=== PATIENT | female | born 1940 | race Caucasian/White ===

== ENCOUNTER 2022-06-18 16:38 | Inpatient (IN) ==
--- NOTE | 2022-06-18 16:46 | ED Triage Note ---
Date of Service June 18, 2022 History of Present Illness This patient was briefly evaluated while in triage. An abbreviated physical exam was performed. This patient is a 81-year-old Female that is referred by PCP. She notes her heart is racing. She was there for routine checkup/wellness visit. No CP or dyspnea. Physical Exam GENERAL: 81 year old female. In no acute distress. SKIN: No lesions or rashes. HEART: IRRR LUNGS: Clear to auscultation. NEURO: Alert and oriented. No deficits. MUSCULOSKELETAL: No deformities to inspection of the extremities. PSYCH: Patient is pleasant and answers all questions appropriately. Initial orders for labs and / or imaging were placed and patient was placed in the waiting area until a bed is available. Please see further documentation for the full ED course.
[2022-06-18 18:18] LABS: Basophils # (auto) 0.06 K/uL (0-0.2); Basophils % (auto) 0.7 %; Eosinophils # (auto) 0.27 K/uL (0-0.50); Eosinophils % (auto) 3.2 %; Hematocrit (blood only) 44.2 % (34.1-44.9); Hemoglobin 14.9 g/dl (12.0-16.0); Immature Granulocytes # (auto) 0.02 K/uL (0.00-0.02); Immature Granulocytes % (auto) 0.2 %; Lymphocytes # (auto) 1.82 K/uL (1.2-3.4); Lymphocytes % (auto) 21.3 %; Mean Corpuscular Hemoglobin 33.3 pg (25.0-34.0); Mean Corpuscular Hgb Conc 33.7 g/dL (32.0-36.0); Mean Corpuscular Volume 98.9 fL (80.0-100.0); Mean Platelet Volume 9.2 fL (9.4-12.3); Monocytes # (auto) 0.83 K/uL (0.24-0.82); Monocytes % (auto) 9.7 %; Neutrophils # (auto) 5.55 K/uL (1.4-6.5); Neutrophils % (auto) 64.9 %; Platelet Count 228 K/uL (130-400); Red Blood Count 4.47 M/uL (3.93-5.22); White Blood Count 8.55 K/ul (4.8-10.8)
[2022-06-18] MEDS ORDERED: SODIUM CHLORIDE 0.9% 500 ML IV ONE (18:22)
[2022-06-18] MEDS ORDERED: dilTIAZem HCl 5 MG/ML 5 ML VIAL IV STA ×3 (18:22→19:50)
--- NOTE | 2022-06-18 18:28 | Emergency Department Note ---
Impression & Plan Atrial fibrillation with rapid ventricular response, Elevated troponin I level ED Provider Note NAME: HONORIO KHAN AGE: 81 SEX: F : 1940 ARRIVES VIA: Walk-In INFORMANT: Patient, ED PROVIDER(S): Brice Liang DO CHIEF COMPLAINT: Palpitations HPI: The patient is an 81-year-old female who has a history of hypertension who presented to the emergency department at the request of her primary care physician. The patient states that she went to see her primary care physician today for a well check. She is not feeling bad at all. She denies having any chest pain or difficulty breathing. She denies having any shortness of breath with exertion. The patient states that when her family doctor listen to her heart she was noted to be in a dysrhythmia. She was sent to the emergency department for further evaluation. She denies having any headache. She denies having any falls. She has no history of thyroid dysfunction. She states that she has been eating and drinking normally. The patient states she has no hi story of atrial fibrillation specifically. She states that she has been able to ambulate and walk without any difficulty. She has no history of stroke. ROS: See above HPI for pertinent positives & negatives. A total of 10 systems reviewed and were otherwise negative. PAST MEDICAL HISTORY: See Below PAST SURGICAL HISTORY: See Below FAMILY HISTORY: See Below SOCIAL HISTORY: See Below HOME MEDICATIONS: See Below ALLERGIES: See Below VITALS: See Below PHYSICAL EXAMINATION: GENERAL: Patient is awake alert in no acute distress patient is resting comfortably and showing no signs of anxiety EYES: The conjunctivae are clear. The pupils are round and reactive. EARS, NOSE, MOUTH AND THROAT: The nose is without any evidence of any deformity. NECK: The neck is nontender and supple. RESPIRATORY: Normal respiratory effort is noted there is no evidence of wheezing rhonchi or rales CARDIOVASCULAR: Tachycardic and irregular heart sounds were noted auscultation. There is no definite murmur. GASTROINTESTINAL: The abdomen is soft. Abdomen is nontender. MUSCULOSKELETAL/EXTREMITIES: There is no evidence of gross deformity full range of motion is noted in the hips and shoulders. SKIN: There is no obvious evidence of any rash. There are no petechiae, pallor or cyanosis noted. NEUROLOGIC: Patient is awake alert and oriented x3 MEDICAL DECISION MAKING: The patient is an 81-year-old female who presented to the emergency department for an evaluation of palpitations. The patient had very minimal symptoms and was evaluated by her primary care physician today. She was noted to have irregular and fast heart sounds. She was sent to the emergency department for further evaluation. She appears to have atrial fibrillation with RVR. I discussed the patient's laboratory and radiographic studies with her. She was treated with IV fluids and IV Cardizem in the emergency department. Her rate improved but she continued to have RVR with atrial fibrillation. Given this is a new diagnosis for the patient I discussed her condition with the on-call [facility] hospitalist. They have agreed to evaluate the patient in the [facility] department for further management and disposition. Likely the patient will require further work-up as well as the addition of anticoagulants. I will defer this to the admitting team. Triage Nursing notes reviewed. Prior medical records reviewed Vital Signs: reviewed and remarkable for tachycardia and hypertension. Differential diagnosis: Premature contractions, electrolyte abnormality, cardiac dysrhythmia, thyroid dysfunction, pulmonary embolism, infection, gastrointestinal, as well as other pathologies. ER treatment provided: See below Diagnostics interpreted by me: ECG: EKG was obtained in the emergency department. My interpretation is atrial fibrillation at 141 bpm. There was no ectopy. Nonspecific ST segment abnormalities were noted. No previous tracing was available. Cardiac Monitoring: An order was placed for continuous cardiac monitoring. The monitor shows a rate of 127 bpm with atrial fibrillation with RVR. Laboratory studies: As stated above and show below. Imaging studies: See below Consultation(s): I discussed this case with Dr. Moreau who is on-call for the [facility]. ED COURSE: Procedures: none Critical Care: I have personally spent greater than 55 minutes of critical care time in the direct management of this patient. This includes bedside care, interpretation of diagnostic studies, and testing, discussion with consultants, patient, and family members, and other required patient management activities. This 55 minutes is in excess of all separately billable procedures. Past Med/Surg History Medical History Anxiety Arthritis Environmental allergies History of COVID-19 04/29/21 (SYMPTOMS>NASAL CONGESTION/HEADACHE/CHILLS) ALL SYMPTOMS RESOLVED History of irregular heartbeat History of skin cancer Hypertension Surgical History H/O shoulder surgery LEFT H/O sinus surgery X 3 History of appendectomy History of colonoscopy History of right cataract surgery History of tooth extraction Family History Other No family history of adverse response to anesthesia Social History Smoking Status: Never smoker Second Hand Exposure: No; Hx Alcohol Use: Yes Alcohol type: wine Preferred Language: Mac[place] Communication Ability: Effective [place] [employer] Required: No Beliefs That Will Affect Care: None Current Living Situation: Spouse Feels Safe at Home: Yes Assistive Devices: None Allergies Allergies Allergy/AdvReac Type Severity Reaction Status Date / Time clams Allergy Intermediate SWOLLEN Verified 06/18/22 20:45 EYES/ITCHING SKIN Penicillins Allergy Intermediate RED, Verified 06/18/22 20:45 SWOLLEN, CRUSTY EYES soy Allergy Intermediate RED, Verified 06/18/22 20:45 SWOLLEN, CRUSTY EYES Home Meds Home Medications Medication Instructions Recorded Confirmed atorvastatin 40 mg tablet 40 mg PO HS 03/30/19 06/18/22 furosemide 20 mg tablet (Lasix) 20 mg PO QAM 03/30/19 06/18/22 losartan 100 mg tablet 100 mg PO QA 03/30/19 06/18/22 buspirone 5 mg tablet 5 mg PO QAM 05/10/21 06/18/22 metoprolol succinate 50 mg 125 mg PO QAM 05/10/21 06/18/22 tablet,extended release 24 hr cetirizine 10 mg tablet (Zyrtec) 10 mg PO DAILY 06/18/22 06/18/22 multivitamin 1 tab PO DAILY 06/18/22 06/18/22 Results & Data (ED) Vital Signs Vital Signs - 24 hr 06/18/22 16:42 06/18/22 18:07 06/18/22 18:13 Temperature 36.3 C L Temperature Source Temporal Artery Scan Pulse Rate 143 H 144 H Pulse Rate [Apical] Pulse Rate from SpO2 Sensor 146 H Pulse Rhythm [Apical] Respiratory Rate 16 26 H Respiratory Effort / Characteristics Respiratory Depth Respiratory Pattern Blood Pressure 193/123 H 180/139 H Blood Pressure [Left Arm] Blood Pressure Mean 146 152 Blood Pressure Mean [Left Arm] Blood Pressure Position [Left Arm] Pulse Oximetry 97 93 Oxygen Delivery Method Room Air Sepsis Recent Fever Within 48 Hours No Sepsis New/Unexplained Change in Mental Status N/A Sepsis Action Taken by Nursing No Action Required 06/18/22 18:13 06/18/22 18:31 06/18/22 18:31 Temperature Temperature Source Pulse Rate 145 H 130 H Pulse Rate [Apical] 130 H Pulse Rate from SpO2 Sensor 152 H Pulse Rhythm [Apical] Respiratory Rate 20 16 16 Respiratory Effort / Characteristics Non-Labored Respiratory Depth Normal Respiratory Pattern Regular Blood Pressure Blood Pressure [Left Arm] 180/139 H Blood Pressure Mean Blood Pressure Mean [Left Arm] 152 Blood Pressure Position [Left Arm] Lying Pulse Oximetry 96 95 95 Oxygen Delivery Method Room Air Room Air Sepsis Recent Fever Within 48 Hours Sepsis New/Unexplained Change in Mental Status Sepsis Action Taken by Nursing 06/18/22 18:45 06/18/22 18:36 06/18/22 18:45 Temperature Temperature Source Pulse Rate 124 H 124 H Pulse Rate [Apical] 120 H Pulse Rate from SpO2 Sensor Pulse Rhythm [Apical] Irregular Respiratory Rate 16 Respiratory Effort / Characteristics Non-Labored Respiratory Depth Normal Respiratory Pattern Regular Blood Pressure 161/116 H 172/115 H Blood Pressure [Left Arm] 172/115 H Blood Pressure Mean 131 134 Blood Pressure Mean [Left Arm] 134 Blood Pressure Position [Left Arm] Lying Pulse Oximetry 94 94 94 Oxygen Delivery Method Room Air Sepsis Recent Fever Within 48 Hours Sepsis New/Unexplained Change in Mental Status Sepsis Action Taken by Nursing 06/18/22 18:45 06/18/22 19:00 06/18/22 19:01 Temperature Temperature Source Pulse Rate 135 H 118 H Pulse Rate [Apical] Pulse Rate from SpO2 Sensor 126 H 123 H Pulse Rhythm [Apical] Respiratory Rate 23 25 H Respiratory Effort / Characteristics Respiratory Depth Respiratory Pattern Blood Pressure 161/104 H Blood Pressure [Left Arm] Blood Pressure Mean 123 Blood Pressure Mean [Left Arm] Blood Pressure Position [Left Arm] Pulse Oximetry 93 94 Oxygen Delivery Method Sepsis Recent Fever Within 48 Hours Sepsis New/Unexplained Change in Mental Status Sepsis Action Taken by Nursing 06/18/22 19:01 06/18/22 19:21 06/18/22 19:30 Temperature Temperature Source Pulse Rate 128 H 133 H 107 H Pulse Rate [Apical] Pulse Rate from SpO2 Sensor 142 H 109 H Pulse Rhythm [Apical] Respiratory Rate 14 25 H Respiratory Effort / Characteristics Respiratory Depth Respiratory Pattern Blood Pressure 161/108 H 180/127 H Blood Pressure [Left Arm] Blood Pressure Mean 125 144 Blood Pressure Mean [Left Arm] Blood Pressure Position [Left Arm] Pulse Oximetry 95 94 95 Oxygen Delivery Method Sepsis Recent Fever Within 48 Hours Sepsis New/Unexplained Change in Mental Status Sepsis Action Taken by Nursing 06/18/22 19:45 06/18/22 19:58 06/18/22 20:00 Temperature Temperature Source Pulse Rate 130 H 120 H 96 H Pulse Rate [Apical] Pulse Rate from SpO2 Sensor 123 H 115 H Pulse Rhythm [Apical] Respiratory Rate 16 25 H 19 Respiratory Effort / Characteristics Respiratory Depth Respiratory Pattern Blood Pressure 163/127 H 186/158 H 169/126 H Blood Pressure [Left Arm] Blood Pressure Mean 139 167 140 Blood Pressure Mean [Left Arm] Blood Pressure Position [Left Arm] Pulse Oximetry 95 94 96 Oxygen Delivery Method Sepsis Recent Fever Within 48 Hours Sepsis New/Unexplained Change in Mental Status Sepsis Action Taken by Nursing 06/18/22 20:16 06/18/22 20:30 06/18/22 20:30 Temperature Temperature Source Pulse Rate 103 H 110 H Pulse Rate [Apical] Pulse Rate from SpO2 Sensor 110 H Pulse Rhythm [Apical] Respiratory Rate 22 21 Respiratory Effort / Characteristics Respiratory Depth Respiratory Pattern Blood Pressure 148/103 H 161/110 H Blood Pressure [Left Arm] Blood Pressure Mean 118 127 Blood Pressure Mean [Left Arm] Blood Pressure Position [Left Arm] Pulse Oximetry 96 96 Oxygen Delivery Method Sepsis Recent Fever Within 48 Hours Sepsis New/Unexplained Change in Mental Status Sepsis Action Taken by Nursing 06/18/22 20:45 06/18/22 21:00 06/18/22 21:00 Temperature Temperature Source Pulse Rate 110 H 122 H Pulse Rate [Apical] Pulse Rate from SpO2 Sensor 116 H 103 H Pulse Rhythm [Apical] Respiratory Rate 22 31 H Respiratory Effort / Characteristics Respiratory Depth Respiratory Pattern Blood Pressure 154/125 H Blood Pressure [Left Arm] Blood Pressure Mean 134 Blood Pressure Mean [Left Arm] Blood Pressure Position [Left Arm] Pulse Oximetry 94 96 Oxygen Delivery Method Sepsis Recent Fever Within 48 Hours Sepsis New/Unexplained Change in Mental Status Sepsis Action Taken by Nursing 06/18/22 21:15 06/18/22 21:15 06/18/22 21:30 Temperature Temperature Source Pulse Rate 116 H Pulse Rate [Apical] Pulse Rate from SpO2 Sensor 108 H Pulse Rhythm [Apical] Respiratory Rate 20 Respiratory Effort / Characteristics Respiratory Depth Respiratory Pattern Blood Pressure 139/109 H 161/101 H Blood Pressure [Left Arm] Blood Pressure Mean 119 121 Blood Pressure Mean [Left Arm] Blood Pressure Position [Left Arm] Pulse Oximetry 95 Oxygen Delivery Method Sepsis Recent Fever Within 48 Hours Sepsis New/Unexplained Change in Mental Status Sepsis Action Taken by Nursing 06/18/22 21:30 06/18/22 21:47 06/18/22 22:00 Temperature Temperature Source Pulse Rate 130 H 141 H 127 H Pulse Rate [Apical] Pulse Rate from SpO2 Sensor 124 H Pulse Rhythm [Apical] Respiratory Rate 20 22 23 Respiratory Effort / Characteristics Respiratory Depth Respiratory Pattern Blood Pressure 157/107 H 178/153 H Blood Pressure [Left Arm] Blood Pressure Mean 123 161 Blood Pressure Mean [Left Arm] Blood Pressure Position [Left Arm] Pulse Oximetry 96 94 96 Oxygen Delivery Method Sepsis Recent Fever Within 48 Hours Sepsis New/Unexplained Change in Mental Status Sepsis Action Taken by [facility] Medications Current Medication List: was personally reviewed by me Laboratory Data Attestation: I reviewed the patient's lab results. Result diagrams: 06/18/22 18:00 06/18/22 18:00 Lab Results 06/18/22 06/18/22 06/18/22 Range/Units 18:00 18:00 18:00 WBC 8.55 (4.8-10.8) K/ul RBC 4.47 (3.93-5.22) M/uL Hgb 14.9 (12.0-16.0) g/dl Hct 44.2 (34.1-44.9) % MCV 98.9 (80.0-100.0) fL MCH 33.3 (25.0-34.0) pg MCHC 33.7 (32.0-36.0) g/dL RDW Std Deviation 47.0 H (36.4-46.3) fL RDW Coeff of Ander 13.0 (11.5-14.5) % Plt Count 228 (130-400) K/uL MPV 9.2 L (9.4-12.3) fL Immature Gran % (Auto) 0.2 % Neut % (Auto) 64.9 % Lymph % (Auto) 21.3 % [place] % (Auto) 9.7 % Eos % (Auto) 3.2 % Baso % (Auto) 0.7 % Neut # (Auto) 5.55 (1.4-6.5) K/uL Lymph # (Auto) 1.82 (1.2-3.4) K/uL [place] # (Auto) 0.83 H (0.24-0.82) K/uL Eos # (Auto) 0.27 (0-0.50) K/uL Baso # (Auto) 0.06 (0-0.2) K/uL Immature Gran # (Auto) 0.02 (0.00-0.02) K/uL PT 11.1 (9.0-12.0) Seconds INR 1.0 (0.9-1.1) APTT 26.9 (21.0-31.0) Seconds PTT Ratio 1.0 Sodium 139 (136-145) mmol/L Potassium 4.3 (3.5-5.1) mmol/L Chloride 103 (98-107) mmol/L Carbon Dioxide 26 (21-32) mmol/L Anion Gap 10 (3-11) BUN 19 (6-23) mg/dl Creatinine 0.89 (0.6-1.2) mg/dl Est Cr Clr Drug Dosing 51.8 ml/min Est GFR ( Amer) 70.9 ml/min Est GFR (Non-Af Amer) 61.2 ml/min BUN/Creatinine Ratio 21.3 H (10-20) Glucose 118 H (70-99(Fasting)) mg/dl Calcium 9.8 (8.5-10.1) mg/dl Magnesium 1.7 (1.7-2.4) mg/dl Total Bilirubin 0.6 (0.2-1.0) mg/dl AST 17 (13-39) U/L ALT 14 (7-52) U/L Alkaline Phosphatase 70 (34-104) U/L Troponin I High Sens 32.8 H (0-14) pg/ml Total Protein 7.6 (6.0-8.3) gm/dl Albumin 4.7 (3.4-5.0) gm/dl Globulin 2.9 (2.5-4.0) gm/dl Albumin/Globulin Ratio 1.6 (0.9-2) TSH (0.300-4.500) uIu/ml Urine Color Urine Appearance (Clear) Urine pH (4.5-7.5) Ur Specific [place] (1.000-1.030) Urine Protein (Negative) Urine Glucose (UA) (Negative) Urine Ketones (Negative) Urine Blood (Negative) Urine Nitrite (Negative) Urine Bilirubin (Negative) Urine Urobilinogen (Negative) Ur Leukocyte Esterase (Negative) Urine WBC (Auto) (0-5) /hpf Urine RBC (Auto) (0-4) /hpf U Hyaline Cast (Auto) (0-5) /lpf U Epithel Cells (Auto) (0-5) /lpf Urine Bacteria (Auto) (Negative) SARS-CoV-2, RNA, NAAT (NEGATIVE) 06/18/22 06/18/22 06/18/22 Range/Units 18:00 18:34 22:10 WBC (4.8-10.8) K/ul RBC (3.93-5.22) M/uL Hgb (12.0-16.0) g/dl Hct (34.1-44.9) % MCV (80.0-100.0) fL MCH (25.0-34.0) pg MCHC (32.0-36.0) g/dL RDW Std Deviation (36.4-46.3) fL RDW Coeff of Ander (11.5-14.5) % Plt Count (130-400) K/uL MPV (9.4-12.3) fL Immature Gran % (Auto) % Neut % (Auto) % Lymph % (Auto) % [place] % (Auto) % Eos % (Auto) % Baso % (Auto) % Neut # (Auto) (1.4-6.5) K/uL Lymph # (Auto) (1.2-3.4) K/uL [place] # (Auto) (0.24-0.82) K/uL Eos # (Auto) (0-0.50) K/uL Baso # (Auto) (0-0.2) K/uL Immature Gran # (Auto) (0.00-0.02) K/uL PT (9.0-12.0) Seconds INR (0.9-1.1) APTT (21.0-31.0) Seconds PTT Ratio Sodium (136-145) mmol/L Potassium (3.5-5.1) mmol/L Chloride (98-107) mmol/L Carbon Dioxide (21-32) mmol/L Anion Gap (3-11) BUN (6-23) mg/dl Creatinine (0.6-1.2) mg/dl Est Cr Clr Drug Dosing ml/min Est GFR ( Amer) ml/min Est GFR (Non-Af Amer) ml/min BUN/Creatinine Ratio (10-20) Glucose (70-99(Fasting)) mg/dl Calcium (8.5-10.1) mg/dl Magnesium (1.7-2.4) mg/dl Total Bilirubin (0.2-1.0) mg/dl AST (13-39) U/L ALT (7-52) U/L Alkaline Phosphatase (34-104) U/L Troponin I High Sens (0-14) pg/ml Total Protein (6.0-8.3) gm/dl Albumin (3.4-5.0) gm/dl Globulin (2.5-4.0) gm/dl Albumin/Globulin Ratio (0.9-2) TSH 2.549 (0.300-4.500) uIu/ml Urine Color Yellow Urine Appearance Clear (Clear) Urine pH 6.5 (4.5-7.5) Ur Specific [place] 1.013 (1.000-1.030) Urine Protein Negative (Negative) Urine Glucose (UA) Negative (Negative) Urine Ketones Trace H (Negative) Urine Blood Negative (Negative) Urine Nitrite Negative (Negative) Urine Bilirubin Negative (Negative) Urine Urobilinogen Negative (Negative) Ur Leukocyte Esterase 1+ H (Negative) Urine WBC (Auto) 10-30 H (0-5) /hpf Urine RBC (Auto) 0-4 (0-4) /hpf U Hyaline Cast (Auto) 0 (0-5) /lpf U Epithel Cells (Auto) >30 H (0-5) /lpf Urine Bacteria (Auto) Negative (Negative) SARS-CoV-2, RNA, NAAT NEGATIVE (NEGATIVE) Administered Medications Discontinued Medications Diltiazem HCl (Diltiazem Hcl 5 Mg/Ml 5 Ml Vial) 10 mg IV NOW STA Stop: 06/18/22 18:23 Last Admin: 06/18/22 18:26 Dose: 10 mg Documented By: SR Co-signed By: CARLA Diltiazem HCl (Diltiazem Hcl 5 Mg/Ml 5 Ml Vial) 10 mg IV NOW STA Stop: 06/18/22 19:11 Last Admin: 06/18/22 19:14 Dose: 10 mg Documented By: HAYES Co-signed By: WAYNE Diltiazem HCl (Diltiazem Hcl 5 Mg/Ml 5 Ml Vial) 10 mg IV NOW STA Stop: 06/18/22 19:51 Last Admin: 06/18/22 19:55 Dose: 10 mg Documented By: HAYES Co-signed By: HANS Sodium Chloride (Nss) 500 mls @ 999 mls/hr IV .Q31M ONE Stop: 06/18/22 18:52 Last Infusion: 06/18/22 19:09 Dose: 0 mls/hr Documented By: Admin: 06/18/22 18:25 Dose: 999 mls/hr Documented By: SR Imaging Data Radiologist's Impression: Chest X-Ray 06/18/22 16:46 XR chest 1V portable HISTORY: Tachycardia COMPARISON: None. FINDINGS: The cardiac silhouette is mildly enlarged. There is a mildly tortuous thoracic aorta. No focal lung consolidations to suggest a pneumonia. No evidence for pulmonary edema. No pleural effusions. No pneumothorax. Old posttraumatic changes at the left humeral head. IMPRESSION: Mild cardiomegaly. Otherwise, no acute process within the chest. ACT 112: Negative or not required by law. Electronically signed by: Derek Jordan M.D. 06/18/2022 6:42 PM Discharge Plan Visit Data Chief Complaint: Hypertension Stated Complaint: REFERRED BY DOCTOR,RACING HEART, HIGH BLOOD PRESSU ED Provider: Brice Liang Discharge Problem: Atrial fibrillation with rapid ventricular response, Elevated troponin I level Patient Disposition: Being Evaluated by Hospitalist Forms Stand Alone Forms: My [facility] [employer] Prescriptions Prescriptions: No Action atorvastatin 40 mg Tablet 40 mg PO HS Label Comments: HS furosemide [Lasix] 20 mg Tablet 20 mg PO QAM losartan 100 mg Tablet 100 mg PO QAM multivitamin Tablet 1 tab PO DAILY cetirizine [Zyrtec] 10 mg Tablet 10 mg PO DAILY buspirone 5 mg Tablet 5 mg PO QAM metoprolol succinate 50 mg Tablet Extended Release 24 Hr 125 mg PO QAM Rx Instructions: TAKES 2 1/2 TABS Referrals Referrals: Triny Mckenna MD [Primary Care Provider] -
[2022-06-18 18:32] LABS: Partial Thromboplastin Time 26.9 Seconds (21.0-31.0); Prothrombin Time 11.1 Seconds (9.0-12.0)
--- NOTE | 2022-06-18 18:43 | XRay Report ---
XR chest 1V portable HISTORY: Tachycardia COMPARISON: None. FINDINGS: The cardiac silhouette is mildly enlarged. There is a mildly tortuous thoracic aorta. No fo bobby lung consolidations to suggest a pneumonia. No evidence for pulmonary edema. No pleural effusions . No pneumothorax. Old posttraumatic changes at the left humeral head. IMPRESSION: Mild cardiomegaly. Otherwise, no acute process within the chest. ACT 112: Negative or not required by law. Electronically signed by: Derek Jordan M.D. 06/18/2022 6:42 PM
[2022-06-18 18:53] LABS: Troponin I High Sensitivity 32.8 pg/ml (0-14)
[2022-06-18 19:18] LABS: Albumin Globulin Ratio 1.6 (0.9-2); Albumin Level 4.7 gm/dl (3.4-5.0); BUN Creatinine Ratio 21.3 (10-20); Bilirubin,Total 0.6 mg/dl (0.2-1.0); Calcium 9.8 mg/dl (8.5-10.1); Creatinine Clr Calc Pharmacy 51.8 ml/min; Est GFR (African American) 70.9 ml/min; Est GFR (Non-African American) 61.2 ml/min; Globulin 2.9 gm/dl (2.5-4.0); Magnesium 1.7 mg/dl (1.7-2.4); Potassium 4.3 mmol/L (3.5-5.1); Total Protein 7.6 gm/dl (6.0-8.3)
[2022-06-18 22:27] LABS: Appearance Urine Clear (Clear); Bacteria Urine Automated Negative (Negative); Bilirubin Urine Negative (Negative); Blood Urine Negative (Negative); Cast Urine Automated 0 /lpf (0-5); Color Urine Yellow; Epithelial Cell Urine Auto >30 /lpf (0-5); Glucose Urine UA Negative (Negative); Ketones Urine Trace (Negative); Leukocyte Esterase Urine 1+ (Negative); Nitrite Urine Negative (Negative); Protein Urine Negative (Negative); RBC Urine Automated 0-4 /hpf (0-4); Specific Gravity Urine 1.013 (1.000-1.030); Urobilinogen Urine Negative (Negative); pH Urine 6.5 (4.5-7.5)
[2022-06-18] MEDS ORDERED: STAT IV Infusion **Titration per Protocol STA (22:42)
[2022-06-18] MEDS: dilTIAZem HCL 125 MG in DEXTROSE 5% 100 ML IV SCH (23:15)
--- NOTE | 2022-06-19 00:01 | History and Physical Report ---
DATE OF ADMISSION: 06/18/2022. CHIEF COMPLAINT: Rapid AFib. HISTORY OF PRESENT ILLNESS: An 81-year-old female with past medical history significant for hyperlipidemia, prediabetes, allergic rhinitis, hypertension, primary osteoarthritis, presents with rapid atrial fibrillation. The patient went to family doctor for a wellness check when she was found to be in rapid AFib and was sent to the hospital, requiring a few doses of diltiazem . Her heart rate was 140s when she came in. Currently, resting comfortably, hemodynamically stable. The patient did not feel any palpitations or any chest pain and she even walked her dog 2 to 3 miles in the morning, did not have any symptoms. No using of [id number] medications. She is on metoprolol succinate. She says she did miss the medications. Denies any headache. No blurred vision, double vision. No earache. She has some runny nose from allergies. No sore throat. No cough. Appetite is okay. No difficulty swallowing. No chest pain, no shortness of breath, no nausea, no vomiting, no abdominal pain. Normal bowel and bladder movements. No swelling in the legs. ALLERGIES: CLAMS, PENICILLINS, SOY. PAST MEDICAL HISTORY: As mentioned above. PAST SURGICAL HISTORY: Appendectomy, colonoscopy, cataract surgery, shoulder surgery, sinus surgery, endovenous ablation of incompetent vein on the right side. MEDICATIONS: The patient is on atorvastatin 40 mg p.o. at bedtime, buspirone 5 mg p.o. a.m., Zyrtec 10 mg p.o. daily, Lasix 20 mg p.o. a.m., losartan 100 mg p.o. daily, metoprolol succinate 125 mg p.o. a.m., multivitamin 1 tablet p.o. daily. FAMILY HISTORY: Significant for father had heart disease, hypertension, mother had hypertension, pancreatic cancer. SOCIAL HISTORY: , no smoking, alcohol occasional. No drug use. REVIEW OF SYSTEMS: As per HPI. Rest of review of systems is negative. PHYSICAL EXAMINATION: GENERAL: The patient is of moderate build, not in acute distress. VITAL SIGNS: Temperature 36.3, pulse 127, respiratory rate 23, blood pressure 178/153, oxygen 96% on room air. HEENT: Pupils equal, round and reactive to light. Oral mucosa moist. NECK: No JVD or neck masses. CARDIOVASCULAR: S1 and S2 heard, tachycardia, irregular rhythm. No murmurs. RESPIRATORY SYSTEM: Normal AP diameter. No accessory muscle use. No wheezing, no crackles. ABDOMEN: Soft, bowel sounds present, nontender, no distention. CENTRAL NERVOUS SYSTEM: Cranial nerves II-XII grossly intact, nonfocal. EXTREMITIES: No edema, no erythema. LABORATORY DATA: WBC 8.5, hemoglobin 14.9, hematocrit 44.2, platelets 228. PT 11.1, INR 1, APTT 26.9. Sodium 139, potassium 4.3, chloride 103, bicarb 26, BUN 19, creatinine 0.8, serum glucose 118, calcium 9.8, magnesium 1.7, total bilirubin 0.6, AST 17, ALT 14, alkaline phosphatase 70. Troponin I high sensitivity 22.8. TSH 2.5. Urinalysis, +1 leukocyte esterase, bacteria negative. SARS-CoV-2 rapid test negative. IMAGING DATA: Chest x-ray, no acute findings, mild cardiomegaly. EKG: AFib with rapid ventricular response at a rate of 141. No acute st changes seen. ASSESSMENT AND PLAN: This is an 81-year-old female who presents with rapid atrial fibrillation. 1. Rapid atrial fibrillation, new onset: Started on Cardizem drip, IV heparin. Continue home metoprolol, monitor in tele floor, n.p.o. after midnight. Echocardiogram, serial cardiac enzymes and consult cardiology in the a.m. 2. Hypertension: Continue losartan and metoprolol and on lasix.. Currently, getting Cardizem. Monitor the blood pressure. 3. History of hyperlipidemia: Continue statin. 4. Allergic rhinitis: On Zyrtec. 5. History of prediabetes: We will follow the HbA1c levels. Currently n.p.o. 6. Deep venous thrombosis prophylaxis: On IV heparin. DISPOSITION: Closely monitor in the tele floor. Level 1 full code. Expect to discharge home and follow with family doctor. Job ID: [id number] [facility]ITALChato
[2022-06-19] MEDS ORDERED: NITROGLYCERIN SL 0.4 MG/TAB TAB SL PRN (01:24)
[2022-06-19] MEDS ORDERED: HEPARIN SODIUM/DEXTROSE 25,000 UNITS/500 ML BAG IV SCH (01:24)
[2022-06-19] MEDS ORDERED: ACETAMINOPHEN 325 MG TAB PO PRN (01:24)
[2022-06-19] MEDS ORDERED: POLYETHYLENE (MIRALAX) 17 GM PACK PO PRN (01:24)
[2022-06-19] MEDS ORDERED: Heparin IV Adult Wt-Based Standard *NO* Bolus Protocol IV STA (01:32)
[2022-06-19] MEDS: ATORVASTATIN 40 MG TAB PO SCH ×2 (03:36→21:22)
[2022-06-19 06:11] LABS: Basophils # (auto) 0.04 K/uL (0-0.2); Basophils % (auto) 0.5 %; Eosinophils # (auto) 0.35 K/uL (0-0.50); Eosinophils % (auto) 4.6 %; Hematocrit (blood only) 38.3 % (34.1-44.9); Hemoglobin 13.2 g/dl (12.0-16.0); Immature Granulocytes # (auto) 0.02 K/uL (0.00-0.02); Immature Granulocytes % (auto) 0.3 %; Lymphocytes # (auto) 1.58 K/uL (1.2-3.4); Lymphocytes % (auto) 20.8 %; Mean Corpuscular Hemoglobin 33.1 pg (25.0-34.0); Mean Corpuscular Hgb Conc 34.5 g/dL (32.0-36.0); Mean Platelet Volume 9.3 fL (9.4-12.3); Monocytes # (auto) 0.75 K/uL (0.24-0.82); Monocytes % (auto) 9.9 %; Neutrophils # (auto) 4.84 K/uL (1.4-6.5); Neutrophils % (auto) 63.9 %; Platelet Count 202 K/uL (130-400); RDW Coefficient of Variation 12.7 % (11.5-14.5); RDW Standard Deviation 45.1 fL (36.4-46.3); Red Blood Count 3.99 M/uL (3.93-5.22); White Blood Count 7.58 K/ul (4.8-10.8)
[2022-06-19 06:40] LABS: Troponin I High Sensitivity 23.2 pg/ml (0-14)
[2022-06-19 07:21] LABS: BUN Creatinine Ratio 19.7 (10-20); Calcium 8.9 mg/dl (8.5-10.1); Creatinine Clr Calc Pharmacy 75.5 ml/min; Est GFR (African American) 99.2 ml/min; Est GFR (Non-African American) 85.6 ml/min; Magnesium 1.6 mg/dl (1.7-2.4); Potassium 3.4 mmol/L (3.5-5.1)
[2022-06-19 07:35] LABS: Estimated Average Glucose 117 mg/dl; Hemoglobin A1C 5.7 % (4.5-5.6)
--- NOTE | 2022-06-19 07:45 | Cardiology Consultation ---
Date of Consultation June 19, 2022 Assessment & Plan (1) Atrial fibrillation with rapid ventricular response: (2) Elevated troponin: (3) Hypertension: Plan 81 year old female with newly discovered AFIB, unknown duration. Patient asymptomatic. The pathophysiology of atrial fib was discussed with the patient in detail. Discussed rate vs rhythm management. Echo pending. -Given lack of symptoms will first attempt rate control until echocardiogram results are received. Should heart rates remain elevated can consider ADAMARIS guided DCCV tomorrow morning. Will plan to make NPO at midnight. Okay to eat today. -For now, recommend increasing Metoprolol to 150 mg daily will given an additional 25 mg this am. -Restart Diltazem gtt as ordered. -Currently on Heparin infusion- continue. Future considerations of transitioning to Eliquis vs Coumadin. Will consult case management to investigate cost of Eliquis for this patient. -Continue to trend renal function. Replace potassium for a goal of 4.0 (40 meq given this am) and a mag goal of 2.0 (replaced this am) -Recommend outpatient sleep medicine referral for screening of SHANIA as a cause of her AFIB. Can also consider an outpatient nuclear stress to rule out ischemic cause. Case discussed with Dr. Kendall- will follow. Supervising Physician Co-Signing Physician Notes Supervising Physician Attestation: I have personally performed a history and physical examination on the patient. I agree with the physician assistant account executive's findings and plan as documented with the following additions. Subjective: Patient asymptomatic. Since initiation of IV diltiazem, ventricular rates have improved from 130 bpm down to 100 bpm. Exam: Cardiovascular tachycardic, regular rhythm, no murmurs, no edema Data: Potassium 3.4 EKG performed 06/19/2022: Atrial fibrillation at 111 bpm, age-indeterminate septal infarction pattern noted in lead V2. Mild nonspecific T wave flattening. Echocardiogram performed today 06/19/2022: Atrial fibrillation with rapid ventricular response present during study LVEF normal 60-65% Mild concentric left ventricular hypertrophy. The left atrium is moderately dilated Moderate aortic valve sclerosis without stenosis present. Mild tricuspid regurgitation Assessment and Plan: Newly recognized atrial fibrillation with rapid ventricular spots. -Patient's last in person visit with primary care provider had been in November, eart rate normal then -She has been on metoprolol for the treatment of hypertension since 2019, with dose having been titrated from 50 mg daily to 125 mg daily over the last few years. -She notes having had a COVID-19 booster about 3 days ago, with no subjective side effects. Her [id number] score is at least 4 for risk factors of being female, hypertension, and age over 75. Agree with heparin for stroke prophylaxis. Potassium has been replaced. Metoprolol succinate dose increased to 150 mg daily, short-term diltiazem infusion. Depending upon patient's course, will discuss rate control and anticoagulation and outpatient follow-up or ADAMARIS cardioversion. Gee Kendall DO History of Present Illness Reason for Consultation: New onset atrial fibrillation- unknown duration Requesting Physician: Francis gonzales Attending Physician: Jan Rasheed MD History of Present Illness 81-year-old female initially seen by her PCP yesterday for a wellness check. At this time she was found to be in rapid atrial fibrillation, heart rates in the 140s. Patient was asymptomatic. She was referred to the emergency department for further care. She was given IV fluids and IV diltiazem. Heart rates improved but she remained in atrial fibrillation. She was started on IV heparin for anticoagulation. EKG 06/18: A. fib with RVR, [address] abnormality Labs: Mild hypokalemia noted, 3.4. Magnesium low, 1.6. High-sensitivity troponin slightly elevated but flat (32.8>>23.2) Chest x-ray: Mild cardiomegaly with no acute processes Echo 06/19: Pending Chart and telemetry reviewed. Patient seen and examined at bedside Tele: AFIB 110-140s Upon entrance into the room patient resting comfortably in bed. No acute concerns. Patient is asymptomatic with her AFIB. No chest pain, sob, or palpitations. No dizziness or recent syncope. Normally very active walks 2-3 miles twice per day with her dog. No exertional symptoms. Good exercise stamina. Denies any prior cardiac history- history of CAD/CO, valvular heart disease, rheumatic fever. Never been tested of SHANIA- does snore, denies daytime fatigue. Past medical history: Hypertension History of hyponatremia on hydrochlorothiazide, leg swelling on amlodipine Dyslipidemia Prediabetes Hx of Peptic ulcer due to excessive ASA use in her 50s. Allergies Allergy/AdvReac Type Severity Reaction Status Date / Time clams Allergy Intermediate SWOLLEN Verified 06/18/22 20:45 EYES/ITCHING SKIN Penicillins Allergy Intermediate RED, Verified 06/18/22 20:45 SWOLLEN, CRUSTY EYES soy Allergy Intermediate RED, Verified 06/18/22 20:45 SWOLLEN, CRUSTY EYES Home Medications Medication Instructions Recorded Confirmed Type atorvastatin 40 mg tablet 40 mg PO HS 03/30/19 06/18/22 History furosemide 20 mg tablet (Lasix) 20 mg PO QAM 03/30/19 06/18/22 History losartan 100 mg tablet 100 mg PO QAM 03/30/19 06/18/22 History buspirone 5 mg tablet 5 mg PO QAM 05/10/21 06/18/22 History metoprolol succinate 50 mg 125 mg PO QAM 05/10/21 06/18/22 History tablet,extended release 24 hr cetirizine 10 mg tablet (Zyrtec) 10 mg PO DAILY 06/18/22 06/18/22 History multivitamin 1 tab PO DAILY 06/18/22 06/18/22 History Patient History Medical History (Updated 06/19/22 @ 07:52 by CHRISTINE Lucero) Anxiety Arthritis Environmental allergies History of COVID-19 04/29/21 (SYMPTOMS>NASAL CONGESTION/HEADACHE/CHILLS) ALL SYMPTOMS RESOLVED History of irregular heartbeat History of skin cancer Hypertension Surgical History H/O shoulder surgery LEFT H/O sinus surgery X 3 History of appendectomy History of colonoscopy History of right cataract surgery History of tooth extraction Family History Other No family history of adverse response to anesthesia Social History Smoking Status: Never smoker Second Hand Exposure: No; Do You Dip or Chew Tobacco: No; Tobacco Cessation Education Requested by Patient: No Hx Alcohol Use: No Hx Substance Use: No Preferred Language: Norwegian Communication Ability: Effective Sociology Research Assistant Required: No Beliefs That Will Affect Care: None Current Living Situation: Spouse Other Information That Helps Us Care for You: No Feels Safe at Home: Yes Assistive Devices: None Review of Systems Review of Systems: All systems reviewed & are unremarkable except as noted in HPI & below Physical Exam Constitutional: WD/WN, vitals as above Eyes: PERRL, conjunctivae normal, anicteric sclerae Neck: normal visual inspection and trachea midline Respiratory: normal respiratory effort, lungs clear to auscultation Cardiovascular: Rate/Rhythm: + tachycardic and + irregularly irregular Heart Sounds: normal S1 and normal S2; no murmur Vessels: normal peripheral pulses; no JVD Extremities: no edema Gastrointestinal (Abdomen): normal bowel sounds, soft, nontender, no hepatosplenomegaly Skin: no rashes, warm and dry Psychiatric: A+Ox3, euthymic affect Results & Data ([facility]) Vital Signs (Past 12 Hours) Vital Signs Temp Pulse Pulse Resp BP BP Pulse Ox 06/19/22 04:45 108 H 23 114/78 93 06/19/22 04:30 126 H 141/93 H 06/19/22 04:15 112 H 18 94 06/19/22 04:15 112 H 18 123/91 94 06/19/22 04:00 115 H 19 150/99 H 93 06/19/22 03:30 104 H 16 95 06/19/22 03:15 106 H 18 144/99 H 94 06/18/22 20:08 36.8 C 102 H 16 144/99 H 94 06/19/22 03:00 120 H 15 145/97 H 94 06/19/22 02:45 117 H 17 142/107 H 94 06/19/22 02:30 105 H 22 148/109 H 06/19/22 02:15 100 H 22 138/117 H 06/19/22 02:00 121 H 18 136/102 H 92 06/19/22 01:45 109 H 20 132/93 06/19/22 01:30 101 H 19 127/94 91 06/19/22 01:15 111 H 19 123/96 93 06/19/22 01:00 131 H 20 142/106 H 94 06/19/22 00:45 119 H 19 144/99 H 94 06/19/22 00:30 112 H 19 144/114 H 94 06/19/22 01:24 108 H 16 06/19/22 00:15 117 H 16 158/106 H 94 06/19/22 00:00 133 H 21 135/114 H 95 06/18/22 23:45 127 H 21 161/107 H 95 06/18/22 23:17 126 H 23 157/121 H 94 06/18/22 23:00 138 H 26 H 157/119 H 95 06/18/22 22:45 135 H 19 164/138 H 96 06/18/22 22:31 110 H 19 151/123 H 96 06/18/22 22:16 139 H 19 141/118 H 95 06/18/22 22:00 127 H 23 178/153 H 96 06/18/22 21:47 141 H 22 157/107 H 94 06/18/22 21:30 130 H 20 96 06/18/22 21:30 161/101 H 06/18/22 21:15 116 H 20 95 06/18/22 21:15 139/109 H 06/18/22 21:00 122 H 31 H 96 06/18/22 21:00 154/125 H 06/18/22 20:45 110 H 22 94 06/18/22 20:30 110 H 21 96 06/18/22 20:30 161/110 H 06/18/22 20:16 103 H 22 148/103 H 96 06/18/22 20:00 96 H 19 169/126 H 96 06/18/22 19:58 120 H 25 H 186/158 H 94 06/18/22 19:45 130 H 16 163/127 H 95 O2 Del Method 06/19/22 04:45 06/19/22 04:30 06/19/22 04:15 06/19/22 04:15 06/19/22 04:00 06/19/22 03:30 06/19/22 03:15 06/18/22 20:08 Room Air 06/19/22 03:00 Room Air 06/19/22 02:45 06/19/22 02:30 06/19/22 02:15 06/19/22 02:00 06/19/22 01:45 06/19/22 01:30 Room Air 06/19/22 01:15 06/19/22 01:00 06/19/22 00:45 Room Air 06/19/22 00:30 Room Air 06/19/22 01:24 Room Air 06/19/22 00:15 06/19/22 00:00 06/18/22 23:45 06/18/22 23:17 06/18/22 23:00 06/18/22 22:45 06/18/22 22:31 06/18/22 22:16 06/18/22 22:00 06/18/22 21:47 06/18/22 21:30 06/18/22 21:30 06/18/22 21:15 06/18/22 21:15 06/18/22 21:00 06/18/22 21:00 06/18/22 20:45 06/18/22 20:30 06/18/22 20:30 06/18/22 20:16 06/18/22 20:00 06/18/22 19:58 06/18/22 19:45 Laboratory Results Cardiac Enzymes 06/18/22 06/19/22 Range/Units 18:00 05:27 AST 17 (13-39) U/L Troponin I High Sens 32.8 H 23.2 H (0-14) pg/ml Coagulation 06/18/22 06/19/22 Range/Units 18:00 07:42 PT 11.1 (9.0-12.0) Seconds APTT 26.9 49.3 H* (21.0-31.0) Seconds CBC 06/18/22 06/19/22 Range/Units 18:00 05:27 WBC 8.55 7.58 (4.8-10.8) K/ul RBC 4.47 3.99 (3.93-5.22) M/uL Hgb 14.9 13.2 (12.0-16.0) g/dl Hct 44.2 38.3 (34.1-44.9) % Plt Count 228 202 (130-400) K/uL Neut # (Auto) 5.55 4.84 (1.4-6.5) K/uL Lymph # (Auto) 1.82 1.58 (1.2-3.4) K/uL [place] # (Auto) 0.83 H 0.75 (0.24-0.82) K/uL Eos # (Auto) 0.27 0.35 (0-0.50) K/uL Baso # (Auto) 0.06 0.04 (0-0.2) K/uL Comprehensive Metabolic Panel 06/18/22 06/19/22 Range/Units 18:00 05:27 Sodium 139 139 (136-145) mmol/L Potassium 4.3 3.4 L D (3.5-5.1) mmol/L Chloride 103 105 (98-107) mmol/L Carbon Dioxide 26 24 (21-32) mmol/L BUN 19 12 (6-23) mg/dl Creatinine 0.89 0.61 (0.6-1.2) mg/dl Glucose 118 H 126 H (70-99(Fasting)) mg/dl Calcium 9.8 8.9 (8.5-10.1) mg/dl AST 17 (13-39) U/L ALT 14 (7-52) U/L Alkaline Phosphatase 70 (34-104) U/L Total Protein 7.6 (6.0-8.3) gm/dl Albumin 4.7 (3.4-5.0) gm/dl Intake and Output 06/18/22 06/19/22 06/19/22 22:59 06:59 14:59 Intake Total 500 / 514.584 14.584 / 514.584 90.25 / 90.25 Balance 500 / 514.584 14.584 / 514.584 90.25 / 90.25 Intake: IV 500 / 514.584 14.584 / 514.584 90.25 / 90.25 Sodium Chloride 0.9% 500 ml @ 500 / 500 999 mls/hr IV .Q31M ONE Rx#: [id number] dilTIAZem HCL 125 mg In 14.584 / 14.584 90.25 / 90.25 Dextrose 5% 100 ml @ 5 MG/HR 5 mls/hr IV .Q24H [facility] Rx#: [id number] Other: Weight 80.6 kg 83.9 kg Weight Measurement Method [facility] Patient Weight 06/20/22 06:59 Weight 83.9 kg
[2022-06-19] MEDS ORDERED: POTASSIUM CHLORIDE CRTAB 20 MEQ TABCR PO STA (08:19)
[2022-06-19 08:28] LABS: Partial Thromboplastin Ratio 1.8
[2022-06-19] MEDS: MULTIVITAMIN TAB PO SCH (08:45)
[2022-06-19] MEDS: LOSARTAN POTASSIUM 50 MG TAB PO SCH (08:45)
[2022-06-19] MEDS: busPIRone 5 MG TAB PO SCH (08:45)
[2022-06-19] MEDS: FUROSEMIDE 20 MG TAB PO SCH (08:46)
[2022-06-19] MEDS: CETIRIZINE HCL 10 MG TABLET PO SCH (08:46)
[2022-06-19 08:48] LABS: Partial Thromboplastin Time 49.3 Seconds (21.0-31.0)
[2022-06-19] MEDS ORDERED: METOPROLOL SUCC 25MG EXT REL TAB PO ONE (08:53)
[2022-06-19] MEDS ORDERED: METOPROLOL SUCC 25MG EXT REL TAB PO SCH (09:00)
[2022-06-19] MEDS: dilTIAZem HCL 125 MG in DEXTROSE 5% 100 ML IV SCH ×2 (09:13→16:31)
--- NOTE | 2022-06-19 09:18 | Electrocardiogram Report ---
Test Reason : Blood Pressure : / mmHG Vent. Rate : 141 BPM Atrial Rate : 150 BPM P-R Int : 000 ms QRS Dur : 070 ms QT Int : 300 ms P-R-T Axes : 000 027 000 degrees QTc Int : 459 ms Atrial fibrillation with rapid ventricular response Abnormal ECG No previous ECGs available Confirmed by Deshaun Cárdenas ([id number]) on 06/19/2022 9:18:31 AM Referred By: Triny Mckenna Confirmed By:Deshaun Cárdenas
[2022-06-19] MEDS ORDERED: MAGNESIUM SULFATE / D5W 1 GM/100 ML BAG IV ONE (09:24)
--- NOTE | 2022-06-19 13:39 | Communication Note ---
Date of Service: June 19, 2022 Patient reassessed. She remains in atrial fibrillation with rapid ventricular response, rates 94-100 bpm in IV diltiazem infusion at 15 mg/hr. Eliquis $35 / month and she is agreeable to transition to Eliquis. If remains in AF , will plan for ADAMARIS guided CV in am 06/20/22.
--- NOTE | 2022-06-19 13:44 | Electrocardiogram Report ---
Test Reason : Blood Pressure : / mmHG Vent. Rate : 111 BPM Atrial Rate : 111 BPM P-R Int : 000 ms QRS Dur : 072 ms QT Int : 340 ms P-R-T Axes : 000 041 -35 degrees QTc Int : 462 ms Poor data quality, interpretation may be adversely affected Atrial fibrillation with rapid ventricular response Abnormal ECG When compared with ECG of 18-JUN-2022 17:50, No significant change Confirmed by Deshaun Cárdenas ([id number]) on 06/19/2022 1:44:13 PM Referred By: Triny Mckenna Confirmed By:Deshuan Cárdenas
[2022-06-19 15:41] LABS: Partial Thromboplastin Ratio 1.9
[2022-06-19 15:46] LABS: Partial Thromboplastin Time 53.3 Seconds (21.0-31.0)
[2022-06-19] MEDS: METOPROLOL TARTRATE 25 MG TAB PO SCH ×2 (16:31→21:22)
--- NOTE | 2022-06-19 17:48 | Hospitalist Progress Note ---
Date of Service June 19, 2022 Assessment & Plan (1) Atrial fibrillation with rapid ventricular response: Plan: Newly onset atrial fibrillation with rapid ventricular spots. Present on admission after she was found to be in afib with RVR on wellness exam EKG on admission showed afib with RVR Pt was started on Cardizem drip and heparin drip ECHO showed mild concentric LVH [id number] score is at least 4 for risk factors of being female, hypertension, and age over 75. Cardiology on board recommended to increase metoprolol to 150mg Plan for ADAMARIS and cardioversion tomorrow if pt remains in Afib case management checked the cost for eliquis that will be $35 monthly NPO after midnight Continue monitor closely in tele Hypertension: Continue losartan and metoprolol and on lasix.. Continue monitor the blood pressure. History of hyperlipidemia: Continue statin. Allergic rhinitis: On Zyrtec. History of prediabetes: Most recent hba1c 5.7 Continue monitor Deep venous thrombosis prophylaxis: On IV heparin. CODE status FULL code Admission and Anticipated Discharge Date Admission Date: June 18, 2022 Subjective Pt was seen and examined for Afib with RVR Lying in bed with no acute distress with at bedside Pt said that she feels ok, but anxious about the procedure (ADAMARIS) if she does not convert back to NSR Denies any chest pain, palpitation, dizziness and SOB Review of Systems Review of Systems: All systems reviewed & are unremarkable except as noted in Subjective Physical Exam Physical Exam: General- No acute distress Head- atraumatic Eyes- PERRL, EOMI, ENT- oropharynx clear Neck- supple, no JVD Lungs- clear to auscultation Heart- irregular rhythm; no murmur Abdomen- normal bowel sounds, soft, nontender Extremities- no calf tenderness Neuro- alert, oriented x 3; PERRL, EOMI; no facial palsy; no dysarthria Skin- warm & dry Results & Data Results & Data ([facility]) Vital Signs (Past 12 Hours) Vital Signs Pulse Resp BP Pulse Ox O2 Del Method 06/19/22 13:30 93 H 27 H 94 06/19/22 13:30 138/97 06/19/22 13:15 121/98 06/19/22 13:15 105 H 28 H 06/19/22 13:00 88 22 95 06/19/22 13:00 124/90 06/19/22 12:45 127/80 06/19/22 12:45 87 23 06/19/22 12:30 88 17 95 06/19/22 12:30 91 H 18 128/85 96 Room Air 06/19/22 12:15 91 H 129/86 95 Room Air 06/19/22 12:00 94 H 18 136/87 94 Room Air 06/19/22 11:45 96 H 20 117/88 95 Room Air 06/19/22 11:30 103 H 20 133/97 95 Room Air 06/19/22 11:15 104 H 22 123/95 96 Room Air 06/19/22 11:00 100 H 28 H 96 06/19/22 11:00 135/94 06/19/22 10:30 114 H 19 06/19/22 10:30 134/88 06/19/22 10:15 104 H 18 148/89 H 96 Room Air 06/19/22 10:00 126 H 20 132/111 H 94 Room Air 06/19/22 09:30 118 H 20 149/107 H 95 Room Air 06/19/22 09:15 130/109 H 06/19/22 09:15 145 H 26 H 95 06/19/22 09:00 127 H 27 H 06/19/22 08:45 157/102 H 06/19/22 08:45 125 H 30 H 06/19/22 08:30 22 06/19/22 08:30 159/130 H 06/19/22 08:15 145/103 H 06/19/22 08:15 127 H 23 95 06/19/22 08:00 125 H 20 96 06/19/22 08:00 172/118 H 06/19/22 07:30 112 H 20 96 06/19/22 07:30 154/88 H 06/19/22 07:15 167/94 H 06/19/22 07:15 109 H 19 93 06/19/22 07:00 132 H 24 94 06/19/22 07:00 163/100 H
[2022-06-19] MEDS ORDERED: STOP HEPARIN DRIP ORDER SCH (21:00)
[2022-06-19] MEDS: APIXABAN 5 MG TABLET PO SCH (21:21)
[2022-06-20] MEDS: dilTIAZem HCL 125 MG in DEXTROSE 5% 100 ML IV SCH (00:14)
[2022-06-20 06:26] LABS: Hematocrit (blood only) 37.6 % (34.1-44.9); Hemoglobin 12.8 g/dl (12.0-16.0); Mean Corpuscular Hemoglobin 33.4 pg (25.0-34.0); Mean Corpuscular Volume 98.2 fL (80.0-100.0); Mean Platelet Volume 9.1 fL (9.4-12.3); Platelet Count 173 K/uL (130-400); RDW Coefficient of Variation 13.2 % (11.5-14.5); RDW Standard Deviation 47.4 fL (36.4-46.3); Red Blood Count 3.83 M/uL (3.93-5.22); White Blood Count 6.97 K/ul (4.8-10.8)
[2022-06-20 06:39] LABS: Partial Thromboplastin Time 27.7 Seconds (21.0-31.0)
[2022-06-20 06:56] LABS: BUN Creatinine Ratio 15.5 (10-20); Calcium 8.9 mg/dl (8.5-10.1); Creatinine Clr Calc Pharmacy 66.2 ml/min; Est GFR (African American) 93.2 ml/min; Est GFR (Non-African American) 80.4 ml/min
--- NOTE | 2022-06-20 07:28 | Cardiology Progress Note ---
Date of Service June 20, 2022 Assessment & Plan (1) Atrial fibrillation with rapid ventricular response: (2) Elevated troponin: (3) Hypertension: Plan 81 year old female with newly discovered AFIB, unknown duration. Patient was asymptomatic. The pathophysiology of atrial fib was discussed with the patient in detail. Discussed rate vs rhythm management. Echo stable. Patient self converted to NSR/SB on her own 06/20 at 0235. -Maintaining SB on tele, okay to eat. -Will give Metoprolol tartrate 25 mg this am then transition her back to metoprolol succinate 150 mg daily starting this am (increased from her home dose of 125 mg daily). This should be continued at discharge. -[id number] score is at least 4 for risk factors of being female, hypertension, and age over 75. Continue Eliquis 5 mg BID. Patient called and confirmed that Eliquis is stocked at her local [facility] -Recommend outpatient sleep medicine referral for screening of SHANIA as a cause of her AFIB. Can also consider an outpatient nuclear stress to rule out ischemic cause. Case discussed with Dr. Kendall. Rich for discharge from cardiology standpoint. I will arrange for outpatient follow up in 4-6 weeks. Admission and Anticipated Discharge Date Admission Date: June 18, 2022 Supervising Physician Co-Signing Physician Notes Refer to separate attestation addendum. Marquis Kendall, Subjective 81-year-old female initially seen by her PCP yesterday for a wellness check. At this time she was found to be in rapid atrial fibrillation, heart rates in the 140s. Patient was asymptomatic. (Did receive covid booster on ~06/14). She was referred to the emergency department for further care. She was given IV fluids and IV diltiazem. She was started on IV heparin for anticoagulation. EKG 06/18: A. fib with RVR, [address] abnormality 06/19: IV diltiazem titrated up to 15 mg/hr. metoprolol succinate discontinued in favor of metoprolol tartrate 25 mg 4 times daily. Heparin discontinued in favor of Eliquis 5 mg twice daily Echo 06/19: LVEF 60 to 65%. Mild concentric LVH. Moderately dilated left atrium. Moderate aortic sclerosis without stenosis. Mild TR. No pulmonary hypertension. Patient was in A. fib with RVR during the study. 10/20: EKG @ 0235: Sinus bradycardia, 59 bpm Tele: Converted from atrial fibrillation to sinus rhythm at 2:03 AM with a 3.2- second conversion pause. A 16 beat run of atrial fibrillation was subsequently observed this morning at 6:40 AM Chart and telemetry reviewed. Patient seen and examined at bedside. Upon entrance into the room patient was up ambulating in her room independently- feels well without complaint. Denies any chest pain, sob, or palpitations. No dizziness or syncope. No orthopnea, PND, or lower extremity edema. Eager for discharge. Review of Systems Review of Systems: All systems reviewed & are unremarkable except as noted in HPI & below Physical Exam Constitutional: WD/WN, vitals as above Eyes: PERRL, conjunctivae normal, anicteric sclerae Neck: normal visual inspection and trachea midline Respiratory: normal respiratory effort, lungs clear to auscultation Cardiovascular: Rate/Rhythm: regular rate and regular rhythm Heart Sounds: normal S1 and normal S2; no murmur Vessels: normal peripheral pulses; no JVD Extremities: no edema Gastrointestinal (Abdomen): normal bowel sounds, soft, nontender, no hepatosplenomegaly Skin: no rashes, warm and dry Psychiatric: A+Ox3, euthymic affect Results & Data ([facility]) Vital Signs (Past 12 Hours) Vital Signs Temp Pulse Pulse Resp BP BP Pulse Ox 06/20/22 00:00 105 H 06/20/22 03:00 59 L 23 131/87 93 06/20/22 02:50 61 06/20/22 02:06 61 16 134/76 92 06/20/22 02:04 62 06/20/22 02:03 54 L 06/19/22 23:43 36.6 C 105 H 18 134/89 94 06/19/22 21:00 98 H 18 121/97 94 Laboratory Results Cardiac Enzymes 06/19/22 06/19/22 Range/Units 11:02 17:31 Troponin I High Sens 14.4 H D 12.1 (0-14) pg/ml Coagulation 06/19/22 06/19/22 06/20/22 Range/Units 07:42 14:46 06:01 APTT 49.3 H* 53.3 H* 27.7 (21.0-31.0) Seconds CBC 06/20/22 Range/Units 06:01 WBC 6.97 (4.8-10.8) K/ul RBC 3.83 L (3.93-5.22) M/uL Hgb 12.8 (12.0-16.0) g/dl Hct 37.6 (34.1-44.9) % Plt Count 173 (130-400) K/uL Comprehensive Metabolic Panel 06/20/22 Range/Units 06:01 Sodium 139 (136-145) mmol/L Potassium 4.0 (3.5-5.1) mmol/L Chloride 107 (98-107) mmol/L Carbon Dioxide 26 (21-32) mmol/L BUN 11 (6-23) mg/dl Creatinine 0.71 (0.6-1.2) mg/dl Glucose 112 H (70-99(Fasting)) mg/dl Calcium 8.9 (8.5-10.1) mg/dl Intake and Output 06/19/22 06/20/22 06/20/22 22:59 06:59 14:59 Intake Total 580.300 / 878.383 107.833 / 878.383 Balance 580.300 / 878.383 107.833 / 878.383 Intake: IV 580.300 / 878.383 107.833 / 878.383 Heparin Sodium/Dextrose 25,000 433.550 / 433.550 units In 500 ml @ 1,150 UNITS/ HR 23 mls/hr IV .[id number] AIDE Rx #:[id number] dilTIAZem HCL 125 mg In 146.75 / 344.833 107.833 / 344.833 Dextrose 5% 100 ml @ 15 MG/HR 15 mls/hr IV .[id number] AIDE Rx#: [id number] Oral 0 / 0 Other: # Unmeasured Voids 1 1
[2022-06-20] MEDS: METOPROLOL TARTRATE 25 MG TAB PO SCH (08:25)
[2022-06-20] MEDS: FUROSEMIDE 20 MG TAB PO SCH (08:26)
[2022-06-20] MEDS: APIXABAN 5 MG TABLET PO SCH (08:26)
[2022-06-20] MEDS: LOSARTAN POTASSIUM 50 MG TAB PO SCH (08:26)
[2022-06-20] MEDS: busPIRone 5 MG TAB PO SCH (08:26)
[2022-06-20] MEDS: MULTIVITAMIN TAB PO SCH (08:26)
[2022-06-20] MEDS: CETIRIZINE HCL 10 MG TABLET PO SCH (08:26)
[2022-06-20] MEDS ORDERED: METOPROLOL SUCC 50MG EXT REL TAB PO SCH ×3 (09:00→09:56)
--- NOTE | 2022-06-20 09:07 | Electrocardiogram Report ---
Test Reason : Blood Pressure : / mmHG Vent. Rate : 059 BPM Atrial Rate : 059 BPM P-R Int : 168 ms QRS Dur : 072 ms QT Int : 462 ms P-R-T Axes : 016 033 022 degrees QTc Int : 457 ms Sinus bradycardia with frequent Premature atrial complexes vs. wandering atrial pacemaker Nondiagnostic lateral Q waves Otherwise normal ECG When compared with ECG of 20-JUN-2022 02:35, Limb lead rversal corrected Confirmed by Deshaun Cárdenas ([id number]) on 06/20/2022 9:09:01 AM Referred By: Triny Mckenna Confirmed By:Deshaun Cárdenas
--- NOTE | 2022-06-20 09:36 | Communication Note ---
Date of Service: June 20, 2022 Supervising Physician Attestation: I have personally performed a history and physical examination on the patient. I agree with CHRISTINE Rosario's findings and plan as documented with the following additions. Subjective: Patient feeling well. On telemetry last night, while on diltiazem infusion plus oral metoprolol, she converted from atrial fibrillation to sinus rhythm at 2:03 AM with a 3.2-second conversion pause. A 16 beat run of atrial fibrillation was subsequently observed this morning at 6:40 AM. Diltiazem infusion has been discontinued. She was transitioned from IV heparin to Eliquis last night at 2100. Exam: Blood pressure 130/87, heart rate 60, respiratory rate 12, pulse oximetry 93% room air, temperature 36.6 C General appearance: Awake and oriented Cardiovascular: Regular rhythm no murmurs rubs or gallops, no edema Data: EKG this morning 06/20/2022 2:41 AM revealed sinus bradycardia at 59 bpm with occasional PACs. Compared to previous, 1-lead reversal corrected. Assessment and Plan: Paroxysmal atrial fibrillation [id number] of 4 for risk factors of hypertension, female sex, age over 75 -Discontinue metoprolol tartrate. -proceed with metoprolol succinate 150 mg daily, first dose am and ongoing therapy at home. (increased from [employer] dose of 125 mg daily). -Pt notes her [facility] does not have the Eliquis on stock. She is going see of the Eliquis may be available from the other location in [place]. Otherwise request Rx be routed to [facility]. -Stable for DC from cardio perspective. Cardio follow up will be arranged for within 1 month. Gee Kendall DO
--- NOTE | 2022-06-20 13:42 | Discharge Summary ---
Date of Service June 20, 2022 Admission HPI Per Admitting Provider CHIEF COMPLAINT: Rapid AFib. HISTORY OF PRESENT ILLNESS: An 81-year-old female with past medical history significant for hyperlipidemia, prediabetes, allergic rhinitis, hypertension, primary osteoarthritis, presents with rapid atrial fibrillation. The patient went to family doctor for a wellness check when she was found to be in rapid AFib and was sent to the hospital, requiring a few doses of diltiazem . Her h eart rate was 140s when she came in. Currently, resting comfortably, hemodynamically stable. The patient did not feel any palpitations or any chest pain and she even walked her dog 2 to 3 miles in the morning, did not have any symptoms. No using of [id number] medications. She is on metoprolol succinate. She says she did miss the medications. Denies any headache. No blurred vision, double vision. No earache. She has some runny nose from allergies. No sore throat. No cough. Appetite is okay. No difficulty swallowing. No chest pain, no shortness of breath, no nausea, no vomiting, no abdominal pain. Normal bowel and bladder movements. No swelling in the legs. Admission Exam Per Admitting Provider GENERAL: The patient is of moderate build, not in acute distress. VITAL SIGNS: Temperature 36.3, pulse 127, respiratory rate 23, blood pressure 178/153, oxygen 96% on room air. HEENT: Pupils equal, round and reactive to light. Oral mucosa moist. NECK: No JVD or neck masses. CARDIOVASCULAR: S1 and S2 heard, tachycardia, irregular rhythm. No murmurs. RESPIRATORY SYSTEM: Normal AP diameter. No accessory muscle use. No wheezing, no crackles. ABDOMEN: Soft, bowel sounds present, nontender, no distention. CENTRAL NERVOUS SYSTEM: Cranial nerves II-XII grossly intact, nonfocal. EXTREMITIES: No edema, no erythema. Principal Diagnosis Atrial fibrillation with rapid ventricular response: Hypertension: History of hyperlipidemia: Discharge Exam General- No acute distress Head- atraumatic Eyes- PERRL, EOMI, ENT- oropharynx clear Neck- supple, no JVD Lungs- clear to auscultation Heart- regular rhythm; no murmur Abdomen- normal bowel sounds, soft, nontender Extremities- no calf tenderness Neuro- alert, oriented x 3; PERRL, EOMI; no facial palsy; no dysarthria Skin- warm & dry Discharge Data Allergies Allergy/AdvReac Type Severity Reaction Status Date / Time clams Allergy Intermediate SWOLLEN Verified 06/18/22 20:45 EYES/ITCHING SKIN Penicillins Allergy Intermediate RED, Verified 06/18/22 20:45 SWOLLEN, CRUSTY EYES soy Allergy Intermediate RED, Verified 06/18/22 20:45 SWOLLEN, CRUSTY EYES Consultations 06/18/22 20:28 ED Decision to Admit Stat 06/19/22 08:00 Consult Cardiology Routine 06/19/22 13:41 Consult Anesthesiology Routine Procedures Performed Operation Date: 06/20/22 07:45 <No data on this case meets the specified criteria> Ordered Studies Laboratory Results WBC 6.97 K/ul (4.8-10.8) 06/20/22 06:01 RBC 3.83 M/uL (3.93-5.22) L 06/20/22 06:01 Hgb 12.8 g/dl (12.0-16.0) 06/20/22 06:01 Hct 37.6 % (34.1-44.9) 06/20/22 06:01 MCV 98.2 fL (80.0-100.0) 06/20/22 06:01 MCH 33.4 pg (25.0-34.0) 06/20/22 06:01 MCHC 34.0 g/dL (32.0-36.0) 06/20/22 06:01 RDW Std Deviation 47.4 fL (36.4-46.3) H 06/20/22 06:01 RDW Coeff of Ander 13.2 % (11.5-14.5) 06/20/22 06:01 Plt Count 173 K/uL (130-400) 06/20/22 06:01 MPV 9.1 fL (9.4-12.3) L 06/20/22 06:01 Immature Gran % (Auto) 0.3 % 06/19/22 05:27 Neut % (Auto) 63.9 % 06/19/22 05:27 Lymph % (Auto) 20.8 % 06/19/22 05:27 [place] % (Auto) 9.9 % 06/19/22 05:27 Eos % (Auto) 4.6 % 06/19/22 05:27 Baso % (Auto) 0.5 % 06/19/22 05:27 Neut # (Auto) 4.84 K/uL (1.4-6.5) 06/19/22 05:27 Lymph # (Auto) 1.58 K/uL (1.2-3.4) 06/19/22 05:27 [place] # (Auto) 0.75 K/uL (0.24-0.82) 06/19/22 05:27 Eos # (Auto) 0.35 K/uL (0-0.50) 06/19/22 05:27 Baso # (Auto) 0.04 K/uL (0-0.2) 06/19/22 05:27 Immature Gran # (Auto) 0.02 K/uL (0.00-0.02) 06/19/22 05:27 PT 11.1 Seconds (9.0-12.0) 06/18/22 18:00 INR 1.0 (0.9-1.1) 06/18/22 18:00 APTT 27.7 Seconds (21.0-31.0) 06/20/22 06:01 PTT Ratio 1.0 06/20/22 06:01 Sodium 139 mmol/L (136-145) 06/20/22 06:01 Potassium 4.0 mmol/L (3.5-5.1) 06/20/22 06:01 Chloride 107 mmol/L (98-107) 06/20/22 06:01 Carbon Dioxide 26 mmol/L (21-32) 06/20/22 06:01 Anion Gap 6 (3-11) 06/20/22 06:01 BUN 11 mg/dl (6-23) 06/20/22 06:01 Creatinine 0.71 mg/dl (0.6-1.2) 06/20/22 06:01 Est Cr Clr Drug Dosing 66.2 ml/min 06/20/22 06:01 Est GFR ( Amer) 93.2 ml/min 06/20/22 06:01 Est GFR (Non-Af Amer) 80.4 ml/min 06/20/22 06:01 BUN/Creatinine Ratio 15.5 (10-20) 06/20/22 06:01 Glucose 112 mg/dl (70-99(Fasting)) H 06/20/22 06:01 Estimat Average Glucose 117 mg/dl 06/19/22 05:27 Hemoglobin A1c 5.7 % (4.5-5.6) H 06/19/22 05:27 Calcium 8.9 mg/dl (8.5-10.1) 06/20/22 06:01 Magnesium 2.1 mg/dl (1.7-2.4) 06/20/22 06:01 Total Bilirubin 0.6 mg/dl (0.2-1.0) 06/18/22 18:00 AST 17 U/L (13-39) 06/18/22 18:00 ALT 14 U/L (7-52) 06/18/22 18:00 Alkaline Phosphatase 70 U/L (34-104) 06/18/22 18:00 Troponin I High Sens 12.1 pg/ml (0-14) 06/19/22 17:31 Total Protein 7.6 gm/dl (6.0-8.3) 06/18/22 18:00 Albumin 4.7 gm/dl (3.4-5.0) 06/18/22 18:00 Globulin 2.9 gm/dl (2.5-4.0) 06/18/22 18:00 Albumin/Globulin Ratio 1.6 (0.9-2) 06/18/22 18:00 TSH 2.549 uIu/ml (0.300-4.500) 06/18/22 18:00 Urine Color Yellow 06/18/22 22:10 Urine Appearance Clear (Clear) 06/18/22 22:10 Urine pH 6.5 (4.5-7.5) 06/18/22 22:10 Ur Specific [place] 1.013 (1.000-1.030) 06/18/22 22:10 Urine Protein Negative (Negative) 06/18/22 22:10 Urine Glucose (UA) Negative (Negative) 06/18/22 22:10 Urine Ketones Trace (Negative) H 06/18/22 22:10 Urine Blood Negative (Negative) 06/18/22 22:10 Urine Nitrite Negative (Negative) 06/18/22 22:10 Urine Bilirubin Negative (Negative) 06/18/22 22:10 Urine Urobilinogen Negative (Negative) 06/18/22 22:10 Ur Leukocyte Esterase 1+ (Negative) H 06/18/22 22:10 Urine WBC (Auto) 10-30 /hpf (0-5) H 06/18/22 22:10 Urine RBC (Auto) 0-4 /hpf (0-4) 06/18/22 22:10 U Hyaline Cast (Auto) 0 /lpf (0-5) 06/18/22 22:10 U Epithel Cells (Auto) >30 /lpf (0-5) H 06/18/22 22:10 Urine Bacteria (Auto) Negative (Negative) 06/18/22 22:10 SARS-CoV-2, RNA, NAAT NEGATIVE (NEGATIVE) 06/18/22 18:34 Impressions Chest X-Ray 06/18/22 16:46 XR chest 1V portable HISTORY: Tachycardia COMPARISON: None. FINDINGS: The cardiac silhouette is mildly enlarged. There is a mildly tortuous thoracic aorta. No focal lung consolidations to suggest a pneumonia. No evidence for pulmonary edema. No pleural effusions. No pneumothorax. Old posttraumatic changes at the left humeral head. IMPRESSION: Mild cardiomegaly. Otherwise, no acute process within the chest. ACT 112: Negative or not required by law. Electronically signed by: Derek Jordan M.D. 06/18/2022 6:42 PM Hospital Course (1) Atrial fibrillation with rapid ventricular response: Newly onset atrial fibrillation with rapid ventricular spots. Present on admission after she was found to be in afib with RVR on wellness exam EKG on admission showed afib with RVR Pt was started on Cardizem drip and heparin drip ECHO showed mild concentric LVH [id number] score is at least 4 for risk factors of being female, hypertension, and age over 75. Cardiology on board recommended to increase metoprolol to 150mg She was plna for ADAMARIS and cardioversion today, but she converted spontaneous to NSR in the middle of the night case management checked the cost for eliquis that will be $35 monthly Continue metoprolol 150mg daily on discharge Ok from cardiology standpoint to discharge home Hypertension: Continue losartan and metoprolol and on lasix.. Continue monitor the blood pressure. History of hyperlipidemia: Continue statin. Allergic rhinitis: On Zyrtec. History of prediabetes: Most recent hba1c 5.7 Continue monitor Deep venous thrombosis prophylaxis: On IV heparin. CODE status FULL code Disposition Discharge home today Total Time Total Time Spent Total Time Spent (In Minutes): 35 minutes Discharge Plan Discharge Items Patient Disposition: Home - Self-Care Reason For Visit: A FIB Discharge Diagnosis: Atrial fibrillation with rapid ventricular response: Hypertension: History of hyperlipidemia: Activity: Resume your previous activity Non-emergency contact: Primary Care Provider and Air Tester Call non-emergency contact if: you have any medication questions Follow-up/Referrals: Triny Mckenna MD [Primary Care Provider] - Diet: Heart Healthy Addtl Attending Provider Instructions: Follow up with your primary care provider within 1 week Follow up with your cardiology in 4-6 weeks Continue monitor for any abnormal bleeding Medication Instructions: Eliquis Your condition is typically treated with an anticoagulant. Anticoagulants will thin your blood to help prevent new clots. You should take her medication exactly as directed. Never skip a dose. Never take a double dose. If you miss a dose, take it as soon as you remember. Avoid NSAIDs (Motrin, Aleve, Naproxen, Ibuprofen, Advil, Meloxicam,..) due to risks of bleeding Call your Primary Care doctor if you experience any of the following: Swelling or Pain in your leg Sudden, continuous pain deep in a muscle Pain that worsens when you are active or when you stand still for a long time Chest Pain Sudden Shortness of Breath Rapid or pounding heart beat Fainting Dizziness Cough with blood or bloody sputum Sweating more than normal Bruises Heavy or uncontrolled bleeding Blood in your urine, stool or vomit Black or tarry stools Pending Studies at Discharge: No Stand-Alone Forms: My [facility], Smoking Cessation Medications and DC Order Prescriptions: New Eliquis 5 mg tablet 5 mg PO BID Qty: 60 0RF metoprolol succinate 50 mg Tablet Extended Release 24 Hr 150 mg PO QAM 30 Days Qty: 90 0RF Continued atorvastatin 40 mg Tablet 40 mg PO HS Label Comments: HS furosemide [Lasix] 20 mg Tablet 20 mg PO QAM losartan 100 mg Tablet 100 mg PO QAM multivitamin Tablet 1 tab PO DAILY cetirizine [Zyrtec] 10 mg Tablet 10 mg PO DAILY buspirone 5 mg Tablet 5 mg PO QAM Discontinued metoprolol succinate 50 mg Tablet Extended Release 24 Hr 125 mg PO QAM Rx Instructions: TAKES 2 1/2 TABS Discharge Orders: Discharge Order (Routine); Ordered 06/20/22 Ordered By: Cuate Nelson/Other Patient Handouts: Understanding Deep Vein Thrombosis, DVT Complications, Preventing Deep Vein Thrombosis, AFib Preventing Stroke, AFib Admission Data Admit Date/Time: 06/18/22 22:48 Attending Provider: Cuate Small Admit Provider: Josh Moreau Primary Care Provider: Triny Mckenna Other Providers: Josh Moreau ; Oswaldo Rai ; Gee Kendall ; Urbano Jorge ; Anatoliy Vázquez ; Ramses Chauhan ; Westley Danielle ; Kacey Franco ; Agatha Ambrocio ; Luda Campuazno ; Paulino Slater ; Jan Rasheed ; Richy Brown. Other Interventions: Discharge Summary Assessment (RN) Last Done: 06/20/22 13:30
== END 2022-06-20 13:59 | disposition home or self-care (01) | DRG 310 ==
LOC: ED 16:38 → EDINP 22:48 → SUATTDRO 22:48 → 1E 06-19 01:24

== ENCOUNTER 2024-09-11 08:50 | Inpatient (IN) ==
--- NOTE | 2024-09-11 08:56 | Emergency Department Note ---
Impression & Plan Atrial fibrillation with rapid ventricular response, Volume overload, Bilateral lower leg cellulitis, Cellulitis of leg, right, Acute hyponatremia ED Provider Note NAME: HONORIO KHAN AGE: 83 SEX: F : 1940 ARRIVES VIA: Ambulance INFORMANT: Patient, nursing report ED PROVIDER(S): Azar Ragland MD CHIEF COMPLAINT: Anxiety MEDICAL DECISION MAKING: Patient presents due to concern for anxiety. IV was established and blood work was obtained. Patient was noted to be in A-fib and RVR. Per prior records most recent EKG that I can review from December 11, 2023 showed the patient was in a sinus. There is concern that the patient may have been in A-fib with RVR for a prolonged period of time and may be contributing to the patient's symptoms as the patient does have evidence of volume overload. Patient was ordered IV Lasix. Patient was noted to have hyponatremia likely secondary to volume overload. Potassium is unremarkable. BNP of 611 with negative troponin. Chest x-ray does show right-sided pleural effusion. I did inform the patient of the findings. Patient patient also was ordered IV Lopressor 5 mg every 5 minutes as the patient does take home metoprolol. Critical Care: I have personally spent 55 minutes of critical care time in direct management of this patient. This includes bedside care, interpretation of diagnostic studies, and testing, discussion with consultants, patient, and family members, and other require inpatient management activities. This 55 minutes is in excess of all separately billable procedures. Discussion w/ other healthcare providers: Dr. Aguirre inpatient medicine service Prior /Outside records reviewed: I reviewed part of a discharge summary from Dr. Small from June 20, 2022. Patient was admitted for rapid A-fib at that time. Patient also with history of hypertension hyperlipidemia Differential diagnosis: Benign positional vertigo, dehydration, hypovolemia, anemia, infection, hypoglycemia, electrolyte abnormalities, arrhythmia, tox among others were considered. Diagnostics, as interpreted by me: ECG: A-fib with RVR rate of 131, normal QRS duration and normal axis. T wave inversions inferiorly. Cardiac monitoring: An order was placed for continuous cardiac monitoring. The monitor shows a rate of 124 with irregularly irregular rhythm. Patient was placed on pulse oximetry Medical decision rules: None Imaging studies: I informally interpreted the patient's chest x-ray shows right-sided pleural effusion with formal report to follow. HPI: Patient presents due to concern for anxiety. The patient states she is on BuSpar but has not been working the patient has been having symptoms for the last several months. The patient does report that she has had some increasing leg swelling of the bilateral lower extremities ever since she got some sort of chemical pedicure that was completed after . The patient states that she was noted to have a skin infection and was started on a topical and recently completed a course of dicloxacillin on Friday. Patient denies any chest pains or shortness of breath no palpitations. The patient states she is compliant with her medications. No increase in salt or processed foods in the diet. Patient denies any SI HI or AVH. Patient does report that she has had decreased sleep the last several days. Appetite has been good. Patient denies any AVH. Patient denies any dizziness or lightheadedness. PAST MEDICAL HISTORY: See Below PAST SURGICAL HISTORY: See Below SOCIAL HISTORY: See Below HOME MEDICATIONS: See Below ALLERGIES: See Below VITALS: See Below PHYSICAL EXAMINATION: GENERAL: NAD, non-toxic. EYE EXAM: Normal conjunctiva. PERRL, no anisocoria and EOM's grossly intact w/o pain. OROPHARYNX: Moist mucus membranes, grossly normal dentition. NECK: Trachea midline, no stridor. Supple, no nuchal rigidity, no adenopathy, non-tender. No signs of meningismus. FROM of the neck with good chin to chest and neck extension. LUNGS: Clear to auscultation. Normal chest wall mechanics. HEART: Irregularly irregular and tachycardic, no MRG. ABDOMEN: Abdomen soft, non-tender, no masses, no rebound or guarding. BACK: No CVA TTP. SKIN: No rashes and no bruising. UPPER EXTREMITIES: Upper extremities are grossly normal. LOWER EXTREMITIES: Grossly normal, bilateral lower extremity edema, erythema noted to the right leg that blanches no crepitus. NEURO EXAM: A&O x3, cranial nerves II-XII grossly intact, normal speech, moves all 4 extremities. Past Med/Surg History Problem List (Updated 09/11/24 @ 14:53 by Azar Ragland MD) Acute hyponatremia (Acute) Cellulitis of leg, right (Acute) Atrial fibrillation with rapid ventricular response (Acute) Sinusitis Wound of left lower extremity Bilateral lower leg cellulitis (Acute) Volume overload (Acute) Encounter for pre-operative examination Medical History Elevated troponin Elevated troponin I level Atrial fibrillation with rapid ventricular response Arthritis History of skin cancer Anxiety History of irregular heartbeat History of COVID-19 04/29/21 (SYMPTOMS>NASAL CONGESTION/HEADACHE/CHILLS) ALL SYMPTOMS RESOLVED Environmental allergies Hypertension Surgical History History of right cataract surgery H/O shoulder surgery LEFT History of colonoscopy History of appendectomy History of tooth extraction H/O sinus surgery X 3 Family History Other No family history of adverse response to anesthesia Social History Smoking Status: Never smoker Second Hand Exposure: No; Do You Dip or Chew Tobacco: No; Hx Alcohol Use: No Hx Substance Use: No Preferred Language: [place] Communication Ability: Effective 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 Beliefs That Will Affect Care: None marital status: Current Living Situation: Spouse Feels Safe at Home: Yes Assistive Devices: None Allergies Allergies Allergy/AdvReac Type Severity Reaction Status Date / Time clams Allergy Intermediate SWOLLEN Verified 09/11/24 11:35 EYES/ITCHING SKIN Penicillins Allergy Intermediate RED, Verified 09/11/24 11:35 SWOLLEN, CRUSTY EYES soy Allergy Intermediate RED, Verified 09/11/24 11:35 SWOLLEN, CRUSTY EYES Home Meds Home Medications Medication Instructions Recorded Confirmed atorvastatin 40 mg tablet 40 mg PO HS 03/30/19 09/11/24 furosemide 20 mg tablet (Lasix) 20 mg PO QAM 03/30/19 09/11/24 losartan 100 mg tablet 100 mg PO QAM 03/30/19 09/11/24 multivitamin 1 tab PO DAILY 06/18/22 09/11/24 buspirone 10 mg tablet 10 mg PO BID 09/11/24 09/11/24 cetirizine 5 mg tablet 5 mg PO QAM 09/11/24 09/11/24 hydralazine 10 mg tablet 0 mg PO UD 09/11/24 09/11/24 metoprolol succinate 100 mg 100 mg PO QAM 09/11/24 09/11/24 tablet,extended release 24 hr metoprolol succinate 50 mg 50 mg PO QAM 09/11/24 09/11/24 tablet,extended release 24 hr Previous Rx's Medication Instructions Recorded apixaban 5 mg tablet (Eliquis) 5 mg PO BID #60 tabs 06/19/22 Results & Data (ED) Vital Signs Vital Signs - 24 hr 09/11/24 09:02 09/11/24 09:02 09/11/24 09:02 Temperature 36.9 C Temperature Source Oral Pulse Rate 132 H Pulse Rate [Apical] 132 H Pulse Rate from SpO2 Sensor Pulse Rhythm Irregular Pulse Rhythm [Apical] Irregular Pulse Strength Normal Pulse Strength [Apical] Normal Respiratory Rate 24 24 Respiratory Effort / Characteristics Non-Labored Non-Labored Respiratory Depth Normal Normal Respiratory Pattern Regular Regular Blood Pressure 146/114 H Blood Pressure [Right Arm] 146/114 H Blood Pressure Mean 124 Blood Pressure Mean [Right Arm] 124 Blood Pressure Position Lying Pulse Oximetry 97 97 Oxygen Delivery Method Room Air Room Air Room Air Sepsis Recent Fever Within 48 Hours No Sepsis New/Unexplained Change in Mental Status No Sepsis Action Taken by Nursing Physician Notified 09/11/24 09:07 09/11/24 09:30 09/11/24 09:40 Temperature Temperature Source Pulse Rate 127 H 129 H 126 H Pulse Rate [Apical] Pulse Rate from SpO2 Sensor 127 H Pulse Rhythm Pulse Rhythm [Apical] Pulse Strength Pulse Strength [Apical] Respiratory Rate 20 Respiratory Effort / Characteristics Respiratory Depth Respiratory Pattern Blood Pressure 183/121 H 183/121 H Blood Pressure [Right Arm] Blood Pressure Mean 156 Blood Pressure Mean [Right Arm] Blood Pressure Position Pulse Oximetry 96 Oxygen Delivery Method Room Air Sepsis Recent Fever Within 48 Hours Sepsis New/Unexplained Change in Mental Status Sepsis Action Taken by Nursing 09/11/24 10:03 09/11/24 10:03 09/11/24 10:30 Temperature Temperature Source Pulse Rate 132 H 120 H 109 H Pulse Rate [Apical] Pulse Rate from SpO2 Sensor 116 H Pulse Rhythm Pulse Rhythm [Apical] Pulse Strength Pulse Strength [Apical] Respiratory Rate 29 H 14 Respiratory Effort / Characteristics Respiratory Depth Respiratory Pattern Blood Pressure 125/106 H 125/106 H 131/105 H Blood Pressure [Right Arm] Blood Pressure Mean 112 113 Blood Pressure Mean [Right Arm] Blood Pressure Position Pulse Oximetry 96 96 Oxygen Delivery Method Room Air Room Air Sepsis Recent Fever Within 48 Hours Sepsis New/Unexplained Change in Mental Status Sepsis Action Taken by Nursing 09/11/24 10:31 09/11/24 11:01 Temperature Temperature Source Pulse Rate 127 H 115 H Pulse Rate [Apical] Pulse Rate from SpO2 Sensor 110 H Pulse Rhythm Pulse Rhythm [Apical] Pulse Strength Pulse Strength [Apical] Respiratory Rate 24 Respiratory Effort / Characteristics Respiratory Depth Respiratory Pattern Blood Pressure 131/105 H 131/98 Blood Pressure [Right Arm] Blood Pressure Mean 118 Blood Pressure Mean [Right Arm] Blood Pressure Position Pulse Oximetry 97 Oxygen Delivery Method Room Air Sepsis Recent Fever Within 48 Hours Sepsis New/Unexplained Change in Mental Status Sepsis Action Taken by Long-Term Medications Current Medication List: was personally reviewed by me Laboratory Data Attestation: I reviewed the patient's lab results. 09/11/24 09:07 09/11/24 09:07 Lab Results 09/11/24 Range/Units 09:07 WBC 8.10 (4.8-10.8) K/ul RBC 4.12 L (4.20-5.40) M/uL Hgb 13.1 (12.0-16.0) g/dl Hct 40.1 (37.0-47.0) % MCV 97.3 (80.0-100.0) fL MCH 31.8 (25.0-34.0) pg MCHC 32.7 (32.0-36.0) g/dL RDW Std Deviation 49.7 H (36.4-46.3) fL RDW Coeff of Ander 13.8 (11.5-14.5) % Plt Count 180 (130-400) K/uL MPV 9.7 (9.4-12.4) fL Immature Gran % (Auto) 0.6 % Neut % (Auto) 79.8 % Lymph % (Auto) 10.5 % Cass % (Auto) 8.0 % Eos % (Auto) 0.6 % Baso % (Auto) 0.5 % Neut # (Auto) 6.46 (1.40-6.50) K/uL Lymph # (Auto) 0.85 L (1.20-3.40) K/uL Cass # (Auto) 0.65 H (0.11-0.59) K/uL Eos # (Auto) 0.05 (0.00-0.50) K/uL Baso # (Auto) 0.04 (0.00-0.20) K/uL Immature Gran # (Auto) 0.05 (0.01-0.20) K/uL PT 12.4 H (9.0-12.0) Seconds INR 1.2 H (0.9-1.1) APTT 29 (21-31) Seconds PTT Ratio 1.1 Sodium 131 L (136-145) mmol/L Potassium 4.2 (3.5-5.1) mmol/L Chloride 96 L (98-107) mmol/L Carbon Dioxide 27 (21-32) mmol/L Anion Gap 8 (3-11) BUN 18 (6-23) mg/dl Creatinine 0.91 (0.6-1.2) mg/dl Est Cr Clr Drug Dosing 50.6 ml/min eGFR 62.99 BUN/Creatinine Ratio 19.8 (10-20) Glucose 146 H (70-99(Fasting)) mg/dl Calcium 9.1 (8.6-10.3) mg/dl Magnesium 1.7 (1.7-2.4) mg/dl Total Bilirubin 1.0 (0.2-1.0) mg/dl AST 18 (13-39) U/L ALT 19 (7-52) U/L Alkaline Phosphatase 75 (34-104) U/L Troponin I High Sens 8.9 (0-14) pg/ml B-Natriuretic Peptide 611 H (0-100) pg/ml Total Protein 6.4 (6.0-8.3) gm/dl Albumin 4.1 (3.4-5.0) gm/dl Globulin 2.3 L (2.5-4.0) gm/dl Albumin/Globulin Ratio 1.8 (0.9-2) TSH 2.408 (0.300-4.500) uIu/ml Administered Medications Diltiazem HCl 125 mg/ Dextrose 125 mls @ 10 mls/hr IV .[id number] [facility]; Protocol Stop: 10/11/24 11:29 Last Titration: 09/11/24 12:30 Dose: 10 mg/hr, 10 mls/hr Documented By: SRL Co-signed By: Admin: 09/11/24 11:57 Dose: 5 mg/hr, 5 mls/hr Documented By: SRL Co-signed By: OLIVA Lactobacillus Acidophilus (Advanced Probiotic 625 Mg Capsule) 1,250 mg PO DAILY AIDE Stop: 10/11/24 13:22 Last Admin: 09/11/24 14:10 Dose: 1,250 mg Documented By: GPF Discontinued Medications Furosemide (Furosemide Inj 20 Mg/2 Ml Vial) 20 mg IV ONE ONE Stop: 09/11/24 09:25 Last Admin: 09/11/24 09:40 Dose: 20 mg Documented By: SRL Ceftriaxone Sodium (Rocephin) 2,000 mg in 50 mls @ 100 mls/hr IV NOW STA Stop: 09/11/24 09:53 Last Infusion: 09/11/24 10:03 Dose: Infused Documented By: Admin: 09/11/24 09:40 Dose: 100 mls/hr Documented By: SRL Metoprolol Tartrate (Metoprolol Tartrate 1 Mg/Ml Vial) 5 mg IV Q5M PRN PRN Reason: Tachycardia Stop: 10/11/24 09:23 Last Admin: 09/11/24 10:31 Dose: 5 mg Documented By: Admin: 09/11/24 10:03 Dose: 5 mg Documented By: Admin: 09/11/24 09:40 Dose: 5 mg Documented By: SRL Imaging Data Radiologist's Impression: Chest X-Ray 09/11/24 09:26 XR chest 1V portable CLINICAL HISTORY: Dysrhythmia TECHNIQUE: Single frontal radiograph of the chest was obtained. Comparison: Comparison is made to chest radiograph 09/18/2021 FINDINGS: No lines and tubes are seen. Cardiomegaly is noted. The lungs are clear. There is a moderate right pleural effusion. IMPRESSION: Moderate right pleural effusion. Stable cardiomegaly. ACT 112: Negative or not required by law. Electronically signed by: Richar Collado M.D. 09/11/2024 9:52 AM Discharge Plan Visit Data Chief Complaint: Anxiety ED Provider: Azar Ragland Discharge Problem: Atrial fibrillation with rapid ventricular response, Volume overload, Bilateral lower leg cellulitis, Cellulitis of leg, right, Acute hyponatremia Patient Disposition: Admitted As Inpatient Discharge Instructions Interventions: ED Discharge Assessment Last Done: 09/11/24 12:59 Discharge Problem: Volume overload Qualifiers: Hypervolemia type: other Qualified Code(s): E87.79 - Other fluid overload
--- OUTSIDE RECORDS SUMMARY | 2024-09-11 08:58 | External Medical Summary | Summary of Care ---
Author Name Unknown Organization [facility] Address [address] [facility] [place] [address] Phone [phone] Care Team Providers Care Machine Container Washer Name Role Phone Triny Mckenna MD Primary Care Provider [phone] Reason for Visit * Reason Onset Date Comments Medication Refill 08/16/2024 Encounter Details Date Type Department Care Team (Late st Contact Info) Description 08/16/2024 Refill Cardiology, [facility] [address] [place] [address] Julianna Chen CRNP [address] [place] [address] HTN, goal below 140/90; Dyslipidemia, goal LDL below 100 Allergies Active Allergy Reactions Criticality Noted Date Comments Amlodipine 03/19/2018 Leg edema Molds & Smuts 10/14/2017 Penicillins 10/14/2017 Swollen eyes and lips Shellfish Allergy 10/14/2017 Clams/bi-valves only Soy Allergy 10/14/2017 documented as of this encounter (statuses as of 08/18/2024) Medications Cetirizine HCl 10 MG Oral Capsule Take 1 Capsule by mouth in the morning. 1 Capsule 2 Active Losartan Potassium 100 MG Oral Tablet (Cozaar)Indicati ons:HTN, goal below 140/90 Take 1 Tablet by mouth in the morning. 90 Tablet 3 4 Active Metoprolol Succinate ER 100 MG Oral Tablet Extended Release 24 Hour (toPROL XL)Indications:P aroxysmal atrial fibrillation (HCC) take 1 AND 1/2 tablets by mouth IN THE MORNING 135 Tablet 3 4 Active Furosemide 20 MG Oral Tablet (Lasix)Indicatio ns:HTN, goal below 140/90 TAKE 1 TABLET BY MOUTH EVERY MORNING 90 Tablet 3 4 Active Atorvastatin Calcium 40 MG Oral Tablet (Lipitor)Indicat ions:Paroxysmal atrial fibrillation (HCC),HTN, goal below 140/90,Dyslipide hardik, goal LDL below 100 Take 1 Tablet by mouth at bedtime. 90 Tablet 3 4 Active Apixaban 5 MG Oral Tablet (Eliquis)Indicat ions:Paroxysmal atrial fibrillation (HCC) Take 1 Tablet by mouth in the morning and 1 Tablet before bedtime. 180 Tablet 4 4 Active Triamcinolone Acetonide 55 MCG/ACT Nasal Aerosol (Nasacort Allergy 24HR)Indications :Perennial allergic rhinitis with seasonal variation,Acute non-recurrent maxillary sinusitis Administer 2 Sprays into each nostril in the morning. 4 Active Citrucel 500 MG Oral Tablet (Methylcellulose (Laxative))Indic ations:Chronic constipation Taking 3 daily 4 Active busPIRone HCl 5 MG Oral Tablet (Buspar)Indicati ons:Anxiety state Take 1 Tablet by mouth 2 times a day as needed for Anxiety. 180 Tablet 1 4 Active Metoprolol Succinate ER 50 MG Oral Tablet Extended Release 24 Hour (toPROL XL)Indications:P aroxysmal atrial fibrillation (HCC) Take 1 Tablet by mouth in the morning. In addition to a 100 mg tablet. Total of 150 mg daily. 90 Tablet 3 4 Active hydrALAZINE HCl 10 MG Oral Tablet (Apresoline)Naya cations:HTN, goal below 140/90,Dyslipide hardik, goal LDL below 100 Take 1 Tablet by mouth in the morning and 1 Tablet at noon and 1 Tablet before bedtime. 280 Tablet 2 4 Active hydrALAZINE HCl 10 MG Oral Tablet (Apresoline)Naya cations:HTN, goal below 140/90,Dyslipide hardik, goal LDL below 100 Take 1 Tablet by mouth in the morning and 1 Tablet at noon and 1 Tablet before bedtime. 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 Perennial allergic rhinitis with seasonal variat ion 10/14/2017 H/O sinus surgery 10/14/2017 Post-menopausal atrophic vaginitis 10/14/2017 History of squamous cell carcinoma of skin 10/14 Primary osteoarthritis of both hands 10/14/2017 documented as of this encounter (statuses as of 08/18/2024) Resolved Problems Problem Noted Date Diagnosed Date Resolved Date Abnormal AST and ALT 11/20/2017 018 documented as of this encounter (statuses as of 08/18/2024) Immunizations Name Administration Dates Next Due COVID-19 mRNA, LNP-s, No Pre serve, 2-Dose Series (Moderna) 12/25/2021,11/04/2020,10/07/2020 COVID-19, mRNA, LNP-s, PF, B ooster, 100mcg/0.5mg (Moderna) 12/19/2021,06/25/2021 Covid-19, Mrna, Lnp-s, Pf, B ivalent, 50 Mcg, IM, 12 yrs and above (Moderna) 06/16/2022 Pneumococcal Conjugate Vacc, 13 Valent (Prevnar) 02/01/2015 Pneumococcal Polysaccharide PPV23 (Pneumovax) 03/26/2007 Season Influenza, Quad, PF, Adjuvanted, 65+ Yrs, IM (FLUAD) 05/27/2023,05/31/2020 Seasonal Influenza Virus Vac cine, Unspecified Formulation 05/17/2022,05/21/2021,05/31/2020,06/01,06/05/2016,06/15/2015,07/01/2014 ,06/10/2013,06/13/2010 Seasonal Influenza, High Dos e, Trivalent, PF, IM (Fluzone HD) 05/21/2024,05/13/2022,05/21/2021,05/07 Seasonal Influenza, PF, 6 M & above, IM , (FluLaval or Fluzone) 06/01/2018,06/05/2016,06/15/2015,07/01,06/10/2013,06/13/2010 Seasonal Influenza, Quadriva lent, No Preserve, IM 05/31/2020 Seasonal Influenza, Trivalen t, Adjuvanted, 65+ YRS, PF, (Fluad) 05/17/2022 TD - Tetanus/Diptheria (ADULT) 01/11/2009 TD, Preservative Free 01/11/2009 TDAP (age 10 and older)(Boostrix) 04/17/2018, Varicella Zoster Vaccine (Adult) 09/01/2009,03/01 Zoster Vaccine Recombinant (Shingrix) 05/17/2019 ,10/15/2018 documented as of this encounter Social History Tobacco Use Types Packs/Day Years Used Date Smoking Tobacco: Never Smokeless Tobacco: Never Alcohol Use Standard Drinks/Week Comments Yes 1 (1 standard drink = 0.6 oz pur e alcohol) PHQ-2 Answer Date Recorded PHQ Adult Total Score 0 06/21/2024 Hunger Vital Sign Answer Date Recorded Worried About Running Out of Food in the Last Ye ar Never true 11/09/2019 Ran Out of Food in the Last Year Never true 11/09/2019 Utilities Answer Date Recorded Do you have trouble paying y our heating, water, or electric bill? (Adult - for ages 18 years and over) Not on file 02/17/2024 Is your family able to pay t he heat, water, or electric bill? (Household - for ages 0-17 years) Not on file 02/17/2024 Does your family have access to good internet? (Household - for ages 0-17 years) Not on file 02/17/2024 Social Connections Answer Date Recorded How often do you feel lonely or isolated from those around you? (Adult - for ages 18 years and over) Not on file 02/17/2024 Comments No Sex and Gender Information Value Date Recorded Sex Assigned at Female 06/07/2019 10:35 AM EDT Legal Sex Female 10:42 AM EST Gender Identity Female 06/07/2019 10:35 AM EDT Sexual Orientation Straight 06/07/2019 10 :35 AM EDT documented as of this encounter Miscellaneous Notes * Telephone Encounter - Idania Moreland RPh - 08/18/2024 10:12 AM ESTSigned Prescriptions: Disp Refills hydrALAZINE HCl 10 MG Oral Tablet (Apresol*280 Ta*2 Sig: Take 1 Tablet by mouth in the morning and 1 Tablet at noon and 1 Tablet before bedtime.Authorizing Provider: JULIANNA CHEN User: IDANIA MORELAND * Telephone Encounter - Idania Moreland RPh - 08/18/2024 10:11 AM EST Rerouted remaining refills to new pharmacy as requested. Thank you, Idania Moreland, PharmD Clinical Pharmacist Centralized Clinical Pharmacy Services ([facility]) [phone] 08/18/2024, 10:11 AM * Telephone Encounter - Betty Hyman - 08/16/2024 6:16 PM ESTPending Prescriptions: Disp Refills hydrALAZINE HCl 10 MG Oral Tablet (Apresol*280 Ta*3 Sig: Take 1 Tablet by mouth in the morning and 1 Tablet at noon and 1 Tablet before bedtime. * Telephone Encounter - Betty Hyman - 08/16/2024 6:15 PM EST Did you pend patient's preferred pharmacy and medication before forwarding?yes Pharmacy: [id number] [facility] Pending Prescriptions: Disp Refills hydrALAZINE HCl 10 MG Oral Tablet (Apreso*280 Ta*3 Sig: Take 1 Tablet by mouth in the morning and 1 Tablet at noon and 1 Tablet before bedtime. Last Visit: 06/17/2024 (in office), Visit date not found (telemedicine) Next Visit: 12/30/2024 If no future appointments scheduled, and last appointment is greater than a year ago, please schedule patient for a follow-up appointment Last date the medication was ordered: 12/11/2023 Is this request for a controlled substance?No Urine Drug Screen:No results found for this or any previous visit. Patient Phone Numbers Labs: Lab Results Component Value Date/Time CREAT 0.8 06/17/2024 02:02 PM CREAT 0.9 02/08/2020 01:03 PM POTASSIUM 4.6 06/17/2024 02:02 PM POTASSIUM 4.1 02/08/2020 01:03 PM TSH 3.55 04/06/2018 07:35 AM LDL 92 06/21/2024 01:43 PM LDL 84 02/08/2020 01:03 PM LDL 95 06/07/2019 11:29 AM ALT 13 06/21/2024 01:43 PM ALT 15 02/08/2020 01:03 PM HGBA1C 6.1 (H) 06/21/2024 01:43 PM HGBA1C 5.7 (H) 02/08/2020 01:03 PM documented in this encounter Plan of Treatment Upcoming Encounters Date Type Department Care Team (Late st Contact Info) Description 10/06/2024 3:20 PM EST Office Visit General Internal Medicine [facility] [address] [facility] [address] [place] [address] Triny Mckenna MD [address] [facility] [place] [address] 10/19/2024 2:00 PM EST Cardiac Studies Cardiac Studies, [facility] [address] [place] [address] 12/20/2024 1:00 PM EDT Office Visit General Internal Medicine [facility] [address] [place] [address] Triny Mckenna MD [address] [facility] [place] [address] 12/30/2024 1:30 PM EDT Office Visit Cardiology, [facility] [address] [place] [address] Julianna Chen CRNP [address] [place] [address] Scheduled Procedures Name Priority Associated Diagnoses Date/Ti me COLONOSCOPY FLEXIBLE PROXIMA L DIAGNOSTIC Recall History of colonic polyps Health Maintenance Due Date Last Done Comments COVID-19 Vaccine ( season) 2024 06/16/2022, 12/25/2021, 12/19/2021, Additional history exists Albumin/Creatinine Ratio 12/05/2024 12/05/2021 Colonoscopy 01/20/2025 01/21/2024, 01/21/2024 GFR 06/17/2025 06/17/2024, 06/01, 12/17/2022, Additional history exists Depression Screening 06/21/2025 06/21/2024 HbA1c 06/21/2025 06/21/2024, 06/01, 12/17/2022, Additional history exists DTap/Tdap Vaccines (3 - Td or Tdap) 04/17/2028 04/17/2018, 10/25/2014, 01/11/2009, Additional history exists DXA Scan 07/26/2031 07/26/2024, 03/02, 09/13/2009 Pneumococcal Vaccine: 65+ Years Completed 02/01/2015, 03/26/2007 Zoster Vaccines Completed 05/17/2019, 10/02, 09/01/2009, Additional history exists Influenza Vaccine (FLU shot) Completed , 05/27/2023, 05/17/2022, Additional history exists HPV (Gardasil) Vaccine Aged Out No lo nger eligible based on patient's age to complete this topic Hepatitis B Vaccine Aged Out No longe r eligible based on patient's age to complete this topic MENINGOCOCCAL (MENACTRA/MENVEO) Aged Out No longer eligible based on patient's age to complete this topic documented as of this encounter Medical Devices Implanted Type Area Die Maker Electronic Device Identifier Shelf Expiration Date Model / Serial / Lot Hemostatic Clip Res 235cm - [id number] Implanted:Qty: 4 on 01/21/2024 by Tristan Sanders MD at ENDOSCOPY [facility] N/A: Colon [employer] : ENDOSCOPY 09/26/2026 [id number] / / [id number] documented as of this encounter Visit Diagnoses Diagnosis HTN, goal below 140/90 Unspecified essential hypertension Dyslipidemia, goal LDL below 100 Other and unspecified hyperlipidemia documented in this encounter Care Teams Machine Container Washer Relationship Specialty Start Date End Date Triny Mckenna MD [address] [place] [address] [place] [address] PCP - General Internal Medicine 10/14/17 documented as of this encounter
--- OUTSIDE RECORDS SUMMARY | 2024-09-11 08:58 | External Medical Summary | Summary of Care ---
Author Name Unknown Organization [facility] Address [address] [place] [facility] [place] [place] [place] [address] Phone [phone] Care Team Providers Care Project Manager Retail Name Role Phone Triny Mckenna MD Primary Care Provider Reason for Visit * Reason Onset Date Comments Medication Refill 08/05/2024 Encounter Details Date Type Department Care Team (Late st Contact Info) Description 08/05/2024 Refill General Internal Medicine [facility] [address] [facility] [place] [id number] Triny Mckenna MD [address] [place] [address] Anxiety state Allergies Active Allergy Reactions Criticality Noted Date Comments Amlodipine 03/19/2018 Leg edema Molds & Smuts 10/14/2017 Penicillins 10/14/2017 Swollen eyes and lips Shellfish Allergy 10/14/2017 Clams/bi-valves only Soy Allergy 10/14/2017 documented as of this encounter (statuses as of 08/06/2024) Medications Cetirizine HCl 10 MG Oral Capsule Take 1 Capsule by mouth in the morning. 1 Capsule 2 Active Losartan Potassium 100 MG Oral Tablet (Cozaar)Indicati ons:HTN, goal below 140/90 Take 1 Tablet by mouth in the morning. 90 Tablet 3 4 Active hydrALAZINE HCl 10 MG Oral Tablet (Apresoline)Naya cations:HTN, goal below 140/90,Dyslipide hardik, goal LDL below 100 Take 1 Tablet by mouth in the morning and 1 Tablet at noon and 1 Tablet before bedtime. 280 Tablet 3 4 Active Metoprolol Succinate ER [...] mg daily. 90 Tablet 3 4 Active busPIRone HCl 5 MG Oral Tablet (Buspar)Indicati ons:Anxiety state Take 1 Tablet by mouth 2 times a day as needed for Anxiety. 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/30/2022 Overview (07/30/2022): 07/16/20229220-nyjk-DA 60-65%, mild LVH, LA moderately dilated, aortic [...] as of this encounter (statuses as of 08/06/2024) Resolved Problems Problem Noted Date Diagnosed Date Resolved Date Abnormal AST and ALT 11/20/2017 018 documented as of this encounter (statuses as of 08/06/2024) Immunizations Name Administration Dates Next Due COVID-19 [...] encounter Miscellaneous Notes * Telephone Encounter - Eleazar Galdamez DO - 08/06/2024 1:13 PM EST Signed Prescriptions: Disp Refills busPIRone HCl 5 MG Oral Tablet (Buspar) 180 Ta*1 Sig: Take 1 Tablet by mouth 2 times a day as needed for Anxiety. Authorizing Provider: ELEAZAR GALDAMEZ * Telephone Encounter - Yas Whitney RPh - 08/06/2024 11:54 AM ESTPending Prescriptions: Disp Refills busPIRone HCl 5 MG Oral Tablet (Buspar) 180 Ta*1 Sig: Take 1 Tablet by mouth 2 times a day as needed for Anxiety. * Telephone Encounter - Yas Whitney RPh - 08/06/2024 11:49 AM EST [facility] is currently not authorized to approve refills for the pended medication(s) per refill protocol. Please approve if appropriate. Thanks, Yas Whitney, PharmD Clinical Pharmacist [facility] ([facility]) 08/06/2024, 11:53 AM documented in this encounter Plan of Treatment Upcoming Encounters Date Type Department Care Team (Late st Contact Info) Description 10/19/2024 2:00 PM EST Cardiac Studies Cardiac Studies, [facility] [address] [place] [address] 12/20/2024 1:00 PM EDT Office Visit General Internal Medicine [facility] [address] [facility] [address] [place] [address] Triny Mckenna MD [address] [facility] [place] [address] 12/30/2024 1:30 PM EDT Office Visit Cardiology, [facility] [address] [place] [address] Julianna Perry CRNP [address] [place] [address] Scheduled Procedures Name Priority Associated Diagnoses Date/Ti [...] this encounter Medical Devices Implanted Type Area Petroleum Engineer Device Identifier Shelf Expiration Date Model / Serial / Lot Hemostatic Clip Res 235cm - [id number] Implanted:Qty: 4 on 01/21/2024 by Tristan Sanders MD at ENDOSCOPY [facility] N/A: Colon [employer] : ENDOSCOPY 09/26/2026 [id number] / / [id number] documented as of this encounter Visit Diagnoses Diagnosis Anxiety state Anxiety state, unspecified documented in this encounter Care Teams Project Manager Retail Relationship Specialty Start Date End Date Triny Mckenna MD [address] [facility] [place] [address] PCP - General Internal Medicine 10/14/17 documented as of this encounter
--- OUTSIDE RECORDS SUMMARY | 2024-09-11 08:58 | External Medical Summary | Summary of Care ---
Author Name Unknown Organization [facility] Address [address] [place] [address] Phone [phone] Care Team Providers Care Camouflage Assembler Name Role Phone Triny Mckenna MD Primary Care Provider [phone] Reason for Visit * Reason Comments Other Encounter Details Date Type Department Care Team (Latest Contact Info) Description 08/28/2024 3:45 PM EST Convenient Care Visit [facility] [address] [place] [address] Lakisha Rosenberg PA-C [address] [place] [address] Bilateral lower extremity edema*; Allergic contact dermatitis due to plants, except food; HTN, goal below 140/90; Cellulitis of lower extremity, unspecified laterality Allergies Active Allergy Reactions Criticality Noted Date Comments Amlodipine 03/19/2018 Leg edema Molds & Smuts 10/14/2017 Penicillins 10/14/2017 Swollen eyes and lips Shellfish Allergy 10/14/2017 Clams/bi-valves only Soy Allergy (Do Not Select) 10/14/19 18 documented as of this encounter (statuses as of 08/29/2024) Medications Losartan Potassium 100 MG Oral Tablet (Cozaar)Indicati ons:HTN, goal below 140/90 Take 1 Tablet by mouth in the morning. 90 Tablet 3 10/24/19 24 Active Metoprolol Succinate ER 100 MG Oral Tablet Extended Release 24 Hour (toPROL XL)Indications:P aroxysmal atrial fibrillation (HCC) take 1 AND 1/2 tablets by mouth IN THE MORNING 135 Tablet 3 12/15/19 24 Active Furosemide 20 MG Oral Tablet (Lasix)Indicatio ns:HTN, goal below 140/90 TAKE 1 TABLET BY MOUTH EVERY MORNING 90 Tablet 3 04/09/20 24 Active Atorvastatin Calcium 40 MG Oral Tablet (Lipitor)Indicat ions:Paroxysmal atrial fibrillation (HCC),HTN, goal below 140/90,Dyslipide hardik, goal LDL below 100 Take 1 Tablet by mouth at bedtime. 90 Tablet 3 04/20/20 24 Active Apixaban 5 MG Oral Tablet (Eliquis)Indicat ions:Paroxysmal atrial fibrillation (HCC) Take 1 Tablet by mouth in the morning and 1 Tablet before bedtime. 180 Tablet 4 04/26/20 24 Active Triamcinolone Acetonide 55 MCG/ACT Nasal Aerosol (Nasacort Allergy 24HR)Indications :Perennial allergic rhinitis with seasonal variation,Acute non-recurrent maxillary sinusitis Administer 2 Sprays into each nostril in the morning. 06/21/20 24 Active Citrucel 500 MG Oral Tablet (Methylcellulose (Laxative))Indic ations:Chronic constipation Taking 3 daily 06/21/20 24 Active busPIRone HCl 5 MG Oral Tablet (Buspar)Indicati ons:Anxiety state Take 1 Tablet by mouth 2 times a day as needed for Anxiety. 180 Tablet 1 08/06/20 24 Active Metoprolol Succinate ER 50 MG Oral Tablet Extended Release 24 Hour (toPROL XL)Indications:P aroxysmal atrial fibrillation (HCC) Take 1 Tablet by mouth in the morning. In addition to a 100 mg tablet. Total of 150 mg daily. 90 Tablet 3 08/05/20 24 Active hydrALAZINE HCl 10 MG Oral Tablet (Apresoline)Naya cations:HTN, goal below 140/90,Dyslipide hardik, goal LDL below 100 Take 1 Tablet by mouth in the morning and 1 Tablet at noon and 1 Tablet before bedtime. 280 Tablet 2 08/18/20 24 Active busPIRone HCl 10 MG Oral Tablet (Buspar)Indicati ons:Anxiety state Take 1 Tablet by mouth in the morning and 1 Tablet before bedtime. 180 Tablet 08/17/20 24 Active Cetirizine HCl 5 MG Oral TabletIndication s:Bilateral lower extremity edema,Allergic contact dermatitis due to plants, except food Take 1 Tablet by mouth in the morning. 30 Tablet 08/28/20 24 Active Doxycycline Hyclate 100 MG Oral CapsuleIndicatio ns:Bilateral lower extremity edema Take 1 Capsule by mouth in the morning and 1 Capsule before bedtime. Do all this for 10 days. Until gone.. 20 Capsule 08/28/20 24 025 Active Cetirizine HCl 10 MG Oral Capsule Take 1 Capsule by mouth in the morning. 1 Capsule 06/18/20 22 024 Discontinued documented as of this encounter (statuses as of 08/29/2024) Active Problems Problem Noted Date Diagnosed Date Anxiety state 12/23/2022 Paroxysmal A-fib 09/10/2022 Chronic pansinusitis 09/10/2022 terminal block assembler current use of anticoagulant therapy 0 09/10/2022 Non-rheumatic aortic sclerosis 07/30/2022 Overview (07/30/2022): 07/16/20220355-pmgb-VS 60-65%, mild LVH, LA moderately dilated, aortic [...] as of this encounter (statuses as of 08/29/2024) Resolved Problems Problem Noted Date Diagnosed Date Resolved Date Abnormal AST and ALT 11/20/2017 018 documented as of this encounter (statuses as of 08/29/2024) Immunizations Name Administration Dates Next Due COVID-19 [...] in the Last Year Never true 11/09/2019 Comments No Sex and Gender Information Value Date Recorded Sex Assigned at Female 06/07/2019 10:35 AM EDT Legal Sex Female 10:42 AM EST Gender Identity Female 06/07/2019 10:35 AM EDT Sexual Orientation Straight 06/07/2019 10 :35 AM EDT documented as of this encounter Last Filed Vital Signs Vital Sign Reading Time Taken Comments Blood Pressure 130/92 08/28/2024 4:19 PM EST Pulse 100 08/28/2024 4:36 PM EST Temperature 36.9 C (98.4 F) 08/28/2024 4:19 PM ES T Respiratory Rate 18 08/28/2024 4:19 PM EST Oxygen Saturation 96% 08/28/2024 4:36 PM EST Inhaled Oxygen Concentration - - Weight 81.2 kg (179 lb) 08/28/2024 4:19 PM EST Height 162.6 cm (5' 4") 08/28/2024 4:19 PM EST Body Mass Index 30.73 08/28/2024 4:19 PM EST documented in this encounter Patient Instructions * Patient Instructions* Lakisha Rosenberg PA-C - 08/28/2024 4:48 PM EST Return if worsens, f/u w primary care or return here if worsening or not getting better Elevate legs, write the alphabet w your feet documented in this encounter Progress Notes * Lakisha Rosenberg PA-C - 08/28/2024 4:22 PM EST Subjective: Nursing Notes: Wendy Payal David, RIG MECHANIC 08/28/24 1621 Signed Viji Dutton is a 83 year old female who presents to walk-in clinic today complaining of bilateral lower leg swelling for about 11 days. They started to get red today. States day after she had a pedicure is when legs started to swell. It was a detox pedicure. States she does not have any pain. Takes lasix daily 20mg. And it was increased to 40mg daily. She did call Cardiology and they increased her fluid pill for 5 days but swelling did not get better. Pt alone in room. Sx are bilateral leg pain and swelling x 11 days but today now red. Recently had a pedicure Pt is tachycardic but HR was 68 at home earlier today no sick contacts at home. Sig med hx/risk factors: HTN, paroxysmal A-fib had flu shot this year. Review of Systems Constitutional: Negative. Negative for fatigue and fever. HENT: Negative. Cardiovascular: Positive for leg swelling (bilateral). Gastrointestinal: Negative. Skin: Positive for color change (turned red) and rash. Negative for wound. Neurological: Negative for dizziness, light-headedness and headaches. 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 90 Tablet 3 Metoprolol Succinate ER 100 MG Oral Tablet Extended Release 24 Hour (toPROL XL) take 1 AND 1/2 tablets by mouth IN THE MORNING 135 Tablet 3 Furosemide 20 MG Oral Tablet (Lasix) TAKE 1 TABLET BY MOUTH EVERY MORNING 90 Tablet 3 Atorvastatin Calcium 40 MG Oral Tablet (Lipitor) Take 1 Tablet by mouth at bedtime. 90 Tablet 3 Apixaban 5 MG Oral Tablet (Eliquis) Take 1 Tablet by mouth in the morning and 1 Tablet before bedtime. 180 Tablet 4 Triamcinolone Acetonide 55 MCG/ACT Nasal Aerosol (Nasacort Allergy 24HR) Administer 2 Sprays into each nostril in the morning. Citrucel 500 MG Oral Tablet (Methylcellulose (Laxative)) Taking 3 daily busPIRone HCl 5 MG Oral Tablet (Buspar) Take 1 Tablet by mouth 2 times a day as needed for Anxiety.180 Tablet 1 Metoprolol Succinate ER 50 MG Oral Tablet Extended Release 24 Hour (toPROL XL) Take 1 Tablet by mouth in the morning. In addition to a 100 mg tablet. Total of 150 mg daily. 90 Tablet 3 hydrALAZINE HCl 10 MG Oral Tablet (Apresoline) Take 1 Tablet by mouth in the morning and 1 Tablet at noon and 1 Tablet before bedtime. 280 Tablet 2 busPIRone HCl 10 MG Oral Tablet (Buspar) Take 1 Tablet by mouth in the morning and 1 Tablet before bedtime. 180 Tablet 0 Cetirizine HCl 5 MG Oral Tablet Take 1 Tablet by mouth in the morning. 30 Tablet 0 Doxycycline Hyclate 100 MG Oral Capsule Take 1 Capsule by mouth in the morning and 1 Capsule beforebedtime. Do all this for 10 days. Until gone.. 20 Capsule 0 No current facility-administered medications for this visit. Past Medical History: Diagnosis Date HLD (hyperlipidemia) HTN (hypertension) Osteopenia Pre-diabetes Past Surgical History: Procedure Laterality Date APPENDECTOMY W/OTHER PROCEDURE COLONOSCOPY 01/19/2013 COLONOSCOPY 11/29/2002 COLONOSCOPY, DIAGNOSTIC (RECTUM) 01/21/2024 diverticulosis/hemorrhoids/biopsies show serrated adenomatous polyps/recall 1 year/COLONOSCOPY FLEXIBLE PROXIMAL DIAGNOSTIC performed by Tristan Sanders MD at ENDOSCOPY [facility] ENDOVENOUS ABLATION INCOMPETENT VEIN MECHANOCHEM 1ST VEIN Right 2005 REMOVE CATARACT, INSERT LENS PROSTH Bilateral 2020 Rt sep, Lt oct SHOULDER SURGERY PROCEDURE NEC 1991 SINUS SURGERY PROCEDURE NEC Review of patient's allergies indicates: Allergen Reactions Amlodipine Leg edema Molds & Smuts Penicillins Swollen eyes and lips Shellfish Allergy Clams/bi-valves only Soy Allergy (Do Not Select) Objective: BP 130/92 | Pulse 100 | Temp 36.9 C (98.4 F) (Tympanic) | Resp 18 | Ht 1.626 m (5' 4") | Wt 81.2 kg (179 lb) | SpO2 96% | BMI 30.73 kg/m | BSA 1.92 m Physical Exam Constitutional: Appearance: Normal appearance. She is not ill-appearing. Cardiovascular: Rate and Rhythm: Tachycardia present. Rhythm irregular. Heart sounds: Normal heart sounds. Comments: Heart rhythm revealed paroxysmal a-fib on auscultation and when monitoring pulse, would sometimes seem to be normal Rate and Rhythm Pulmonary: Effort: Pulmonary effort is normal. Breath sounds: Normal breath sounds. Musculoskeletal: General: Swelling and tenderness (mild of lower legs bilaterallly) present. Normal range of motion. Right lower leg: Edema present. Left lower leg: Edema present. Skin: Capillary Refill: Capillary refill takes less than 2 seconds. Findings: Erythema (anterior legs bilaterally with the R>L) and rash (seem like there is a contact dermatitis on legs) present. Neurological: Mental Status: She is alert and oriented to person, place, and time. Psychiatric: Behavior: Behavior normal. Comments: Pt was anxious and HR would go up and down when she monitored her watch that tract HR, more she watched seemed HR would go up as she would get upset w it going up, also when I discussed it would seem to go up as per patient. Recommended that pt have an EKG today but she declined due to feeling very nervous Recommended doing an EKG in house and patient declined as she felt she would be too nervous to do this and would be inaccurate. (Asked her 2 times.) ASSESSMENT/PLAN: Bilateral lower extremity edema (Primary) - Cetirizine HCl 5 MG Oral Tablet; Take 1 Tablet by mouth in the morning. - Doxycycline Hyclate 100 MG Oral Capsule; Take 1 Capsule by mouth in the morning and 1 Capsule before bedtime. Do all this for 10 days. Until gone.. Allergic contact dermatitis due to plants, except food - Cetirizine HCl 5 MG Oral Tablet; Take 1 Tablet by mouth in the morning. HTN, goal below 140/90 Cellulitis of lower extremity, unspecified laterality Think swelling might be allergic reaction to whatever was put on her legs at the [employer] shop. There is apparent dermatitis that might have become infected, recommend continuing allergy meds. Pt to f/u w cardiology Will forward this note to Julianna carlos cardiology who pt freq sees. Patient Instructions Return if worsens, f/u w primary care or return here if worsening or not getting better Elevate legs, write the alphabet w your feet Over 30 minutes spent with patient exam, counseling, review of previous medical records and with documenting. Return instruction reviewed with pt in detail. Reasons to report to the ED were also reviewed. Voiced understanding Advised to follow up if no improvement in 3-5days. Lakisha Rosenberg PA-C documented in this encounter Nursing Notes * Payal Nguyen LPN - 08/28/2024 4:13 PM EST Viji Dutton is a 83 year old female who presents to walk-in clinic today complaining of bilateral lower leg swelling for about 11 days. They started to get red today. States day after she had a pedicure is when legs started to swell. It was a detox pedicure. States she does not have any pain. Takes lasix daily 20mg. And it was increased to 40mg daily. She did call Cardiology and they increased her fluid pill for 5 days but swelling did not get better. Pt alone in room. documented in this encounter Plan of Treatment Upcoming Encounters Date Type Department Care Team (Late st Contact Info) Description 10/06/2024 3:20 PM EST [facility] [address] [place] [address] Triny Mckenna MD [address] [facility] [place] [address] 10/19/2024 2:00 PM EST [facility] [address] [facility] [place] [address] 12/13/2024 1:30 PM EDT [facility] [address] [facility] [place] [address] Julianna Perry CRNP [address] [place] [address] 12/20/2024 1:00 PM EDT Office Visit General Internal Medicine [facility] [employer] [address] [facility] [place] [address] Triny Mckenna MD [address] [facility] [place] [address] Scheduled Procedures Name Priority Associated Diagnoses Date/Ti me COLONOSCOPY FLEXIBLE PROXIMA L DIAGNOSTIC Recall History of colonic polyps Health Maintenance Due Date Last Done Comments COVID-19 Vaccine ( season) 2024 06/16/2022, 12/25/2021, 12/19/2021, Additional history exists Albumin/Creatinine Ratio 12/05/2024 12/05/2021 Colonoscopy 01/20/2025 01/21/2024, 01/21/2024 Depression Screening 06/21/2025 06/21/2024 GFR 08/20/2025 08/20/2024, 06/01, 06/13/2023, Additional history exists HbA1c 08/20/2025 08/20/2024, 06/02, 06/13/2023, Additional history exists DTap/Tdap Vaccines (3 - Td or Tdap) 04/17/2028 04/17/2018, 10/25/2014, 01/11/2009, Additional history exists DXA Scan 07/26/2031 07/26/2024, 03/02, 09/13/2009 Pneumococcal Vaccine: 50+ Years Completed 02/01/2015, 03/26/2007 Zoster Vaccines Completed [...] this encounter Medical Devices Implanted Type Area Nanofabrication Specialist Device Identifier Shelf Expiration Date Model / Serial / Lot Hemostatic Clip Res 235cm - [id number] Implanted:Qty: 4 on 01/21/2024 by Tristan Sanders MD at ENDOSCOPY [facility] N/A: Colon [employer] : ENDOSCOPY 09/26/2026 [id number] / / [id number] documented as of this encounter Visit Diagnoses Diagnosis Bilateral lower extremity edema- Primary Edema Allergic contact dermatitis due to plants, except food Contact dermatitis and other eczema due to plants (except food) HTN, goal below 140/90 Unspecified essential hypertension Cellulitis of lower extremity, unspecified laterality documented in this encounter Care Teams Camouflage Assembler Relationship Specialty Start Date End Date Triny Mckenna MD [address] [place] [address], [place] [address] PCP - General Internal Medicine 10/14/17 documented as of this encounter
--- OUTSIDE RECORDS SUMMARY | 2024-09-11 08:58 | External Medical Summary | Summary of Care ---
Author Name Unknown Organization [facility] Address [address] [facility] [address] Phone [phone] Care Team Providers Care Senior Sales Assistant Name Role Phone Triny Mckenna MD Primary Care Provider [phone] Reason for Visit * Reason Onset Date Comments Medication Refill 09/01/2024 Encounter Details Date Type Department Care Team (Late st Contact Info) Description 09/01/2024 Refill Gastroenterology, [facility] [address] [place] [address] Luda Campuzano CRNP [address] [place] [address] Paroxysmal atrial fibrillation (HCC) Allergies Active Allergy Reactions Criticality Noted Date Comments Amlodipine 03/19/2018 Leg edema Molds & Smuts 10/14/2017 Penicillins 10/14/2017 Swollen eyes and lips Shellfish Allergy 10/14/2017 Clams/bi-valves only Soy Allergy (Do Not Select) 10/14/19 18 documented as of this encounter (statuses as of 09/06/2024) Medications Losartan Potassium 100 MG Oral Tablet (Cozaar)Indicati ons:HTN, goal below 140/90 Take 1 Tablet by mouth in the morning. 90 Tablet 3 4 Active Furosemide 20 MG [...] before bedtime. 280 Tablet 2 4 Active busPIRone HCl 10 MG Oral Tablet (Buspar)Indicati ons:Anxiety state Take 1 Tablet by mouth in the morning and 1 Tablet before bedtime. 180 Tablet 4 Active Cetirizine HCl 5 MG Oral TabletIndication s:Bilateral lower extremity edema,Allergic contact dermatitis due to plants, except food Take 1 Tablet by mouth in the morning. 30 Tablet 4 Active Doxycycline Hyclate 100 MG Oral CapsuleIndicatio ns:Bilateral lower extremity edema Take 1 Capsule by mouth in the morning and 1 Capsule before bedtime. Do all this for 10 days. Until gone.. 20 Capsule 4 025 Active Metoprolol Succinate ER 100 MG Oral Tablet Extended Release 24 Hour (toPROL XL)Indications:P aroxysmal atrial fibrillation (HCC) Take 1 tablet by mouth in the morning in addition to 50mg dose for total of 150mg 90 Tablet 3 5 Active Metoprolol Succinate ER 100 MG Oral Tablet Extended Release 24 Hour (toPROL XL)Indications:P aroxysmal atrial fibrillation (HCC) take 1 AND 1/2 tablets by mouth IN THE MORNING 135 Tablet 3 4 025 Discontin ued(Refil l) documented as of this encounter (statuses as of 09/06/2024) Active Problems Problem Noted Date Diagnosed Date Anxiety state 12/23/2022 Paroxysmal A-fib 09/10/2022 Chronic pansinusitis 09/10/2022 longterm current use of anticoagulant therapy 0 09/10/2022 Non-rheumatic aortic sclerosis 07/30/2022 Overview (07/30/2022): 07/16/20228611-tpkb-NK 60-65%, mild LVH, LA moderately dilated, aortic [...] as of this encounter (statuses as of 09/06/2024) Resolved Problems Problem Noted Date Diagnosed Date Resolved Date Abnormal AST and ALT 11/20/2017 018 documented as of this encounter (statuses as of 09/06/2024) Immunizations Name Administration Dates Next Due COVID-19 [...] encounter Miscellaneous Notes * Telephone Encounter - Julianna Chen CRNP - 09/06/2024 10:34 AM EST Signed Prescriptions: Disp Refills Metoprolol Succinate ER 100 MG Oral Tablet*90 Tab*3 Sig: Take 1 tablet by mouth in the morning in addition to 50mg dose for total of 150mgAuthorizing Provider: JULIANNA CHEN * Telephone Encounter - Annia Garcia LPN - 09/02/2024 10:24 AM ESTPending Prescriptions: Disp Refills Metoprolol Succinate ER 100 MG Oral Tablet*90 Tab*3 Sig: Take 1 tablet by mouth in the morning in addition to 50mg dose for total of 150mg * Telephone Encounter - Annia Garcia LPN - 09/02/2024 10:23 AM EST Did you pend patient's preferred pharmacy and medication before forwarding?yes Pharmacy: [id number] [address] [facility] [address] [place] [address] [place] Pending Prescriptions: Disp Refills Metoprolol Succinate ER 100 MG Oral Table*90 Tab*3 Sig: Take 1 tablet by mouth in the morning in addition to 50mg dose for total of 150mg Last Visit: 03/16/2024 (in office), Visit date not found (telemedicine) Next Visit: Visit date not found If no future appointments scheduled, and last appointment is greater than a year ago, please schedule patient for a follow-up appointment Last date the medication was ordered: 12/15/2023 Is this request for a controlled substance?No Urine Drug Screen:No results found for this or any previous visit. Patient Phone Numbers Labs: Lab Results Component Value Date/Time CREAT 0.9 08/20/2024 03:20 PM CREAT 0.9 02/08/2020 01:03 PM POTASSIUM 4.2 08/20/2024 03:20 PM POTASSIUM 4.1 02/08/2020 01:03 PM TSH 3.55 04/06/2018 07:35 AM LDL 92 06/21/2024 01:43 PM LDL 84 02/08/2020 01:03 PM LDL 95 06/07/2019 11:29 AM ALT 13 06/21/2024 01:43 PM ALT 15 02/08/2020 01:03 PM HGBA1C 5.9 (H) 08/20/2024 03:20 PM HGBA1C 5.7 (H) 02/08/2020 01:03 PM * Telephone Encounter - Maricruz Najera LPN - 09/02/2024 9:10 AM ESTPending Prescriptions: Disp Refills Metoprolol Succinate ER 100 MG Oral Tablet*135 Ta*3 documented in this encounter Plan of Treatment Upcoming Encounters Date Type Department Care Team (Late st Contact Info) Description 10/06/2024 3:20 PM EST Office Visit General Internal Medicine [facility] [address] [place] [address] Triny Mckenna MD [address] [place] [address] 10/19/2024 2:00 PM EST Cardiac Studies [facility], [facility] [place] [address] 12/13/2024 1:30 PM EDT Office Visit Cardiology, [facility] [address] [facility] [place] [address] Julianna Chen CRNP [address] [place] [address] 12/20/2024 1:00 PM EDT Office Visit General Internal Medicine [facility] [address] [place] [address] Triny Mckenna MD [address] [place], [place] [address] Scheduled Procedures Name Priority Associated Diagnoses Date/Ti me COLONOSCOPY FLEXIBLE PROXIMA L DIAGNOSTIC Recall History of colonic polyps Health Maintenance Due Date Last Done Comments COVID-19 Vaccine ( season) 2024 06/16/2022, 12/25/2021, 12/19/2021, Additional history exists *NEPHROLOGY REFERRAL DUE TO RESISTANT HTN 08/30/2024 Albumin/Creatinine Ratio 12/05/2024 12/05/2021 Colonoscopy 01/20/2025 01/21/2024, [...] this encounter Medical Devices Implanted Type Area Program Management Analyst Device Identifier Shelf Expiration Date Model / Serial / Lot Hemostatic Clip Res 235cm - [id number] Implanted:Qty: 4 on 01/21/2024 by Tristan Sanders MD at ENDOSCOPY [facility] N/A: Colon [employer] : ENDOSCOPY 09/26/2026 [id number] / / [id number] documented as of this encounter Visit Diagnoses Diagnosis Paroxysmal atrial fibrillation (HCC) Atrial fibrillation documented in this encounter Care Teams Senior Sales Assistant Relationship Specialty Start Date End Date Triny Mckenna MD [address] [facility] [place] [address] PCP - General Internal Medicine 2/13/18 documented as of this encounter
--- OUTSIDE RECORDS SUMMARY | 2024-09-11 08:58 | External Medical Summary | Summary of Care ---
Author Name Unknown Organization [facility] Address [address] [place] [address] Phone [phone] Care Team Providers Care Provider Relations Representative Name Role Phone Triny Mckenna MD Primary Care Provider [phone] Reason for Referral * Evaluate & Treat - Unlimited Visits (Within 30 days (routine)) - Pending Review Specialty Diagnoses / Procedures Referred By Prasad mohan Referred To Contact Orthopaedic Surgery / Orthopedics Diagnoses Lateral knee pain, right Triny Mckenna MD [address] [place] [address] [place] [address] Referral ID Status Reason Start Date Expiration Date Visits Requested Visits Authorized [id number] Pending Review Specialty Services Required 4 [phone] Question Answer Referral Priority Within 30 days (routine) Where should this appointment be scheduled? [facility] What body part is the patient being seen for? Thigh/Knee What condition is the patient being seen for? Arthritis including related infection Reason for Visit * Reason Comments Follow Up yearly Encounter Details Date Type Department Care Team (Late st Contact Info) Description 06/21/2024 12:40 PM EDT Office Visit General Internal Medicine [place] [facility] [address] [place] [id number] Triny Mckenna MD [address] [facility] [place] [id number] Paroxysmal A-fib (HCC)*; HTN, goal below 140/90; Non-rheumatic aortic sclerosis; Dyslipidemia, goal LDL below 100; Prediabetes; Anxiety state; History of colonoscopy with polypectomy; Perennial allergic rhinitis with seasonal variation; Acute non-recurrent maxillary sinusitis; Subconjunctival hemorrhage of left eye; History of squamous cell carcinoma of skin; Osteopenia of spine; Screening for osteoporosis; Menopause; Lateral knee pain, right; Chronic constipation Allergies Active Allergy Reactions Criticality Noted Date Comments Amlodipine 03/19/2018 Leg edema Molds & Smuts 10/14/2017 Penicillins 10/14/2017 Swollen eyes and lips Shellfish Allergy 10/14/2017 Clams/bi-valves only Soy Allergy 10/14/2017 documented as of this encounter (statuses as of 06/21/2024) Medications Medication Sig Dispensed Refills Start Date End Date Status Cetirizine HCl 10 MG Oral Capsule Take 1 Capsule by mouth in the morning. 1 Capsule 06/18/2022 Active Metoprolol Succinate ER 50 MG Oral Tablet Extended Release 24 Hour (toPROL XL)Indications:Par oxysmal atrial fibrillation (HCC) Take 1 Tablet by mouth in the morning. In addition to a 100 mg tablet. Total of 150 mg daily. 90 Tablet 3 10/22/2023 Active Losartan Potassium 100 MG Oral Tablet (Cozaar)Indication s:HTN, goal below 140/90 Take 1 Tablet by mouth in the morning. 90 Tablet 3 10/24/2023 Active hydrALAZINE HCl 10 MG Oral Tablet (Apresoline)Indica tions:HTN, goal below 140/90,Dyslipidemi a, goal LDL below 100 Take 1 Tablet by mouth in the morning and 1 Tablet at noon and 1 Tablet before bedtime. 280 Tablet 3 12/11/2023 Active Metoprolol Succinate ER 100 MG Oral Tablet Extended Release 24 Hour (toPROL XL)Indications:Par oxysmal atrial fibrillation (HCC) take 1 AND 1/2 tablets by mouth IN THE MORNING 135 Tablet 3 12/15/2023 Active Furosemide 20 MG Oral Tablet (Lasix)Indications :HTN, goal below 140/90 TAKE 1 TABLET BY MOUTH EVERY MORNING 90 Tablet 3 04/09/2024 Active Atorvastatin Calcium 40 MG Oral Tablet (Lipitor)Indicatio ns:Paroxysmal atrial fibrillation (HCC),HTN, goal below 140/90,Dyslipidemi a, goal LDL below 100 Take 1 Tablet by mouth at bedtime. 90 Tablet 3 04/20/2024 Active Apixaban 5 MG Oral Tablet (Eliquis)Indicatio ns:Paroxysmal atrial fibrillation (HCC) Take 1 Tablet by mouth in the morning and 1 Tablet before bedtime. 180 Tablet 4 04/26/2024 Active busPIRone HCl 5 MG Oral Tablet (Buspar)Indication s:Anxiety state Take 1 Tablet by mouth 2 times a day as needed for Anxiety. (See tel enc 06/10/2024) 180 Tablet 06/10/2024 Active Doxycycline Hyclate 100 MG Oral CapsuleIndications :Acute non-recurrent maxillary sinusitis Take 1 Capsule by mouth in the morning and 1 Capsule before bedtime. Do all this for 7 days. Take for 7 days. 14 Capsule 06/21/2024 Active Triamcinolone Acetonide 55 MCG/ACT Nasal Aerosol (Nasacort Allergy 24HR)Indications:P erennial allergic rhinitis with seasonal variation,Acute non-recurrent maxillary sinusitis Administer 2 Sprays into each nostril in the morning. 06/21/2024 Active Citrucel 500 MG Oral Tablet (Methylcellulose (Laxative))Indicat ions:Chronic constipation Taking 3 daily 06/21/2024 Active Atorvastatin Calcium 40 MG Oral Tablet (Lipitor)Indicatio ns:Paroxysmal atrial fibrillation (HCC),HTN, goal below 140/90,Dyslipidemi a, goal LDL below 100 Take 1 Tablet by mouth at bedtime. 90 Tablet 3 04/20/2024 4 Discontinue d(Medicatio n List Clean Up) Atorvastatin Calcium 40 MG Oral Tablet (Lipitor)Indicatio ns:Paroxysmal atrial fibrillation (HCC),HTN, goal below 140/90,Dyslipidemi a, goal LDL below 100 Take 1 Tablet by mouth at bedtime. 90 Tablet 3 04/20/2024 4 Discontinue d(Medicatio n List Clean Up) documented as of this encounter (statuses as of 06/21/2024) Active Problems Problem Noted Date Diagnosed Date Anxiety state 12/23/2022 Paroxysmal A-fib 09/10/2022 Chronic pansinusitis 09/10/2022 halfway current use of anticoagulant therapy 0 09/10/2022 Non-rheumatic aortic sclerosis 07/30/2022 Overview: 07/16/20225597-sami-HQ 60-65%, mild LVH, LA moderately dilated, aortic valve sclerosis moderate, mild MR HTN, goal below 140/90 10/14/2017 Overview: 04/18--home monitor cor well Dyslipidemia, goal LDL below 100 10/14/2017 Prediabetes 10/14/2017 Osteopenia of spine 10/14/2017 Overview: 04/18-dexa--1.3/-1.3--LR-rpt 5 yrs History of colonoscopy with polypectomy 10/14/19 18 Encounter for screening mammogram for breast can cer 10/14/2017 Overview: 12/17-25-50%FG>12/18-dense>same 03/21. Perennial allergic rhinitis with seasonal variat ion 10/14/2017 H/O sinus surgery 10/14/2017 Post-menopausal atrophic vaginitis 10/14/2017 History of squamous cell carcinoma of skin 10/14 Primary osteoarthritis of both hands 10/14/2017 documented as of this encounter (statuses as of 06/21/2024) Resolved Problems Problem Noted Date Diagnosed Date Resolved Date Abnormal AST and ALT 11/20/2017 018 documented as of this encounter (statuses as of 06/21/2024) Immunizations Name Administration Dates Next Due COVID-19 [...] Date Recorded PHQ Adult Total Score 0 12/23/2022 Hunger Vital Sign Answer Date Recorded Worried [...] years and over) Not on file 02/17/2024 Sex and Gender Information Value Date Recorded Sex Assigned at Female 06/07/2019 10:35 AM EDT Gender Identity Female 06/07/2019 10:35 AM EDT Sexual Orientation Straight 06/07/2019 10 :35 AM EDT Job Start Date Occupation Industry Not on file Not on file Not on file documented as of this encounter Last Filed Vital Signs Vital Sign Reading Time Taken Comments Blood Pressure 132/88 06/21/2024 12:44 PM EDT Pulse 74 06/21/2024 12:44 PM EDT Temperature 36.7 C (98.1 F) 06/21/2024 12:44 PM E DT Respiratory Rate 20 06/21/2024 12:44 PM EDT Oxygen Saturation 98% 06/21/2024 12:44 PM EDT Inhaled Oxygen Concentration - - Weight 73.2 kg (161 lb 4.8 oz) 06/21/2024 12:44 PM EDT Height 162.6 cm (5' 4") 06/21/2024 12:44 PM EDT Body Mass Index 27.69 06/21/2024 12:44 PM EDT documented in this encounter Progress Notes * Triny Mckenna MD - 06/21/2024 12:58 PM EDT Year SUBJECTIVE: Viji Dutton is a 77 year old female. Chief Complaint Patient presents with Follow Up yearly HPI: Patient presents with here for 6 mth f/u --over due now 12 mths Wt Readings from Last 6 Encounters: 06/21/24 73.2 kg (161 lb 4.8 oz) 06/17/24 72.8 kg (160 lb 6.4 oz) 03/16/24 70.8 kg (156 lb 1.6 oz) 01/21/24 67.6 kg (149 lb) 12/11/23 70.3 kg (155 lb) 06/10/23 71.1 kg (156 lb 11.2 oz) BP Readings from Last 6 Encounters: 06/21/24 132/88 06/17/24 150/92 03/16/24 166/92 01/21/24 137/71 12/11/23 148/88 06/10/23 120/70 [employer] eval 10/2017 Hypertension -was on atenolol 100 mg, HCTZ 25 mg, losartan 50 mg daily. 11/16-Na 132, FBS 116, nl lipids,alt 62, UA conc with few bacteria,3-5 rbc, no blood, --was rec inc intake fluids, rpt BMP 12/22/17-Na still low at 131--HCTZ was dc And Losartan inc to 50mg bid- - lab 01/01/2018 With nl na 01/05/18-st amlodipine 5 mg and had called with mild edema--saw provider and rec to ut med. While in [place] at [facility] had inc edema legs to calf and foot and stopped 03/01/18 and swelling resoled in1wk. But BP started to creep up and she had called yesterday with bp 190/90 and was feeling anxious and she took amlodipine 1 yest and 1 this am----and home bp 145/78 yest , today 127/78. 03/19/2018 -st lasix 20mg --joshua well -fu bmp stable 04/18-defers ekg today. Her ride was late and BP sl hi on arrival, home BP this am 127/79. 10/27/2018--home BP 127/81 today, here same. ekg done 06/19-seen in 03/19--switch atenolol 100mg daily to metoprolol XL 50mg daily then 2/d> 05/18/19I Inc metoprolol 50mg to 2.5 tabs as HR /bp was high Pt thinks she is taking toprol xl 1.5 tabs of 100mg?go home and check and call us 11/18-on toprol xl 50mg 2.5tabs 06/20-bp at goal>12/20>12/21. 06/18/2022--Bp noted to be low , she denies any symptoms of dizziness or weakness takes all her blood pressure medicines in the morning, was in [place] 6 wks. No chest pain shortness of breath palpitations or leg edema ECHO--10/25/2012---EF 60%, A Scl, gr 1 DD, 1+ MR, mild-mod TR, RVSP nml--(no sx Snoring Had EKG 2013 prior csope- EKG 09/26/2018- -SB at 59bpm, no abn noted. 06/19/22 was noted to be in AFib with RVR sent to the hospital for evaluation, she was admitted Andseen by Cardiology in post discharge follow-up. Heparin was transitioned to Eliquis on 06/19. Home dose of metoprolol succinate was discontinued in favor of metoprolol tartrate 25 mg four times dailyin addition to her diltiazem, (previously maintained metoprolol succinate 125 mg daily). Patient self converted to sinus rhythm on 06/20. Labs-normal CBC, CMP, mg 2.1, TSH 2.5, UA poor sample, COVID test negative. chest x-ray mild cardiomegaly otherwise unremarkable. -DC on metoprolol succinate 150 mg daily" - continued medications losartan 100 mg, Lasix 20 mg, Zyrtec, atorvastatin. Echo 06/19/2022 at [facility]--AFib during the study, EF 60-65%, mild C LVH, LA moderately dilated, mild calcified aortic valve, moderate aortic sclerosis without stenosis, mild TR, no pulmonary hypertension States had symptoms of sinus congestion, sinus pressure, took Sudafed, blood pressure was elevated,seen at [facility], was prescribed doxycycline for 7 days, had a nurse blood pressure check appointment at cardiology office on 08/29/2022 and sent to the ED due to hypertensive urgency- Was seen in the ER again 09/03/22 for hypertension, message was sent to Cardiology, they started hydralazine 10 mg 3 times daily, 09/04/22 was also very anxious, blood pressure in the ED 206/108 pulse of97. Labs -normal CBC, CMP, potassium 3.6, UA negative. EKG-x2-NSR 70bpm, no ischemic findings, positive Pac no PVC unchanged from prior CT head no acute findings, evidence of prior paranasal sinus surgery, subtotal opacification right maxillary antrum, mild mucosal thickening ethmoid resection cavity and left frontal sinus. Was given Ativan 0.5 mg, repeat blood pressure was trending down, she was asymptomatic and they recommended follow-up with Cardiology/ PCP for anxiety. She sent a message recently and was advised to increase dose of BusPar to twice daily --inc to tid 09/23. 12/22---had cardiology follow-up in October, today admits had been drinking 2 glass of wine daily and has not drank any since September except for a wine tasting last month in [place]. Lost weight 13 lb. Blood pressure at home decreasing from 130/70 to 120/60 range, home blood pressure monitorcorrelation normal. Was on a vacation in 1 month in [place], celebrated her 82st birthday yesterday, wished her belated wishes, anxiety is much improved, she self decrease BuSpar to 1 daily since beginning of December 09--home BP 127/70 today , and other 118/74, no sx low bp, recalls 1 yr ago she wa sdiag afib with rvr Goes o [facility] in [place] in summer, wlaks 3-4 miles daily 06/24--back on buspar 5 mg bid last year, saw card x2, no med chg--they ordered CBC, BMP, not lipids or liver functions. Patient states she is also taking B12 and zinc Dyslipidemia on Lipitor 20 mg daily, aspirin 81 mg daily 10 yr cardiovascular risk 22 %., LDL 100 10/20-inc dose 40mg 06/20--ldl at goal n/t asa 81 mg now--discussed at her age and since was being used for elayne prevention ok to stop now but 10 yr risk remains hi.- consider inc dose lipitor 80mg NV 12/21--last HDL 95 Pre diabetes diet controlled. Seasonal allergic rhinitis on Zyrtec daily. Thinks it is related to mold, has symptoms year-round. Feels Zyrtec may not be helping advised to switch to loratadine or [id number] Kylah or Xyzal and if not better consider adding Flonase 2sprays to each nostril daily Also complained of itching in the ears despite using ear drops ---12/21--now on loratidine daily, NSs qam>back on zyrtec 06/22, given Ceftin for sinus infectionin September 2022. Anxiety : Was on Klonopin 0.5 mg as needed- 06/2019 st buspar-- 5mg 1 tab In morning And may take 2nd tab at night if needed for anxiety. 11/18--now taking 1 daily in am.12/20-off med now>12/21 back on 1/d now>12/22-self dec 1/d now Osteopenia on multivitamin, calcium 600 mg, VD 1000 units daily. Dexa 10/2010--_1.8 LS, -1.0 left hip DEXA April, showed T-score of-1.2 LS,-1.2 left hip, was on evista for 2 years, off 02/12 04/18-dexa--1.3/-1.3--LR-rpt 5 yrs--04/23 12/20-off MV On hold and taking Vd 1k, VC 500mg, Mg,Zn, walking 2/d with puppy.and was in [facility].5 wks 06/23--has not been charlee dexa yet--ordered in December 09-discussed reasoning for repeat DEXA and willing to be scheduled Osteoarthritis of the hands-- 10/20--st CBC cream prn to knees -gets at [place] 06/19-was using cbd oil -8 Drops/d in January -helped her pain,n/u since. Pap neg 12/03/16 Postmenopausal vaginal atrophy on Premarin vaginal cream every 2 weeks.>12/21 n/u x 2 mths, no sxdryness/UTI sx, sl sexually active. Mammogram negative 11/28/2016. 12/01/17-25-50%FG>dense br tissue 12/10/18>04/05/20., 03/29/21;03/27/22, 03/28/2306/24--discussed and will stop screening. Colonoscopy 01/19/2013 showed 1 polyp in the descending colon was hyperplastic polyp, mild diverticulosis.--rpt 10 Yrs -will be >80yrs then. 06/23-willing to do CG>POSITIVe, nml cbc 06/24--had csope as below and schedule follow up in 6 months to decide on repeat colonoscopy 01/21/[id number]-34 mm ACP, sigmoid diverticulosis, internal hemorrhoids--serrated AP-- DrCraft>In younger people we might recommend a repeat colonoscopy in one year years. At that time, however, you will be 84 years old, and the additional benefit of further testing may not be worththe risk. You should discuss this with your primary care doctor at that time. --also saw GI for chronic constipation in March, continue probiotics, drinks 6-8 glass of water daily, high-fiber diet, Citrucel, MiraLax - currently she is taking Citrucel 3 tablets daily med list updated,, did not start MiraLax H/o Skin cancer-SCC right leg diagnosed in 2016 status post surgery Saw Ayush and had SCC Rt arm 12/17 Has lesion left leg BK--unsure if new. C/o wart lesion rt foot---just got C w and not used it yet AK--had phototherapy x2, , aldara december,January ,March-- F/u derm regularly 06/05/22--biopsy showed SCC left cheek ; mohs for complete removal 08/09/2206/23-- fu derm at [facility] 07/08/23 as Lamberto has left Past surgical history-appendectomy, sinus surgery x3, left shoulder surgery. 04/18-gives h/o RT leg vein ablation 2005, PS updated --has few sup veins Rt ankle,leg and would like to see vascular sg. Appt in Jun was cx as she was in [place]--bautista No leg edema Ex on treadmill 90 min and ex bike 2 miles, also goes to [employer] d/wk Family history: mother had HTN;pancreatic cancer 76 Father had HTN;heart problems at age of 76 SP Bilateral cataract surgery-right 05/21/2021, Left 06/12/2021-- , had laser both eyes-10/24 H/o cough when temp <50 deg and sec to pollen mosquera rods 06/24-2 wks ago had left CHARLEE--saw , has recurrence now No vision sx. Feels inc sinus pressure, noted swelling left cheek No RN/ST/fever/chills +teeth hurting left upper jaw Appetite is good, no Fatigue/snoring, Wt stable. No headache, neck swelling, chest pain, palpitations, shortness of breath, leg edema No nausea,vomiting or heartburn, constipation or diarrhea, blood in the stool or black stool, abdominal pain. No blood in the urine, no urinary problems. No night sweats, no unusual bleeding/bruising, no weight loss and no swollen nodes. No excessive thirst Or urination. No fatigue/xs dry skin. No rash, new/changing skin lesions. No joint pain or swelling. Denies feelings of depression or anxiety, sleeps good. H/o covid infection 04/2021 , refuses covid booster RSV vacc discussed, defers as no lung problems. Immunization History Administered Date(s) Administered COVID-19 mRNA, LNP-s, No Preserve, 2-Dose Series (Moderna) 10/07/2020, 11/04/2020, 12/25/2021 COVID-19, mRNA, LNP-s, PF, Booster, 100mcg/0.5mg (Moderna) 06/25/2021, 12/19/2021 Covid-19, Mrna, Lnp-s, Pf, Bivalent, 50 Mcg, IM, 12 yrs and above (Moderna) 06/16/2022 Pneumococcal Conjugate Vacc, 13 Valent (Prevnar) 02/01/2015 Pneumococcal Polysaccharide PPV23 (Pneumovax) 03/26/2007 Season Influenza, Quad, PF, Adjuvanted, 65+ Yrs, IM (FLUAD) 05/31/2020, 05/27/2023 Seasonal Influenza Virus Vaccine, Unspecified Formulation 06/13/2010, 06/10/2013, 07/01/2014, 06/15/2015, 06/05/2016, 06/01/2018, 05/31/2020, 05/21/2021, 05/17/2022 Seasonal Influenza, High Dose, Trivalent, PF, IM (Fluzone HD) 05/07/2019, 05/21/2021, 05/13/2022, 05/21/2024 Seasonal Influenza, PF, 6 M & above, IM , (FluLaval or Fluzone) 06/13/2010, 06/10/2013, 07/01/2014, 06/15/2015, 06/05/2016, 06/01/2018 Seasonal Influenza, Quadrivalent, No Preserve, IM 05/31/2020 Seasonal Influenza, Trivalent, Adjuvanted, 65+ YRS, PF, (Fluad) 05/17/2022 TD - Tetanus/Diptheria (ADULT) 01/11/2009 TD, Preservative Free 01/11/2009 TDAP (age 10 and older)(Boostrix) 10/25/2014, 04/17/2018 Varicella Zoster Vaccine (Adult) 03/13/2009, 09/01/2009 Zoster Vaccine Recombinant (Shingrix) 10/15/2018, 05/17/2019 Labs 12/17/22--stable cbc,cmp,lipids, Vd 28, mag 06/23--A1c 5.8,alt,bmp 06/24-nml cbc,bmp rbs 116 Hemoglobin AIC Results: Lab Results Component Value Date/Time HEMOGLOBIN A1C - [facility] 5.8 (H) 06/13/2023 02:42 PM HEMOGLOBIN A1C - [facility] 5.8 (H) 12/17/2022 08:33 AM HEMOGLOBIN A1C - [facility] 5.7 (H) 12/05/2021 07:53 AM HEMOGLOBIN A1C - [facility] 5.7 (H) 02/08/2020 01:03 PM HEMOGLOBIN A1C - [facility] 6.0 (H) 06/07/2019 11:29 AM HEMOGLOBIN A1C - [facility] 5.8 (H) 11/04/2018 07:54 AM Hemoglobin Results: Lab Results Component Value Date/Time HGB 14.2 06/17/2024 02:02 PM HGB 14.8 10/11/2023 12:10 PM HGB 13.7 12/17/2022 08:33 AM HGB 14.0 11/04/2018 07:54 AM HGB 12.8 11/03/2017 08:37 AM TSH Results: Lab Results Component Value Date/Time TSH - [facility] 3.55 04/06/2018 07:35 AM Results for orders placed or performed in visit on 06/17/24 CBC Result Value Ref Range WBC 7.75 4.00 - 10.80 K/uL RBC 4.39 3.85 - 5.15 M/uL HGB 14.2 12.0 - 15.3 g/dL HCT 42.8 36.0 - 45.2 % MCV 97.5 81.5 - 97.5 fL MCH 32.3 27.0 - 34.0 pg MCHC 33.2 32.0 - 36.0 g/dL RDW 12.9 11.5 - 15.5 % PLT 178 140 - 400 K/uL MPV 9.2 6.6 - 11.1 fL BASIC METABOLIC PANEL Result Value Ref Range BUN 18 6 - 20 mg/dL CREATININE 0.8 0.5 - 1.0 mg/dL EGFR 72 >=60 mL/min SODIUM 141 135 - 146 mmol/L POTASSIUM 4.6 3.5 - 5.1 mmol/L CHLORIDE 101 98 - 107 mmol/L CO2 29 22 - 32 mmol/L ANION GAP 11 7 - 15 mmol/L GLUCOSE 116 70 - 120 mg/dL CALCIUM 9.5 8.4 - 10.2 mg/dL Patient Active Problem List Diagnosis HTN, goal below 140/90 Dyslipidemia, goal LDL below 100 Prediabetes Osteopenia of spine History of colonoscopy with polypectomy Encounter for screening mammogram for breast cancer Perennial allergic rhinitis with seasonal variation H/O sinus surgery Post-menopausal atrophic vaginitis History of squamous cell carcinoma of skin Primary osteoarthritis of both hands Non-rheumatic aortic sclerosis Paroxysmal A-fib (HCC) Chronic pansinusitis halfway current use of anticoagulant therapy Anxiety state Current Outpatient Medications Medication Sig Dispense Refill busPIRone HCl 5 MG Oral Tablet (Buspar) Take 1 Tablet by mouth 2 times a day as needed for Anxiety.(See tel enc 06/10/2024) 180 Tablet 0 Apixaban 5 MG Oral Tablet (Eliquis) Take 1 Tablet by mouth in the morning and 1 Tablet before bedtime. 180 Tablet 4 Atorvastatin Calcium 40 MG Oral Tablet (Lipitor) Take 1 Tablet by mouth at bedtime. 90 Tablet 3 Furosemide 20 MG Oral Tablet (Lasix) TAKE 1 TABLET BY MOUTH EVERY MORNING 90 Tablet 3 Metoprolol Succinate ER 100 MG Oral Tablet Extended Release 24 Hour (toPROL XL) take 1 AND 1/2 tablets by mouth IN THE MORNING 135 Tablet 3 hydrALAZINE HCl 10 MG Oral Tablet (Apresoline) Take 1 Tablet by mouth in the morning and 1 Tablet at noon and 1 Tablet before bedtime. 280 Tablet 3 Losartan Potassium 100 MG Oral Tablet (Cozaar) Take 1 Tablet by mouth in the morning. 90 Tablet 3 Metoprolol Succinate ER 50 MG Oral Tablet Extended Release 24 Hour (toPROL XL) Take 1 Tablet by mouth in the morning. In addition to a 100 mg tablet. Total of 150 mg daily. 90 Tablet 3 Cetirizine HCl 10 MG Oral Capsule Take 1 Capsule by mouth in the morning. 1 Capsule 0 No current facility-administered medications for this visit. Review of patient's allergies indicates: Allergen Reactions Amlodipine Leg edema Molds & Smuts Penicillins Swollen eyes and lips Shellfish Allergy Clams/bi-valves only Soy Allergy OBJECTIVE: Blood pressure 132/88, pulse 74, temperature 36.7 C (98.1 F), temperature source Tympanic, resp. rate 20, height 1.626 m (5' 4"), weight 73.2 kg (161 lb 4.8 oz), SpO2 98%, not currently . Body mass index is 27.69 kg/m. PHYSICAL EXAM: General: alert, healthy, no distress, well nourished and well developed Head: Normocephalic, atraumatic Eye Exam: PERRLA, EOMI, Conjunctiva are pink and non-injected rt--left with CHARLEE medially, supr/infr Ears: External ears normal, Canal clear, Tm normal Nose: no mucosal erythema, no mucosal edema, no purulent discharge Left cheek swelling, warmth-TTP max sinus Oropharynx: no exudate and no erythema Neck: supple, no bruits, no JVD, thyroid normal size, non-tender, without nodularity Lymph: No palpable lymphadenopathy. Heart: Regular rhythm and rate, no murmurs and no gallops Lungs: lungs clear to auscultation Abdomen: Soft, non-tender, normal bowel sounds, no masses or organomegaly, no bruits Extremities: no edema, no clubbing, no cyanosis. FROM knees, mild crepitus Neuro Exam: alert & oriented x 3 with fluent speech, no focal motor/sensory deficits, gait normal Skin: skin color, texture, turgor are normal, no rashes ++Sup Varicose veins around ankles Rt >left. + mikhail Heb nodes ASSESSMENT/PLAN: Paroxysmal A-fib (HCC) (Primary) HTN, goal below 140/90 - ALBUMIN / CREATININE RATIO, URINE; Future; Expected date: 06/21/2024 Non-rheumatic aortic sclerosis Dyslipidemia, goal LDL below 100 - LIPID PANEL WITH DIRECT LDL IF TG IS HIGH; Future; Expected date: 06/21/2024 - HEPATIC FUNCTION PANEL; Future; Expected date: 06/21/2024 Prediabetes - HEMOGLOBIN A1C; Future; Expected date: 06/21/2024 Anxiety state History of colonoscopy with polypectomy Perennial allergic rhinitis with seasonal variation - Triamcinolone Acetonide 55 MCG/ACT Nasal Aerosol (Nasacort Allergy 24HR); Administer 2 Sprays into each nostril in the morning. Acute non-recurrent maxillary sinusitis - Doxycycline Hyclate 100 MG Oral Capsule; Take 1 Capsule by mouth in the morning and 1 Capsule before bedtime. Do all this for 7 days. Take for 7 days. - Triamcinolone Acetonide 55 MCG/ACT Nasal Aerosol (Nasacort Allergy 24HR); Administer 2 Sprays into each nostril in the morning. Subconjunctival hemorrhage of left eye History of squamous cell carcinoma of skin Osteopenia of spine - DEXA SCAN/BONE MINERAL AXIAL; Future; Expected date: 06/21/2024 Screening for osteoporosis - DEXA SCAN/BONE MINERAL AXIAL; Future; Expected date: 06/21/2024 Menopause - DEXA SCAN/BONE MINERAL AXIAL; Future; Expected date: 06/21/2024 Lateral knee pain, right - ORTHOPAEDICS REFERRAL OP Chronic constipation Medlist updated ct current meds, blood pressure at goal, anxiety controlled on BuSpar twice daily Labs today, schedule DEXA. continue Zyrtec add Nasacort. Treat sinusitis with the doxycycline Cool compress to the affected eye 2 to 3 times a day till better Continue follow up with Cardiology, Dermatology. Stop screening mammograms. Discuss at next visit regarding repeat colonoscopy Follow Up: Return in about 6 months (around 12/20/2024), or if symptoms worsen or fail to improve, for Return with Physician, Labs Today. | For: Return with Physician, Labs Today (This note was completed using the dictation program Fluency Direct. As such, there may be misspellings, word substitutions, or other variations that should not change the essence of the clinical content of this encounter note. If there is need for further clarification, please direct questions to the provider listed above.) Patient and / caregiver verbalizes understanding of above instructions and agrees with plan of care. Triny Mckenna MD 06/10/2023 documented in this encounter Nursing Notes * Shawanda Scanlon, MED ASSIST - 06/21/2024 12:43 PM EDT Viji Dutton 83 year old female is here for a yearly follow up of her chronic conditions. She had her flu vaccine at December in May 21. Medications and history reviewed and updated. documented in this encounter Plan of Treatment Upcoming Encounters Date Type Department Care Team (Late st Contact Info) Description 06/28/2024 1:00 PM EDT Office Visit Orthopaedics [facility] [address] [place] [id number] Lila Contreras MD [address] [place] [address] 07/26/2024 3:00 PM EST Imaging Radiology, [facility] [address] [facility] [place] [address] 10/19/2024 2:00 PM EST Cardiac Studies Cardiac Studies, [facility] [address] [place] [address] 12/20/2024 1:00 PM EDT Office Visit General Internal Medicine [facility] [address] [place] [address] Triny Mckenna MD [address] [place] [address] 12/30/2024 1:30 PM EDT Office Visit Cardiology, [facility] [address] [place] [address] Julianna Perry CRNP [address] [place] [address] Pending Results Name Type Priority Associated Diagnoses Date /Time HEMOGLOBIN A1C Lab Routine Prediabetes 06/21/2024 1:43 PM EDT LIPID PANEL WITH DIRECT LDL IF TG IS HIGH Lab Routine Dyslipidemia, goal LDL below 100 06/21/2024 1:43 PM EDT Scheduled Orders Name Type Priority Associated Diagnoses Orde r Schedule HEMOGLOBIN A1C Lab Routine Prediabetes Expected: 06/21/2024 (Approximate), Expires: 06/21/2025 LIPID PANEL WITH DIRECT LDL IF TG IS HIGH Lab Routine Dyslipidemia, goal LDL below 100 Expected: 06/21/2024, Expires: 06/21/2025 ALBUMIN / CREATININE RATIO, URINE Lab Routine HTN, goal below 140/90 Expected: 06/21/2024 (Approximate), Expires: 06/21/2025 DEXA SCAN/BONE MINERAL AXIAL Medical Imaging Routine Osteopenia of spine Screening for osteoporosis Menopause Expected: 06/21/2024, Expires: 07/22/2025 Scheduled Procedures Name Priority Associated Diagnoses Date/Ti me COLONOSCOPY FLEXIBLE PROXIMA L DIAGNOSTIC Recall History of colonic polyps Scheduled Referrals Name Type Priority Associated Diagnoses Order Schedule ORTHOPAEDICS REFERRAL OP Referral Within 30 days (routine) Lateral knee pain, right Ordered: 06/21/2024 Health Maintenance Due Date Last Done Comments HbA1c 06/13/2024 06/13/2023, 11/30, 12/05/2021, Additional history exists COVID-19 Vaccine ( season) 2024 06/16/2022, 12/25/2021, 12/19/2021, Additional history exists Postponed from 05/02/2024 (Unavailable) Albumin/Creatinine Ratio 12/05/2024 12/05/2021 Colonoscopy 01/20/2025 01/21/2024, 01/21/2024 DXA Scan 03/24/2025 03/24/2018, 09/13/2009 GFR 06/17/2025 06/17/2024, 06/01, 12/17/2022, Additional history exists Depression Screening 06/21/2025 06/21/2024 DTap/Tdap Vaccines (3 - Td or Tdap) 04/17/2028 04/17/2018, 10/25/2014, 01/11/2009, Additional history exists Pneumococcal Vaccine: 65+ Years Completed 02/01/2015, 03/26/2007 Zoster Vaccines Completed 05/17/2019, 10/02, 09/01/2009, Additional history exists Influenza Vaccine (FLU shot) Completed 05/21/2024, 05/27/2023, 05/17/2022, Additional history exists HPV (Gardasil) [...] this encounter Medical Devices Implanted Type Area Rice Farmworker Device Identifier Shelf Expiration Date Model / Serial / Lot Hemostatic Clip Res 235cm - [id number] Implanted:Qty: 4 on 01/21/2024 by Tristan Sanders MD at [facility] N/A: Colon [employer] : ENDOSCOPY 09/26/2026 [id number] / / [id number] documented as of this encounter Results * HEPATIC FUNCTION PANEL (06/21/2024 1:43 PM EDT) Pathologist [facility] Albumin 4.7 3.8 - 5.0 g/dL 06/21/2024 2:55 PM EDT [facility] 56- AST 18 10 - 35 U/L 06/21/2024 2:55 PM EDT [facility] 56- Alkaline Phosphatase 76 35 - 130 U/L 06/21/2024 2:55 PM EDT [facility] 56- ALT 13 10 - 35 U/L 06/21/2024 2:55 PM EDT [facility] 56- Bilirubin, Total 0.4 <=1.2 mg/dL 06/21/2024 2:55 PM EDT [facility] 56- Bilirubin, Direct <0.2 0.0 - 0.3 mg/dL 06/21/2024 2:55 PM EDT [facility] 56- Protein 6.9 6.0 - 8.3 g/dL 06/21/2024 2:55 PM EDT [facility] 56- Blood Venous blood specimen / Unknown Venipuncture / Unknown 06/21/2024 1:43 PM EDT 06/21/2024 1:43 PM EDT Triny Mckenna MD LAB BLOOD ORDERABLES [facility] [address]- [address] [place] [address] documented in this encounter Visit Diagnoses Diagnosis Paroxysmal A-fib (HCC)- Primary Atrial fibrillation HTN, goal below 140/90 Unspecified essential hypertension Non-rheumatic aortic sclerosis Atherosclerosis of aorta Dyslipidemia, goal LDL below 100 Other and unspecified hyperlipidemia Prediabetes Other abnormal glucose Anxiety state Anxiety state, unspecified History of colonoscopy with polypectomy Other postprocedural status Perennial allergic rhinitis with seasonal variation Allergic rhinitis, cause unspecified Acute non-recurrent maxillary sinusitis Subconjunctival hemorrhage of left eye History of squamous cell carcinoma of skin Personal history of other malignant neoplasm of skin Osteopenia of spine Screening for osteoporosis Special screening for osteoporosis Menopause Asymptomatic postmenopausal status (age-related) (natural) Lateral knee pain, right Chronic constipation Unspecified constipation documented in this encounter Care Teams Provider Relations Representative Relationship Specialty Start Date End Date Triny Mckenna MD [address] [place] [address] [place] [address] PCP - General Internal Medicine 10/14/17 documented as of this encounter
--- OUTSIDE RECORDS SUMMARY | 2024-09-11 08:58 | External Medical Summary ---
Author Name Unknown Address Unknown Organization [id number] [place] [address] Laboratory Report Ordering Provider Test Date Status J[place]ICA SYLVESTER 08/20/2024 15:20:28 Final Observation Date Value Abnormality Reference (Units ) Status BUN 08/20/2024 15:20:28 17 6-20 (mg/dL) Final Creatinine 08/20/2024 15:20:28 0.9 0.5-1.0 (mg/dL) Final Glomerular filtration rate/1.73 sq M.predicted [Volume Rate/Area] in Serum, Plasma or Blood by Creatinine-based formula (CKD-EPI) 08/20/2024 15:20:28 66 >=60 (mL/min) Final eGFR is calculated based on the CKD-EPI 2020 equation. Sodium 08/20/2024 15:20:28 138 135-146 (m mol/L) Final Potassium 08/20/2024 15:20:28 4.2 3.5-5.1 (m mol/L) Final Cl 08/20/2024 15:20:28 98 98-107 (mm ol/L) Final CO2 08/20/2024 15:20:28 28 22-32 (mmo l/L) Final Anion gap 08/20/2024 15:20:28 12 7-15 (mmol /L) Final Glucose 08/20/2024 15:20:28 118 70-120 (mg /dL) Final Calcium 08/20/2024 15:20:28 9.2 8.4-10.2 ( mg/dL) Final Performing Location [facility] [place] [address]
--- OUTSIDE RECORDS SUMMARY | 2024-09-11 08:58 | External Medical Summary | Summary of Care ---
Author Name Unknown Organization [facility] Address [address] [facility] [address] Phone [phone] Care Team Providers Care Test Engineer Nuclear Equipment Name Role Phone Triny Mckenna MD Primary Care Provider Reason for Visit * Reason Comments Outpatient Testing Encounter Details Date Type Department Care Team (Late st Contact Info) Description 08/20/2024 3:20 PM EST Laboratory Laboratory, [facility] [address] [facility] [place] [id number] [facility] [address] [facility] [place] [address] Prediabetes; HTN, goal below 140/90 Allergies Active Allergy Reactions Criticality Noted Date Comments Amlodipine 03/19/2018 Leg edema Molds & Smuts 10/14/2017 Penicillins 10/14/2017 Swollen eyes and lips Shellfish Allergy 10/14/2017 Clams/bi-valves only Soy Allergy 10/14/2017 documented as of this encounter (statuses as of 08/20/2024) Medications Cetirizine HCl 10 MG Oral Capsule Take 1 Capsule by mouth in the morning. 1 Capsule 2 Active Losartan Potassium 100 MG Oral Tablet (Cozaar)Indicatio ns:HTN, goal below 140/90 Take 1 Tablet by mouth in the morning. 90 Tablet 3 4 Active Metoprolol Succinate ER 100 MG Oral Tablet Extended Release 24 Hour (toPROL XL)Indications:Pa roxysmal atrial fibrillation (HCC) take 1 AND 1/2 tablets by mouth IN THE MORNING 135 Tablet 3 4 Active Furosemide 20 MG Oral Tablet (Lasix)Indication s:HTN, goal below 140/90 TAKE 1 TABLET BY MOUTH EVERY MORNING 90 Tablet 3 4 Active Atorvastatin Calcium 40 MG Oral Tablet (Lipitor)Indicati ons:Paroxysmal atrial fibrillation (HCC),HTN, goal below 140/90,Dyslipidem ia, goal LDL below 100 Take 1 Tablet by mouth at bedtime. 90 Tablet 3 4 Active Apixaban 5 MG Oral Tablet (Eliquis)Indicati ons:Paroxysmal atrial fibrillation (HCC) Take 1 Tablet by mouth in the morning and 1 Tablet before bedtime. 180 Tablet 4 4 Active Triamcinolone Acetonide 55 MCG/ACT Nasal Aerosol (Nasacort Allergy 24HR)Indications: Perennial allergic rhinitis with seasonal variation,Acute non-recurrent maxillary sinusitis Administer 2 Sprays into each nostril in the morning. 4 Active Citrucel 500 MG Oral Tablet (Methylcellulose (Laxative))Indica tions:Chronic constipation Taking 3 daily 4 Active busPIRone HCl 5 MG Oral Tablet (Buspar)Indicatio ns:Anxiety state Take 1 Tablet by mouth 2 times a day as needed for Anxiety. 180 Tablet 1 4 Active Metoprolol Succinate ER 50 MG Oral Tablet Extended Release 24 Hour (toPROL XL)Indications:Pa roxysmal atrial fibrillation (HCC) Take 1 Tablet by mouth in the morning. In addition to a 100 mg tablet. Total of 150 mg daily. 90 Tablet 3 4 Active hydrALAZINE HCl 10 MG Oral Tablet (Apresoline)Indic ations:HTN, goal below 140/90,Dyslipidem ia, goal LDL below 100 Take 1 Tablet by mouth in the morning and 1 Tablet at noon and 1 Tablet before bedtime. 280 Tablet 2 4 Active busPIRone HCl 10 MG Oral Tablet (Buspar)Indicatio ns:Anxiety state Take 1 Tablet by mouth in the morning and 1 Tablet before bedtime. 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 0 09/10/2022 Non-rheumatic aortic sclerosis 07/30/2022 Overview (07/30/2022): 07/16/[id number] 60-65%, mild LVH, LA moderately dilated, aortic [...] as of this encounter (statuses as of 08/20/2024) Resolved Problems Problem Noted Date Diagnosed Date Resolved Date Abnormal AST and ALT 11/20/2017 018 documented as of this encounter (statuses as of 08/20/2024) Immunizations Name Administration Dates Next Due COVID-19 [...] AM EDT documented as of this encounter Plan of Treatment Upcoming Encounters Date Type Department Care Team (Late st Contact Info) Description 10/06/2024 3:20 PM EST Office Visit General Internal Medicine [facility] [address] [place] [address] Triny Mckenna MD [address] [place] [id number] 10/19/2024 2:00 PM EST Cardiac Studies Cardiac Studies, [facility] [address] [facility] [place] [address] 12/13/2024 1:30 PM EDT Office Visit Cardiology, [facility] [address] [facility] [place] [address] Julianna Perry CRNP [address] [place] [address] 12/20/2024 1:00 PM EDT Office Visit General Internal Medicine [facility] [address] [place] [id number] Triny Mckenna MD [address] [facility] [place] [address] Pending Results Name Type Priority Associated Diagnoses Date /Time HEMOGLOBIN A1C Lab Routine Prediabetes 08/20/2024 3:20 PM EST BASIC METABOLIC PANEL Lab Routine HTN, goal below 140/90 08/20/2024 3:20 PM EST Scheduled Procedures Name Priority Associated Diagnoses Date/Ti [...] this encounter Medical Devices Implanted Type Area Harness And Bag Inspector Device Identifier Shelf Expiration Date Model / Serial / Lot Hemostatic Clip Res 235cm - [id number] Implanted:Qty: 4 on 01/21/2024 by Tristan Sanders MD at [facility] N/A: Colon [employer] : ENDOSCOPY 09/26/2026 [id number] / / [id number] documented as of this encounter Visit Diagnoses Diagnosis Prediabetes Other abnormal glucose HTN, goal below 140/90 Unspecified essential hypertension documented in this encounter Care Teams Test Engineer Nuclear Equipment Relationship Specialty Start Date End Date Triny Mckenna MD [address] [facility], [place] [id number] PCP - General Internal Medicine 10/14/17 documented as of this encounter
--- OUTSIDE RECORDS SUMMARY | 2024-09-11 08:58 | External Medical Summary | Summary of Care ---
Author Name Unknown Organization [facility] Address [address] [place] [address] Phone [phone] Care Team Providers Care Learning Coach Name Role Phone Nga Mckenna MD Primary Care Provider [phone] Reason for Referral * Evaluate & Treat - Unlimited Visits (Within 30 days (routine)) - Pending Review Specialty Diagnoses / Procedures Referred By Prasad mohan Referred To Contact Orthopaedic Surgery / Orthopedics Diagnoses Lateral knee pain, right Nga Mckenna MD [address] [place] [address] [place] [address] Referral ID Status Reason Start Date Expiration Date Visits Requested Visits Authorized [id number] Pending Review Specialty Services Required 4 999 [...] Medicine State Kashif Ruiz [address] [place] [address] Nga Mckenna MD 200 [facility] [place] [address] Paroxysmal A-fib (HCC)*; HTN, goal below 140/90; [...] as of this encounter (statuses as of 06/27/2024) Medications Medication Sig Dispensed Refills Start Date [...] as of this encounter (statuses as of 06/27/2024) Active Problems Problem Noted Date Diagnosed Date Anxiety state 12/23/2022 Paroxysmal A-fib 09/10/2022 Chronic pansinusitis 09/10/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 0 09/10/2022 Non-rheumatic aortic sclerosis 07/30/2022 Overview: 07/16/20225973-babu-IS 60-65%, mild LVH, LA moderately dilated, aortic [...] as of this encounter (statuses as of 06/27/2024) Resolved Problems Problem Noted Date Diagnosed Date Resolved Date Abnormal AST and ALT 11/20/2017 018 documented as of this encounter (statuses as of 06/27/2024) Immunizations Name Administration Dates Next Due COVID-19 [...] documented in this encounter Progress Notes * Nga Mckenna MD - 06/21/2024 12:58 PM EDT [...] 166/92 01/21/24 137/71 12/11/23 148/88 06/10/23 120/70 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 While in [place] at [place] had inc edema legs to calf and [...] pressure medicines in the morning, was in [place] 6 wks. No chest pain shortness of [...] 20 mg, Zyrtec, atorvastatin. Echo 06/19/2022 at [facility]--AFib during the study, EF 60-65%, mild C LVH, LA moderately dilated, mild calcified aortic valve, moderate aortic sclerosis without stenosis, mild TR, no pulmonary hypertension States had symptoms of sinus congestion, sinus pressure, took Sudafed, blood pressure was elevated,seen at [facility], was prescribed doxycycline for 7 days, had [...] for a wine tasting last month in [place]. Lost weight 13 lb. Blood pressure at home decreasing from 130/70 to 120/60 range, home blood pressure monitorcorrelation normal. Was on a vacation in 1 month in [place], celebrated her 82st birthday yesterday, wished her belated wishes, anxiety is much improved, she self decrease BuSpar to 1 daily since beginning of December 09--home BP 127/70 today , and other 118/74, no sx low bp, recalls 1 yr ago she wa sdiag afib with rvr Goes o [place] in [place] in summer, [place] 3-4 miles daily 06/24--back [...] helping advised to switch to loratadine or dwph-voy-qipkipj Kylah or Xyzal and if not better [...] Mg,Zn, walking 2/d with puppy.and was in [facility]5 wks 06/23--has not been charlee dexa yet--ordered in December 09-discussed reasoning for repeat DEXA and willing to be scheduled Osteoarthritis of the hands-- 10/20--st CBC cream prn to knees -gets at [place] 06/19-was using cbd oil -8 Drops/d in [...] 6 months to decide on repeat colonoscopy 01/21/20242417-Fjtokrysxbi-75 mm ACP, sigmoid diverticulosis, internal hemorrhoids--serrated AP-- [...] for complete removal 08/09/2206/23-- fu derm at [facility] 07/08/23 as Lamberto has left Past surgical history-appendectomy, sinus surgery x3, left shoulder surgery. 04/18-gives h/o RT leg vein ablation 2005, PS updated --has few sup veins Rt ankle,leg and would like to see vascular sg. Appt in Jun was cx as she was in [place]--baut[place] No leg edema Ex on treadmill 90 [...] aortic sclerosis Paroxysmal A-fib (HCC) Chronic pansinusitis penitentiary current use of anticoagulant therapy Anxiety state [...] instructions and agrees with plan of care. Nga Mckenna MD 06/10/2023 documented in this encounter Nursing Notes * Shawanda Scanlon, MED ASSIST - 06/21/2024 12:43 PM EDT Viji Dutton 83 year old female is here for a yearly follow up of her chronic conditions. She had her flu vaccine at December in May 21. Medications and history reviewed and updated. documented in this encounter Miscellaneous Notes * Addendum Note - Nga Mckenna MD - 06/27/2024 11:37 PM EDTAddended by: NGA MCKENNA on: 06/27/2024 11:37 PM Modules accepted: Orders documented in this encounter Plan of Treatment Upcoming Encounters Date Type Department Care Team (Late st Contact Info) Description 07/26/2024 3:00 PM EST Imaging Radiology, [facility] [address] [facility] [place] [address] 10/19/2024 2:00 PM EST Cardiac Studies Cardiac Studies, [facility] [address] [facility] [place] [address] 12/20/2024 1:00 PM EDT Office Visit General Internal Medicine [facility] [address] [facility] [address] [place] [address] Nga Mckenna MD 200 [facility] [place] [address] 12/30/2024 1:30 PM EDT Office Visit Cardiology, [facility] [address] [facility] [place] [address] Julianna Perry CRNP 132 [facility] [place] [address] Scheduled Orders Name Type Priority Associated Diagnoses Orde r Schedule ALBUMIN / CREATININE RATIO, URINE Lab Routine HTN, goal below 140/90 Expected: 06/21/2024 (Approximate), Expires: 06/21/2025 DEXA SCAN/BONE MINERAL AXIAL Medical Imaging Routine Osteopenia of spine Screening for osteoporosis Menopause Expected: 06/21/2024, Expires: 07/22/2025 HEMOGLOBIN A1C Lab Routine Prediabetes Expected: 12/13/2024 (Approximate), Expires: 06/27/2025 BASIC METABOLIC PANEL Lab Routine HTN, goal below 140/90 Expected: 12/13/2024 (Approximate), Expires: 06/27/2025 Scheduled Procedures Name Priority Associated Diagnoses Date/Ti [...] this encounter Medical Devices Implanted Type Area Utility Service Worker Device Identifier Shelf Expiration Date Model / Serial / Lot Hemostatic Clip Res 235cm - [id number] Implanted:Qty: 4 on 01/21/2024 by Tristan Sanders MD at ENDOSCOPY [facility] N/A: Colon [employer] : ENDOSCOPY 09/26/2026 [id number] / / [id number] documented as of this encounter Results * HEPATIC FUNCTION PANEL (06/21/2024 1:43 PM EDT) [facility] Albumin 4.7 3.8 - 5.0 g/dL 06/21/2024 2:55 PM EDT [facility] 56 AST 18 10 - 35 U/L 06/21/2024 2:55 PM EDT [facility] 56 Alkaline Phosphatase 76 35 - 130 U/L 06/21/2024 2:55 PM EDT LABORATORY [place] 56 ALT 13 10 - 35 U/L 06/21/2024 2:55 PM EDT [facility] 56 Bilirubin, Total 0.4 <=1.2 mg/dL 06/21/2024 2:55 PM EDT [facility] 56 Bilirubin, Direct <0.2 0.0 - 0.3 mg/dL 06/21/2024 2:55 PM EDT [address] Protein 6.9 6.0 - 8.3 g/dL 06/21/2024 2:55 PM EDT [facility] 56 Blood Venous blood specimen / Unknown Venipuncture / Unknown 06/21/2024 1:43 PM EDT 06/21/2024 1:43 PM EDT Nga Mckenna MD LAB BLOOD ORDERABLES [place] [address] [place] [address] * LIPID PANEL WITH DIRECT LDL IF TG IS HIGH (06/21/2024 1:43 PM EDT) Pathologist [facility] Triglycerides 82 <=174 mg/dL 06/22/2024 12:36 AM EDT LABORATORY [facility] Comment: Triglyceride Reference Ranges (mg/dL): <150 Acceptable 150-174 Borderline high 175-499 High >=500 Very high Cholesterol 196 <200 mg/dL 06/22/2024 12:36 AM EDT LAB[facility]ORY [facility] Comment: Total Cholesterol Reference Ranges (mg/dL): <200 Desirable 200-239 Borderline high >=240 High HDL Cholesterol 88 >49 mg/dL 12:36 AM EDT LABORATORY [facility] Comment: HDL Cholesterol Reference Ranges (mg/dL): >=60 High (Desirable) <50 Low (Undesirable) For Females <40 Low (Undesirable) For Males Non-HDL Cholesterol 108 <=159 mg/dL 06/22/2024 12:36 AM EDT LABORATORY [facility] Comment: Non-HDL Cholesterol Reference Range (mg/dL): <100 Target level for high risk ASCVD patient <130 Optimal for general population 130-159 Near optimal for general population 160-189 Borderline High 190-219 High >=220 Very High LDL Cholesterol 92 <=129 mg/dL 06/22/2024 12:36 AM EDT LABORATORY [facility] Comment: LDL Cholesterol Reference Ranges (mg/dL): <70 Target level for high risk ASCVD patient <100 Optimal for general population 100-129 Near optimal for general population 130-159 Borderline high 160-189 High >=190 Very high Blood Venous blood specimen / Unknown Venipuncture / Unknown 06/21/2024 1:43 PM EDT 06/21/2024 1:43 PM EDT Nga Mckenna MD LAB BLOOD ORDERABLES LAB[facility]ORY [facility] [address] [place] [address] * (ABNORMAL) HEMOGLOBIN A1C (06/21/2024 1:43 PM EDT) Hemoglobin A1C 6.1(H) 4.0 - 5.6 % 06/22/2024 12:30 AM EDT LAB[facility]ORY [facility] Comment:The use of HbA1c to monitor glycemic status is based on normal hemoglobin and HbA composition. This test should not be used in patients with abnormal hemoglobin that affects the half life of the red blood cell or the in vivo glycation rates. Estimated Average Glucose 128(H) <126 mg/dL 06/22/2024 12:30 AM EDT LAB[facility]ORY [facility] Blood Venous blood specimen / Unknown Venipuncture / Unknown 06/21/2024 1:43 PM EDT 06/21/2024 1:43 PM EDT Nga Mckenna MD LAB BLOOD ORDERABLES LAB[facility]ORY [facility] [address] [place] [address] documented in this encounter Visit Diagnoses Diagnosis [...] constipation documented in this encounter Care Teams Learning Coach Relationship Specialty Start Date End Date Nga Mckenna MD [address] [place] [address] PCP - General Internal Medicine 10/14/17 documented as of this encounter
--- OUTSIDE RECORDS SUMMARY | 2024-09-11 08:58 | External Medical Summary | Summary of Care ---
Author Name Unknown Organization [facility] Address [address] [facility] [address] Phone [phone] Care Team Providers Care Program Architect Name Role Phone Triny Mckenna MD Primary Care Provider [phone] Reason for Visit * Reason Comments eRx-Medication Refill Encounter Details Date Type Department Care Team (Late st Contact Info) Description 07/22/2024 Refill General Internal Medicine [facility] [place] 200 [facility] [place] [address] Triny Mckenna MD [address] [facility] [address] Anxiety state Allergies Active Allergy Reactions Criticality Noted Date Comments Amlodipine 03/19/2018 Leg edema Molds & Smuts 10/14/2017 Penicillins 10/14/2017 Swollen eyes and lips Shellfish Allergy 10/14/2017 Clams/bi-valves only Soy Allergy 10/14/2017 documented as of this encounter (statuses as of 07/23/2024) Medications Cetirizine HCl 10 MG Oral Capsule Take 1 Capsule by mouth in the morning. 1 Capsule 2 Active Metoprolol Succinate ER 50 MG Oral Tablet Extended Release 24 Hour (toPROL XL)Indications:Pa roxysmal atrial fibrillation (HCC) Take 1 Tablet by mouth in the morning. In addition to a 100 mg tablet. Total of 150 mg daily. 90 Tablet 3 4 Active Losartan Potassium 100 MG Oral Tablet [...] before bedtime. 180 Tablet 4 4 Active busPIRone HCl 5 MG Oral Tablet (Buspar)Indicatio ns:Anxiety state Take 1 Tablet by mouth 2 times a day as needed for Anxiety. (See tel enc 06/10/2024) 180 Tablet 4 Active Triamcinolone Acetonide 55 MCG/ACT Nasal Aerosol (Nasacort Allergy 24HR)Indications: Perennial allergic rhinitis with seasonal variation,Acute non-recurrent maxillary sinusitis Administer 2 Sprays into each nostril in the morning. 4 Active Citrucel 500 MG Oral Tablet (Methylcellulose (Laxative))Indica tions:Chronic constipation Taking 3 daily 4 Active documented as of this encounter (statuses as of 07/23/2024) Active Problems Problem Noted Date Diagnosed Date Anxiety state 12/23/2022 Paroxysmal A-fib 09/10/2022 Chronic pansinusitis 09/10/2022 skilled nursing current use of anticoagulant therapy 0 09/10/2022 Non-rheumatic aortic sclerosis 07/30/2022 Overview (07/30/2022): 07/16/20223803-wiyj-BD 60-65%, mild LVH, LA moderately dilated, aortic [...] as of this encounter (statuses as of 07/23/2024) Resolved Problems Problem Noted Date Diagnosed Date Resolved Date Abnormal AST and ALT 11/20/2017 018 documented as of this encounter (statuses as of 07/23/2024) Immunizations Name Administration Dates Next Due COVID-19 [...] encounter Miscellaneous Notes * Telephone Encounter - Yojana Melo [facility] - 07/23/2024 4:16 PM ESTRefused Prescriptions: Disp Refills busPIRone HCl 5 MG Oral Tablet (Buspar) 180 Ta*0 Sig: TAKE 1 TABLET BY MOUTH 2 TIMES A DAY NEEDED FOR ANXIETY.Refused By: YOJANA MELO for Refusal:Too soon documented in this encounter Plan of Treatment Upcoming Encounters Date Type Department Care Team (Late st Contact Info) Description 07/26/2024 3:00 PM EST Imaging Radiology, [facility] [address] [facility] [place] [address] 10/19/2024 2:00 PM EST Cardiac Studies Cardiac Studies, [facility] [address] [facility] [place] [address] 12/20/2024 1:00 PM EDT Office Visit General Internal Medicine [facility] [address] [place] [address] Triny Mckenna MD [address] [place] [address] 12/30/2024 1:30 PM EDT Office Visit Cardiology, [facility] [place] [address] [place] [address] Julianna Perry CRNP [address] [place] [address] Scheduled Procedures Name Priority Associated Diagnoses Date/Ti [...] this encounter Medical Devices Implanted Type Area Industrial Renderer Device Identifier Shelf Expiration Date Model / Serial / Lot Hemostatic Clip Res 235cm - [id number] Implanted:Qty: 4 on 01/21/2024 by Tristan Sanders MD at ENDOSCOPY [facility] N/A: Colon [employer] : ENDOSCOPY 09/26/2026 [id number] / / [id number] documented as of this encounter Visit Diagnoses Diagnosis Anxiety state Anxiety state, unspecified documented in this encounter Care Teams Program Architect Relationship Specialty Start Date End Date Triny Mckenna MD [address] [place] [address] PCP - General Internal Medicine 10/14/17 documented as of this encounter
--- OUTSIDE RECORDS SUMMARY | 2024-09-11 08:58 | External Medical Summary | Summary of Care ---
Author Name Unknown Organization [facility] Address [address] [facility] [place] [address] Phone [phone] Care Team Providers Care Anatomy Professor Name Role Phone Triny Mckenna MD Primary Care Provider [phone] Reason for Visit * Reason Onset Date Comments Medication Refill 08/05/2024 Encounter Details Date Type Department Care Team (Late st Contact Info) Description 08/05/2024 Refill Cardiology, [facility] [address] [place] [address] Julianna Chen CRNP [address] [place] [address] Paroxysmal atrial fibrillation (HCC) Allergies Active Allergy Reactions Criticality Noted Date Comments Amlodipine 03/19/2018 Leg edema Molds & Smuts 10/14/2017 Penicillins 10/14/2017 Swollen eyes and lips Shellfish Allergy 10/14/2017 Clams/bi-valves only Soy Allergy 10/14/2017 documented as of this encounter (statuses as of 08/05/2024) Medications Cetirizine HCl 10 MG Oral Capsule [...] ations:Chronic constipation Taking 3 daily 4 Active Metoprolol Succinate ER 50 MG Oral Tablet Extended Release 24 Hour (toPROL XL)Indications:P aroxysmal atrial fibrillation (HCC) Take 1 Tablet by mouth in the morning. In addition to a 100 mg tablet. Total of 150 mg daily. 90 Tablet 3 4 Active Metoprolol Succinate ER 50 MG Oral Tablet Extended Release 24 Hour (toPROL XL)Indications:P aroxysmal atrial fibrillation (HCC) Take 1 Tablet by mouth in the morning. In addition to a 100 mg tablet. Total of 150 mg daily. 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/30/2022 Overview (07/30/2022): 07/16/20222121-jsro-SX 60-65%, mild LVH, LA moderately dilated, aortic [...] as of this encounter (statuses as of 08/05/2024) Resolved Problems Problem Noted Date Diagnosed Date Resolved Date Abnormal AST and ALT 11/20/2017 018 documented as of this encounter (statuses as of 08/05/2024) Immunizations Name Administration Dates Next Due COVID-19 [...] encounter Miscellaneous Notes * Telephone Encounter - Monica Cohen [facility] - 08/05/2024 4:09 PM ESTSigned Prescriptions: Disp Refills Metoprolol Succinate ER 50 MG Oral Tablet *90 Tab*3 Sig: Take 1 Tablet by mouth in the morning. In addition to a 100 mg tablet. Total of 150 mg daily.Authorizing Provider: JULIANNA CHEN User: MONICA COHEN documented in this encounter Plan of Treatment Upcoming Encounters Date Type Department Care Team (Late st Contact Info) Description 10/19/2024 2:00 PM EST Cardiac Studies Cardiac Studies, [facility] [address] [place] [address] 12/20/2024 1:00 PM EDT Office [facility] [address] [facility] [place] [address] Triny Mckenna MD [address] [facility] [place] [address] 12/30/2024 1:30 PM EDT Office Visit Cardiology, [facility] [address] [place] [address] Julianna Chen CRNP [address] [place] [address] Scheduled Procedures Name Priority Associated Diagnoses Date/Ti [...] this encounter Medical Devices Implanted Type Area Gear Repair Supervisor Device Identifier Shelf Expiration Date Model / Serial / Lot Hemostatic Clip Res 235cm - [id number] Implanted:Qty: 4 on 01/21/2024 by Tristan Sanders MD at ENDOSCOPY [facility] N/A: Colon [employer] : ENDOSCOPY 09/26/2026 [id number] / / [id number] documented as of this encounter Visit Diagnoses Diagnosis Paroxysmal atrial fibrillation (HCC) Atrial fibrillation documented in this encounter Care Teams Anatomy Professor Relationship Specialty Start Date End Date Triny Mckenna MD [address] [place] [address] PCP - General Internal Medicine 10/14/17 documented as of this encounter
--- OUTSIDE RECORDS SUMMARY | 2024-09-11 08:58 | External Medical Summary | Continuity of Care Document ---
Author Name Unknown Organization [facility] [id number] [phone] Care Team Providers Care Chief Dog License Inspector Name Role Phone Cora Mckennaitha Primary Care Physician [phone] [id number] Date(s): 07/08/24 - 07/08/24 [facility] [address] [employer] [address] [id number] Encounter Diagnosis Actinic keratoses(Discharge Diagnosis) - 07/08/24 Seborrheic keratoses(Discharge Diagnosis) - 07/08/24 Open comedone(Discharge Diagnosis) - 07/08/24 History of skin cancer(Discharge Diagnosis) - 07/08/24 Discharge Disposition: Home or Self Care Attending Physician: TIMI Diego Dawn M Referring Physician: TIMI Diego Dawn M Allergies, Adverse Reactions, Alerts Substance Criticality Severity Reaction Reaction Severity Status penicillins itching swelling Active Mold sinus infections Act saleem soy itching swelling Active Clams Unable to assess criticality Moderate redness swelling Active Assessment and Plan Extracted from: Title:Dermatology Office Visit Note Author:Jeffery hurst PA-C, Dawn M Date:07/08/24 1.Actinic keratoses chronic and stable - ACTINIC KERATOSES - discussed precancerous potential of these lesions and reviewed options for watchful waiting with judicious sun protection vs cryotherapy. cryo x 6 2.Seborrheic keratoses - chronic and stable -SEBORRHEIC KERATOSES - discussed the likely benign and genetic nature of these lesions._ watchful waiting 3.Open comedone - chronic and stable -could be cleaned out / extracted at a later date if interested. watchful waiting. 4.History of skin cancer Reviewed sun protection with SPF 30 or higher applied every 80 minutes and use of sun protective clothing and hat. Call with questions or concerns. Follow up 6 months. Patient in agreement with plan. Medications atenolol 100 mg oral tablet Start: 12/03/17 2:11:00 PM EDT, 1 tab, PO, Daily Start Date: 12/03/17 Status: Ordered atorvastatin 20 mg oral tablet Start: 12/03/17 2:11:00 PM EDT, 1 tab, PO, Daily Start Date: 12/03/17 Status: Ordered busPIRone 5 mg oral tablet Start: 07/28/23 2:21:00 PM EST, 1 tab, PO, tid Start Date: 07/28/23 Status: Ordered Eliquis 5 mg oral tablet take 1 tablet by mouth every morning and BEFORE BEDTIME Start Date: 01/01/24 Status: Ordered hydrALAZINE 10 mg oral tablet Start: 07/28/23 2:21:00 PM EST, 1 tab, PO, tid Start Date: 07/28/23 Status: Ordered Lasix Start: 06/10/18 11:05:00 AM EDT, 10 mg =, PO, Daily Start Date: 06/10/18 Status: Ordered losartan 50 mg oral tablet Start: 12/03/17 2:10:00 PM EDT, 1 tab, PO, Daily Start Date: 12/03/17 Status: Ordered Metoprolol Succinate ER 100 mg oral tablet, extended release Start: 07/28/23 2:21:00 PM EST, 1 tab, PO, Daily Start Date: 07/28/23 Status: Ordered multivitamin Start: 12/03/17 2:11:00 PM EDT, 1 tab, PO, Daily Start Date: 12/03/17 Status: Ordered ZyrTEC 10 mg oral tablet Start: 12/03/17 2:11:00 PM EDT, 1 tab, PO, Daily Start Date: 12/03/17 Status: Ordered Mental Status 07/08/24 Barriers to Learning one year None evide nt Mandatory Health Literacy Documentation Yes Communication Barrier Present No Health Literacy Communication Barriers N ever Primary Language Indonesian Problem List Condition Confirmation Course Effective Dates Status Health St atus Informant Afib Confirmed Active Changing skin lesion Confirmed Active History of squamous cell carcinoma of skin Confirmed Active Inflamed seborrheic keratosis Confirmed Active 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 Actinic keratoses Confirmed Active Diagnosis Diagnosis Type Effective Dates Health Status Clinical Service Informant Actinic keratoses Discharge Diagnosis 07/08/24 Open comedone Discharge Diagnosis 07/08/24 History of skin cancer Discharge Diagnosis 07/08/24 Seborrheic keratoses Discharge Diagnosis 07/08/24 Procedures Procedure Date Related Diagnosis Body Site Status Mohs micrographic surgery 01/14/24 Completed Shave biopsy and cauterization of skin 01/01/24 Completed Shave biopsy and cauterizati on of skin 1 06/10/18 Completed Electrodesiccation with curettage 12/15/17 Completed Shave biopsy and cauterizati on of skin 2 12/03/17 Completed Surgery 2002 Completed Surgery 1999 Completed APPENDECTOMY 1947 Completed 1right thigh, right mid back 2left upper arm, right posterior arm Social History Social History Type Response Smoking Status Never smoked cigaret elio Sex Female Sex Representation Female (finding) Dermatology Outpatient Note * TIMI Diego Dawn M: PERFORM Event Display: Dermatology Outpt Note Authored Date: Chief Complaint 6-8 month follow up History of Present Illness HONORIO KHAN [id number] old patient presenting today with a chief complaint of6-8 month follow up. hx scc, bcc, dysplastic nevus. The patient feels the condition isstable. She denies itching, bleeding, oozing, crusting or evolving lesions. Patient has a past personal history of skin cancer: SCCIS right post upper arm ED&C. History of DN left upper arm. Mohs last year on left nose and chest. SCC right preauricular Mohs 01/11/24 Family history: none of skin cancer Patient uses sunscreen. Patient reports history of blistering sunburns / tanning beds. 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 sat in sun a lot. Taught in [place] Review of Systems Denies fever, chills, sweats, night sweats, weight loss, headache, visual change, stomach upset diarrhea and joint pain. Physical Exam Constitutional: Generally well appearing, well developed. Appears stated age. Eyes: Conjunctivae and lids without noted inflammation, lesion, mass, deformity or drainage. Cardiovascular: Swelling of the lower extremities not noted. Extremities pink, warm and dry. Extremities: Digits and nails without clubbing, cyanosis, petechiae, signs of ischemia, infectionor inflammation. Neurological / Psychiatric: Oriented to person, place and time. Appropriate mood and affect. No notable depression, anxiety or agitation. Complete skin exam was performed today including head, neck, chest, axillae, abdomen, groin, buttocks, back, bilateral upper and bilateral lower extremities. Palpation of the scalp, inspection of hair of scalp, eyebrows and finger and toenails was performed. The exam was within normal limits the exception of: PATIENT DECLINED MANAGER MEDICAL DEVICE BACK hyperkeratotic plaques and papules consistent with seborrheic keratoses LEFT DORSALhAND,RIGHTDORSALHAND-erythematous based scaled lesions consistent with actinic keratosescryo x 6 RIGht FOREARM - blackkeratin plug inopen pore No evidence of recurrent skin cancer. PROCEDURE: Cryotherapy performed to actinic keratoses x 6 following verbal consent, time out and allowing timefor questions. Alternative therapies were discussed, and education on wound healing, risk of thermal injury, dyspigmentation, infection and scar formation were performed. Wound care instruction was provided. Patient was without concerns after questions answered after the procedure. Assessment/Plan 1.Actinic keratoses chronic and stable - ACTINIC KERATOSES - discussed precancerous potential of these lesions and reviewed options for watchful waiting with judicious sun protection vs cryotherapy. cryo x 6 2.Seborrheic keratoses - chronic and stable -SEBORRHEIC KERATOSES - discussed the likely benign and genetic nature of these lesions._ watchful waiting 3.Open comedone - chronic and stable -could be cleaned out / extracted at a later date if interested. watchful waiting. 4.History of skin cancer Reviewed sun protection with SPF 30 or higher applied every 80 minutes and use of sun protective clothing and hat. Call with questions or concerns. Follow up 6 months. Patient in agreement with plan. 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 Procedure/Surgical History Mohs micrographic surgery| Service Date: 01/14/2024Shave biopsy and cauterization of skin| Service Date: 01/01/2024Shave biopsy and cauterization of skin| Service Date: 06/10/2018Electrodesiccation with curettage| Service Date: 12/15/2017Shave biopsy and cauterization of skin| Service Date: 12/03/2017Surgery| Service Date: 2002Surgery| Service Date: 1999APPENDECTOMY| Service Date: 1947 Medications apixaban(Eliquis 5 mg oral tablet) atenolol(atenolol 100 mg oral tablet), 100 mg= 1 tab, PO, Daily atorvastatin(atorvastatin 20 mg oral tablet), 20 mg= 1 tab, PO, Daily busPIRone(busPIRone 5 mg oral tablet), 5 mg= 1 tab, PO, tid cetirizine(ZyrTEC 10 mg oral tablet), 10 mg= 1 tab, PO, Daily furosemide(Lasix), 10 mg, PO, Daily hydrALAZINE(hydrALAZINE 10 mg oral tablet), 10 mg= 1 tab, PO, tid losartan(losartan 50 mg oral tablet), 50 mg= 1 tab, PO, Daily metoprolol(Metoprolol Succinate ER 100 mg oral tablet, extended release), 100 mg= 1 tab, PO, Daily multivitamin, 1 tab, PO, Daily Allergies Clams (Moderate)redness, swelling Moldsinus infections penicillinsitching, swelling soyitching, swelling Social History Smoking Status Never smoked cigarettes Electronic Signature on File Electronically Reviewed/Signed by: MARIA ESTHER Chang Author Signature Dt/Tm:07/08/2024 02:43 PM Department of Family Medicine Department of Dermatology DMS Patient Care team information Care Team Personnel Name: MD Mckenna Anitha Position: Referring DIRECT Member Role: Primary Care Provider Address: [address] [place] [id number] Care Team Related Persons Name: DANIE KHAN"
--- OUTSIDE RECORDS SUMMARY | 2024-09-11 08:58 | External Medical Summary ---
Author Name Unknown Address Unknown Organization K01:[facility] [place] [address] [place] [address] Laboratory Report Ordering Provider Test Date Status JAMIACA SYLVESTER 08/20/2024 15:20:28 Final Observation Date Value Abnormality Reference (Units ) Status HbA1C 08/20/2024 15:20:28 5.9 Above high normal 4. 0-5.6 (%) Final The use of HbA1c to monitor glycemic status is based on normal hemoglobin and HbA composition. This test should not be used in patients with abnormal hemoglobin that affects the half life of the red blood cell or the in vivo glycation rates. Glucose, estimated average 08/20/2024 15:20:28 123 <126 (mg/dL) Final Performing Location [facility] [place] [address] [place] [address]
--- OUTSIDE RECORDS SUMMARY | 2024-09-11 08:58 | External Medical Summary | Summary of Care ---
Author Name Unknown Organization [facility] Address [address] [facility] [address] Phone [phone] Care Team Providers Care Java Mobile Developer Name Role Phone Triny Mckenna MD Primary Care Provider [phone] Reason for Visit * Reason Onset Date Comments Medication Refill 08/16/2024 Encounter Details Date Type Department Care Team (Late st Contact Info) Description 08/16/2024 Refill General Internal Medicine [facility] [place] [address] [place] [address] Eleazar Coles, DO [address] [place] [address] Anxiety state Allergies Active Allergy Reactions Criticality Noted Date Comments Amlodipine 03/19/2018 Leg edema Molds & Smuts 10/14/2017 Penicillins 10/14/2017 Swollen eyes and lips Shellfish Allergy 10/14/2017 Clams/bi-valves only Soy Allergy 10/14/2017 documented as of this encounter (statuses as of 08/17/2024) Medications Cetirizine HCl 10 MG Oral Capsule [...] mg daily. 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 Overview (07/30/2022): 07/16/20220169-anba-NX 60-65%, mild LVH, LA moderately dilated, aortic [...] as of this encounter (statuses as of 08/17/2024) Resolved Problems Problem Noted Date Diagnosed Date Resolved Date Abnormal AST and ALT 11/20/2017 018 documented as of this encounter (statuses as of 08/17/2024) Immunizations Name Administration Dates Next Due COVID-19 [...] encounter Miscellaneous Notes * Telephone Encounter - Ida Galvez michel - 08/17/2024 9:21 AM ESTRefused Prescriptions: Disp Refills busPIRone HCl 5 MG Oral Tablet (Buspar) 180 Ta*1 Sig: Take 1 Tablet by mouth 2 times a day as needed for Anxiety.Refused By: IDA GALVEZ for Refusal: Too soon documented in this encounter Plan of Treatment Upcoming Encounters Date Type Department Care Team (Late st Contact Info) Description 08/17/2024 4:20 PM EST Telemedicine Family Practice [facility] [address] [place] [address] Julia Davis CRNP [address] [place] [address] 10/19/2024 2:00 PM EST Cardiac Studies Cardiac Studies, [facility] [address] [address] 12/20/2024 1:00 PM EDT Office Visit General Internal Medicine [facility] [address] [facility] [place] [address] Triny Mckenna MD [address] [facility] [place] [address] 12/30/2024 1:30 PM EDT Office Visit Cardiology, [facility] [address] [place] [address] Julianna Perry CRNP [address] [place] [address] Scheduled Procedures Name Priority Associated Diagnoses Date/Ti [...] this encounter Medical Devices Implanted Type Area Brand Coordinator Device Identifier Shelf Expiration Date Model / Serial / Lot Hemostatic Clip Res 235cm - [id number] Implanted:Qty: 4 on 01/21/2024 by Tristan Sanders MD at ENDOSCOPY [facility] N/A: Colon [employer] : ENDOSCOPY 09/26/2026 [id number] / / [id number] documented as of this encounter Visit Diagnoses Diagnosis Anxiety state Anxiety state, unspecified documented in this encounter Care Teams Java Mobile Developer Relationship Specialty Start Date End Date Triny Mckenna MD [address] [place] [address] PCP - General Internal Medicine 10/14/17 documented as of this encounter
--- OUTSIDE RECORDS SUMMARY | 2024-09-11 08:58 | External Medical Summary | Summary of Care ---
Author Name Unknown Organization [facility] Address [address] [facility] [place] [address] Phone [phone] Care Team Providers Care Publishing Manager Name Role Phone Triny Mckenna MD Primary Care Provider [phone] Reason for Visit * Reason Comments Acute Encounter Details Date Type Department Care Team (Late st Contact Info) Description 08/17/2024 4:20 PM EST Telemedicine Family Practice [facility] [address] [place] [address] Julia Davis CRNP [address] [place] [address] Anxiety state*; Leg swelling; Paroxysmal A-fib (HCC) Allergies Active Allergy Reactions Criticality Noted [...] 90 Tablet 3 4 Active busPIRone HCl 10 MG Oral Tablet (Buspar)Indicatio ns:Anxiety state Take 1 Tablet by mouth in the morning and 1 Tablet before bedtime. 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 Acute Family Medicine Visit History of Present Illness Viji Dutton is a very pleasant 83 year old female with PMH listed below presenting with acute. Patient location: HOME. I was in a hospital or clinic location. After connecting through televideo,patient was verified with two unique identifiers. Patient (or authorized legal business office representative) was then informed that this was a Telemedicine visit and being conducted confidentially over secure lines. Methods to assure confidentiality were taken. Patient acknowledged consent and understanding of pr ivacy and security of the Telemedicine visit. The patient agreed to participate. Increased anxiety without any cause x 4 weeks. Usually her anxiety is worse over the winter. Not better after breathing technique. Using buspirone 5 mg 3-4 times a day, slightly helpful. Denies SI/HI. Noted bilateral/foot swelling since last after detox pedicure. No SOB or chest pain. Weight is 160 lbs. No recent trip or new medication. No leg pain or redness. Swelling improves in the morning. Social History Socioeconomic History Marital status: Spouse name: Not on file Number of children: Not on file Years of education: Not on file Highest education level: Not on file Occupational History Not on file Tobacco Use Smoking status: Never Smokeless tobacco: Never Vaping Use Vaping status: Never Used Substance and Sexual Activity Alcohol use: Yes Alcohol/week: 1.0 - 2.0 standard drink of alcohol Types: 1 - 2 5 oz of wine per week Drug use: No Sexual activity: Yes Partners: Male Other Topics Concern Not on file Social History Narrative Not on file Social Needs Financial Resource Strain: Not on file Food Insecurity: No Food Insecurity (11/09/2019) Hunger Vital Sign Worried About Running Out of Food in the Last Year: Never true Ran Out of Food in the Last Year: Never true Transportation Needs: Not on file Social Connections: Unknown (02/17/2024) Social Connections How often do you feel lonely or isolated from those around you? (Adult - for ages 18 years and over): Not on file Housing Stability: Not on file PMH: Past Medical History: Diagnosis Date HLD (hyperlipidemia) HTN (hypertension) Osteopenia Pre-diabetes Past Surgical History: Procedure Laterality Date APPENDECTOMY W/OTHER PROCEDURE COLONOSCOPY 01/19/2013 COLONOSCOPY 11/29/2002 COLONOSCOPY, DIAGNOSTIC (RECTUM) 01/21/2024 diverticulosis/hemorrhoids/biopsies show serrated adenomatous polyps/recall 1 year/COLONOSCOPY FLEXIBLE PROXIMAL DIAGNOSTIC performed by Tristan Sanders MD at ENDOSCOPY [facility] ENDOVENOUS ABLATION INCOMPETENT VEIN MECHANOCHEM 1ST VEIN Right 2005 REMOVE CATARACT, INSERT LENS PROSTH Bilateral 2020 Rt sep, Lt oct SHOULDER SURGERY PROCEDURE NEC 1992 SINUS SURGERY PROCEDURE NEC Current Outpatient Medications Medication Sig Dispense Refill busPIRone HCl 10 MG Oral Tablet (Buspar) Take 1 Tablet by mouth in the morning and 1 Tablet before bedtime. 180 Tablet 0 busPIRone HCl 5 MG Oral Tablet (Buspar) Take 1 Tablet by mouth 2 times a day as needed for Anxiety.180 Tablet 1 Metoprolol Succinate ER 50 MG Oral Tablet Extended Release 24 Hour (toPROL XL) Take 1 Tablet by mouth in the morning. In addition to a 100 mg tablet. Total of 150 mg daily. 90 Tablet 3 Citrucel 500 MG Oral Tablet (Methylcellulose (Laxative)) Taking 3 daily Triamcinolone Acetonide 55 MCG/ACT Nasal Aerosol (Nasacort Allergy 24HR) Administer 2 Sprays into each nostril in the morning. Apixaban 5 MG Oral Tablet (Eliquis) Take [...] mouth in the morning. 90 Tablet 3 Cetirizine HCl 10 MG Oral Capsule Take 1 Capsule by mouth in the morning. 1 Capsule 0 No current facility-administered medications for this visit. Review of patient's allergies indicates: Allergen Reactions Amlodipine Leg edema Molds & Smuts Penicillins Swollen eyes and lips Shellfish Allergy Clams/bi-valves only Soy Allergy Most Recent Immunizations Administered Date(s) Administered COVID-19 mRNA, LNP-s, No Preserve, 2-Dose Series (Moderna) 12/25/2021 COVID-19, mRNA, LNP-s, PF, Booster, 100mcg/0.5mg (Moderna) 12/19/2021 Covid-19, Mrna, Lnp-s, Pf, Bivalent, 50 Mcg, IM, 12 yrs and above (Moderna) 06/16/2022 Pneumococcal Conjugate Vacc, 13 Valent (Prevnar) 02/01/2015 Pneumococcal Polysaccharide PPV23 (Pneumovax) 03/26/2007 Season Influenza, Quad, PF, Adjuvanted, 65+ Yrs, IM (FLUAD) 05/27/2023 Seasonal Influenza Virus Vaccine, Unspecified Formulation 05/17/2022 Seasonal Influenza, High Dose, Trivalent, PF, IM (Fluzone HD) 05/21/2024 Seasonal Influenza, PF, 6 M & above, IM , (FluLaval or Fluzone) 06/01/2018 Seasonal Influenza, Quadrivalent, No Preserve, IM 05/31/2020 Seasonal Influenza, Trivalent, Adjuvanted, 65+ YRS, PF, (Fluad) 05/17/2022 TD - Tetanus/Diptheria (ADULT) 01/11/2009 TD, Preservative Free 01/11/2009 TDAP (age 10 and older)(Boostrix) 04/17/2018 Varicella Zoster Vaccine (Adult) 09/01/2009 Zoster Vaccine Recombinant (Shingrix) 05/17/2019 Review of Systems: Physical Exam There were no vitals taken for this visit. Assessment and Plan 1. Anxiety state Increase Buspar 5mg bid to 10mg bid F/u with therapy (who is her friend, doesn't need a referral) - busPIRone HCl 10 MG Oral Tablet (Buspar); Take 1 Tablet by mouth in the morning and 1 Tablet before bedtime. Dispense: 180 Tablet; Refill: 0 2. Leg swelling Suspect dependent edema Discussed s/sx of DVT/cellulitis Compression stocking, leg elevation Could increase lasix to 40mg next 3 days, return for blood work 3. Paroxysmal A-fib (HCC) F/u cardiology Wrap-Up Follow-up: Return in about 6 weeks (around 09/28/2024). | Check-out note: F/u with pcp office I have advised the patient to call our office with any worsening or new symptoms. I spent a total of 20-29 minutes (exact time 25 mins) on the date of service in preparation, delivery, and documentation of the care provided to Viji Dutton excluding any time spent in the performance of separately billed services. Julia Davis, MSN, [facility] documented in this encounter Plan of Treatment Upcoming Encounters Date Type Department Care Team (Late st Contact Info) Description 10/19/2024 2:00 PM EST Cardiac Studies Cardiac Studies, [facility] [address] [facility] [place] [address] 12/20/2024 1:00 PM EDT Office Visit General Internal Medicine [facility] [place] [place] [address] [place] [id number] Triny Mckenna MD [address] [place] [id number] 12/30/2024 1:30 PM EDT Office Visit Cardiology, [facility] [address] [place] [address] Julianna Perry CRNP [address] [place] [address] Scheduled Procedures Name Priority Associated Diagnoses Date/Ti [...] this encounter Medical Devices Implanted Type Area Base Draw Operator Device Identifier Shelf Expiration Date Model / Serial / Lot Hemostatic Clip Res 235cm - [id number] Implanted:Qty: 4 on 01/21/2024 by Tristan Sanders MD at ENDOSCOPY [facility] N/A: Colon [employer] : ENDOSCOPY 09/26/2026 [id number] / / [id number] documented as of this encounter Visit Diagnoses Diagnosis Anxiety state- Primary Anxiety state, unspecified Leg swelling Swelling of limb Paroxysmal A-fib (HCC) Atrial fibrillation documented in this encounter Care Teams Publishing Manager Relationship Specialty Start Date End Date Triny Mckenna MD [address] [place] [phone] PCP - General Internal Medicine 10/14/17 documented as of this encounter"
--- OUTSIDE RECORDS SUMMARY | 2024-09-11 08:59 | External Medical Summary | Summary of Care ---
Author Name Unknown Organization [facility] Address [address] [address] Phone [phone] Care Team Providers Care Certified Nursing Assistant Name Role Phone Triny Mckenna MD Primary Care Provider [phone] Encounter Details Date Type Department Care Team (Late st Contact Info) Description 06/21/2024 Patient Reported Data Patient Survey Ortho [facility] Allergies Active Allergy Reactions Criticality Noted Date [...] Oral Tablet Extended Release 24 Hour (toPROL XL)Indications:Paro xysmal atrial fibrillation (HCC) Take 1 Tablet by mouth in the morning. In addition to a 100 mg tablet. Total of 150 mg daily. 90 Tablet 3 10/22/2023 Active Losartan Potassium 100 MG Oral Tablet (Cozaar)Indications :HTN, goal below 140/90 Take 1 Tablet by mouth in the morning. 90 Tablet 3 10/24/2023 Active hydrALAZINE HCl 10 MG Oral Tablet (Apresoline)Indicat ions:HTN, goal below 140/90,Dyslipidemia , goal LDL below 100 Take 1 Tablet by mouth in the morning and 1 Tablet at noon and 1 Tablet before bedtime. 280 Tablet 3 12/11/2023 Active Metoprolol Succinate ER 100 MG Oral Tablet Extended Release 24 Hour (toPROL XL)Indications:Paro xysmal atrial fibrillation (HCC) take 1 AND 1/2 tablets by mouth IN THE MORNING 135 Tablet 3 12/15/2023 Active Furosemide 20 MG Oral Tablet (Lasix)Indications: HTN, goal below 140/90 TAKE 1 TABLET BY MOUTH EVERY MORNING 90 Tablet 3 04/09/2024 Active Atorvastatin Calcium 40 MG Oral Tablet (Lipitor)Indication s:Paroxysmal atrial fibrillation (HCC),HTN, goal below 140/90,Dyslipidemia , goal LDL below 100 Take 1 Tablet by mouth at bedtime. 90 Tablet 3 04/20/2024 Active Apixaban 5 MG Oral Tablet (Eliquis)Indication s:Paroxysmal atrial fibrillation (HCC) Take 1 Tablet by mouth in the morning and 1 Tablet before bedtime. 180 Tablet 4 04/26/2024 Active busPIRone HCl 5 MG Oral Tablet (Buspar)Indications :Anxiety state Take 1 Tablet by mouth 2 times a day as needed for Anxiety. (See tel enc 06/10/2024) 180 Tablet 06/10/2024 Active Doxycycline Hyclate 100 MG Oral CapsuleIndications: Acute non-recurrent maxillary sinusitis Take 1 Capsule by mouth in the morning and 1 Capsule before bedtime. Do all this for 7 days. Take for 7 days. 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 06/21/2024 Active Citrucel 500 MG Oral Tablet (Methylcellulose (Laxative))Indicati ons:Chronic constipation Taking 3 daily 06/21/2024 Active documented as of this encounter (statuses as of 06/21/2024) Active Problems Problem Noted Date Diagnosed Date Anxiety state 12/23/2022 Paroxysmal A-fib 09/10/2022 Chronic pansinusitis 09/10/2022 assisted current use of anticoagulant therapy 0 09/10/2022 Non-rheumatic aortic sclerosis 07/30/2022 Overview: 07/16/20222370-rjgk-GV 60-65%, mild LVH, LA moderately dilated, aortic [...] on file documented as of this encounter Plan of Treatment Upcoming Encounters Date Type Department Care Team (Late st Contact Info) Description 06/28/2024 1:00 PM EDT Office Visit Orthopaedics [facility] [address] [place] [address] Lila Contreras MD [address] [place] [address] 07/26/2024 3:00 PM EST Imaging Radiology, [facility] [address] [facility] [place] [address] 10/19/2024 2:00 PM EST Cardiac Studies Cardiac Studies, [facility] [address] [place] [address] 12/20/2024 1:00 PM EDT Office Visit General Internal Medicine [facility] [address] [facility] [address] [place] [address] Triny Mckenna MD 200 [facility] [place] [address] 12/30/2024 1:30 PM EDT Office Visit Cardiology, [facility] [address] [place] [address] Julianna Perry CRNP [address] [place] [address] Scheduled Procedures Name Priority Associated Diagnoses Date/Ti [...] this encounter Medical Devices Implanted Type Area Safe And Vault Service Mechanic Device Identifier Shelf Expiration Date Model / Serial / Lot Hemostatic Clip Res 235cm - [id number] Implanted:Qty: 4 on 01/21/2024 by Tristan Sanders MD at ENDOSCOPY [facility] [address] N/A: Colon [employer] : ENDOSCOPY 09/26/2026 [id number] / / [id number] documented as of this encounter Care Teams Certified Nursing Assistant Relationship Specialty Start Date End Date Triny Mckenna MD 200 [place] [address] PCP - General Internal Medicine 10/14/17 documented as of this encounter
--- OUTSIDE RECORDS SUMMARY | 2024-09-11 08:59 | External Medical Summary | Summary of Care ---
Author Name Unknown Organization [facility] Address [address] [facility] [address] Phone [phone] Care Team Providers Care Technical Buyer Name Role Phone Triny Mckenna MD Primary Care Provider [phone] Reason for Visit * Reason Comments Outpatient Testing Encounter Details Date Type Department Care Team (Late st Contact Info) Description 06/21/2024 1:40 PM EDT Laboratory Laboratory [facility] [address] [place] [id number] [facility] [address] [place] [address] Prediabetes; Dyslipidemia, goal LDL below 100 Allergies Active [...] 12/23/2022 Paroxysmal A-fib 09/10/2022 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/2022 Non-rheumatic aortic sclerosis 07/30/2022 Overview: 07/16/20227954-jgza-TZ 60-65%, mild LVH, LA moderately dilated, aortic [...] 06/28/2024 1:00 PM EDT Office Visit Orthopaedics [facility] [address] [place] [address] Lila Contreras MD [address] [place] [address] 07/26/2024 3:00 PM EST Imaging Radiology, [facility] [address] [facility] [place] [address] 10/19/2024 2:00 PM EST Cardiac Studies Cardiac Studies, [facility] [address] [place] [address] 12/20/2024 1:00 PM EDT [facility] [address] [place] [address] Triny Mckenna MD [address] [facility] [place] [address] 12/30/2024 1:30 PM EDT Office Visit Cardiology, [facility] [address] [place] [address] Julianna Perry CRNP [address] [place] [address] Pending Results Name Type Priority Associated Diagnoses Date /Time HEMOGLOBIN A1C Lab Routine Prediabetes 06/21/2024 1:43 PM EDT LIPID PANEL WITH DIRECT LDL IF TG IS HIGH Lab Routine Dyslipidemia, goal LDL below 100 06/21/2024 1:43 PM EDT HEPATIC FUNCTION PANEL Lab Routine Dyslipidemia, goal LDL below 100 06/21/2024 1:43 PM EDT Scheduled Procedures Name Priority Associated Diagnoses Date/Ti [...] this encounter Medical Devices Implanted Type Area Lawyer Device Identifier Shelf Expiration Date Model / Serial / Lot Hemostatic Clip Res 235cm - [id number] Implanted:Qty: 4 on 01/21/2024 by Tristan Sanders MD at ENDOSCOPY [facility] N/A: Colon [employer] : ENDOSCOPY 09/26/2026 [id number] / / [id number] documented as of this encounter Visit Diagnoses Diagnosis Prediabetes Other abnormal glucose Dyslipidemia, goal LDL below 100 Other and unspecified hyperlipidemia documented in this encounter Care Teams Technical Buyer Relationship Specialty Start Date End Date Triny Mckenna MD 200 [facility] [place] [address] PCP - General Internal Medicine 10/14/17 documented as of this encounter
--- OUTSIDE RECORDS SUMMARY | 2024-09-11 08:59 | External Medical Summary | Summary of Care ---
Author Name Unknown Organization [facility] Address [address] [facility] [address] Phone [phone] Care Team Providers Care Real Estate Leasing Agent Name Role Phone Triny Mckenna MD Primary Care Provider [phone] Reason for Visit * Reason Comments Outpatient Testing Encounter Details Date Type Department Care Team (Late st Contact Info) Description 06/17/2024 2:00 PM EDT Laboratory Laboratory, [facility] [address] [facility] [place] [phone] [facility] [address] [facility] [place] [address] Rectal bleeding; longterm current use of anticoagulant therapy Allergies Active Allergy Reactions Criticality Noted Date Comments Amlodipine 03/19/2018 Leg edema Molds & Smuts 10/14/2017 Penicillins 10/14/2017 Swollen eyes and lips Shellfish Allergy 10/14/2017 Clams/bi-valves only Soy Allergy 10/14/2017 documented as of this encounter (statuses as of 06/17/2024) Medications Medication Sig Dispensed Refills Start Date End Date Status Cetirizine HCl 10 MG Oral Capsule Take 1 Capsule by mouth in the morning. 1 Capsule 06/18/2022 Active Metoprolol Succinate ER 50 MG Oral Tablet Extended Release 24 Hour (toPROL XL)Indications:Paroxy smal atrial fibrillation (HCC) Take 1 Tablet by mouth in the morning. In addition to a 100 mg tablet. Total of 150 mg daily. 90 Tablet 3 10/22/2023 Active Losartan Potassium 100 MG Oral Tablet (Cozaar)Indications:H TN, goal below 140/90 Take 1 Tablet by mouth in the morning. 90 Tablet 3 10/24/2023 Active hydrALAZINE HCl 10 MG Oral Tablet (Apresoline)Indicatio ns:HTN, goal below 140/90,Dyslipidemia, goal LDL below 100 Take 1 Tablet by mouth in the morning and 1 Tablet at noon and 1 Tablet before bedtime. 280 Tablet 3 12/11/2023 Active Metoprolol Succinate ER 100 MG Oral Tablet Extended Release 24 Hour (toPROL XL)Indications:Paroxy smal atrial fibrillation (HCC) take 1 AND 1/2 tablets by mouth IN THE MORNING 135 Tablet 3 12/15/2023 Active Furosemide 20 MG Oral Tablet (Lasix)Indications:HT N, goal below 140/90 TAKE 1 TABLET BY MOUTH EVERY MORNING 90 Tablet 3 04/09/2024 Active Atorvastatin Calcium 40 MG Oral Tablet (Lipitor)Indications: Paroxysmal atrial fibrillation (HCC),HTN, goal below 140/90,Dyslipidemia, goal LDL below 100 Take 1 Tablet by mouth at bedtime. 90 Tablet 3 04/20/2024 Active Atorvastatin Calcium 40 MG Oral Tablet (Lipitor)Indications: Paroxysmal atrial fibrillation (HCC),HTN, goal below 140/90,Dyslipidemia, goal LDL below 100 Take 1 Tablet by mouth at bedtime. 90 Tablet 3 04/20/2024 Active Atorvastatin Calcium 40 MG Oral Tablet (Lipitor)Indications: Paroxysmal atrial fibrillation (HCC),HTN, goal below 140/90,Dyslipidemia, goal LDL below 100 Take 1 Tablet by mouth at bedtime. 90 Tablet 3 04/20/2024 Active Apixaban 5 MG Oral Tablet (Eliquis)Indications: Paroxysmal atrial fibrillation (HCC) Take 1 Tablet by mouth in the morning and 1 Tablet before bedtime. 180 Tablet 4 04/26/2024 Active busPIRone HCl 5 MG Oral Tablet (Buspar)Indications:A nxiety state Take 1 Tablet by mouth 2 times a day as needed for Anxiety. (See tel enc 06/10/2024) 180 Tablet 06/10/2024 Active documented as of this encounter (statuses as of 06/17/2024) Active Problems Problem Noted Date Diagnosed Date Anxiety state 12/23/2022 Paroxysmal A-fib 09/10/2022 Chronic pansinusitis 09/10/2022 longterm current use of anticoagulant therapy 0 09/10/2022 Non-rheumatic aortic sclerosis 07/30/2022 Overview: 07/16/20220073-virc-UD 60-65%, mild LVH, LA moderately dilated, aortic [...] as of this encounter (statuses as of 06/17/2024) Resolved Problems Problem Noted Date Diagnosed Date Resolved Date Abnormal AST and ALT 11/20/2017 018 documented as of this encounter (statuses as of 06/17/2024) Immunizations Name Administration Dates Next Due COVID-19 [...] Dos e, Trivalent, PF, IM (Fluzone HD) 05/13/2022,05/21/2021,05/07/2019 Seasonal Influenza, PF, 6 M & above, [...] PM EDT Office Visit General Internal Medicine [facility] [address] [place] [address] Triny Mckenna MD 200 [facility] [place] [address] 10/19/2024 2:00 PM EST Cardiac Studies Cardiac Studies, [facility] [address] [facility] [place] [address] 12/30/2024 1:30 PM EDT Office Visit Cardiology, [facility] [address] [facility] [place] [address] Julianna Perry CRNP 132 [facility] [place] [address] Scheduled Procedures Name Priority Associated Diagnoses Date/Ti me COLONOSCOPY FLEXIBLE PROXIMA L DIAGNOSTIC Recall History of colonic polyps Health Maintenance Due Date Last Done Comments Depression Screening 12/24/2023 12/23/2022 COVID-19 Vaccine ( season) 2024 06/16/2022, 12/25/2021, 12/19/2021, Additional history exists Influenza Vaccine (FLU shot) (#1) 2024 05/27/2023, 05/17/2022, 05/17/2022, Additional history exists HbA1c 06/13/2024 06/13/2023, 11/30, 12/05/2021, Additional history exists Albumin/Creatinine Ratio 12/05/2024 12/05/2021 Colonoscopy 01/20/2025 01/21/2024, 01/21/2024 DXA Scan 03/24/2025 03/24/2018, 09/13/2009 GFR 06/17/2025 06/17/2024, 06/01, 12/17/2022, Additional history exists DTap/Tdap Vaccines (3 - Td or Tdap) 04/17/2028 04/17/2018, 10/25/2014, 01/11/2009, Additional history exists Pneumococcal Vaccine: 65+ Years Completed 02/01/2015, 03/26/2007 Zoster Vaccines Completed 05/17/2019, 10/02, 09/01/2009, Additional history exists HPV (Gardasil) Vaccine Aged Out No lo nger eligible based on patient's age to complete this topic Hepatitis B Vaccine Aged Out No longe r eligible based on patient's age to complete this topic MENINGOCOCCAL (MENACTRA/MENVEO) Aged Out No longer eligible based on patient's age to complete this topic documented as of this encounter Medical Devices Implanted Type Area Grades 6 Through 8 Teacher Device Identifier Shelf Expiration Date Model / Serial / Lot Hemostatic Clip Res 235cm - [id number] Implanted:Qty: 4 on 01/21/2024 by Tristan Sanders MD at ENDOSCOPY [facility] N/A: Colon [employer] : ENDOSCOPY 09/26/2026 [id number] / / [id number] documented as of this encounter Procedures Procedure Name Priority Date/Time Associated Diagnosis Comments BASIC METABOLIC PANEL Routine 06/17/2024 2:02 PM EDT Rectal bleeding electrotype caster current use of anticoagulant therapy CBC Routine 06/17/2024 2:02 PM EDT Rectal bleeding longterm current use of anticoagulant therapy documented in this encounter Results * BASIC METABOLIC PANEL (06/17/2024 2:02 PM EDT) BUN 18 6 - 20 mg/dL 06/17/2024 3:03 PM EDT [facility] [place] [facility] CREATININE 0.8 0.5 - 1.0 mg/dL 06/17/2024 3:03 PM EDT [facility] [place] [facility] EGFR 72 >=60 mL/min 06/17/2024 3:03 PM EDT [facility] Comment:eGFR is calculated b ased on the CKD-EPI 2020 equation. SODIUM 141 135 - 146 mmol/L 06/17/2024 3:03 PM EDT [facility] [place] [facility] POTASSIUM 4.6 3.5 - 5.1 mmol/L 06/17/2024 3:03 PM EDT [facility] [place] [facility] CHLORIDE 101 98 - 107 mmol/L 06/17/2024 3:03 PM EDT [facility] [place] [facility] CO2 29 22 - 32 mmol/L 06/17/2024 3:03 PM EDT [facility] [place] [facility] ANION GAP 11 7 - 15 mmol/L 06/17/2024 3:03 PM EDT [facility] GLUCOSE 116 70 - 120 mg/dL 06/17/2024 3:03 PM EDT [facility] [place] [facility] CALCIUM 9.5 8.4 - 10.2 mg/dL 06/17/2024 3:03 PM EDT [facility] [place] [facility] Blood Venous blood specimen / Unknown Venipuncture / Unknown 06/17/2024 2:02 PM EDT 06/17/2024 2:02 PM EDT Julianna KING LAB BLOOD ORDER [facility] [place] [facility] [address] [place] [address] * CBC (06/17/2024 2:02 PM EDT) WBC 7.75 4.00 - 10.80 K/uL 06/17/2024 2:11 PM EDT [facility] [place] [facility] RBC 4.39 3.85 - 5.15 M/uL 06/17/2024 2:11 PM EDT [facility] [place] [facility] HGB 14.2 12.0 - 15.3 g/dL 06/17/2024 2:11 PM EDT [facility] [place] [facility] HCT 42.8 36.0 - 45.2 % 06/17/2024 2:11 PM EDT [facility] [place] [facility] MCV 97.5 81.5 - 97.5 fL 06/17/2024 2:11 PM EDT [facility] [place] [facility] MCH 32.3 27.0 - 34.0 pg 06/17/2024 2:11 PM EDT [facility] [place] [facility] MCHC 33.2 32.0 - 36.0 g/dL 06/17/2024 2:11 PM EDT [facility] [place] [facility] RDW 12.9 11.5 - 15.5 % 06/17/2024 2:11 PM EDT [facility] [place] [facility] PLT 178 140 - 400 K/uL 06/17/2024 2:11 PM EDT [facility] [place] [facility] MPV 9.2 6.6 - 11.1 fL 06/17/2024 2:11 PM EDT [facility] [place] [facility] Blood Venous blood specimen / Unknown Venipuncture / Unknown 06/17/2024 2:02 PM EDT 06/17/2024 2:02 PM EDT Julianna KING LAB BLOOD [facility] [address] [facility] [place] [address] documented in this encounter Visit Diagnoses Diagnosis Rectal bleeding Hemorrhage of rectum and anus longterm current use of anticoagulant therapy documented in this encounter Care Teams Real Estate Leasing Agent Relationship Specialty Start Date End Date Triny Mckenna MD [address] [place] [address] [place] [address] PCP - General Internal Medicine 10/14/17 documented as of this encounter
--- OUTSIDE RECORDS SUMMARY | 2024-09-11 08:59 | External Medical Summary | Summary of Care ---
Author Name Unknown Organization [facility] Address [address] [place] [address] Phone [phone] Care Team Providers Care Sole Molding Machine Operator Name Role Phone Nga Mckenna MD Primary Care Provider [phone] Reason for Visit * Reason Comments eRx-Medication Refill Encounter Details Date Type Department Care Team (Late st Contact Info) Description 06/07/2024 Refill General Internal Medicine [facility] [address] [facility] [place] [address] Nga Mckenna MD [address] [facility] [place] [address] Anxiety state Allergies Active Allergy Reactions Criticality Noted Date Comments Amlodipine 03/19/2018 Leg edema Molds & Smuts 10/14/2017 Penicillins 10/14/2017 Swollen eyes and lips Shellfish Allergy 10/14/2017 Clams/bi-valves only Soy Allergy 10/14/2017 documented as of this encounter (statuses as of 06/10/2024) Medications Medication Sig Dispensed Refills Start Date [...] tel enc 06/10/2024) 180 Tablet 06/10/2024 Active busPIRone HCl 5 MG Oral Tablet (Buspar)Indication s:Anxiety state Take 1 Tablet by mouth in the morning and 1 Tablet before bedtime. (Inc 10/11/23). 180 Tablet 10/23/2023 06/10/2024 Discontinue d(Refill) documented as of this encounter (statuses as of 06/10/2024) Active Problems Problem Noted Date Diagnosed Date Anxiety state 12/23/2022 Paroxysmal A-fib 09/10/2022 Chronic pansinusitis 09/10/2022 detention current use of anticoagulant therapy 0 09/10/2022 Non-rheumatic aortic sclerosis 07/30/2022 Overview: 07/16/20224558-[id number] 60-65%, mild LVH, LA moderately dilated, aortic [...] as of this encounter (statuses as of 06/10/2024) Resolved Problems Problem Noted Date Diagnosed Date Resolved Date Abnormal AST and ALT 11/20/201701/01/ 018 documented as of this encounter (statuses as of 06/10/2024) Immunizations Name Administration Dates Next Due COVID-19 [...] on file documented as of this encounter Miscellaneous Notes * Telephone Encounter - Nga Mckenna MD - 06/10/2024 1:29 PM EDT Noted ,thank you. * Telephone Encounter - Wolfgang Lopez CMA - 06/10/2024 1:14 PM EDTSigned Prescriptions: Disp Refills busPIRone HCl 5 MG Oral Tablet (Buspar) 180 Ta*0 Sig: Take 1 Tablet by mouth 2 times a day as needed for Anxiety. (See tel enc 06/10/2024)Authorizing Provider: Martine MCKENNA Prescriptions: Disp Refills busPIRone HCl 5 MG Oral Tablet (Buspar) 180 Ta*0 Sig: Take 1 Tablet by mouth in the morning and 1 Tablet before bedtime.Refused By: JJ LÓPEZ for Refusal: Dose needs clarification * Telephone Encounter - Jj López [facility] - 06/10/2024 12:55 PM EDT Called [facility]. Script filled 01/09 and 04/09 was prescribed by you. [facility] was unable to tell me the writtendate because the script is out of refills. Most likely the year supply of buspirone prescribed 06/27/2023 was never cancelled by the pharmacy when the increased dose was prescribed on 10/23. Thank you, Jj López, PharmD Clinical Pharmacist [facility] ([facility]) 06/10/24 12:58 PM [phone] * Telephone Encounter - Nga Mckenna MD - 06/10/2024 12:22 PM EDTSigned Prescriptions: Disp Refills busPIRone HCl 5 MG Oral Tablet (Buspar) 180 Ta*0 Sig: Take 1 Tablet by mouth 2 times a day as needed for Anxiety. (See tel enc 06/10/2024)Authorizing Provider: Martine MCKENNA Prescriptions: Disp Refills busPIRone HCl 5 MG Oral Tablet (Buspar) 180 Ta*0 Sig: Take 1 Tablet by mouth in the morning and 1 Tablet before bedtime.Refused By: JJ LÓPEZReason for Refusal: Dose needs clarification * Addendum Note - Nga Mckenna MD - 06/10/2024 12:22 PM EDTAddended by: NGA MCKENNA on: 06/10/2024 12:22 PM Modules accepted: Orders * Telephone Encounter - Nga Mckenna MD - 06/10/2024 12:16 PM EDT I last did Rx 10/23/[address] find out who prescribed the 90 tabs 01/10/24 and 04/09/24 .--so if taking 2/d she should have been out 05/24/24.? Appears may be taking 1 tab few days , will discuss at next visit 06/21/24. Rx sent * Addendum Note - Jj López RP - 06/10/2024 9:10 AM EDTAddended by: JJ LÓPEZ on: 06/10/2024 09:10 AM Modules accepted: Orders * Telephone Encounter - Jj López RP - 06/10/2024 9:04 AM EDT Images from the original note were not included. See patient message, taking buspirone two times per day. Per adherence report patient must have hadan older script on file, picked up 90 tablets 2 times since 10/23. Pending script, please approve if appropriate. Pending Prescriptions: Disp Refills busPIRone HCl 5 MG Oral Tablet (Buspar) 180 Ta*0 Sig: Take 1 Tablet by mouth in the morning and 1 Tablet before bedtime. (Inc 10/11/23). Thank you, Jj López, PharmD Clinical Pharmacist [facility] ([facility] 06/10/24 9:09 AM [phone] * Telephone Encounter - Jj López RP - 06/09/2024 3:35 PM EDT LMOVM and sent MyG to see how many buspirone tablets per day patient is taking. If patient returns call please transfer to myself or next available pharmacist. Thank you, Jj López, PharmD Clinical Pharmacist [facility] ([facility]) 06/09/24 3:36 PM [phone] * Telephone Encounter - Nga Mckenna MD - 06/09/2024 12:55 PM EDTPending Prescriptions: Disp Refills busPIRone HCl 5 MG Oral Tablet (Buspar) 180 Ta*0 Sig: Take 1 Tablet by mouth in the morning and 1 Tablet before bedtime. * Telephone Encounter - Nga Mckenna MD - 06/09/2024 12:54 PM EDT Last RX 180 tabs 10/21/23- -check if still taking 1 and not inc to 2/d? * Telephone Encounter - Jj López [facility] - 06/09/2024 12:44 PM EDT Pending Prescriptions: Disp Refills busPIRone HCl 5 MG Oral Tablet (Buspar) 180 Ta*0 Sig: Take 1 Tablet by mouth in the morning and 1 Tablet before bedtime. * Telephone Encounter - Jj López [facility] - 06/09/2024 12:42 PM EDT [facility] is currently not authorized to approve refills for the pended medication(s) per refill protocol. Please approve if appropriate. Pending Prescriptions: Disp Refills busPIRone HCl 5 MG Oral Tablet (Buspar) [*180 Ta*0 Sig: Take 1 Tablet by mouth in the morning and 1 Tablet before bedtime. Last Visit: 06/10/2023 (in office), Visit date not found (telemedicine) Next Visit: 06/21/2024 If no future appointments scheduled, and last appointment is greater than a year ago, please schedule patient for a follow-up appointment Last date the medication was ordered: 10/23/2023 Pharmacy: [id number] [place] [address] [facility] [address] [place] Is this request for a controlled substance? No Urine Drug Screen:No results found for this or any previous visit. Patient Phone Numbers Labs: Lab Results Component Value Date/Time CREAT 0.8 06/13/2023 02:42 PM CREAT 0.9 02/08/2020 01:03 PM POTASSIUM 4.2 06/13/2023 02:42 PM POTASSIUM 4.1 02/08/2020 01:03 PM TSH 3.55 04/06/2018 07:35 AM LDL 95 12/17/2022 08:33 AM LDL 84 02/08/2020 01:03 PM LDL 95 06/07/2019 11:29 AM ALT 14 06/13/2023 02:42 PM ALT 15 02/08/2020 01:03 PM HGBA1C 5.8 (H) 06/13/2023 02:42 PM HGBA1C 5.7 (H) 02/08/2020 01:03 PM documented in this encounter Plan of Treatment Upcoming Encounters Date Type Department Care Team (Late st Contact Info) Description 06/17/2024 1:30 PM EDT Office Visit Cardiology, [facility] [address] [address] Julianna Perry CRNP [address] [place] [address] 06/21/2024 12:40 PM EDT Office Visit General Internal Medicine [facility] [address] [place] [address] Nga Mckenna MD [address] [facility] [place] [address] Scheduled Procedures Name Priority Associated Diagnoses Date/Ti me COLONOSCOPY FLEXIBLE PROXIMA L DIAGNOSTIC Recall History of colonic polyps Health Maintenance Due Date Last Done Comments Depression Screening 12/24/2023 12/23/2022 COVID-19 Vaccine ( season) 2024 06/16/2022, 12/25/2021, 12/19/2021, Additional history exists Influenza Vaccine (FLU shot) (#1) 2024 05/27/2023, 05/17/2022, 05/17/2022, Additional history exists GFR 06/13/2024 06/13/2023, 11/30, 07/16/2022, Additional history exists HbA1c 06/13/2024 06/13/2023, 11/30, 12/05/2021, Additional history exists Albumin/Creatinine Ratio 12/05/2024 12/05/2021 Colonoscopy 01/20/2025 01/21/2024, 01/21/2024 DXA Scan 03/24/2025 03/24/2018, 09/13/2009 DTap/Tdap Vaccines (3 - Td or Tdap) [...] this encounter Medical Devices Implanted Type Area Cigarette Tipper Device Identifier Shelf Expiration Date Model / Serial / Lot Hemostatic Clip Res 235cm - [id number] Implanted:Qty: 4 on 01/21/2024 by Tristan Sanders MD at ENDOSCOPY [facility] N/A: Colon [employer] : ENDOSCOPY 09/26/2026 [id number] / / [id number] documented as of this encounter Visit Diagnoses Diagnosis Anxiety state Anxiety state, unspecified documented in this encounter Care Teams Sole Molding Machine Operator Relationship Specialty Start Date End Date Nga Mckenna MD [address] [place] [address] PCP - General Internal Medicine 10/14/17 documented as of this encounter
--- OUTSIDE RECORDS SUMMARY | 2024-09-11 08:59 | External Medical Summary | Summary of Care ---
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 Overview: 07/16/20226528-zowr-RY 60-65%, mild LVH, LA moderately dilated, aortic [...] 06/28/2024 1:00 PM EDT Office Visit Orthopaedics [facility] [address] [address] Lila Contreras MD [address] [place] [address] 07/26/2024 3:00 PM EST Imaging Radiology, [facility] [address] [facility] [place] [address] 10/19/2024 2:00 PM EST Cardiac Studies Cardiac Studies, [facility] [address] [address] 12/20/2024 1:00 PM EDT Office Visit General Internal Medicine [facility] [address] [facility] [address] [place] [address] Triny Mckenna MD 200 [facility] [place] [address] 12/30/2024 1:30 PM EDT Office Visit Cardiology, [facility] [address] [address] Julianna Perry CRNP [address] [place] [address] Scheduled Procedures Name Priority Associated Diagnoses Date/Ti [...] this encounter Medical Devices Implanted Type Area Analytical Engineer Device Identifier Shelf Expiration Date Model / Serial / Lot Hemostatic Clip Res 235cm - [id number] Implanted:Qty: 4 on 01/21/2024 by Tristan Sanders MD at ENDOSCOPY [facility] N/A: Colon [employer] : ENDOSCOPY 09/26/2026 [id number] / / [id number] documented as of this encounter Care Teams Sales Support Coordinator Relationship Specialty Start Date End Date Triny Mckenna MD [address] [place] [address] PCP - General Internal Medicine 10/14/17 documented as of this encounter
--- OUTSIDE RECORDS SUMMARY | 2024-09-11 08:59 | External Medical Summary ---
Author Name Unknown Address Unknown Organization K09:[facility] [place] [address] Laboratory Report Ordering Provider Test Date Status JAMAICA SYLVESTER 06/21/2024 13:43:16 Final Observation Date Value Abnormality Reference (Units ) Status Albumin 06/21/2024 13:43:16 4.7 3.8-5.0 (g/dL) Final AST (Aspartate aminotransferase) 06/21/2024 13:43:16 18 10-35 (U/L) Final Alk Phos 06/21/2024 13:43:16 76 35-130 (U/L) Final ALT (Alanine aminotransferase) 06/21/2024 13:43:16 13 10-35 (U/L) Final Bilirubin, Total 06/21/2024 13:43:16 0.4 <=1.2 (mg/dL) Final Bilirubin, Direct 06/21/2024 13:43:16 <0.2 0.0-0.3 (mg/dL) Final Protein 06/21/2024 13:43:16 6.9 6.0-8.3 (g/dL) Final Performing Location [facility] [place] [address]
--- OUTSIDE RECORDS SUMMARY | 2024-09-11 08:59 | External Medical Summary ---
Author Name Unknown Address Unknown Organization K01:[facility] - [address] [facility] [address] Laboratory Report Ordering Provider Test Date Status JAMAICA SYLVESTER 06/21/2024 13:43:16 Final Observation Date Value Abnormality Reference (Units ) Status HbA1C 06/21/2024 13:43:16 6.1 Above high normal 4. 0-5.6 (%) Final The use of HbA1c to monitor glycemic status is based on normal hemoglobin and HbA composition. This test should not be used in patients with abnormal hemoglobin that affects the half life of the red blood cell or the in vivo glycation rates. Glucose, estimated average 06/21/2024 13:43:16 128 Above high normal <126 (mg/dL) Alen snowden Performing Location [facility] [address] [facility] [address]
--- OUTSIDE RECORDS SUMMARY | 2024-09-11 08:59 | External Medical Summary | Summary of Care ---
Author Name Unknown Organization [facility] Address [address] [facility] [place] [address] Phone [phone] Care Team Providers Care Programming Instructor Name Role Phone Triny Mckenna MD Primary Care Provider [phone] Reason for Referral * Precert (Diagnostic Medical) (Within 10 days (routine)) - Pending Review Specialty Diagnoses / Procedures Referred By Contac t Referred To Contact Cardiac Studies Diagnoses Paroxysmal atrial fibrillation (HCC) Non-rheumatic aortic sclerosis HTN, goal below 140/90 Procedures ECHO, COMPLETE (2D), TRANS-THORACIC Julianna Perry CRNP [address] [place] [address] Referral ID Status Reason Start Date Expiration Date Visits Requested Visits Authorized [id number] Pending Review Precert 06/18/2024 999 999 Reason for Visit * Reason Comments Follow Up 6 month rtc Encounter Details Date Type Department Care Team (Late st Contact Info) Description 06/17/2024 1:30 PM EDT Office Visit Cardiology, [facility] [address] [place] [address] Julianna Perry CRNP [address] [place] [address] Paroxysmal atrial fibrillation (HCC)*; Rectal bleeding; Non-rheumatic aortic sclerosis; HTN, goal below 140/90; Dyslipidemia, goal LDL [...] 12/23/2022 Paroxysmal A-fib 09/10/2022 Chronic pansinusitis 09/10/2022 correction current use of anticoagulant therapy 0 09/10/2022 Non-rheumatic aortic sclerosis 07/30/2022 Overview: 07/16/20226062-lxhg-IY 60-65%, mild LVH, LA moderately dilated, aortic [...] Sign Reading Time Taken Comments Blood Pressure 150/92 06/17/2024 1:35 PM EDT Pulse 68 06/17/2024 1:35 PM EDT Temperature - - Respiratory Rate 16 06/17/2024 1:35 PM EDT Oxygen Saturation - - Inhaled Oxygen Concentration - - Weight 72.8 kg (160 lb 6.4 oz) 06/17/2024 1:35 P M EDT Height - - Body Mass Index 27.52 01/21/2024 9:43 AM EDT documented in this encounter Progress Notes * Julianna Perry CRNP - 06/17/2024 1:30 PM EDT 06/17/2024 Cardiology Follow Up Primary Driller Portable: LEOLA Cardiac Problems: Paroxysmal atrial fibrillation, diagnosed 06/18/2022, [id number] score of 4 (age 3, female, HTN) , on Eliquis Hypertension History of hyponatremia with hydrochlorothiazide Leg swelling with amlodipine Dyslipidemia Prediabetes History of peptic ulcer due to excessive aspirin use in her 50s HPI: Viji Dutton is a 83 year old female presents for routine cardiology follow up. Last seen in the office by the undersigned on 12/11/2023 doing well from a cardiac perspective Patient had been having some rectal bleeding. She was instructed to increase her water, fiber and is taking Citracal. Her symptoms have since resolved. She plans to have a CBC checked today. She is feeling well from a cardiac perspective. Offers no concerns. BP elevated today. She has also brought her home monitor which are showing 120's/60-70's. Reports compliance on all medication therapies with no untoward effects. No bleeding concerns REVIEW OF SYSTEMS: See HPI for pertinent positives. All others negative other than those noted in the HPI. CONSTITUTIONAL: No change in weight, No weakness, No fatigue and No fevers, No sweats or chills. PULMONARY: No cough, sputum, or hemoptysis, No wheezing, No shortness or breath and No recent change in breathing. CARDIOVASCULAR: No chest pain, No dyspnea on exertion, No edema, No palpitations and No syncope. GASTROINTESTINAL: No abdominal pain, No change in bowel habits, No significant heartburn, No nausea, No vomiting, No diarrhea, No constipation, No blood in stools or black tarry stools. No dysphagia. HEMATOLOGIC: No abnormal bleeding and No bruising. NEUROLOGICAL: Normal balance, No headaches and No weakness. Review of patient's allergies indicates: Allergen Reactions Amlodipine Leg edema Molds & Smuts Penicillins Swollen eyes and lips Shellfish Allergy Clams/bi-valves only Soy Allergy Current Outpatient Medications Medication Sig Dispense Refill Cetirizine HCl 10 MG Oral Capsule Take 1 Capsule by mouth in the morning. 1 Capsule 0 Metoprolol Succinate ER 50 MG Oral Tablet Extended Release 24 Hour (toPROL XL) Take 1 Tablet by mouth in the morning. In addition to a 100 mg tablet. Total of 150 mg daily. 90 Tablet 3 Losartan Potassium 100 MG Oral Tablet (Cozaar) Take 1 Tablet by mouth in the morning. 90 Tablet 3 hydrALAZINE HCl 10 MG Oral Tablet (Apresoline) Take 1 Tablet by mouth in the morning and 1 Tablet at noon and 1 Tablet before bedtime. 280 Tablet 3 Metoprolol Succinate ER 100 MG Oral Tablet Extended Release 24 Hour (toPROL XL) take 1 AND 1/2 tablets by mouth IN THE MORNING 135 Tablet 3 Furosemide 20 MG Oral Tablet (Lasix) TAKE 1 TABLET BY MOUTH EVERY MORNING 90 Tablet 3 Atorvastatin Calcium 40 MG Oral Tablet (Lipitor) Take 1 Tablet by mouth at bedtime. 90 Tablet 3 Atorvastatin Calcium 40 MG Oral Tablet (Lipitor) Take 1 Tablet by mouth at bedtime. 90 Tablet 3 Atorvastatin Calcium 40 MG Oral Tablet (Lipitor) Take 1 Tablet by mouth at bedtime. 90 Tablet 3 Apixaban 5 MG Oral Tablet (Eliquis) Take 1 Tablet by mouth in the morning and 1 Tablet before bedtime. 180 Tablet 4 busPIRone HCl 5 MG Oral Tablet (Buspar) Take 1 Tablet by mouth 2 times a day as needed for Anxiety.(See tel enc 06/10/2024) 180 Tablet 0 No current facility-administered medications for this visit. Past Medical History: Diagnosis Date HLD (hyperlipidemia) HTN (hypertension) Osteopenia Pre-diabetes Family History Problem Relation Name Age of Onset Hypertension Mother Pancreatic cancer Mother Hypertension Father Heart disease Father Breast Cancer No significant family history Aortic aneurysm No significant family history Social History Socioeconomic History Marital status: Tobacco Use Smoking status: Never Smokeless tobacco: Never Vaping Use Vaping status: Never Used Substance and Sexual Activity Alcohol use: Yes Alcohol/week: 1.0 - 2.0 standard drink of alcohol Types: 1 - 2 5 oz of wine per week Drug use: No Sexual activity: Yes Partners: Male Social Determinants of Health Food Insecurity: No Food Insecurity (11/09/2019) Hunger Vital Sign Worried About Running Out of Food in the Last Year: Never true Ran Out of Food in the Last Year: Never true Social Connections OBJECTIVE/PHYSICAL EXAMINATION: BP 150/92 | Pulse 68 | Resp 16 | Wt 72.8 kg (160 lb 6.4 oz) | BMI 27.52 kg/m | BSA 1.81 m General: No acute distress. A+Ox3. HEENT: Normocephalic. Atraumatic. PERRL. EOMI. Conjunctiva and sclera clear. NECK: No carotid bruits. No JVD. Carotid upstrokes are brisk. Heart: RRR. S1 and S2 noted. +1/6 systolic murmur. No rubs or gallops. PMI non displaced. Lungs: Clear to auscultation. No wheezes.No rhonchi. No rales. Abdomen: Normal bowel sounds. Soft. Nontender. No masses or organomegaly. No abdominal bruits. Extremities: No edema. No clubbing or cyanosis. Pulses: radial=2/4, posterior tibial=2/4, dorsalis pedis = 2/4. NEURO: No focal deficits. PSYCH: Appropriate affect and insight. DATA Labs & Imaging Reviewed Below: EKG 09/03/22 Sinus rhythm with Premature atrial complexes Otherwise normal ECG When compared with ECG of 16-JUL-2022 11:23, No significant change was found EKG 07/02/22 SR with PAC's Rate 65 bmp Ventricular Rate: 72 Echo 06/19/2022 at [facility] Patient was in AFib during the study LVEF 60-65% Mild concentric LVH Left atrium moderately dilated Mildly calcified aortic valve Moderate aortic sclerosis without stenosis Mild TR No pulmonary hypertension ASSESSMENT/PLAN: 83 year old year old female 1. Paroxysmal atrial fibrillation (HCC) -regular rate and rhythm today on exam -patient remains compliant on her metoprolol succinate as well as her Eliquis 5 mg p.o. twice dailywith no further bleeding concern - ECHO, COMPLETE (2D), TRANS-THORACIC; Future 2. Rectal bleeding -rectal bleeding has since resolved with increased fluid intake, bulk fibers, and increased Citracal. She does carry a known history of diverticulosis as well as internal hemorrhoids which I suspect the hemorrhoids were the culprit -discuss decreased gastric motility with age and applauded patient for her diet modification 3. Non-rheumatic aortic sclerosis -denies any significant change in her functional capacity Last echocardiogram dated 2021 demonstrating aortic calcification and sclerosis but no significant stenosis would recommend that patient undergo repeat echocardiogram to assess overall structure and function as well as any progression of valvular disease - ECHO, COMPLETE (2D), TRANS-THORACIC; Future 4. HTN, goal below 140/90 -slightly above target today however patient has brought her home recordings which remained stable -continue metoprolol succinate, furosemide, hydralazine, and losartan as per current regimen - ECHO, COMPLETE (2D), TRANS-THORACIC; Future 5. Dyslipidemia, goal LDL below 100 -recommend yearly lipid panel -continue atorvastatin 40 milligrams daily DISPOSITION: Follow up 6 months or if symptoms worsen/fail to improve. All questions were answered to the patients satisfaction. Patient advised to report to ED with any and all emergencies. The patient agrees to the above plan and will call with additional questions or concerns. CHRISTINE Raymundo Cardiology, [facility] [address] [facility] [place] [address] I spent a total of 30 minutes on the date of service in preparation, delivery, and documentation ofthe care provided to Viji Dutton excluding any time spent in the performance of separately billed services. This chart was completed in part utilizing [employer] Speech Voice Recognition Software. Grammatical errors, random word insertions, pronoun errors, and incomplete sentences are an occasional consequence of this system due to software limitations, ambient noise, and hardware issues. Any formal questions or concerns about the content, text, or information contained within the body of this dictation should be directly addressed to the provider for clarification. documented in this encounter Nursing Notes * Robyn Bowman CMA - 06/17/2024 1:29 PM EDT Examination Room: 4 Name: Viji Dutton Date of : (1940). Reason for Visit: 6 month rtc Interim Hospitalization(s): denies Problems/Concerns: Denies concerns, did not stop in to get lab work done d/t bleeding. She is not going to stop taking eliquis. Staying hydrated and taking citrical has helped a lot. Chest Pain/SOB: denies [facility] Discussed: Yes [facility] is a way you can talk to your provider online through e-mail. Would you like to sign up? I can activate it for you? ALREADY ACTIVE Patient was instructed to not get up on the exam table until directed and assisted by their provider; patient is to remain seated in the chair/ wheelchair/ exam table for fall prevention and safety reasons. Patient is aware to have assistance to step down off exam table with personnel. Patient voiced full comprehension of instructions. documented in this encounter Plan of Treatment Upcoming Encounters Date Type Department Care Team (Late st Contact Info) Description 06/21/2024 12:40 PM EDT Office Visit [facility] [address] [facility] [place] [address] Triny Mckenna MD [address] [facility] [place] [address] 10/19/2024 2:00 PM EST Cardiac Studies Cardiac Studies, [facility] [place] [address] 12/30/2024 1:30 PM EDT Office Visit Cardiology, [facility] [address] [facility] [place] [address] Julianna Perry CR[facility] [address] [facility] [place] [address] Scheduled Orders Name Type Priority Associated Diagnoses Orde r Schedule ECHO, COMPLETE (2D), TRANS-THORACIC Echocardiology Routine Paroxysmal atrial fibrillation (HCC) Non-rheumatic aortic sclerosis HTN, goal below 140/90 Expected: 06/18/2024 (Approximate), Expires: 07/17/2026 Scheduled Procedures Name Priority Associated Diagnoses Date/Ti [...] this encounter Medical Devices Implanted Type Area Credit Charge Authorizer Device Identifier Shelf Expiration Date Model / Serial / Lot Hemostatic Clip Res 235cm - [id number] Implanted:Qty: 4 on 01/21/2024 by Tristan Sanders MD at ENDOSCOPY [facility] N/A: Colon [employer] : ENDOSCOPY 09/26/2026 [id number] / / [id number] documented as of this encounter Visit Diagnoses Diagnosis Paroxysmal atrial fibrillation (HCC)- Primary Atrial fibrillation Rectal bleeding Hemorrhage of rectum and anus Non-rheumatic aortic sclerosis Atherosclerosis of aorta HTN, goal below 140/90 Unspecified essential hypertension Dyslipidemia, goal LDL below 100 Other and unspecified hyperlipidemia documented in this encounter Care Teams Programming Instructor Relationship Specialty Start Date End Date Triny Mckenna MD [address] [facility] [place] [address] PCP - General Internal Medicine 10/14/17 documented as of this encounter"
--- OUTSIDE RECORDS SUMMARY | 2024-09-11 08:59 | External Medical Summary | Summary of Care ---
Author Name Unknown Organization [facility] Address [address] [place] [address] Phone [phone] Care Team Providers Care School Vocational Educator Name Role Phone Nga Mckenna MD Primary Care Provider Reason for Visit * Reason Comments eRx-Medication Refill Encounter Details Date Type Department Care Team (Late st Contact Info) Description 06/07/2024 Refill General Internal Medicine [facility] [address] [place] [address] Nga Mckenna MD [address] [place] [address] Anxiety state Allergies Active Allergy Reactions Criticality [...] 12/23/2022 Paroxysmal A-fib 09/10/2022 Chronic pansinusitis 09/10/2022 retirement current use of anticoagulant therapy 0 09/10/2022 Non-rheumatic aortic sclerosis 07/30/2022 Overview: 07/16/20221483-yymn-ID 60-65%, mild LVH, LA moderately dilated, aortic [...] encounter Miscellaneous Notes * Telephone Encounter - Jj López RPh - 06/10/2024 12:55 PM EDT Called [facility]. Script filled 01/09 and 04/09 was prescribed by you. [facility] was unable to tell me the writtendate because the script is out of refills. Most likely the year supply of buspirone prescribed 06/27/2023 was never cancelled by the pharmacy when the increased dose was prescribed on 10/23. Thank you, Jj López, PharmD Clinical Pharmacist [facility] ([facility]) 06/10/24 12:58 PM [phone] * Telephone Encounter - Nga Mckenna MD [...] and 1 Tablet before bedtime.Refused By: JJ LÓPEZason for Refusal: Dose needs clarification * Addendum [...] sent * Addendum Note - Jj López RPh - 06/10/2024 9:10 AM EDTAddended by: JJ LÓPEZ on: 06/10/2024 09:10 AM Modules accepted: Orders * Telephone Encounter - Jj López RPh - 06/10/2024 9:04 AM EDT Images from [...] before bedtime. (Inc 10/11/23). Thank you, Jj López PharmD Clinical Pharmacist [facility] ([facility]) 06/10/24 9:09 AM [phone] * Telephone Encounter - Jj López [facility] - 06/09/2024 3:35 PM EDT LMOVM and sent MyG to see how many buspirone tablets per day patient is taking. If patient returns call please transfer to myself or next available pharmacist. Thank you, Jj López PharmD Clinical Pharmacist [facility] ([facility]) 06/09/24 3:36 PM [phone] * Telephone Encounter - Nga Mckenna MD [...] to 2/d? * Telephone Encounter - Jj López, [facility] - 06/09/2024 12:44 PM EDT Pending Prescriptions: Disp Refills busPIRone HCl 5 MG Oral Tablet (Buspar) 180 Ta*0 Sig: Take 1 Tablet by mouth in the morning and 1 Tablet before bedtime. * Telephone Encounter - Jj López, [facility] - 06/09/2024 12:42 PM EDT [facility] is currently not authorized to approve refills [...] date the medication was ordered: 10/23/2023 Pharmacy: [facility] [id number] [place] [facility]- [place] Is this request for a [...] 1:30 PM EDT Office Visit Cardiology, [facility] [address] [place] [address] Julianna Perry CRNP [address] [place] [address] 06/21/2024 12:40 PM EDT Office Visit General Internal Medicine [facility] [address] [facility] [address] Nga Mckenna MD [address] [place] [address] Scheduled Procedures Name Priority Associated Diagnoses Date/Ti [...] this encounter Medical Devices Implanted Type Area Window Systems Administrator Device Identifier Shelf Expiration Date Model / Serial / Lot Hemostatic Clip Res 235cm - [id number] Implanted:Qty: 4 on 01/21/2024 by Tristan Sanders MD at ENDOSCOPY [facility] N/A: Colon [employer] : ENDOSCOPY 09/26/2026 [id number] / / [id number] documented as of this encounter Visit Diagnoses Diagnosis Anxiety state Anxiety state, unspecified documented in this encounter Care Teams School Vocational Educator Relationship Specialty Start Date End Date Nga Mckenna MD [address] [place] [address] PCP - General Internal Medicine 10/14/17 documented as of this encounter
--- OUTSIDE RECORDS SUMMARY | 2024-09-11 08:59 | External Medical Summary | Summary of Care ---
Author Name Unknown Organization [facility] Address [address] [facility] [place] [address] Phone [phone] Care Team Providers Care Route Delivery Supervisor Name Role Phone Triny Mckenna MD Primary Care Provider [phone] Reason for Visit * Reason Comments eRx-Medication Refill Encounter Details Date Type Department Care Team (Late st Contact Info) Description 06/07/2024 Refill General Internal Medicine [facility] [place] [address] [facility] [place] [address] Triny Mckenna MD [address] [facility] [address] Anxiety state Allergies Active Allergy Reactions Criticality Noted Date Comments Amlodipine 03/19/2018 Leg edema Molds & Smuts 10/14/2017 Penicillins 10/14/2017 Swollen eyes and lips Shellfish Allergy 10/14/2017 Clams/bi-valves only Soy Allergy 10/14/2017 documented as of this encounter (statuses as of 06/09/2024) Medications Medication Sig Dispensed Refills Start Date End Date Status Cetirizine HCl 10 MG Oral Capsule Take 1 Capsule by mouth in the morning. 1 Capsule 06/18/2022 Active busPIRone HCl 5 MG Oral Tablet (Buspar)Indications:A nxiety state Take 1 Tablet by mouth in the morning and 1 Tablet before bedtime. (Inc 10/11/23). 180 Tablet 10/23/2023 Active Metoprolol Succinate ER 50 MG Oral [...] before bedtime. 180 Tablet 4 04/26/2024 Active documented as of this encounter (statuses as of 06/09/2024) Active Problems Problem Noted Date Diagnosed Date Anxiety state 12/23/2022 Paroxysmal A-fib 09/10/2022 Chronic pansinusitis 09/10/2022 [facility] current use of anticoagulant therapy 0 09/10/2022 Non-rheumatic aortic sclerosis 07/30/2022 Overview: 07/16/20221256-lgau-YV 60-65%, mild LVH, LA moderately dilated, aortic [...] as of this encounter (statuses as of 06/09/2024) Resolved Problems Problem Noted Date Diagnosed Date Resolved Date Abnormal AST and ALT 11/20/2017 018 documented as of this encounter (statuses as of 06/09/2024) Immunizations Name Administration Dates Next Due COVID-19 [...] Miscellaneous Notes * Telephone Encounter - Jj Rodriguez [facility] - 06/09/2024 3:35 PM EDT LMOVM and sent MyG to see how many buspirone tablets per day patient is taking. If patient returns call please transfer to myself or next available pharmacist. Thank you, Jj Rodriguez, PharmD Clinical Pharmacist [facility] ([facility]) 06/09/24 3:36 PM [phone] * Telephone Encounter - Triny Mckenna MD - 06/09/2024 12:55 PM EDTPending Prescriptions: Disp Refills busPIRone HCl 5 MG Oral Tablet (Buspar) 180 Ta*0 Sig: Take 1 Tablet by mouth in the morning and 1 Tablet before bedtime. * Telephone Encounter - Triny Mckenna MD - 06/09/2024 12:54 PM EDT Last RX 180 tabs 10/21/23- -check if still taking 1 and not inc to 2/d? * Telephone Encounter - Jj Rodriguez, [facility] - 06/09/2024 12:44 PM EDT Pending Prescriptions: Disp Refills busPIRone HCl 5 MG Oral Tablet (Buspar) 180 Ta*0 Sig: Take 1 Tablet by mouth in the morning and 1 Tablet before bedtime. * Telephone Encounter - Jj Rodriguez, [facility] - 06/09/2024 12:42 PM EDT [facility] is currently not authorized to approve refills [...] the medication was ordered: 10/23/2023 Pharmacy: [id number] [place]- [place] Is this request for a controlled substance? [...] 06/17/2024 1:30 PM EDT Office Visit Cardiology, [facility] [address] [place] [address] Julianna Perry CRNP [address] [place] [address] 06/21/2024 12:40 PM EDT Office Visit General Internal Medicine [facility] [address] [facility] [place] [address] Triny Mckenna MD 200 [facility] [place] [address] Scheduled Procedures Name Priority Associated Diagnoses Date/Ti [...] this encounter Medical Devices Implanted Type Area Gauge And Weigh Machine Adjuster Device Identifier Shelf Expiration Date Model / Serial / Lot Hemostatic Clip Res 235cm - [id number] Implanted:Qty: 4 on 01/21/2024 by Tristan Sanders MD at ENDOSCOPY [facility] N/A: Colon [employer] : ENDOSCOPY 09/26/2026 [id number] / / [id number] documented as of this encounter Visit Diagnoses Diagnosis Anxiety state Anxiety state, unspecified documented in this encounter Care Teams Route Delivery Supervisor Relationship Specialty Start Date End Date Triny cMkenna MD [address] [facility] [place] [address] PCP - General Internal Medicine 10/14/17 documented as of this encounter
--- OUTSIDE RECORDS SUMMARY | 2024-09-11 08:59 | External Medical Summary | Summary of Care ---
Author Name Unknown Organization [facility] Address [address] [facility] [address] Phone [phone] Care Team Providers Care Renal Dialysis Rn Name Role Phone Triny Mckenna MD Primary Care Provider [phone] Reason for Visit * Reason Comments Outpatient Testing Encounter Details Date Type Department Care Team (Late st Contact Info) Description 06/17/2024 2:00 PM EDT Laboratory Laboratory, [facility] 132 [facility] [place] [id number] [facility] 132 [facility] [place] [address] Rectal bleeding; MCC current use of anticoagulant therapy Allergies Active [...] 12/23/2022 Paroxysmal A-fib 09/10/2022 Chronic pansinusitis 09/10/2022 M[facility] current use of anticoagulant therapy 0 09/10/2022 Non-rheumatic aortic sclerosis 07/30/2022 Overview: 07/16/20227897-reeg-VF 60-65%, mild LVH, LA moderately dilated, aortic [...] PM EDT Office Visit General Internal Medicine [facility] [address] [place] [address] Triny Mckenna MD 200 [facility] [place] [address] 10/19/2024 2:00 PM EST Cardiac Studies Cardiac Studies, [facility] 132 [facility] [place] [address] 12/30/2024 1:30 PM EDT Office Visit Cardiology, [facility] 132 [facility] [place] [address] Julianna Perry CRNP 132 [facility] [place] [address] Pending Results Name Type Priority Associated Diagnoses Date /Time BASIC METABOLIC PANEL Lab Routine Rectal bleeding MCC current use of anticoagulant therapy 06/17/2024 2:02 PM EDT Scheduled Procedures Name Priority Associated [...] this encounter Medical Devices Implanted Type Area Bank Operations Officer Device Identifier Shelf Expiration Date Model / Serial / Lot Hemostatic Clip Res 235cm - [id number] Implanted:Qty: 4 on 01/21/2024 by Tristan Sanders MD at ENDOSCOPY [facility] N/A: Colon [employer] : ENDOSCOPY 09/26/2026 [id number] / / [id number] documented as of this encounter Procedures Procedure Name Priority Date/Time Associated Diagnosis Comments CBC Routine 06/17/2024 2:02 PM EDT Rectal bleeding termite exterminator helper current use of anticoagulant therapy documented in this encounter Results * CBC (06/17/2024 2:02 PM EDT) WBC [...] ORDER [facility] [place] [facility] 132 [facility] [place] [address] documented in this encounter Visit Diagnoses Diagnosis Rectal bleeding Hemorrhage of rectum and anus MCC current use of anticoagulant therapy documented in this encounter Care Teams Renal Dialysis Rn Relationship Specialty Start Date End Date Triny Mckenna MD 200 [facility] [place] [address] PCP - General Internal Medicine 10/14/17 documented as of this encounter
--- OUTSIDE RECORDS SUMMARY | 2024-09-11 08:59 | External Medical Summary | Summary of Care ---
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 Overview: 07/16/20221514-icjn-OY 60-65%, mild LVH, LA moderately dilated, aortic [...] 06/28/2024 1:00 PM EDT Office Visit Orthopaedics [facility] 132 [place] [address] Lila Contreras MD 132 [place] [address] 07/26/2024 3:00 PM EST Imaging Radiology, [facility] [facility] [place] [address] 10/19/2024 2:00 PM EST Cardiac Studies Cardiac Studies, [facility] 132 [place] [address] 12/20/2024 1:00 PM EDT Office Visit General Internal Medicine [facility] 200 [facility] [place] [address] Triny Mckenna MD 200 [facility] [place] [address] 12/30/2024 1:30 PM EDT Office Visit Cardiology, [facility] 132 [place] [address] Julianna Perry CRNP 132 [place] [address] Scheduled Procedures Name Priority Associated Diagnoses Date/Ti [...] this encounter Medical Devices Implanted Type Area Head Paper Tester Device Identifier Shelf Expiration Date Model / Serial / Lot Hemostatic Clip Res 235cm - [id number] Implanted:Qty: 4 on 01/21/2024 by Tristan Sanders MD at ENDOSCOPY [facility] N/A: Colon [employer] : ENDOSCOPY 09/26/2026 [id number] / / [id number] documented as of this encounter Care Teams Audio Production Manager Relationship Specialty Start Date End Date Triny Mckenna MD 200 [place] [address] PCP - General Internal Medicine 10/14/17 documented as of this encounter
--- OUTSIDE RECORDS SUMMARY | 2024-09-11 08:59 | External Medical Summary ---
Author Name Unknown Address Unknown Organization K0G:[facility] [address] [place] [address] Laboratory Report Ordering Provider Test Date Status GUSTAVO DEL ANGEL 06/17/2024 14:02:17 Final Observation Date Value Abnormality Reference (Units ) Status BUN 06/17/2024 14:02:17 18 6-20 (mg/dL) Final Creatinine 06/17/2024 14:02:17 0.8 0.5-1.0 (mg/dL) Final Glomerular filtration rate/1.73 sq M.predicted [Volume Rate/Area] in Serum, Plasma or Blood by Creatinine-based formula (CKD-EPI) 06/17/2024 14:02:17 72 >=60 (mL/min) Final eGFR is calculated based on the CKD-EPI 2020 equation. Sodium 06/17/2024 14:02:17 141 135-146 (m mol/L) Final Potassium 06/17/2024 14:02:17 4.6 3.5-5.1 (m mol/L) Final Cl 06/17/2024 14:02:17 101 98-107 (mm ol/L) Final CO2 06/17/2024 14:02:17 29 22-32 (mmo l/L) Final Anion gap 06/17/2024 14:02:17 11 7-15 (mmol /L) Final Glucose 06/17/2024 14:02:17 116 70-120 (mg /dL) Final Calcium 06/17/2024 14:02:17 9.5 8.4-10.2 ( mg/dL) Final Performing Location [facility] [address] [place] [address]
--- OUTSIDE RECORDS SUMMARY | 2024-09-11 08:59 | External Medical Summary ---
Author Name Unknown Address Unknown Organization K0G:[facility] [place] [address] - [address] [place] [address] Laboratory Report Ordering Provider Test Date Status GUSTAVO DEL ANGEL 06/17/2024 14:02:17 Final Observation Date Value Abnormality Reference (Units ) Status WBC, Total 06/17/2024 14:02:17 7.75 4.00-10.8 0 (K/uL) Final RBC 06/17/2024 14:02:17 4.39 3.85-5.15 (M/uL) Final Hemoglobin 06/17/2024 14:02:17 14.2 12.0-15.3 (g/dL) Final HCT 06/17/2024 14:02:17 42.8 36.0-45.2 (%) Final MCV 06/17/2024 14:02:17 97.5 81.5-97.5 (fL) Final MCH 06/17/2024 14:02:17 32.3 27.0-34.0 (pg) Final MCHC 06/17/2024 14:02:17 33.2 32.0-36.0 (g/dL) Final RDW 06/17/2024 14:02:17 12.9 11.5-15.5 (%) Final Platelets 06/17/2024 14:02:17 178 140-400 (K /uL) Final MPV 06/17/2024 14:02:17 9.2 6.6-11.1 ( fL) Final [facility] - [address] [place] [address]
--- OUTSIDE RECORDS SUMMARY | 2024-09-11 08:59 | External Medical Summary ---
Author Name Unknown Address Unknown Organization K01:[facility] - 100 [facility] [place] [address] Laboratory Report Ordering Provider Test Date Status JAMAICA SYLVESTER 06/21/2024 13:43:16 Final Observation Date Value Abnormality Reference (Units ) Status Triglyceride 06/21/2024 13:43:16 82 <=174 ( mg/dL) Final Triglyceride Reference Range s (mg/dL):
<150 Acceptable
150-174 Borderline high
175-499 High
>=500 Very high Cholesterol 06/21/2024 13:43:16 196 <200 (mg /dL) Final Total Cholesterol Reference Ranges (mg/dL):
<200 Desirable
200-239 Borderline high
>=240 High HDL 06/21/2024 13:43:16 88 >49 (mg/dL ) Final HDL Cholesterol Reference Ra nges (mg/dL):
>=60 High (Desirable)
<50 Low (Undesirable) For Females
<40 Low (Undesirable) For Males NON-HDL CHOLESTEROL 06/21/2024 13:43:16 108 <=159 (mg/dL) Final Non-HDL Cholesterol Referenc e Range (mg/dL):
<100 Target level for high risk ASCVD patient
<130 Optimal for general population
130-159 Near optimal for general population
160-189 Borderline High
190-219 High
>=220 Very High LDL, (calculated) 06/21/2024 13:43:16 92 <= 129 (mg/dL) Final LDL Cholesterol Reference Ra nges (mg/dL):
<70 Target level for high risk ASCVD patient
<100 Optimal for general population
100-129 Near optimal for general population
130-159 Borderline high
160-189 High
>=190 Very high Performing Location [facility] - [address] [facility] [address]
--- OUTSIDE RECORDS SUMMARY | 2024-09-11 08:59 | External Medical Summary | Summary of Care ---
Author Name Unknown Organization [facility] Address [address] [place] [place] [address] Phone [phone] Care Team Providers Care Habilitation Assistant Name Role Phone Triny Mckenna MD Primary Care Provider [phone] Reason for Visit * Reason Comments eRx-Medication Refill Encounter Details Date Type Department Care Team (Late st Contact Info) Description 06/07/2024 Refill General Internal Medicine [facility] [place] 200 [facility] [place] [address] Triny Mckenna MD 200 [facility] [address] Anxiety state Allergies Active Allergy Reactions Criticality [...] Paroxysmal A-fib 09/10/2022 Chronic pansinusitis 09/10/2022 terminal make up operator current use of anticoagulant therapy 0 09/10/2022 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 If patient returns call please transfer to myself or next available pharmacist. Thank you, Jj López, PharmD Clinical Pharmacist Centralized Clinical Pharmacy Services ([facility]) 06/09/24 3:36 PM [phone] * Telephone Encounter - Triny Mckenna MD [...] 2/d? * Telephone Encounter - Jj López [facility] - 06/09/2024 12:44 PM EDT Pending Prescriptions: Disp Refills busPIRone HCl 5 MG Oral Tablet (Buspar) 180 Ta*0 Sig: Take 1 Tablet by mouth in the morning and 1 Tablet before bedtime. * Telephone Encounter - Jj López [facility] - 06/09/2024 12:42 PM EDT [facility] is currently not authorized to approve refills [...] the medication was ordered: 10/23/2023 Pharmacy: [facility][id number] [place] [address] [facility] 9- [place] Is this request [...] 1:30 PM EDT Office Visit Cardiology, [facility] 132 [place] [address] Julianna Perry CRNP 132 [place] [address] 06/21/2024 12:40 PM EDT Office Visit General Internal Medicine [facility] [place] 200 [facility] [place] [address] Triny Mckenna MD 200 [facility] [place] [address] Scheduled Procedures Name Priority Associated Diagnoses Date/Ti [...] this encounter Medical Devices Implanted Type Area Wire Photo Operator Device Identifier Shelf Expiration Date Model / Serial / Lot Hemostatic Clip Res 235cm - [id number] Implanted:Qty: 4 on 01/21/2024 by Tristan Sanders MD at ENDOSCOPY [facility] N/A: Colon [employer] : ENDOSCOPY 09/26/2026 [id number] / / [id number] documented as of this encounter Visit Diagnoses Diagnosis Anxiety state Anxiety state, unspecified documented in this encounter Care Teams Habilitation Assistant Relationship Specialty Start Date End Date Triny Mckenna MD [address] [place] [address], [place] [address] PCP - General Internal Medicine 10/14/17 documented as of this encounter
--- OUTSIDE RECORDS SUMMARY | 2024-09-11 08:59 | External Medical Summary | Summary of Care ---
Author Name Unknown Organization [facility] Address [address] [place] [address] Phone [phone] Care Team Providers Care In Store Banker Name Role Phone Nga Mckenna MD Primary Care Provider Reason for Visit * Reason Comments eRx-Medication Refill Encounter Details Date Type Department Care Team (Late st Contact Info) Description 06/07/2024 Refill General Internal Medicine [facility] 200 [place] [address] Nga Mckenna MD 200 [place] [address] Anxiety state Allergies Active Allergy Reactions Criticality [...] 12/23/2022 Paroxysmal A-fib 09/10/2022 Chronic pansinusitis 09/10/2022 intermediate current use of anticoagulant therapy 0 09/10/2022 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 If patient returns call please transfer to myself or next available pharmacist. Thank you, Jj López, PharmD Clinical Pharmacist Centralized Clinical Pharmacy Services ([facility]) 06/09/24 3:36 PM [phone] * Telephone Encounter - Nga Mckenna MD [...] 2/d? * Telephone Encounter - Jj López [facility] - 06/09/2024 12:44 PM EDT Pending Prescriptions: Disp Refills busPIRone HCl 5 MG Oral Tablet (Buspar) 180 Ta*0 Sig: Take 1 Tablet by mouth in the morning and 1 Tablet before bedtime. * Telephone Encounter - Jj López RPh - 06/09/2024 12:42 PM EDT [facility] is currently not authorized to [...] the medication was ordered: 10/23/2023 Pharmacy: [facility]ACY [facility][id number] [place]- [place] Is this request [...] 06/17/2024 1:30 PM EDT Office Visit Cardiology, [address] [place] [address] Julianna Perry CRNP [address] [place] [address] 06/21/2024 12:40 PM EDT Office Visit General Internal Medicine [employer] 200 [facility] [place] [address] Nga Mckenna MD 200 [facility] [place] [address] Scheduled Procedures Name Priority Associated Diagnoses Date/Ti [...] this encounter Medical Devices Implanted Type Area Golf Ball Winder Device Identifier Shelf Expiration Date Model / Serial / Lot Hemostatic Clip Res 235cm - [id number] Implanted:Qty: 4 on 01/21/2024 by Tristan Sanders MD at ENDOSCOPY [facility] N/A: Colon [employer] : ENDOSCOPY 09/26/2026 [id number] / / [id number] documented as of this encounter Visit Diagnoses Diagnosis Anxiety state Anxiety state, unspecified documented in this encounter Care Teams In Store Banker Relationship Specialty Start Date End Date Nga Mckenna MD 200 [place] [address] PCP - General Internal Medicine 10/14/17 documented as of this encounter
--- OUTSIDE RECORDS SUMMARY | 2024-09-11 08:59 | External Medical Summary | Summary of Care ---
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 Overview: 07/16/20226273-ixom-CM 60-65%, mild LVH, LA moderately dilated, aortic [...] 06/28/2024 1:00 PM EDT Office Visit Orthopaedics [facility] 132 [place] [address] Lila Contreras MD 132 [place] [address] 07/26/2024 3:00 PM EST Imaging Radiology, [facility] 25[address] [facility] [place] [address] 10/19/2024 2:00 PM EST Cardiac Studies Cardiac Studies, [facility] 132 [place] [address] 12/20/2024 1:00 PM EDT Office Visit General Internal Medicine [facility] 200 [facility] [place] [address] Triny Mckenna MD 200 [facility] [place] [address] 12/30/2024 1:30 PM EDT Office Visit Cardiology, [facility] 132 [place] [address] Julianna Perry CRNP 132 [place] [address] Scheduled Procedures Name Priority Associated Diagnoses Date/Ti [...] this encounter Medical Devices Implanted Type Area Tribunal Member Device Identifier Shelf Expiration Date Model / Serial / Lot Hemostatic Clip Res 235cm - [id number] Implanted:Qty: 4 on 01/21/2024 by Tristan Sanders MD at ENDOSCOPY [facility] N/A: Colon [employer] : ENDOSCOPY 09/26/2026 [id number] / / [id number] documented as of this encounter Care Teams Pie Bakery Laborer Relationship Specialty Start Date End Date Triny Mckenna MD 200 [place] [address] PCP - General Internal Medicine 10/14/17 documented as of this encounter
--- OUTSIDE RECORDS SUMMARY | 2024-09-11 09:00 | External Medical Summary | Summary of Care ---
Author Name Unknown Organization [facility] Address [address] [facility] [place] [address] Phone [phone] Care Team Providers Care Help Desk Rep Name Role Phone Triny Mckenna MD Primary Care Provider [phone] Encounter Details Date Type Department Care Team (Late st Contact Info) Description 06/09/2024 Orders Only PATIENT PORTAL DO NOT DELETE THIS DEPT USED BY [place] N[place] [id number] Allergies Active Allergy Reactions Criticality Noted Date [...] 12/23/2022 Paroxysmal A-fib 09/10/2022 Chronic pansinusitis 09/10/2022 group home current use of anticoagulant therapy 0 09/10/2022 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 200 [facility] [place] [address] Triny Mckenna MD 200 [facility] [place] [address] Scheduled Procedures Name Priority Associated Diagnoses Date/Ti [...] this encounter Medical Devices Implanted Type Area Ordnance Engineering Technician Device Identifier Shelf Expiration Date Model / Serial / Lot Hemostatic Clip Res 235cm - [id number] Implanted:Qty: 4 on 01/21/2024 by Tristan Sanders MD at ENDOSCOPY [facility] N/A: Colon [employer] : ENDOSCOPY 09/26/2026 [id number] / / [id number] documented as of this encounter Care Teams Help Desk Rep Relationship Specialty Start Date End Date Triny Mckenna MD 200 [facility] [address] PCP - General Internal Medicine 10/14/17 documented as of this encounter
--- OUTSIDE RECORDS SUMMARY | 2024-09-11 09:00 | External Medical Summary | Summary of Care ---
Author Name Unknown Organization [facility] Address [address] [facility] [place] [address] Phone [phone] Care Team Providers Care Epic Stork Specialists Name Role Phone Triny Mckenna MD Primary Care Provider [phone] Reason for Visit * Reason Comments Follow Up F/u diarrhea Encounter Details Date Type Department Care Team (Late st Contact Info) Description 03/16/2024 3:30 PM EDT Office Visit Gastroenterology, [facility] [address] [place] [address] Jessica Montanez CRNP [address] [place] [address] Chronic constipation* Allergies Active Allergy Reactions Criticality Noted Date Comments Amlodipine 03/19/2018 Leg edema Molds & Smuts 10/14/2017 Penicillins 10/14/2017 Swollen eyes and lips Shellfish Allergy 10/14/2017 Clams/bi-valves only Soy Allergy 10/14/2017 documented as of this encounter (statuses as of 03/16/2024) Medications Medication Sig Dispensed Refills Start Date End Date Status Cetirizine HCl 10 MG Oral Capsule Take 1 Capsule by mouth in the morning. 1 Capsule 06/18/2022 Active Furosemide 20 MG Oral Tablet (Lasix)Indications: HTN, goal below 140/90 Take 1 Tablet by mouth in the morning. 90 Tablet 3 04/07/2023 Active Apixaban 5 MG Oral Tablet (Eliquis)Indication s:Paroxysmal atrial fibrillation (HCC) Take 1 Tablet by mouth in the morning and 1 Tablet before bedtime. 180 Tablet 4 04/07/2023 Active Atorvastatin Calcium 40 MG Oral Tablet (Lipitor)Indication s:Paroxysmal atrial fibrillation (HCC),HTN, goal below 140/90,Dyslipidemia , goal LDL below 100 Take 1 Tablet by mouth in the morning. 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 0 09/10/2022 Non-rheumatic aortic sclerosis 07/30/2022 Overview: 07/16/20226460-hqxs-IB 60-65%, mild LVH, LA moderately dilated, aortic [...] as of this encounter (statuses as of 03/16/2024) Resolved Problems Problem Noted Date Diagnosed Date Resolved Date Abnormal AST and ALT 11/20/2017 018 documented as of this encounter (statuses as of 03/16/2024) Immunizations Name Administration Dates Next Due COVID-19 [...] cine, Unspecified Formulation 05/17/2022,05/21/2021,05/31/2020,06/01,06/05/2016,06/15/2015,07/01/2014 ,06/10/2013,06/13/2010 Seasonal Influenza, PF, 6 M & above, IM , (FluLaval or Fluzone) 06/01/2018,06/05/2016,06/15/2015,07/01,06/10/2013,06/13/2010 Seasonal Influenza, Quadriva lent, No Preserve, IM 05/31/2020 Seasonal Influenza, Trivalen t, Adjuvanted, 65+ yrs 05/17/2022 Seasonal Influenza, Trivalen t, High Dose, No Preserve, IM 05/13/2022,05/21/2021,05/07/2019 TD - Tetanus/Diptheria (ADULT) 01/11/2009 TD, Preservative [...] Sign Reading Time Taken Comments Blood Pressure 166/92 03/16/2024 3:46 PM EDT Pulse 63 03/16/2024 3:46 PM EDT Temperature 36.8 C (98.2 F) 03/16/2024 3:46 PM ED T Respiratory Rate - - Oxygen Saturation - - Inhaled Oxygen Concentration - - Weight 70.8 kg (156 lb 1.6 oz) 03/16/2024 3:46 P M EDT Height - - Body Mass Index 26.78 01/21/2024 9:43 AM EDT documented in this encounter Progress Notes * Jessica Montanez CRNP - 03/16/2024 3:30 PM EDT DATE OF SERVICE: 03/16/2024 REFERRING PHYSICIAN: Triny Mckenna MD CC: Diarrhea HPI: Viji Dutton is a 83 year old female w hx of positive Cologuard and had a f/u colonoscopy wbenign findings as noted below. She is back in GI clinic to discuss ongoing issues w diarrhea. Had food poisoning in October. She was having nocturnal diarrhea 4-5x a week up to her colonoscopy in December. She started taking Citrucel and probiotics. She is currently having daily BM but stools are sticky w residue - has to wipe more that she'd like. She has noticed some blood from hemorrhoids when she wipes rectum more, and if she is constipated. Denies any abd pain, n/v. Wants to discuss diet that's appropriate for her. Colonoscopy 12/2023: - The examined portion of the ileum was normal. - One 18 mm polyp in the ascending colon, removed with mucosal resection. Resected and retrieved. Clips (MR conditional) were placed. - Diverticulosis in the sigmoid colon. - Internal hemorrhoids. - The examination was otherwise normal on direct and retroflexion views. - Mucosal resection was performed. Resection and retrieval were complete. Component Final Diagnosis A. Colon, Ascending, polyp, polypectomy: - Fragments of sessile serrated polyp and colonic mucosa. Past Medical History: Diagnosis Date HLD (hyperlipidemia) HTN (hypertension) Osteopenia Pre-diabetes Family History Problem Relation Name Age of Onset Hypertension Mother Pancreatic cancer Mother Hypertension Father Heart disease Father Breast Cancer No significant family history Aortic aneurysm No significant family history Past Surgical History: Procedure Laterality Date APPENDECTOMY W/OTHER PROCEDURE COLONOSCOPY 01/19/2013 COLONOSCOPY 11/29/2002 COLONOSCOPY, DIAGNOSTIC (RECTUM) 01/21/2024 diverticulosis/hemorrhoids/biopsies show serrated adenomatous polyps/recall 1 year/COLONOSCOPY FLEXIBLE PROXIMAL DIAGNOSTIC performed by Tristan Sanders MD at ENDOSCOPY [facility] ENDOVENOUS ABLATION INCOMPETENT VEIN MECHANOCHEM 1ST VEIN Right 2005 REMOVE CATARACT, INSERT LENS PROSTH Bilateral 2020 Rt sep, Lt oct SHOULDER SURGERY PROCEDURE NEC 1991 SINUS SURGERY PROCEDURE NEC Social History Tobacco Use Smoking status: Never Smokeless tobacco: Never Substance Use Topics Alcohol use: Yes Alcohol/week: 1.0 - 2.0 standard drink of alcohol Types: 1 - 2 5 oz of wine per week Drug use: No Review of patient's allergies indicates: Allergen Reactions Amlodipine Leg edema Molds & Smuts Penicillins Swollen eyes and lips Shellfish Allergy Clams/bi-valves only Soy Allergy Current Outpatient Medications Medication Sig Dispense Refill Cetirizine HCl 10 MG Oral Capsule Take 1 Capsule by mouth in the morning. 1 Capsule 0 Furosemide 20 MG Oral Tablet (Lasix) Take 1 Tablet by mouth in the morning. 90 Tablet 3 Apixaban 5 MG Oral Tablet (Eliquis) Take 1 Tablet by mouth in the morning and 1 Tablet before bedtime. 180 Tablet 4 Atorvastatin Calcium 40 MG Oral Tablet (Lipitor) Take 1 Tablet by mouth in the morning. (Patient taking differently: Take 1 Tablet by mouth at bedtime.) 90 Tablet 3 busPIRone HCl 5 MG Oral Tablet (Buspar) Take 1 Tablet by mouth in the morning and 1 Tablet before bedtime. (Inc 10/11/23). 180 Tablet 0 Metoprolol Succinate ER 50 MG Oral [...] mouth IN THE MORNING 135 Tablet 3 No current facility-administered medications for this visit. REVIEW OF SYSTEMS: See HPI above; All other findings negative. EXAM: Filed Vitals: 03/16/24 1546 BP: 166/92 Pulse: 63 Temp: 36.8 C (98.2 F) Weight: 70.8 kg (156 lb 1.6 oz) GENERAL: Well developed and well nourished in no acute distress. SKIN: No rashes, ulcers, jaundice or spider angiomata. HEENT: Normocephalic, sclera clear NECK: Supple, trachea midline, no JVD. LUNGS: Clear to auscultation bilaterally, no respiratory distress or accessory muscles used. HEART: Regular rate & rhythm, no murmurs and no gallops. ABDOMEN: Normal bowel sounds, soft and nontender. EXTREMITIES: No palmar erythema, no ankle edema, no skin discoloration, no clubbing, no cyanosis. NEURO: No lateralizing findings. Sensory/Motor grossly normal. ASSESSMENT AND PLAN: Viji Dutton is a 83 year old female w hx of positive Cologuard and colonoscopy wo signs of malignancy. She had food poisoning in Oct and had ongoing diarrhea up tilll December. Stools are sticky and w residue now since on Citrucel & probiotics. She does admit to occasionallybe constipated. - Increase Citrucel to 2 tabs a day - May continue probiotics - Start Miralax 17g daily - Drink 6-8 glasses of water daily, high fiber diet - If diarrhea recurs, will check stools to r/o infections. I spent a total of 30 minutes on the date of service in review of patient's record, and previously obtained information in person and appropriate medical visit, discussion and education of plan, withpatient and/or caregiver, placing orders for tests/referral/procedures as medically necessary and documentation of pertinent clinical information in patient's medical records for their visit today. RETURN TO CLINIC: PRN; she will give me updates via [email or web address] message Jeniffer Cunningham [facility] R: 03/16/2024 documented in this encounter Nursing Notes * Maricruz Najera LPN - 03/16/2024 3:46 PM EDT Chief Complaint Patient presents with Follow Up F/u diarrhea documented in this encounter Plan of Treatment Upcoming Encounters Date Type Department Care Team (Late st Contact Info) Description 06/17/2024 1:30 PM EDT Office Visit Cardiology, [facility] [address] [place] [address] Julianna Perry CRNP [address] [place] [address] Scheduled Procedures Name Priority Associated Diagnoses Date/Ti me COLONOSCOPY FLEXIBLE PROXIMA L DIAGNOSTIC Recall History of colonic polyps Health Maintenance Due Date Last Done Comments COVID-19 Vaccine ( season) 2023 06/16/2022, 12/25/2021, 12/19/2021, Additional history exists Depression Screening 12/24/2023 12/23/2022 Influenza Vaccine (FLU shot) (#1) 2024 05/27/2023, 05/17/2022, 05/17/2022, Additional history exists GFR 06/13/2024 06/13/2023, 11/30, 07/16/2022, Additional history exists HbA1c 06/13/2024 06/13/2023, 11/30, 12/05/2021, Additional history exists Albumin/Creatinine Ratio 12/05/2024 12/05/2021 Colonoscopy 01/20/2025 01/21/2024, 01/21/2024 DXA Scan 03/24/2025 03/24/2018, 09/13/2009 DTaP,Tdap,and Td Vaccines (3 - Td or Tdap) 04/17/2028 [...] this encounter Medical Devices Implanted Type Area Real Estate Rental Agent Device Identifier Shelf Expiration Date Model / Serial / Lot Hemostatic Clip Res 235cm - [id number] Implanted:Qty: 4 on 01/21/2024 by Tristan Sanders MD at ENDOSCOPY [facility] N/A: Colon [employer] : ENDOSCOPY 09/26/2026 [id number] / / [id number] documented as of this encounter Visit Diagnoses Diagnosis Chronic constipation- Primary Unspecified constipation documented in this encounter Care Teams Epic Stork Specialists Relationship Specialty Start Date End Date Triny Mckenna MD [address] [place] [address] PCP - General Internal Medicine 10/14/17 documented as of this encounter
--- OUTSIDE RECORDS SUMMARY | 2024-09-11 09:00 | External Medical Summary | Summary of Care ---
Author Name Unknown Organization [facility] Address [address] [facility] [place] [address] Phone [phone] Care Team Providers Care Business English Instructor Name Role Phone Triny Mckenna MD Primary Care Provider [phone] Reason for Visit * Reason Comments eRx-Medication Refill Encounter Details Date Type Department Care Team (Late st Contact Info) Description 06/07/2024 Refill General Internal Medicine [facility] [place] [address] [facility] [place] [address] Tr[facility] [address] [facility] [address] Anxiety state Allergies Active Allergy Reactions Criticality [...] 12/23/2022 Paroxysmal A-fib 09/10/2022 Chronic pansinusitis 09/10/2022 shelter current use of anticoagulant therapy 0 09/10/2022 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 If patient returns call please transfer to myself or next available pharmacist. Thank you, Jj Rodriguez, PharmD Clinical Pharmacist [facility] 06/09/24 3:36 PM [phone] * Telephone Encounter - Triny Mckenna MD [...] 2/d? * Telephone Encounter - Jj Rodriguez, [facility] - 06/09/2024 12:44 PM EDT Pending Prescriptions: Disp Refills busPIRone HCl 5 MG Oral Tablet (Buspar) 180 Ta*0 Sig: Take 1 Tablet by mouth in the morning and 1 Tablet before bedtime. * Telephone Encounter - Jj Rodriguez, [facility] - 06/09/2024 12:42 PM EDT [facility] is currently not authorized to approve [...] the medication was ordered: 10/23/2023 Pharmacy: [id number] [place]- [place] Is this request for a controlled substance? [...] 06/17/2024 1:30 PM EDT Office Visit Cardiology, [facility] [address] [place] [address] Julianna Perry CRNP [address] [place] [address] 06/21/2024 12:40 PM EDT Office Visit General Internal Medicine [facility] [address] [facility] [place] [address] Triny Mckenna MD [address] [place] [address] Scheduled Procedures Name Priority Associated Diagnoses Date/Ti [...] this encounter Medical Devices Implanted Type Area Winch Stripper Device Identifier Shelf Expiration Date Model / Serial / Lot Hemostatic Clip Res 235cm - [id number] Implanted:Qty: 4 on 01/21/2024 by Tristan Sanders MD at ENDOSCOPY [facility] N/A: Colon [employer] : ENDOSCOPY 09/26/2026 [id number] / / [id number] documented as of this encounter Visit Diagnoses Diagnosis Anxiety state Anxiety state, unspecified documented in this encounter Care Teams Business English Instructor Relationship Specialty Start Date End Date Triny Mckenna MD [address] [facility] [place] [address] PCP - General Internal Medicine 10/14/17 documented as of this encounter
--- OUTSIDE RECORDS SUMMARY | 2024-09-11 09:00 | External Medical Summary | Summary of Care ---
Author Name Unknown Organization [facility] Address [address] [facility] [address] Phone [phone] Care Team Providers Care Assistant Produce Manager Name Role Phone Triny Mckenna MD Primary Care Provider [phone] Reason for Visit * Reason Onset Date Comments Medication Refill 04/25/2024 Encounter Details Date Type Department Care Team (Late st Contact Info) Description 04/25/2024 Refill Cardiology, [facility] [address] [place] [address] Mer Chen CRNP [address] [place] [address] Paroxysmal atrial fibrillation (HCC) Allergies Active Allergy Reactions Criticality Noted Date Comments Amlodipine 03/19/2018 Leg edema Molds & Smuts 10/14/2017 Penicillins 10/14/2017 Swollen eyes and lips Shellfish Allergy 10/14/2017 Clams/bi-valves only Soy Allergy 10/14/2017 documented as of this encounter (statuses as of 04/26/2024) Medications Medication Sig Dispensed Refills Start Date [...] before bedtime. 180 Tablet 4 04/26/2024 Active Apixaban 5 MG Oral Tablet (Eliquis)Indicatio ns:Paroxysmal atrial fibrillation (HCC) Take 1 Tablet by mouth in the morning and 1 Tablet before bedtime. 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 Overview: 07/16/20220672-otzk-RN 60-65%, mild LVH, LA moderately dilated, aortic [...] as of this encounter (statuses as of 04/26/2024) Resolved Problems Problem Noted Date Diagnosed Date Resolved Date Abnormal AST and ALT 11/20/2017 018 documented as of this encounter (statuses as of 04/26/2024) Immunizations Name Administration Dates Next Due COVID-19 [...] encounter Miscellaneous Notes * Telephone Encounter - Mer Chen CRNP - 04/26/2024 1:14 PM EDT Signed Prescriptions: Disp Refills Apixaban 5 MG Oral Tablet (Eliquis) 180 Ta*4 Sig: Take 1 Tablet by mouth in the morning and 1 Tablet before bedtime. Authorizing Provider: MER CHEN * Telephone Encounter - Robyn Bowman CMA - 04/26/2024 12:59 PM EDTPending Prescriptions: Disp Refills Apixaban 5 MG Oral Tablet (Eliquis) 180 Ta*4 Sig: Take 1 Tablet by mouth in the morning and 1 Tablet before bedtime. * Telephone Encounter - Robyn Bowman CMA - 04/26/2024 12:58 PM EDT Did you pend patient's preferred pharmacy and medication before forwarding?yes Pharmacy: [id number] [address] [facility] Pending Prescriptions: Disp Refills Apixaban 5 MG Oral Tablet (Eliquis) 180 Ta*4 Sig: Take 1 Tablet by mouth in the morning and 1 Tablet before bedtime. Last Visit: 12/11/2023 (in office), Visit date not found (telemedicine) Next Visit: 06/17/2024 If no future appointments scheduled, and last appointment is greater than a year ago, please schedule patient for a follow-up appointment Last date the medication was ordered: 04/07/23 Is this request for a controlled substance?No Urine Drug Screen:No results found for this or any previous visit. Patient Phone Numbers Labs: Lab Results Component Value Date/Time CREAT 0.8 06/13/2023 02:42 PM CREAT 0.9 02/08/2020 01:03 PM POTASSIUM 4.2 06/13/2023 02:42 PM POTASSIUM 4.1 02/08/2020 01:03 PM TSH 3.55 04/06/2018 07:35 AM LDLCALC 95 12/17/2022 08:33 AM LDLCALC 95 06/07/2019 11:29 AM LDLDIRECT 100 12/05/2021 07:53 AM LDLDIRECT 84 02/08/2020 01:03 PM ALT 14 06/13/2023 02:42 PM ALT 15 02/08/2020 01:03 PM HGBA1C 5.8 (H) 06/13/2023 02:42 PM HGBA1C 5.7 (H) 02/08/2020 01:03 PM documented in this encounter Plan of Treatment Upcoming Encounters Date Type Department Care Team ([facility] st Contact Info) Description 06/14/2024 3:00 PM EDT Office Visit General Internal Medicine [facility] [place] [address] [facility] [place], [place] [address] Triny Mckenna MD [address] [facility] [place] [address] 06/17/2024 1:30 PM EDT Office Visit Cardiology, [facility] [address] [facility] [place] [address] Mer Chen CRNP [address] [place] [address] Scheduled Procedures Name Priority Associated Diagnoses Date/Ti [...] this encounter Medical Devices Implanted Type Area Gauntlet Pairer Device Identifier Shelf Expiration Date Model / Serial / Lot Hemostatic Clip Res 235cm - [id number] Implanted:Qty: 4 on 01/21/2024 by Tristan Sanders MD at ENDOSCOPY [facility] N/A: Colon [employer] : ENDOSCOPY 09/26/2026 [id number] / / [id number] documented as of this encounter Visit Diagnoses Diagnosis Paroxysmal atrial fibrillation (HCC) Atrial fibrillation documented in this encounter Care Teams Assistant Produce Manager Relationship Specialty Start Date End Date Triny Mckenna MD [address] [facility] [place] [address] PCP - General Internal Medicine 10/14/17 documented as of this encounter
--- OUTSIDE RECORDS SUMMARY | 2024-09-11 09:00 | External Medical Summary | Summary of Care ---
Author Name Unknown Organization [facility] Address [address] [facility] [place] [address] Phone [phone] Care Team Providers Care Account Consultant Name Role Phone Triny Mckenna MD Primary Care Provider [phone] Reason for Visit * Reason Comments eRx-Medication Refill Encounter Details Date Type Department Care Team (Late st Contact Info) Description 04/08/2024 Refill Cardiology, [facility] [address] [place] [address] Mer Chen CRNP [address] [place] [address] HTN, goal below 140/90 Allergies Active Allergy Reactions Criticality Noted Date Comments Amlodipine 03/19/2018 Leg edema Molds & Smuts 10/14/2017 Penicillins 10/14/2017 Swollen eyes and lips Shellfish Allergy 10/14/2017 Clams/bi-valves only Soy Allergy 10/14/2017 documented as of this encounter (statuses as of 04/09/2024) Medications Medication Sig Dispensed Refills Start Date End Date Status Cetirizine HCl 10 MG Oral Capsule Take 1 Capsule by mouth in the morning. 1 Capsule 06/18/2022 Active Apixaban 5 MG Oral Tablet (Eliquis)Indicati [...] 01/14/2024 busPIRone HCl 5 MG Oral Tablet (Buspar)Indicatio [...] 12/15/2023 Active Furosemide 20 MG Oral Tablet (Lasix)Indication s:HTN, goal below 140/90 TAKE 1 TABLET BY MOUTH EVERY MORNING 90 Tablet 3 04/09/2024 Active Furosemide 20 MG Oral Tablet (Lasix)Indication s:HTN, goal below 140/90 Take 1 Tablet by mouth in the morning. 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/30/2022 Overview: 07/16/20225742-mwez-YJ 60-65%, mild LVH, LA moderately dilated, aortic [...] as of this encounter (statuses as of 04/09/2024) Resolved Problems Problem Noted Date Diagnosed Date Resolved Date Abnormal AST and ALT 11/20/2017 018 documented as of this encounter (statuses as of 04/09/2024) Immunizations Name Administration Dates Next Due COVID-19 [...] Telephone Encounter - Mer Chen CRNP - 04/09/2024 5:21 AM EDT Signed Prescriptions: Disp Refills Furosemide 20 MG Oral Tablet (Lasix) 90 Tab*3 Sig: TAKE 1 TABLET BY MOUTH EVERY MORNING Authorizing Provider: MER CHEN * Telephone Encounter - Rosalia Sandoval LPN - 04/08/2024 8:31 AM EDTPending Prescriptions: Disp Refills Furosemide 20 MG Oral Tablet [Pharmacy Med*90 Tab*3 Sig: TAKE 1 TABLET BY MOUTH EVERY MORNING * Telephone Encounter - Rosalia Sandoval LPN - 04/08/2024 8:31 AM EDT Pending Prescriptions: Disp Refills Furosemide 20 MG Oral Tablet (Lasix) [Pha*90 Tab*3 Sig: TAKE 1 TABLET BY MOUTH EVERY MORNING documented in this encounter Plan of Treatment Upcoming Encounters Date Type Department Care Team (Late st Contact Info) Description 06/17/2024 1:30 PM EDT Office Visit Cardiology, [facility] [address] [place] [address] Mer Chen CRNP [address] [place] [address] Scheduled Procedures Name Priority Associated Diagnoses Date/Ti [...] this encounter Medical Devices Implanted Type Area Liquor Maker Device Identifier Shelf Expiration Date Model / Serial / Lot Hemostatic Clip Res 235cm - [id number] Implanted:Qty: 4 on 01/21/2024 by Tristan Sanders MD at ENDOSCOPY [facility] N/A: Colon [employer] : ENDOSCOPY 09/26/2026 [id number] / / [id number] documented as of this encounter Visit Diagnoses Diagnosis HTN, goal below 140/90 Unspecified essential hypertension documented in this encounter Care Teams Account Consultant Relationship Specialty Start Date End Date Triny Mckenna MD [address] [place] [address] PCP - General Internal Medicine 10/14/17 documented as of this encounter
[2024-09-11 09:40] LABS: Basophils # (auto) 0.04 K/uL (0.00-0.20); Basophils % (auto) 0.5 %; Eosinophils # (auto) 0.05 K/uL (0.00-0.50); Eosinophils % (auto) 0.6 %; Hematocrit (blood only) 40.1 % (37.0-47.0); Hemoglobin 13.1 g/dl (12.0-16.0); Immature Granulocytes # (auto) 0.05 K/uL (0.01-0.20); Immature Granulocytes % (auto) 0.6 %; Lymphocytes # (auto) 0.85 K/uL (1.20-3.40); Lymphocytes % (auto) 10.5 %; Mean Corpuscular Hemoglobin 31.8 pg (25.0-34.0); Mean Corpuscular Hgb Conc 32.7 g/dL (32.0-36.0); Mean Corpuscular Volume 97.3 fL (80.0-100.0); Mean Platelet Volume 9.7 fL (9.4-12.4); Monocytes # (auto) 0.65 K/uL (0.11-0.59); Neutrophils # (auto) 6.46 K/uL (1.40-6.50); Neutrophils % (auto) 79.8 %; Platelet Count 180 K/uL (130-400); RDW Coefficient of Variation 13.8 % (11.5-14.5); RDW Standard Deviation 49.7 fL (36.4-46.3); Red Blood Count 4.12 M/uL (4.20-5.40)
[2024-09-11] MEDS: cefTRIAXone SODIUM 2,000 MG/50 ML BAG IV STA (09:40)
[2024-09-11] MEDS: FUROSEMIDE INJ 20 MG/2 ML VIAL IV ONE (09:40)
[2024-09-11] MEDS: METOPROLOL TARTRATE 1 MG/ML VIAL IV PRN (09:40)
[2024-09-11 09:48] LABS: Albumin Globulin Ratio 1.8 (0.9-2); Albumin Level 4.1 gm/dl (3.4-5.0); BUN Creatinine Ratio 19.8 (10-20); Calcium 9.1 mg/dl (8.6-10.3); Creatinine Clr Calc Pharmacy 50.6 ml/min; Globulin 2.3 gm/dl (2.5-4.0); Magnesium 1.7 mg/dl (1.7-2.4); Potassium 4.2 mmol/L (3.5-5.1); Total Protein 6.4 gm/dl (6.0-8.3)
[2024-09-11 09:52] LABS: Troponin I High Sensitivity 8.9 pg/ml (0-14)
--- NOTE | 2024-09-11 09:54 | XRay Report ---
XR chest 1V portable CLINICAL HISTORY: Dysrhythmia TECHNIQUE: Single frontal radiograph of the chest was obtained. Comparison: Comparison is made to chest radiograph 09/18/2021 FINDINGS: No lines and tubes are seen. Cardiomegaly is noted. The lungs are clear. There is a moderate right pl eural effusion. IMPRESSION: Moderate right pleural effusion. Stable cardiomegaly. ACT 112: Negative or not required by law. Electronically signed by: Richar Collado M.D. 09/11/2024 9:52 AM
[2024-09-11 10:02] LABS: Thyroid Stimulating Hormone 2.408 uIu/ml (0.300-4.500)
[2024-09-11 10:11] LABS: INR 1.2 (0.9-1.1); Partial Thromboplastin Ratio 1.1; Partial Thromboplastin Time 29 Seconds (21-31); Prothrombin Time 12.4 Seconds (9.0-12.0)
[2024-09-11] MEDS ORDERED: STAT IV Infusion **Titration per Protocol STA (11:29)
[2024-09-11] MEDS: dilTIAZem HCL 125 MG in DEXTROSE 5% 100 ML IV SCH (11:57)
--- NOTE | 2024-09-11 12:39 | History & Physical Report ---
Date of Service September 11, 2024 Assessment & Plan (1) Atrial fibrillation with rapid ventricular response: (2) Volume overload: (3) Bilateral lower leg cellulitis: (4) Wound of left lower extremity: (5) Sinusitis: History of Present Illness Chief Complaint: Feeling anxious times few days Primary Care Provider: Triny Mckenna MD Patient is an 83-year-old female with proximal atrial fibrillation on metoprolol XL and Eliquis, hypertension, anxiety, presenting with feelings of anxiety times few days. As per patient, she has been having episodes of feeling anxious and shortness of breath with exertion for the past few weeks. Of note, after Thanksgiving, patient started to have intermittent bilateral feet and leg swelling and redness. She recently sought care at the urgent care, and was prescribed with doxycycline with not much improvement of bilateral leg swelling. Today, patient experienced increased anxiety prompting consult to the ER. At the ER, patient was received with heart rate of 130s, blood pressure 146/114, EKG showing atrial fibrillation with RVR. Patient also with bilateral leg swelling, BNP 600s. She was given 3 doses of metoprolol IV 5 mg and Lasix 20 mg IV, ceftriaxone IV. On exam, patient's heart rate was in the 115, 120s,. She states she feels somewhat better since admission. Denies active shortness of breath, palpitations, dizziness, leg pain, fevers or chills. Allergies Allergy/AdvReac Type Severity Reaction Status Date / Time clams Allergy Intermediate SWOLLEN Verified 09/11/24 11:35 EYES/ITCHING SKIN Penicillins Allergy Intermediate RED, Verified 09/11/24 11:35 SWOLLEN, CRUSTY EYES soy Allergy Intermediate RED, Verified 09/11/24 11:35 SWOLLEN, CRUSTY EYES Home Medications Medication Instructions Recorded Confirmed Type atorvastatin 40 mg tablet 40 mg PO HS 03/30/19 09/11/24 History furosemide 20 mg tablet (Lasix) 20 mg PO QAM 03/30/19 09/11/24 History losartan 100 mg tablet 100 mg PO QAM 03/30/19 09/11/24 History multivitamin 1 tab PO DAILY 06/18/22 09/11/24 History apixaban 5 mg tablet (Eliquis) 5 mg PO BID #60 tabs 06/19/22 09/11/24 Rx buspirone 10 mg tablet 10 mg PO BID 09/11/24 09/11/24 History cetirizine 5 mg tablet 5 mg PO QAM 09/11/24 09/11/24 History hydralazine 10 mg tablet 0 mg PO UD 09/11/24 09/11/24 History metoprolol succinate 100 mg 100 mg PO QAM 09/11/24 09/11/24 History tablet,extended release 24 hr metoprolol succinate 50 mg 50 mg PO QAM 09/11/24 09/11/24 History tablet,extended release 24 hr Past Med/Surg History Problem List (Updated 09/11/24 @ 12:43 by Jean Carlos Aguirre MD) Sinusitis Wound of left lower extremity Bilateral lower leg cellulitis Volume overload Encounter for pre-operative examination Medical History Anxiety Arthritis Atrial fibrillation with rapid ventricular response Elevated troponin Elevated troponin I level Environmental allergies History of COVID-19 04/29/21 (SYMPTOMS>NASAL CONGESTION/HEADACHE/CHILLS) ALL SYMPTOMS RESOLVED History of irregular heartbeat History of skin cancer Hypertension Surgical History H/O shoulder surgery LEFT H/O sinus surgery X 3 History of appendectomy History of colonoscopy History of right cataract surgery History of tooth extraction Family History Other No family history of adverse response to anesthesia Social History Smoking Status: Never smoker Second Hand Exposure: No; Do You Dip or Chew Tobacco: No; Hx Alcohol Use: No Hx Substance Use: No Preferred Language: Rwandan Communication Ability: Effective Car Wash Attendant Automatic Required: No Beliefs That Will Affect Care: None marital status: Current Living Situation: Spouse Feels Safe at Home: Yes Assistive Devices: None Review of Systems Review of Systems: all noted and negative except for above Physical Exam Physical Exam: General- oriented x 3, not in distress, speaks in sentences with no effort or accessory muscle use Head- atraumatic Eyes- PERRL, EOMI, anicteric ENT- oropharynx clear Neck- supple, no JVD, no adenopathy, no thyromegaly; carotids +2/2, no bruits appreciated Lungs-Decreased breath sounds right mid to lower base, clear on the left, no wheezing Heart- Tachycardic, irregularly irregular rhythm; no murmur, no gallop, no rub appreciated Abdomen- normal bowel sounds, nondistended, soft, nontender, no masses or hepatosplenomegaly Extremities- Grade 1 bilateral lower extremity edema, diffusely dry skin with multiple small scabbed excoriations; positive mild to moderate warmth, erythema, nontender Left lower leg: Distal lateral aspect, small open wound with yellow drainage Neuro- alert, oriented x 3; CN 2-12 grossly intact; motor 5/5 bilaterally;sensation 100% on all extremities; no other gross focal neurologic deficits Skin- warm & dry Results & Data Results & Data Vital Signs (Past 12 Hours) Vital Signs Temp Pulse Pulse Resp BP BP Pulse Ox 09/11/24 10:31 127 H 131/105 H 09/11/24 10:03 132 H 125/106 H 09/11/24 09:40 126 H 183/121 H 09/11/24 09:07 127 H 09/11/24 09:02 132 H 24 146/114 H 97 09/11/24 09:02 09/11/24 09:02 36.9 C 132 H 24 146/114 H 97 O2 Del Method 09/11/24 10:31 09/11/24 10:03 09/11/24 09:40 09/11/24 09:07 09/11/24 09:02 Room Air 09/11/24 09:02 Room Air 09/11/24 09:02 Room Air all noted and reviewed including below Code Status & VTE Plan VTE Prophylaxis Plan VTE Prophylaxis will be ordered: Yes Supervising Physician Co-Signing Physician Notes Patient is an 83-year-old female with proximal atrial fibrillation on metoprolol XL and Eliquis, hypertension, anxiety, presenting with feelings of anxiety times few days. Atrial fibrillation with rapid ventricular response Volume overload Chronic paroxysmal atrial fibrillation Start diltiazem drip Depending on blood pressure trend, will order metoprolol XL 50 mg 4 times daily, usually on metoprolol XL 150 mg daily Continue usual Eliquis twice daily Lasix 20 mg IV twice daily, usually on Lasix 20 mg p.o. daily Echocardiogram Cardiology consult Bilateral lower leg cellulitis Left lower leg infected wound Wound culture Blood cultures Daptomycin IV Wound care consult Acute on chronic sinusitis Patient reports increased nasal drainage, tenderness on the right frontal sinus region Has allergy to penicillin Start doxycycline 100 mg twice daily Probiotics daily Hypertension On hydralazine p.o. 3 times daily Anxiety Patient has been experiencing uncontrolled anxiety for the past few months Reports buspirone is not helping Will order behavioral unit consult DVT prophylaxis Already on Eliquis Full code as per patient Disposition Lives at home with
[2024-09-11] MEDS ORDERED: ACETAMINOPHEN 325 MG TAB PO PRN (13:23)
[2024-09-11] MEDS: ADVANCED PROBIOTIC 625 MG CAPSULE PO SCH (14:10)
[2024-09-11 15:30] LABS: Adenovirus PCR Not Detected (NotDetected); Bordetella parapertussis PCR Not Detected (NotDetected); Bordetella pertussis PCR Not Detected (NotDetected); Chlamydia pneumoniae PCR Not Detected (NotDetected); Coronavirus 229E PCR Not Detected (NotDetected); Coronavirus CoV-2 (COVID19)PCR Not Detected (NotDetected); Coronavirus HKU1 PCR Not Detected (NotDetected); Coronavirus NL63 PCR Not Detected (NotDetected); Coronavirus OC43PCR Not Detected (NotDetected); Human Metapneumovirus PCR Not Detected (NotDetected); Influenza A PCR Not Detected (NotDetected); Influenza B PCR Not Detected (NotDetected); Mycoplasma pneumoniae PCR Not Detected (NotDetected); Parainfluenza Virus 1 PCR Not Detected (NotDetected); Parainfluenza Virus 2 PCR Not Detected (NotDetected); Parainfluenza Virus 3 PCR Not Detected (NotDetected); Parainfluenza Virus 4 PCR Not Detected (NotDetected); Respiratory Syncytial VirusPCR Not Detected (NotDetected); Rhinovirus/Enterovirus PCR Not Detected (NotDetected)
[2024-09-11] MEDS: DAPTOmycin 300 MG in SYRINGE 0 ML IV SCH (15:38)
--- NOTE | 2024-09-11 15:50 | Cardiology Consultation ---
<Statement entered by Agatha Ambrocio, DO - 09/11/24 15:55> I have reviewed the advanced practitioner's documentation and agree with the plan of care. I accept the responsibility for the associated risk. pt seen in cardiology consultation due to pAF with RVR in the setting of probably cellulitis and acute on chronic heart failure with preserved EF-NYHA Class II she has been struggling the last few weeks with the CHF from the cellulitis and has failed out pt treatment so came to the ER and was also found to be in AF with RVR she is on high doses of metoprolol i would decrease this dose and add diltiazem PO while continue the drip and come down off the drip as rates improve increase lasix to 40mg IV BID monitor i/os, daily kidney function and weights abx per primary team continue eliquis will reorder her home losartan, lipitor I spent a total of [60] minutes coordinating, documenting, and providing care for this patient excluding time spent in the performance of separately billed services or time spent by another provider/QHP. Date of Consultation September 11, 2024 Assessment & Plan (1) Atrial fibrillation with rapid ventricular response: (2) Bilateral lower leg cellulitis: (3) Acute heart failure with preserved ejection fraction: Plan Patient admitted with multiple issues: LE cellulitis, HFpEF, Afib RVR. Increase furosemide to 40 mg IV BID given evidence of volume overload/right pleural effusion. Monitor renal function and electrolytes Monitor I+O's Daily weight echo with preserved LVEF. Continue antibiotics for cellulitis Blood cultures pending Wound culture pending Continue IV diltiazem for afib RVR Start metoprolol succinate 50 mg BID (home dose is 150 total) Start oral diltiazem 30 q 6 hours in addition to IV dilt continue Eliquis for anticoagulation If patient fails to convert, consider future CV Case discussed with Dr. Ambrocio I spent a total of 60 minutes on the date of service in preparation, delivery, and documentation of the care provided to this patient, excluding any time spent in the performance of separately billed services. Kacey Franco PA-C Department of Cardiology, [facility] This chart was completed in part utilizing Speech Voice Recognition Software. Grammatical errors, random word insertions, pronoun errors, and incomplete sentences are an occasional consequence of this system due to software limitations, ambient noise, and hardware issues. Any formal questions or concerns about the content, text, or information contained within the body of this dictation should be directly addressed to the provider for clarification. History of Present Illness Reason for Consultation: Afib RVR; CHF Requesting Physician: Francis Hospitalist Attending Physician: Dr. Ambrocio History of Present Illness Patient is a 83 year old female who presented to [facility] with complaints of worsening SOB, palpitations, worsening LE edema and erythema present for several weeks. She had increased furosemide from 20 to 40 mg daily without improvement. She was treated as an outpatient for LE cellulitis with antibiotics but symptoms failed to improve. she reports the erythema and wound started after having a therapeutic massage or pedicure. Upon admission, she was found to have Afib RVR. Started on IV diltiazem. Metoprolol continued. Eliquis for anticoagulation continued Started on antibiotics and wound consult placed for LE cellulitis. Started on IV lasix 20 mg BID for volume overload. History includes: 1. Paroxysmal atrial fibrillation, diagnosed 06/18/2022, [id number] score of 4 (age 3, female, HTN) , on Eliquis 2. Hypertension a. History of hyponatremia with hydrochlorothiazide b. Leg swelling with amlodipine 3. Dyslipidemia 4. Prediabetes 5. History of peptic ulcer due to excessive aspirin use in her 50s At time of consult, patient resting in bed, feeling better than admission. Remains in afib. Rates improving on IV diltiazem gtt. Compliant with Eliquis. She is uncertain when afib started. Ongoing edema and erythema of her legs reported. SOB began to worsen over the last few days Allergies Allergy/AdvReac Type Severity Reaction Status Date / Time clams Allergy Intermediate SWOLLEN Verified 09/11/24 11:35 EYES/ITCHING SKIN Penicillins Allergy Intermediate RED, Verified 09/11/24 11:35 SWOLLEN, CRUSTY EYES soy Allergy Intermediate RED, Verified 09/11/24 11:35 SWOLLEN, CRUSTY EYES Home Medications Medication Instructions Recorded Confirmed Type atorvastatin 40 mg tablet 40 mg PO HS 03/30/19 09/11/24 History furosemide 20 mg tablet (Lasix) 20 mg PO QAM 03/30/19 09/11/24 History losartan 100 mg tablet 100 mg PO QAM 03/30/19 09/11/24 History multivitamin 1 tab PO DAILY 06/18/22 09/11/24 History apixaban 5 mg tablet (Eliquis) 5 mg PO BID #60 tabs 06/19/22 09/11/24 Rx buspirone 10 mg tablet 10 mg PO BID 09/11/24 09/11/24 History cetirizine 5 mg tablet 5 mg PO QAM 09/11/24 09/11/24 History hydralazine 10 mg tablet 0 mg PO UD 09/11/24 09/11/24 History metoprolol succinate 100 mg 100 mg PO QAM 09/11/24 09/11/24 History tablet,extended release 24 hr metoprolol succinate 50 mg 50 mg PO QAM 09/11/24 09/11/24 History tablet,extended release 24 hr Patient History Medical History Elevated troponin Elevated troponin I level Atrial fibrillation with rapid ventricular response Arthritis History of skin cancer Anxiety History of irregular heartbeat History of COVID-19 04/29/21 (SYMPTOMS>NASAL CONGESTION/HEADACHE/CHILLS) ALL SYMPTOMS RESOLVED Environmental allergies Hypertension Surgical History History of right cataract surgery H/O shoulder surgery LEFT History of colonoscopy History of appendectomy History of tooth extraction H/O sinus surgery X 3 Family History Other No family history of adverse response to anesthesia Social History Smoking Status: Never smoker Second Hand Exposure: No; Do You Dip or Chew Tobacco: No; Hx Alcohol Use: No Hx Substance Use: No Preferred Language: Tajik Communication Ability: Effective Investigator Welfare Required: No Beliefs That Will Affect Care: None marital status: Current Living Situation: Spouse Other Information That Helps Us Care for You: No Feels Safe at Home: Yes Safety Concerns: Feels Safe At This Time Assistive Devices: None Review of Systems Review of Systems: All systems reviewed & are unremarkable except as noted in HPI & below Physical Exam Constitutional: WD/WN, vitals as above Neck: trachea midline, no thyromegaly Respiratory: normal respiratory effort, lungs clear to auscultation Cardiovascular: Rate/Rhythm: + tachycardic and + irregularly irregular Extremities: + edema (2+ with open ulceration left lower extremity and erythema b/l) Gastrointestinal (Abdomen): normal bowel sounds, soft, nontender, no hepatosplenomegaly Results & Data Vital Signs (Past 12 Hours) Vital Signs Temp Pulse Pulse Resp BP BP Pulse Ox 09/11/24 15:30 36.4 C L 96 H 18 141/91 H 95 09/11/24 14:51 36.4 C L 100 H 18 143/106 H 96 09/11/24 13:23 110 H 09/11/24 13:23 09/11/24 13:23 36.6 C 105 H 20 143/106 H 96 09/11/24 12:30 110 H 16 133/94 97 09/11/24 12:00 120 H 18 147/100 H 96 09/11/24 11:30 124 H 21 134/95 96 09/11/24 11:01 115 H 24 131/98 97 09/11/24 10:31 127 H 131/105 H 09/11/24 10:30 109 H 14 131/105 H 96 09/11/24 10:03 120 H 29 H 125/106 H 96 09/11/24 10:03 132 H 125/106 H 09/11/24 09:40 126 H 183/121 H 09/11/24 09:30 129 H 20 183/121 H 96 09/11/24 09:07 127 H 09/11/24 09:02 132 H 24 146/114 H 97 09/11/24 09:02 09/11/24 09:02 36.9 C 132 H 24 146/114 H 97 O2 Del Method 09/11/24 15:30 Room Air 09/11/24 14:51 Room Air 09/11/24 13:23 09/11/24 13:23 Room Air 09/11/24 13:23 Room Air 09/11/24 12:30 Room Air 09/11/24 12:00 Room Air 09/11/24 11:30 Room Air 09/11/24 11:01 Room Air 09/11/24 10:31 09/11/24 10:30 Room Air 09/11/24 10:03 Room Air 09/11/24 10:03 09/11/24 09:40 09/11/24 09:30 Room Air 09/11/24 09:07 09/11/24 09:02 Room Air 09/11/24 09:02 Room Air 09/11/24 09:02 Room Air Laboratory Results Cardiac Enzymes 09/11/24 Range/Units 09:07 AST 18 (13-39) U/L Troponin I High Sens 8.9 (0-14) pg/ml B-Natriuretic Peptide 611 H (0-100) pg/ml Coagulation 09/11/24 Range/Units 09:07 PT 12.4 H (9.0-12.0) Seconds APTT 29 (21-31) Seconds B-Natriuretic Peptide 611 H (0-100) pg/ml CBC 09/11/24 Range/Units 09:07 WBC 8.10 (4.8-10.8) K/ul RBC 4.12 L (4.20-5.40) M/uL Hgb 13.1 (12.0-16.0) g/dl Hct 40.1 (37.0-47.0) % Plt Count 180 (130-400) K/uL Neut # (Auto) 6.46 (1.40-6.50) K/uL Lymph # (Auto) 0.85 L (1.20-3.40) K/uL [facility] # (Auto) 0.65 H (0.11-0.59) K/uL Eos # (Auto) 0.05 (0.00-0.50) K/uL Baso # (Auto) 0.04 (0.00-0.20) K/uL Comprehensive Metabolic Panel 09/11/24 Range/Units 09:07 Sodium 131 L (136-145) mmol/L Potassium 4.2 (3.5-5.1) mmol/L Chloride 96 L (98-107) mmol/L Carbon Dioxide 27 (21-32) mmol/L BUN 18 (6-23) mg/dl Creatinine 0.91 (0.6-1.2) mg/dl Glucose 146 H (70-99(Fasting)) mg/dl Calcium 9.1 (8.6-10.3) mg/dl AST 18 (13-39) U/L ALT 19 (7-52) U/L Alkaline Phosphatase 75 (34-104) U/L Total Protein 6.4 (6.0-8.3) gm/dl Albumin 4.1 (3.4-5.0) gm/dl Intake and Output 09/11/24 09/11/24 09/11/24 06:59 14:59 22:59 Intake Total 292.75 / 292.75 Balance 292.75 / 292.75 Intake: IV 52.75 / 52.75 cefTRIAXone SODIUM 2,000 mg In 50 / 50 50 ml @ 100 mls/hr IV NOW STA Rx#:[id number] dilTIAZem HCL 125 mg In 2.75 / 2.75 Dextrose 5% 100 ml @ 10 MG/HR 10 mls/hr IV .[id number] [facility] Rx#: [id number] Oral 240 / 240 Other: # Unmeasured Voids 1 Weight 89.5 kg Weight Measurement Method Built in Bedscale Patient Weight 09/12/24 06:59 Weight 89.5 kg Diagnostic Findings telemetry reviewed: Afib with RVR Echo report reviewed: LVEF 55-60% Mild concentric LVH LA is moderately dilated Mild MR Mild to mod TR Dilated inferior vena cava No pulm hypertension Chest X-Ray 09/11/24 09:26 XR chest 1V portable CLINICAL HISTORY: Dysrhythmia TECHNIQUE: Single frontal radiograph of the chest was obtained. Comparison: Comparison is made to chest radiograph 09/18/2021 FINDINGS: No lines and tubes are seen. Cardiomegaly is noted. The lungs are clear. There is a moderate right pleural effusion. IMPRESSION: Moderate right pleural effusion. Stable cardiomegaly. ACT 112: Negative or not required by law. Electronically signed by: Richar Collado M.D. 09/11/2024 9:52 AM Medications Administered Current Inpatient Medications Acetaminophen (Acetaminophen 325 Mg Tab) 650 mg PO Q4H PRN PRN Reason: Pain or Fever Stop: 10/11/24 13:22 Doxycycline Hyclate (Doxycycline Hyclate 100 Mg Cap) 100 mg PO BID [facility] Stop: 09/22/24 08:59 Furosemide (Furosemide Inj 20 Mg/2 Ml Vial) 20 mg IV BID17 [facility] Stop: 10/11/24 16:59 Diltiazem HCl 125 mg/ Dextrose 125 mls @ 10 mls/hr IV .[id number] [facility]; Protocol Stop: 10/11/24 11:29 Last Titration: 09/11/24 12:30 Dose: 10 mg/hr, 10 mls/hr Daptomycin 300 mg/ Syringe 6 mls @ 2.75 mls/min IV Q24H [facility]; Protocol Stop: 09/18/24 13:59 Last Admin: 09/11/24 15:38 Dose: 2.75 mls/min Lactobacillus Acidophilus (Advanced Probiotic 625 Mg Capsule) 1,250 mg PO DAILY [facility] Stop: 10/11/24 13:22 Last Admin: 09/11/24 14:10 Dose: 1,250 mg
[2024-09-11] MEDS ORDERED: FUROSEMIDE INJ 20 MG/2 ML VIAL IV SCH (17:00)
[2024-09-11] MEDS: dilTIAZem HCL 30 MG TAB PO SCH (17:40)
[2024-09-11] MEDS: FUROSEMIDE 40 MG/4 ML VIAL IV SCH (17:40)
[2024-09-11] MEDS: APIXABAN 5 MG TABLET PO SCH (19:59)
[2024-09-11] MEDS: METOPROLOL SUCC 50MG EXT REL TAB PO SCH (19:59)
--- NOTE | 2024-09-11 20:46 | Psychiatric Progress Note ---
Date of Service September 11, 2024 Interval History Identifying Information . Chief Complaint " Subjective Subjective Patient was seen & assessed and interval progress reviewed with [treatment team] [nursing and social work] Physical Exam Vital Signs (Past 24 Hours) Last Vital Signs Temp 36.4 C L 09/11/24 19:37 Pulse 97 H 09/11/24 19:37 Resp 18 09/11/24 19:37 BP 116/84 09/11/24 19:37 Pulse Ox 97 09/11/24 19:37 O2 Del Method Room Air 09/11/24 19:37 Results & Data ([facility]) Laboratory Results Laboratory Results - last 24 hr 09/11/24 09/11/24 09:07 14:25 WBC 8.10 RBC 4.12 L Hgb 13.1 Hct 40.1 MCV 97.3 MCH 31.8 MCHC 32.7 RDW Std Deviation 49.7 H RDW Coeff of Ander 13.8 Plt Count 180 MPV 9.7 Immature Gran % (Auto) 0.6 Neut % (Auto) 79.8 Lymph % (Auto) 10.5 Bell % (Auto) 8.0 Eos % (Auto) 0.6 Baso % (Auto) 0.5 Neut # (Auto) 6.46 Lymph # (Auto) 0.85 L Bell # (Auto) 0.65 H Eos # (Auto) 0.05 Baso # (Auto) 0.04 Immature Gran # (Auto) 0.05 PT 12.4 H INR 1.2 H APTT 29 PTT Ratio 1.1 Sodium 131 L Potassium 4.2 Chloride 96 L Carbon Dioxide 27 Anion Gap 8 BUN 18 Creatinine 0.91 Est Cr Clr Drug Dosing 50.6 eGFR 62.99 BUN/Creatinine Ratio 19.8 Glucose 146 H Calcium 9.1 Magnesium 1.7 Total Bilirubin 1.0 AST 18 ALT 19 Alkaline Phosphatase 75 Troponin I High Sens 8.9 B-Natriuretic Peptide 611 H Total Protein 6.4 Albumin 4.1 Globulin 2.3 L Albumin/Globulin Ratio 1.8 TSH 2.408 Adenovirus (PCR) Not Detected B. pertussis DNA (PCR) Not Detected B.parapertussis DNA PCR Not Detected C. pneumoniae DNA (PCR) Not Detected Coronavirus OC43 (PCR) Not Detected Coronavirus HKU1 (PCR) Not Detected Coronavirus 229E (PCR) Not Detected SARS-CoV-2 (PCR) Not Detected Coronavirus NL63 (PCR) Not Detected Human Metapneumovir PCR Not Detected Influenza Type A (PCR) Not Detected Influenza Type B (PCR) Not Detected M. pneumoniae (PCR) Not Detected Parainfluenza 1 (PCR) Not Detected Parainfluenza 2 (PCR) Not Detected Parainfluenza 3 (PCR) Not Detected Parainfluenza 4 (PCR) Not Detected RSV (PCR) Not Detected Entero/Rhino (PCR) Not Detected Current Inpatient Medications Current Inpatient Medications: Current Inpatient Medications Acetaminophen (Acetaminophen 325 Mg Tab) 650 mg PO Q4H PRN PRN Reason: Pain or Fever Stop: 10/11/24 13:22 Apixaban (Apixaban 5 Mg Tablet) 5 mg PO BID [facility] Stop: 10/11/24 20:59 Last Admin: 09/11/24 19:59 Dose: 5 mg Atorvastatin Calcium (Atorvastatin 40 Mg Tab) 40 mg PO QAM [facility] Stop: 10/12/24 08:59 Diltiazem HCl (Diltiazem Hcl 30 Mg Tab) 30 mg PO Q6 [facility] Stop: 10/11/24 17:59 Last Admin: 09/11/24 17:40 Dose: 30 mg Doxycycline Hyclate (Doxycycline Hyclate 100 Mg Cap) 100 mg PO BID [facility] Stop: 09/22/24 08:59 Furosemide (Furosemide 40 Mg/4 Ml Vial) 40 mg IV BID17 [facility] Stop: 10/11/24 16:59 Last Admin: 09/11/24 17:40 Dose: 40 mg Diltiazem HCl 125 mg/ Dextrose 125 mls @ 10 mls/hr IV .[id number] [facility]; Protocol Stop: 10/11/24 11:29 Last Titration: 09/11/24 12:30 Dose: 10 mg/hr, 10 mls/hr Daptomycin 300 mg/ Syringe 6 mls @ 2.75 mls/min IV Q24H [facility]; Protocol Stop: 09/18/24 13:59 Last Admin: 09/11/24 15:38 Dose: 2.75 mls/min Lactobacillus Acidophilus (Advanced Probiotic 625 Mg Capsule) 1,250 mg PO DAILY [facility] Stop: 10/11/24 13:22 Last Admin: 09/11/24 14:10 Dose: 1,250 mg Losartan Potassium (Losartan Potassium 50 Mg Tab) 100 mg PO QAM [facility] Stop: 10/12/24 08:59 Metoprolol Succinate (Metoprolol Succ 50mg Ext Rel Tab) 50 mg PO BID [facility] Stop: 10/11/24 20:59 Last Admin: 09/11/24 19:59 Dose: 50 mg
--- NOTE | 2024-09-11 21:03 | Psychiatric Consultation ---
Date of Consultation September 11, 2024 Impression / Recommendations (1) Anxiety: Anxiety symptoms appear closely tied to runs of Afib. However, pt also has CHF, which may contribute to anxiety. Consider a trial of Clonidine low dose e.g. 0.05mg bid prn for anxiety and panic symptoms, being mindful of risk of interactions (e.g. hypotension) with diltiazem and metoprolol. Recommend caution with the use of benzodiazepines as they have been associated with falls, confusion and cognitive impairment in the elderly, particularly in the setting of cardiac problems. Reinforced use of non-pharmacological strategies to manage anxiety. Recommend referral to outpatient psychiatry for further evaluation and follow up after discharge. If anxiety persists, may consider a starting Mirtazapine or other computer terminal operator medication. (2) Anxiety state, unspecified: Psych History Identifying Data 81-year-old female with past medical history significant for hyperlipidemia, prediabetes, allergic rhinitis, hypertension, primary osteoarthritis, presents with rapid atrial fibrillation. Psychiatry was consulted to evalute her for anxiety in context of repeat episodes of Afib. Chief Complaint "I have been feeling anxious" History of Present Illness She began having runs of Afib last fall and notes onset of anxiety symptoms coinciding with her episodes of Afib. Over the past month, she has begun having panic attacks, unprovoked. She notes anxiety symptoms tend to coincide with her runs of Afib still, but she is now beginning to have anxiety between episodes. Primary symptoms are a vague worry and inability to fully relax. She has attempted to use deep breathing and journaling with limited success.. Lorazepam was effective in controlling her anxiety symptoms in the ED. She would like to discuss options for ongoing treatment. In addition to Afib,she also recently developed a pseudomonas cellulitis. She denied other stressors at this time. Past Psychiatric History Previous Psych History: Denied any Outpatient Services: None Previous Psych Admissions: None Do You Have Access To A Gun?: No History of Previous Suicide Attempt: No Past Medication Trials: Ativan one dose in the ED Allergies Allergy/AdvReac Type Severity Reaction Status Date / Time clams Allergy Intermediate SWOLLEN Verified 09/11/24 11:35 EYES/ITCHING SKIN Penicillins Allergy Intermediate RED, Verified 09/11/24 11:35 SWOLLEN, CRUSTY EYES soy Allergy Intermediate RED, Verified 09/11/24 11:35 SWOLLEN, CRUSTY EYES Home Medications Medication Instructions Recorded Confirmed Type atorvastatin 40 mg tablet 40 mg PO HS 03/30/19 09/11/24 History furosemide 20 mg tablet (Lasix) 20 mg PO QAM 03/30/19 09/11/24 History losartan 100 mg tablet 100 mg PO QAM 03/30/19 09/11/24 History multivitamin 1 tab PO DAILY 06/18/22 09/11/24 History apixaban 5 mg tablet (Eliquis) 5 mg PO BID #60 tabs 06/19/22 09/11/24 Rx buspirone 10 mg tablet 10 mg PO BID 09/11/24 09/11/24 History cetirizine 5 mg tablet 5 mg PO QAM 09/11/24 09/11/24 History hydralazine 10 mg tablet 0 mg PO UD 09/11/24 09/11/24 History metoprolol succinate 100 mg 100 mg PO QAM 09/11/24 09/11/24 History tablet,extended release 24 hr metoprolol succinate 50 mg 50 mg PO QAM 09/11/24 09/11/24 History tablet,extended release 24 hr Patient History Medical History Elevated troponin Elevated troponin I level Atrial fibrillation with rapid ventricular response Arthritis History of skin cancer Anxiety History of irregular heartbeat History of COVID-19 04/29/21 (SYMPTOMS>NASAL CONGESTION/HEADACHE/CHILLS) ALL SYMPTOMS RESOLVED Environmental allergies Hypertension Surgical History History of right cataract surgery H/O shoulder surgery LEFT History of colonoscopy History of appendectomy History of tooth extraction H/O sinus surgery X 3 Family History Other No family history of adverse response to anesthesia Social History Smoking Status: Never smoker Second Hand Exposure: No; Do You Dip or Chew Tobacco: No; Hx Alcohol Use: No Hx Substance Use: No Preferred Language: Amharic Communication Ability: Effective Scoop Driver Required: No Beliefs That Will Affect Care: None marital status: Current Living Situation: Spouse Other Information That Helps Us Care for You: No Feels Safe at Home: Yes Safety Concerns: Feels Safe At This Time Assistive Devices: None Physical Exam Psychiatric: A+Ox3, euthymic affect Orientation: alert, oriented x 3, oriented to person, oriented to place, oriented to time and cooperative Apperance: appropriately dressed, appropriately groomed and appeared stated age Eye Contact: good eye contact Motor Behavior: no abnormal motor movements Speech: normal rate/rhythm/volume of speech Affect: + anxious affect and mood congruent with affect Mood: + anxious mood Thought Content: reality based without delusions Suicidal Thoughts: denies suicidal thoughts, denies suicidal plan and denies suicidal intent Homicidal Thoughts: denies homicidal thoughts, denies homicidal plan and denies homicidal intent None Cognition: recent memory grossly intact, remote memory grossly intact, attention grossly intact and language grossly intact Estimated Intelligence: average estimated intelligence and consistent with education level Insight: good insight Judgment: good judgement Vital Signs (Past 24 Hours): Last Vital Signs Temp 36.4 C L 09/11/24 19:37 Pulse 97 H 09/11/24 19:37 Resp 18 09/11/24 19:37 BP 116/84 09/11/24 19:37 Pulse Ox 97 09/11/24 19:37 O2 Del Method Room Air 09/11/24 19:37 Results & Data (PSY) Medications Administered Apixaban (Apixaban 5 Mg Tablet) 5 mg PO BID [facility] Stop: 10/11/24 20:59 Last Admin: 09/11/24 19:59 Dose: 5 mg Documented By: AKP Diltiazem HCl (Diltiazem Hcl 30 Mg Tab) 30 mg PO Q6 [facility] Stop: 10/11/24 17:59 Last Admin: 09/11/24 17:40 Dose: 30 mg Documented By: GPF Furosemide (Furosemide 40 Mg/4 Ml Vial) 40 mg IV BID17 [facility] Stop: 10/11/24 16:59 Last Admin: 09/11/24 17:40 Dose: 40 mg Documented By: GPF Diltiazem HCl 125 mg/ Dextrose 125 mls @ 10 mls/hr IV .[id number] [facility]; Protocol Stop: 10/11/24 11:29 Last Titration: 09/11/24 12:30 Dose: 10 mg/hr, 10 mls/hr Documented By: SRL Co-signed By: Admin: 09/11/24 11:57 Dose: 5 mg/hr, 5 mls/hr Documented By: SRL Co-signed By: OLIVA Daptomycin 300 mg/ Syringe 6 mls @ 2.75 mls/min IV Q24H [facility]; Protocol Stop: 09/18/24 13:59 Last Admin: 09/11/24 15:38 Dose: 2.75 mls/min Documented By: GPF Lactobacillus Acidophilus (Advanced Probiotic 625 Mg Capsule) 1,250 mg PO DAILY [facility] Stop: 10/11/24 13:22 Last Admin: 09/11/24 14:10 Dose: 1,250 mg Documented By: GPF Metoprolol Succinate (Metoprolol Succ 50mg Ext Rel Tab) 50 mg PO BID [facility] Stop: 10/11/24 20:59 Last Admin: 09/11/24 19:59 Dose: 50 mg Documented By: AKP [place] [address] Inpt Consult Level 1 Patient Type New History Problem Focused Exam Problem Focused Medical Decision Making Straight Forward Diagnoses Anxiety F41.9 Anxiety state, unspecified F41.1 Time Spent (min) 60
[2024-09-12 06:28] LABS: Basophils # (auto) 0.05 K/uL (0.00-0.20); Basophils % (auto) 0.7 %; Eosinophils # (auto) 0.14 K/uL (0.00-0.50); Hemoglobin 11.7 g/dl (12.0-16.0); Immature Granulocytes # (auto) 0.01 K/uL (0.01-0.20); Immature Granulocytes % (auto) 0.1 %; Lymphocytes # (auto) 1.11 K/uL (1.20-3.40); Lymphocytes % (auto) 16.3 %; Mean Corpuscular Hemoglobin 32.1 pg (25.0-34.0); Mean Corpuscular Hgb Conc 33.4 g/dL (32.0-36.0); Mean Corpuscular Volume 95.9 fL (80.0-100.0); Mean Platelet Volume 9.8 fL (9.4-12.4); Monocytes # (auto) 0.74 K/uL (0.11-0.59); Monocytes % (auto) 10.8 %; Neutrophils # (auto) 4.78 K/uL (1.40-6.50); Neutrophils % (auto) 70.1 %; Platelet Count 173 K/uL (130-400); RDW Coefficient of Variation 13.9 % (11.5-14.5); RDW Standard Deviation 49.3 fL (36.4-46.3); Red Blood Count 3.65 M/uL (4.20-5.40); White Blood Count 6.83 K/ul (4.8-10.8)
[2024-09-12 06:57] LABS: BUN Creatinine Ratio 18.6 (10-20); Calcium 8.6 mg/dl (8.6-10.3); Creatinine Clr Calc Pharmacy 54.2 ml/min; Magnesium 1.7 mg/dl (1.7-2.4)
[2024-09-12] MEDS: ATORVASTATIN 40 MG TAB PO SCH ×2 (09:19→19:54)
[2024-09-12] MEDS: busPIRone 5 MG TAB PO SCH (09:19)
[2024-09-12] MEDS: LOSARTAN POTASSIUM 50 MG TAB PO SCH (09:19)
[2024-09-12] MEDS: CETIRIZINE HCL 10 MG TABLET PO SCH (09:20)
[2024-09-12] MEDS: MULTIVITAMIN TAB PO SCH (09:20)
[2024-09-12] MEDS: DOXYCYCLINE HYCLATE 100 MG CAP PO SCH (09:22)
--- NOTE | 2024-09-12 14:57 | Hospitalist Progress Note ---
Date of Service September 12, 2024 Assessment & Plan (1) Atrial fibrillation with rapid ventricular response: Plan: This is probably increased autonomic response as a result of anxiety on top of her baseline atrial fibrillation rhythm, for now we will see how her heart rate can be managed with the Cardizem CD 180 mg daily, metoprolol succinate 50 mg twice daily. Continue with Eliquis. (2) Volume overload: Plan: Patient does have volume overload generally considering peripheral edema and also some minimal element of pleural effusion on the right side of the chest x- ray, after discussing with cardiology, it was decided that we continue with IV diuresis with current dose of Lasix 40 mg twice daily for another day and reevaluate her tomorrow for possible transitioning to oral diuretic. (3) Anxiety state, unspecified: Plan: For this matter patient was seen by psychiatry, currently she is on buspirone 10 mg twice daily, continue to provide benzodiazepines as needed. (4) Hypertension, essential: Plan: Patient does have history of hypertension, she is on multiple medications, however during this visit I found most of her blood pressure is reasonable, to the point that we had to lower her losartan in order to safely place her on Cardizem. Will continue monitoring blood pressure and adjust accordingly. (5) Chronic venous stasis dermatitis: Plan: Patient does have element of chronic venous stasis with dermatitis, she does not know how long her legs been like that however looking at both lower extremities, it is obvious that this is chronic, she has a wound on the left lower extremity, apparently they did a culture and it grew Pseudomonas but I just do not think this is an acute inflammation I think this is more of colonization. Will avoid any antibiotic at this point, continue with skin care and monitor carefully while she is here. Plan Continue IV diuresis, monitor intake and output, reevaluate tomorrow for possible transitioning to p.o. diuretic and discharging her home. Admission and Anticipated Discharge Date Admission Date: September 11, 2024 Subjective Patient is a very pleasant 83-year-old female with history of atrial fibrillation, chronic lower extremity venous stasis with some dermatitis, and a strong element of anxiety who was admitted to the hospital because of fast heartbeat, patient also complained that lately she has been very anxious. On admission she was found to be in atrial fibrillation and RVR, she was managed with Cardizem infusion, she was taken off Cardizem infusion and was started on Cardizem p.o. 30 mg every 6 on which she responded well, she was then transition to Cardizem CD 180 mg daily along with metoprolol 50 mg twice daily. Echocardiogram during this visit showed ejection fraction 55 to 60% with mild to moderate tricuspid regurgitation and elevated right atrial pressure. PA pressure was 36. Patient was seen and examined, she is overall doing well, discussed with cardiology, at this point we are going to have another day mainly for diuresis as her chest x-ray showed some element of right-sided pleural effusion with blunting that costophrenic angle. Results & Data Results & Data Vital Signs (Past 12 Hours) Vital Signs Temp Pulse Resp BP Pulse Ox O2 Del Method 09/12/24 11:28 36.8 C 106 H 18 107/71 94 Room Air 09/12/24 08:00 Room Air 09/12/24 07:34 36.4 C L 82 17 103/67 92 Room Air 09/12/24 03:41 36.2 C L 86 16 104/70 96 Room Air (2) Volume overload Hypervolemia type: other Qualified Code(s): E87.79 - Other fluid overload
--- NOTE | 2024-09-12 15:03 | Cardiology Progress Note ---
<Statement entered by Agatha Ambrocio, - 09/12/24 20:48> I have reviewed the advanced practitioner's documentation and agree with the plan of care. I accept the responsibility for the associated risk. pt seen in cardiology f/u early today due to pAF with acute on chronic heart failure with preserved EF-NYHA Class III and LE wound and cellulitis She is responding to IV diuresis but is still volume overloaded recommend continue with IV lasix and monitor I/Os, daily weights and kidney function; maintain electrolytes her ventricular rates are still on the higher side-recommend decreasing her losartan so we can give more AVN blockers; then increase diltiazem and continue toprol will continue to monitor with you I discussed the case and my recommendations with the hospitalist over the phone and he agreed with my plan I spent a total of [30] minutes coordinating, documenting, and providing care for this patient excluding time spent in the performance of separately billed services or time spent by another provider/QHP. Date of Service September 12, 2024 Assessment & Plan (1) Atrial fibrillation with rapid ventricular response: (2) Bilateral lower leg cellulitis: (3) Acute heart failure with preserved ejection fraction: Plan 09/12/24 Patient admitted with multiple issues: LE cellulitis, HFpEF, Afib RVR. Increase furosemide to 40 mg IV BID given evidence of volume overload/right pleural effusion. Monitor renal function and electrolytes Monitor I+O's Daily weight echo with preserved LVEF. Continue antibiotics for cellulitis Blood cultures pending Wound culture pending Continue IV diltiazem for afib RVR Start metoprolol succinate 50 mg BID (home dose is 150 total) Start oral diltiazem 30 q 6 hours in addition to IV dilt continue Eliquis for anticoagulation If patient fails to convert, consider future CV 09/13/24: Interval improvement in volume status since admission Continue IV furosemide 40 mg BID today Start to monitor outputs. Monitor electrolytes Wound culture growing pseudomonas aeruginosa. Blood cultures pending Continue antibiotics Remains in afib with borderline rates IV dilt stopped overnight transition to long acting diltiazem 180 mg - first dose now. Stop short acting Continue metoprolol 50 mg BID. Consider future CV is she fails to convert Continue eliquis 5 mg BID Given borderline lower BP. Reduce losartan to 50 mg daily to allow higher dose AV aurora blocking agents. Case discussed with Dr. Zazzali I spent a total of 30 minutes on the date of service in preparation, delivery, and documentation of the care provided to this patient, excluding any time spent in the performance of separately billed services. Kacey Franco PA-C Department of Cardiology, [facility] This chart was completed in part utilizing Speech Voice Recognition Software. Grammatical errors, random word insertions, pronoun errors, and incomplete sentences are an occasional consequence of this system due to software limitations, ambient noise, and hardware issues. Any formal questions or concerns about the content, text, or information contained within the body of this dictation should be directly addressed to the provider for clarification. Admission and Anticipated Discharge Date Admission Date: September 11, 2024 Subjective Patient resting in bed, feeling better. Still with mild LE edema. Erythema improving. SOB improving but not yet at baseline. She reports she did not sleep well. Remains in afib with fluctuations in HR. Review of Systems Review of Systems: All systems reviewed & are unremarkable except as noted in HPI & below Physical Exam Constitutional: WD/WN, vitals as above Neck: trachea midline, no thyromegaly Respiratory: normal respiratory effort, lungs clear to auscultation Cardiovascular: Rate/Rhythm: + irregularly irregular Extremities: + edema (1+ with open ulceration left lower extremity and erythema b/l) Gastrointestinal (Abdomen): normal bowel sounds, soft, nontender, no hepatosplenomegaly Results & Data Vital Signs (Past 12 Hours) Vital Signs Temp Pulse Resp BP Pulse Ox O2 Del Method 09/12/24 11:28 36.8 C 106 H 18 107/71 94 Room Air 09/12/24 08:00 Room Air 09/12/24 07:34 36.4 C L 82 17 103/67 92 Room Air 09/12/24 03:41 36.2 C L 86 16 104/70 96 Room Air Laboratory Results CBC 09/12/24 Range/Units 05:47 WBC 6.83 (4.8-10.8) K/ul RBC 3.65 L (4.20-5.40) M/uL Hgb 11.7 L (12.0-16.0) g/dl Hct 35.0 L (37.0-47.0) % Plt Count 173 (130-400) K/uL Neut # (Auto) 4.78 (1.40-6.50) K/uL Lymph # (Auto) 1.11 L (1.20-3.40) K/uL Armstrong # (Auto) 0.74 H (0.11-0.59) K/uL Eos # (Auto) 0.14 (0.00-0.50) K/uL Baso # (Auto) 0.05 (0.00-0.20) K/uL Comprehensive Metabolic Panel 09/12/24 Range/Units 05:47 Sodium 136 (136-145) mmol/L Potassium 4.0 (3.5-5.1) mmol/L Chloride 100 (98-107) mmol/L Carbon Dioxide 30 (21-32) mmol/L BUN 16 (6-23) mg/dl Creatinine 0.86 (0.6-1.2) mg/dl Glucose 111 H (70-99(Fasting)) mg/dl Calcium 8.6 (8.6-10.3) mg/dl Intake and Output 09/11/24 09/12/24 09/12/24 22:59 06:59 14:59 Intake Total 240 / 944.917 412.167 / 944.917 769.667 / 769.667 Balance 240 / 944.917 412.167 / 944.917 769.667 / 769.667 Intake: IV 112.167 / 164.917 89.667 / 89.667 dilTIAZem HCL 125 mg In 112.167 / 114.917 89.667 / 89.667 Dextrose 5% 100 ml @ 10 MG/HR 10 mls/hr IV .[id number] [facility] Rx#: [id number] Oral 240 / 780 300 / 780 680 / 680 Other: # Unmeasured Voids 4 Weight 91.6 kg Weight Measurement Method Standing Scale Diagnostic Findings Telemetry reviewed: Persistent afib with variable rates. Currently ranging 100- 130's Medications Administered Current Inpatient Medications Acetaminophen (Acetaminophen 325 Mg Tab) 650 mg PO Q4H PRN PRN Reason: Pain or Fever Stop: 10/11/24 13:22 Apixaban (Apixaban 5 Mg Tablet) 5 mg PO BID [facility] Stop: 10/11/24 20:59 Last Admin: 09/12/24 09:19 Dose: 5 mg Atorvastatin Calcium (Atorvastatin 40 Mg Tab) 40 mg PO HS [facility] Stop: 10/12/24 20:59 Buspirone HCl (Buspirone 5 Mg Tab) 10 mg PO BID [facility] Stop: 10/12/24 08:59 Last Admin: 09/12/24 09:19 Dose: 10 mg Cetirizine HCl (Cetirizine Hcl 10 Mg Tablet) 5 mg PO QAM [facility] Stop: 10/12/24 08:59 Last Admin: 09/12/24 09:20 Dose: 5 mg Diltiazem HCl (Diltiazem Hcl 180 Mg Capcr) 180 mg PO QAM [facility] Stop: 10/12/24 14:44 Furosemide (Furosemide 40 Mg/4 Ml Vial) 40 mg IV BID17 [facility] Stop: 10/11/24 16:59 Last Admin: 09/12/24 09:19 Dose: 40 mg Lactobacillus Acidophilus (Advanced Probiotic 625 Mg Capsule) 1,250 mg PO DAILY [facility] Stop: 10/11/24 13:22 Last Admin: 09/12/24 09:22 Dose: 1,250 mg Losartan Potassium (Losartan Potassium 50 Mg Tab) 50 mg PO QAM [facility] Stop: 10/13/24 08:59 Metoprolol Succinate (Metoprolol Succ 50mg Ext Rel Tab) 50 mg PO BID [facility] Stop: 10/11/24 20:59 Last Admin: 09/12/24 09:19 Dose: 50 mg Multivitamins (Multivitamin Tab) 1 tab PO QAM [facility] Stop: 10/12/24 08:59 Last Admin: 09/12/24 09:20 Dose: 1 tab
[2024-09-12] MEDS: dilTIAZem HCL 180 MG CAPCR PO SCH (15:32)
[2024-09-13 06:24] LABS: BUN Creatinine Ratio 14.9 (10-20); Calcium 8.7 mg/dl (8.6-10.3); Creatinine Clr Calc Pharmacy 49.9 ml/min; Potassium 3.8 mmol/L (3.5-5.1)
[2024-09-13] MEDS: LOSARTAN POTASSIUM 50 MG TAB PO SCH (08:02)
--- NOTE | 2024-09-13 08:06 | XRay Report ---
EXAM: XR chest 1V portable CLINICAL HISTORY: PULMONARY EDEMA TECHNIQUE: An X-ray image of the chest is obtained in AP projection. COMPARISON: No prior studies are available for comparison. FINDINGS: Patient rotation seen. Pulmonary Parenchyma: Slight to minimally prominent bronchovascular markings of both lung tiwari, could be nonspecific however early insignificant congestive changes may need exclusion. Opacification of the right lung lower zone with silhouetting of the right hemidiaphragm and costophrenic angle suggest mild to moderate right-sided pleural effusion. Loss of the normal sharpness of the left costophrenic angle also seen suggests mild to minimal pleural effusion. Heart and Mediastinum: Cardiomegaly. No mediastinal widening or masses. No hilar or mediastinal lymphadenopathy. Bony Thorax: Bony thorax appears intact without fractures or deformities. Degenerative changes seen in left glenohumeral joint. Soft Tissues: Soft tissues overlying the chest wall are unremarkable. IMPRESSION: 1. Mild to moderate right-sided pleural effusion seen with possible underlying consolidation/collapse of right lung lower zone. 2. Minimal left-sided pleural effusion. 3. Cardiomegaly. 4. Degenerative changes of left glenohumeral joint. Electronically signed by Nirav Bird 09-13-2024 08:05 AM
--- NOTE | 2024-09-13 09:01 | Cardiology Progress Note ---
Date of Service September 13, 2024 Assessment & Plan (1) Atrial fibrillation with rapid ventricular response: (2) Bilateral lower leg cellulitis: (3) Acute heart failure with preserved ejection fraction: Plan 83-year-old female admitted with anxiety, acute on chronic dyspnea and lower extremity peripheral edema and erythema, left lower extremity cellulitis. Patient incidentally found to be in atrial fibrillation with a rapid ventricular response Left lower extremity cellulitis. As per Hospitalist service. Atrial fibrillation with a rapid ventricular response. - No overt symptoms - Heart rates remain uncontrolled despite metoprolol succinate 50 mg twice per day and diltiazem 180 mg/day. - Clinical concern noted for the use of diltiazem with the chronic venous stasis, chronic fluid retention, lower extremity wounds, HFpEF - Discontinue diltiazem - Increase metoprolol succinate to 100 mg twice per day - Proceed with rate control for now, considering referral for cardioversion pending response to rate control strategy, correction of other issues - Continue apixaban (Eliquis) anticoagulation HFpEF with likely associated moderate right pleural effusion - Supplement potassium orally - Continue IV diuretic therapy, with increase dose this afternoon Admission and Anticipated Discharge Date Admission Date: September 11, 2024 Supervising Physician Co-Signing Physician Notes Attending attestation: Case reviewed with the advanced practitioner. I have personally performed a history and physical examination on the patient. I have reviewed the advanced practitioner's documentation on the date of service referenced in note, and I agree with, and take responsibility for the plan of care. Recommend ongoing IV diuretic therapy and oral metoprolol as noted. I spent a total of 20 minutes coordinating, documenting, and providing care for this patient excluding time spent in the performance of separately billed services or time spent by another provider. Gee Kendall, Subjective Patient seen and examined. Chart, medications, and telemetry reviewed. Presented to the hospital with anxiety, worsening shortness of breath, lower extremity peripheral edema and erythema Patient incidentally found to be in atrial fibrillation with a rapid ventricular response. Patient unaware of atrial fibrillation at present. No palpitations. Breathing has improved. Edema has improved. No chest pain. Patient chronically prescribed Eliquis anticoagulation, without recent interruption. + Epistaxis. No melena or hematochezia. I/O's not accurately recorded. Review of Systems Review of Systems: Complete review of systems is otherwise as stated above, negative, or noncontributory. Physical Exam Physical Exam: General: A&Ox3. NAD. HENT: Normocephalic. Atraumatic. Eyes: PER. Conjunctiva pink, sclera clear. Neck: No JVD. Heart: Irregularly irregular 110 bpm. Soft systolic murmur at the lower left sternal border. Lungs: Absent breath sounds at the right base. Decreased on the left. Abdomen: +BS. Soft. Nontender. No masses or organomegaly. Extremities: Venous stasis changes, chronic indurated edema and erythema. Minimal edema present currently. No cyanosis. Wound covered. Limited neurological examination is without focal deficits. Results & Data Vital Signs (Past 12 Hours) Vital Signs Temp Pulse Resp BP Pulse Ox O2 Del Method 09/13/24 07:29 36.4 C L 106 H 18 125/84 94 Room Air 09/13/24 03:41 36.7 C 94 H 19 132/80 96 Room Air 09/13/24 00:39 36.6 C 100 H 18 122/81 92 Room Air Laboratory Results Comprehensive Metabolic Panel 09/13/24 Range/Units 05:52 Sodium 138 (136-145) mmol/L Potassium 3.8 (3.5-5.1) mmol/L Chloride 102 (98-107) mmol/L Carbon Dioxide 30 (21-32) mmol/L BUN 13 (6-23) mg/dl Creatinine 0.87 (0.6-1.2) mg/dl Glucose 109 H (70-99(Fasting)) mg/dl Calcium 8.7 (8.6-10.3) mg/dl Intake and Output 09/12/24 09/13/24 09/13/24 22:59 06:59 14:59 Intake Total 550 / 1319.667 Balance 550 / 1319.667 Intake: Oral 550 / 1230 Other: Weight 80 kg Weight Measurement Method Standing Scale Diagnostic Findings September 11, 2024 TTE ([facility], Dr. Ambrocio): The patient was in atrial fibrillation with ventricular rates in the 100 to 110 bpm range during the study. Left ventricular ejection fraction 55 to 60%. Mild concentric LVH. Moderately dilated left atrium. Mild to moderately dilated right atrium. Mild mitral regurgitation. Mild to moderate tricuspid regurgitation. Dilated IVC with reduced collapsibility with sniff indicating an elevated right atrial pressure of 15 mmHg. Moderately dilated IVC. No evidence of pulmonary hypertension. PASP 36 mmHg. September 12, 2024 EKG: Atrial fibrillation with a ventricular rate of 104 bpm. Diffuse STT wave abnormality. QTc 481 ms. Telemetry: Atrial fibrillation with an elevated ventricular response over the last 24 hours, currently 116 bpm.
[2024-09-13] MEDS: POTASSIUM CHLORIDE 10 MEQ TABCR PO ONE (10:03)
--- NOTE | 2024-09-13 10:39 | Hospitalist Progress Note ---
Date of Service September 13, 2024 Assessment & Plan (1) Atrial fibrillation with rapid ventricular response: Plan: Anxiety provoked, defer to cardiology for management. Metoprolol XL was increased to 100 mg twice daily and Cardizem was discontinued. Continue with Eliquis. Will monitor response. (2) Volume overload: Plan: Continue with IV Lasix 40 mg twice daily and monitor daily weight as patient refuses to allow nursing staff to measure urine output. (3) Anxiety state, unspecified: Plan: Continue buspirone 10 mg twice daily, continue to provide benzodiazepines as needed. (4) Hypertension, essential: Plan: Will continue to monitor at this point, blood pressure is stable, continue with Toprol-XL. (5) Chronic venous stasis dermatitis: Plan: Continue topical care, keep legs elevated to decrease the tissue pressure. Plan Continue IV diuresis, monitor response, daily weight, discussed with cardiology on a daily basis. Admission and Anticipated Discharge Date Admission Date: September 11, 2024 Subjective Patient is a very pleasant 83-year-old female with history of atrial fibrillation, chronic lower extremity venous stasis with some dermatitis, and a strong element of anxiety who was admitted to the hospital because of fast heartbeat, patient also complained that lately she has been very anxious. On admission she was found to be in atrial fibrillation and RVR, she was managed with Cardizem infusion, she was taken off Cardizem infusion and was started on Cardizem p.o. 30 mg every 6 on which she responded well, she was then transition to Cardizem CD 180 mg daily along with metoprolol 50 mg twice daily. Echocardiogram during this visit showed ejection fraction 55 to 60% with mild to moderate tricuspid regurgitation and elevated right atrial pressure. PA pressure was 36. Overnight patient did not allow nursing staff to measure her urine output as she refused to use urinal hat, her body weight showed that she was about 10 pounds less than yesterday. Communicated with cardiology, at this point they recommend further IV diuresis and adjusting of her medications. Physical Exam Physical Exam: VITALS: Reviewed. WEIGHT/BMI reviewed. GEN: Healthy appearing, well-developed, NAD. NECK: Supple, with no masses. CV: Irregularly irregular rhythm, heart rate is still slightly elevated LUNGS: CTAB, no w/r/c. ABD: Soft, NT/ND, NBS, no masses or organomegaly. SKIN: Patient has evidence of chronic venous stasis with some element of dermatitis but no active cellulitis Results & Data Results & Data Vital Signs (Past 12 Hours) Vital Signs Temp Pulse Resp BP Pulse Ox O2 Del Method 09/13/24 07:29 36.4 C L 106 H 18 125/84 94 Room Air 09/13/24 03:41 36.7 C 94 H 19 132/80 96 Room Air 09/13/24 00:39 36.6 C 100 H 18 122/81 92 Room Air Laboratory Results Laboratory Results - last 24 hr 09/13/24 05:52 Sodium 138 Potassium 3.8 Chloride 102 Carbon Dioxide 30 Anion Gap 6 BUN 13 Creatinine 0.87 Est Cr Clr Drug Dosing 49.9 eGFR 66.48 BUN/Creatinine Ratio 14.9 Glucose 109 H Calcium 8.7 Diagnostic Findings Laboratory Results - last 24 hr 09/13/24 05:52 Sodium 138 Potassium 3.8 Chloride 102 Carbon Dioxide 30 Anion Gap 6 BUN 13 Creatinine 0.87 Est Cr Clr Drug Dosing 49.9 eGFR 66.48 BUN/Creatinine Ratio 14.9 Glucose 109 H Calcium 8.7 Medications Administered Current Inpatient Medications Acetaminophen (Acetaminophen 325 Mg Tab) 650 mg PO Q4H PRN PRN Reason: Pain or Fever Stop: 10/11/24 13:22 Apixaban (Apixaban 5 Mg Tablet) 5 mg PO BID [facility] Stop: 10/11/24 20:59 Last Admin: 09/13/24 08:01 Dose: 5 mg Atorvastatin Calcium (Atorvastatin 40 Mg Tab) 40 mg PO HS [facility] Stop: 10/12/24 20:59 Last Admin: 09/12/24 19:54 Dose: Not Given Buspirone HCl (Buspirone 5 Mg Tab) 10 mg PO BID [facility] Stop: 10/12/24 08:59 Last Admin: 09/13/24 08:01 Dose: 10 mg Cetirizine HCl (Cetirizine Hcl 10 Mg Tablet) 5 mg PO QAM [facility] Stop: 10/12/24 08:59 Last Admin: 09/13/24 08:01 Dose: 5 mg Furosemide (Furosemide 40 Mg/4 Ml Vial) 60 mg IV ONE ONE Stop: 09/13/24 15:01 Lactobacillus Acidophilus (Advanced Probiotic 625 Mg Capsule) 1,250 mg PO DAILY [facility] Stop: 10/11/24 13:22 Last Admin: 09/13/24 08:01 Dose: 1,250 mg Losartan Potassium (Losartan Potassium 50 Mg Tab) 50 mg PO QAM [facility] Stop: 10/13/24 08:59 Last Admin: 09/13/24 08:02 Dose: 50 mg Metoprolol Succinate (Metoprolol Succ 50mg Ext Rel Tab) 100 mg PO BID [facility] Stop: 10/13/24 20:59 Multivitamins (Multivitamin Tab) 1 tab PO QAM [facility] Stop: 10/12/24 08:59 Last Admin: 09/13/24 08:02 Dose: 1 tab (2) Volume overload Hypervolemia type: other Qualified Code(s): E87.79 - Other fluid overload
[2024-09-13] MEDS: AZITHROMYCIN 250 MG TAB PO SCH (11:29)
[2024-09-13] MEDS: FUROSEMIDE 40 MG/4 ML VIAL IV ONE (15:02)
[2024-09-13] MEDS: METOPROLOL SUCC 50MG EXT REL TAB PO SCH (20:02)
--- NOTE | 2024-09-13 21:48 | Electrocardiogram Report ---
Test Reason : Blood Pressure : */* mmHG Vent. Rate : 131 BPM Atrial Rate : * BPM P-R Int : * ms QRS Dur : 68 ms QT Int : 316 ms P-R-T Axes : * 66 -50 degrees QTcB Int : 466 ms Atrial fibrillation with rapid ventricular response with premature ventricular or aberrantly conducte d complexes Low voltage QRS Nonspecific T wave abnormality Abnormal ECG When compared with ECG of 03-Sep-2022 21:59, Atrial fibrillation has replaced Sinus rhythm Vent. rate has increased by 54 bpm QRS voltage has decreased Nonspecific T wave abnormality now evident in Anterolateral leads Confirmed by Rony Carrion ([id number]) on 09/13/2024 9:48:14 PM Referred By: REFERRED SELF Confirmed By: Rony Carrion
[2024-09-14] MEDS: MAGNESIUM SULFATE / D5W 1 GM/100 ML BAG IV SCH (00:02)
[2024-09-14] MEDS: METOPROLOL TARTRATE 1 MG/ML VIAL IV STA (00:03)
[2024-09-14 07:52] LABS: BUN Creatinine Ratio 15.9 (10-20); Calcium 8.9 mg/dl (8.6-10.3); Creatinine Clr Calc Pharmacy 52.2 ml/min; Potassium 3.6 mmol/L (3.5-5.1)
--- NOTE | 2024-09-14 10:27 | Cardiology Progress Note ---
Date of Service September 14, 2024 Assessment & Plan (1) Atrial fibrillation with rapid ventricular response: (2) Bilateral lower leg cellulitis: (3) Acute heart failure with preserved ejection fraction: Plan 83-year-old female admitted with anxiety, acute on chronic dyspnea and lower extremity peripheral edema and erythema, left lower extremity cellulitis, atrial fibrillation with a rapid ventricular response Left lower extremity cellulitis. As per Hospitalist service. Atrial fibrillation with a rapid ventricular response. - Proceed with rate control for now, considering referral for cardioversion pending response to rate control strategy, correction of other issues - Increase metoprolol succinate to 150 mg AM and 100 mg in the PM - Calcium channel toni therapy note recommended, RE: chronic venous stasis, chronic fluid retention, lower extremity wounds, HFpEF - Continue apixaban (Eliquis) anticoagulation without interruption. HFpEF with likely associated moderate right pleural effusion - Supplement potassium orally - Continue IV diuretic therapy - ? transition to oral torsemide tomorrow Admission and Anticipated Discharge Date Admission Date: September 11, 2024 Supervising Physician Co-Signing Physician Notes Attending attestation: Case reviewed with the advanced practitioner. I have personally performed a history and physical examination on the patient. I have reviewed the advanced practitioner's documentation on the date of service referenced in note, and I agree with, and take responsibility for the plan of care. Recommend ongoing IV diuretic therapy and oral metoprolol as noted. I spent a total of 20 minutes coordinating, documenting, and providing care for this patient excluding time spent in the performance of separately billed services or time spent by another provider. Gee Kendall, DO Subjective Patient seen and examined. Chart, medications, and telemetry reviewed. Notes good diuresis after IV furosemide yesterday afternoon, requesting addition IV furosemide today. + Dyspnea, lower extremity edema, anxiety associated with increased heart rates. No chest pain. Patient chronically prescribed Eliquis anticoagulation, without recent interruption. I/O's not accurately recorded. Review of Systems Review of Systems: Complete review of systems is otherwise as stated above, negative, or noncontributory. Physical Exam Physical Exam: General: A&Ox3. NAD. HENT: Normocephalic. Atraumatic. Eyes: PER. Conjunctiva pink, sclera clear. Neck: No JVD. Heart: Irregularly irregular 100 bpm. Soft systolic murmur at the lower left sternal border. Lungs: Absent breath sounds at the right base. Decreased on the left. Abdomen: +BS. Soft. Nontender. No masses or organomegaly. Extremities: 1+ edema. Venous stasis changes, chronic indurated edema and erythema. Left lower extremity wound dressing not removed. Limited neurological examination is without focal deficits. Results & Data Vital Signs (Past 12 Hours) Vital Signs Temp Pulse Pulse Resp BP Pulse Ox O2 Del Method 09/14/24 07:14 36.5 C 103 H 20 145/90 H 94 Room Air 09/14/24 03:40 36.9 C 94 H 18 124/78 94 Room Air 09/14/24 00:18 98 H 09/13/24 23:11 36.7 C 109 H 18 126/89 93 Room Air Laboratory Results Comprehensive Metabolic Panel 09/14/24 Range/Units 07:07 Sodium 138 (136-145) mmol/L Potassium 3.6 (3.5-5.1) mmol/L Chloride 100 (98-107) mmol/L Carbon Dioxide 32 (21-32) mmol/L BUN 13 (6-23) mg/dl Creatinine 0.82 (0.6-1.2) mg/dl Glucose 108 H (70-99(Fasting)) mg/dl Calcium 8.9 (8.6-10.3) mg/dl Intake and Output 09/13/24 09/14/24 09/14/24 22:59 06:59 14:59 Intake Total 700 / 982.5 282.5 / 982.5 Balance 700 / 982.5 282.5 / 982.5 Intake: IV 182.5 / 182.5 Magnesium Sulfate / D5w 1 gm In 182.5 / 182.5 100 ml @ 50 mls/hr IV Q2H [facility] Rx#:[id number] Oral 700 / 800 100 / 800 Other: # Unmeasured Voids 2 2 Weight 77.655 kg Weight Measurement Method Standing Scale Diagnostic Findings Telemetry: Atrial fibrillation with mildly elevated rates
--- NOTE | 2024-09-14 11:11 | Hospitalist Progress Note ---
Date of Service September 14, 2024 Assessment & Plan (1) Atrial fibrillation with rapid ventricular response: Plan: Heart rate is still borderline, Toprol-XL was increased 250 mg in the morning and 100 mg in the afternoon per cardiology, will monitor response overnight. Continue with Eliquis. (2) Volume overload: Plan: This is as a result of acute on chronic diastolic CHF, continue with IV Lasix 40 mg twice daily and monitor daily weight, potential transition to oral diuretic tomorrow per cardiology. (3) Anxiety state, unspecified: Plan: Continue buspirone 10 mg twice daily, continue to provide benzodiazepines as needed. (4) Hypertension, essential: Plan: Blood pressure is stable, monitor while on Toprol-XL. (5) Chronic venous stasis dermatitis: Plan: Continue topical care, keep legs elevated to decrease the tissue pressure. Because of the wound that she had over the left lower extremity and small ulcer which later cultured and grew Pseudomonas based on the sensitivity results and considering the patient is already have another indication for antibiotic which is her complaint of sinusitis, I decided to transition to Levaquin for now, I intend to treat with Levaquin for 7 days however I will be for now giving 500 mg considering that she is getting diuresis. If the kidney function permits, the dose ideally should be 750 mg daily upon discharge. Plan Continue IV diuresis, monitor heart rate and response to increased dose of Toprol-XL. Discussed with cardiology tomorrow to see if patient is stable to be transition to oral diuretic and discharged. Admission and Anticipated Discharge Date Admission Date: September 11, 2024 Subjective Patient is a very pleasant 83-year-old female with history of atrial fibrillation, chronic lower extremity venous stasis with some dermatitis, and a strong element of anxiety who was admitted to the hospital because of fast heartbeat, patient also complained that lately she has been very anxious. On admission she was found to be in atrial fibrillation and RVR, she was managed with Cardizem infusion, she was taken off Cardizem infusion and was started on Cardizem p.o. 30 mg every 6 on which she responded well, she was then transition to Cardizem CD 180 mg daily along with metoprolol 50 mg twice daily. Echocardiogram during this visit showed ejection fraction 55 to 60% with mild to moderate tricuspid regurgitation and elevated right atrial pressure. PA pressure was 36. Patient was started initially on Cardizem CD however this was then changed to metoprolol by cardiology and was increased to on daily basis to achieve better heart rate control, as of today her metoprolol was increased 250 mg in the morning and 100 mg the afternoon. Cardiology recommends ongoing IV diuretic treatment. There is a potential for transition to oral diuretic on 09/15/2024. Physical Exam Physical Exam: VITALS: Reviewed. WEIGHT/BMI reviewed. GEN: Healthy appearing, well-developed, NAD. NECK: Supple, with no masses. CV: Irregularly irregular rhythm, heart rate is still slightly elevated LUNGS: CTAB, no w/r/c. ABD: Soft, NT/ND, NBS, no masses or organomegaly. SKIN: Left lower extremity wound, very minimal leg swelling Results & Data Results & Data Vital Signs (Past 12 Hours) Vital Signs Temp Pulse Pulse Resp BP Pulse Ox O2 Del Method 09/14/24 10:48 36.6 C 103 H 16 140/85 96 Room Air 09/14/24 07:14 36.5 C 103 H 20 145/90 H 94 Room Air 09/14/24 05:51 108 H 09/14/24 03:40 36.9 C 94 H 18 124/78 94 Room Air 09/14/24 00:18 98 H 09/13/24 23:11 36.7 C 109 H 18 126/89 93 Room Air Laboratory Results Laboratory Results - last 24 hr 09/14/24 07:07 Sodium 138 Potassium 3.6 Chloride 100 Carbon Dioxide 32 Anion Gap 6 BUN 13 Creatinine 0.82 Est Cr Clr Drug Dosing 52.2 eGFR 71.37 BUN/Creatinine Ratio 15.9 Glucose 108 H Calcium 8.9 Medications Administered Current Inpatient Medications Acetaminophen (Acetaminophen 325 Mg Tab) 650 mg PO Q4H PRN PRN Reason: Pain or Fever Stop: 10/11/24 13:22 Apixaban (Apixaban 5 Mg Tablet) 5 mg PO BID [facility] Stop: 10/11/24 20:59 Last Admin: 09/14/24 07:57 Dose: 5 mg Atorvastatin Calcium (Atorvastatin 40 Mg Tab) 40 mg PO HS [facility] Stop: 10/12/24 20:59 Last Admin: 09/13/24 20:02 Dose: 40 mg Buspirone HCl (Buspirone 5 Mg Tab) 10 mg PO BID [facility] Stop: 10/12/24 08:59 Last Admin: 09/14/24 07:56 Dose: 10 mg Cetirizine HCl (Cetirizine Hcl 10 Mg Tablet) [facility] [place]: 10/12/24 08:59 Last Admin: 09/14/24 07:57 Dose: 5 mg Furosemide (Furosemide 40 Mg/4 Ml Vial) 80 mg IV ONE ONE Stop: 09/14/24 15:01 Lactobacillus Acidophilus (Advanced Probiotic 625 Mg Capsule) 1,250 mg PO DAILY [facility] Stop: 10/11/24 13:22 Last Admin: 09/14/24 08:10 Dose: 1,250 mg Levofloxacin (Levofloxacin 500 Mg Tab) 500 mg PO DAILY@1100 [facility]; Protocol Stop: 09/21/24 10:59 Losartan Potassium (Losartan Potassium 50 Mg Tab) [facility] [place] Stop: 10/13/24 08:59 Last Admin: 09/14/24 07:58 Dose: 50 mg Metoprolol Succinate (Metoprolol Succ 50mg Ext Rel Tab) [facility] [place]: 10/15/24 08:59 Metoprolol Succinate (Metoprolol Succ 50mg Ext Rel Tab) 100 mg PO QPM [facility] Stop: 10/14/24 20:59 Multivitamins (Multivitamin Tab) [facility] [place]: 10/12/24 08:59 Last Admin: 09/14/24 07:57 Dose: 1 tab Potassium Chloride (Potassium Chloride Crtab 20 Meq Tabcr) 20 meq PO ONE ONE Stop: 09/14/24 15:01 (2) Volume overload Hypervolemia type: other Qualified Code(s): E87.79 - Other fluid overload
[2024-09-14] MEDS: levoFLOXacin 500 MG TAB PO SCH (11:12)
[2024-09-14] MEDS: POTASSIUM CHLORIDE CRTAB 20 MEQ TABCR PO ONE ×2 (11:12→15:19)
[2024-09-14] MEDS: METOPROLOL SUCC 50MG EXT REL TAB PO ONE (11:12)
[2024-09-14] MEDS: FUROSEMIDE 40 MG/4 ML VIAL IV ONE (15:14)
[2024-09-14] MEDS: METOPROLOL SUCC 50MG EXT REL TAB PO SCH (19:54)
--- NOTE | 2024-09-14 22:27 | Electrocardiogram Report ---
Test Reason : Blood Pressure : */* mmHG Vent. Rate : 104 BPM Atrial Rate : * BPM P-R Int : * ms QRS Dur : 70 ms QT Int : 366 ms P-R-T Axes : * 18 -58 degrees QTcB Int : 481 ms Atrial fibrillation with rapid ventricular response Prolonged QT Abnormal ECG When compared with ECG of 11-Sep-2024 08:56, Inverted T waves have replaced nonspecific T wave abnormality in Anterior leads Confirmed by Rony Carrion ([id number]) on 09/14/2024 10:26:52 PM Referred By: REFERRED SELF Confirmed By: Rony Carrion
[2024-09-15] MEDS: METOPROLOL SUCC 50MG EXT REL TAB PO SCH (08:39)
--- NOTE | 2024-09-15 09:10 | Cardiology Progress Note ---
Date of Service September 15, 2024 Assessment & Plan (1) Atrial fibrillation with rapid ventricular response: (2) Bilateral lower leg cellulitis: (3) Acute heart failure with preserved ejection fraction: Plan 83-year-old female admitted with anxiety, acute on chronic dyspnea and lower extremity peripheral edema and erythema, left lower extremity cellulitis, atrial fibrillation with a rapid ventricular response Left lower extremity cellulitis. As per Hospitalist service. Atrial fibrillation with a rapid ventricular response. - Proceed with rate control for now, considering referral for cardioversion pending response to rate control strategy, correction of other issues - Increase metoprolol succinate to 150 mg AM and 100 mg in the PM - Calcium channel toni therapy note recommended, RE: chronic venous stasis, chronic fluid retention, lower extremity wounds, HFpEF - Continue apixaban (Eliquis) anticoagulation without interruption. HFpEF with likely associated moderate right pleural effusion - Supplement potassium orally - Continue IV diuretic therapy - ? transition to oral torsemide tomorrow 09/15/2024: -Rates remain above target although improved since initial arrival. -Continue rate control with Toprol xl 150mg Qam and 100mg QPM. -Consider referring for possible cardioversion if rates remain above target. Will discuss with Dr. Kendall -Avoid Calcium channel blockers as previously stated due to her lower extremity wound and fluid retention. -Continue Eliquis for oral anticoagulation without interruption. Case has been discussed with Dr. Kendall. Further recommendations regarding plan of care as per his assessment. I spent a total of 30 minutes on the date of service in preparation, delivery, documentation of the care provided to the patient excluding any time spent in the performance of separately billed services. CHRISTINE Winchester [facility] Admission and Anticipated Discharge Date Admission Date: September 11, 2024 Supervising Physician Co-Signing Physician Notes Attending attestation: Case reviewed with the advanced practitioner. I have personally performed a history and physical examination on the patient. I have reviewed the advanced practitioner's documentation on the date of service referenced in note, and I agree with, and take responsibility for the plan of care. LE edema improved s/p furosemide 80 mg on 09/14/24. Question if fluid retention would be improved if in SR. Prior h/o PAF, now persi stent AF this admission. Moderate LA enlargement on echo. Chronic Eliquis treatment without missed doses in over a month. * repeat bmp , Mag level , prior to furosemide IV today. * NPO after MN. Inpatient cardioversion on 09/16. Anesthesia consult placed. I spent a total of 20 minutes coordinating, documenting, and providing care for this patient excluding time spent in the performance of separately billed services or time spent by another provider. Gee Kendall DO Subjective 09/15/2024: Patient seen and examined in follow up today. Feeling well from a cardiac perspective. Patient states that she just feels very anxious and she "knows this is my whole issue". She does not have a PCP, but did speak with the hospitalist team today about consideration for anti-anxiety medications. She denies chest pain, pressure, palpitations, shortness of breath, PND, pre- syncope, syncope or edema. Labs, vitals, diagnostics, telemetry and documentation reviewed. Telemetry reviewed showing A-fib rates 100-120bpm, with non-sustained burst of 140-160bpm. Review of Systems Review of Systems: All systems reviewed & are unremarkable except as noted in HPI & below Physical Exam Constitutional: well developed and well nourished; no acute distress and not ill appearing Neck: normal visual inspection and trachea midline Respiratory: normal respiratory effort; no respiratory distress and no labored breathing Auscultation: lungs clear to auscultation bilaterally; no diminished lung sounds, no crackles, no rales, no rhonchi and no wheezes Cardiovascular: Rate/Rhythm: + tachycardic and + irregularly irregular Heart Sounds: normal S1, normal S2 and + murmur (+1/6 systolic ) Vessels: dorsalis pedis pulses present; no JVD Extremities: no edema Skin: + rash (ongoing discoloration, peeling o f BLE s/t a detox wrap) Psychiatric: A+Ox3, euthymic affect Results & Data Vital Signs (Past 12 Hours) Vital Signs Temp Pulse Resp BP Pulse Ox O2 Del Method 09/15/24 08:13 36.8 C 92 H 18 122/74 91 Room Air 09/15/24 03:58 36.6 C 56 L 18 124/87 94 Room Air 09/14/24 23:07 36.9 C 107 H 16 138/78 95 Room Air Laboratory Results Intake and Output 09/14/24 09/15/24 09/15/24 22:59 06:59 14:59 Intake Total 100 / 500 Output Total Balance 100 / 500 -1 -1 Intake: Oral 100 / 500 Output: # Bowel Movements Other: # Unmeasured Voids 1 Weight 76.8 kg Weight Measurement Method Standing Scale
[2024-09-15] MEDS: LORazepam 0.5 MG TAB PO STA (12:14)
[2024-09-15 15:15] LABS: BUN Creatinine Ratio 20.3 (10-20); Calcium 8.8 mg/dl (8.6-10.3); Creatinine Clr Calc Pharmacy 53.9 ml/min; Potassium 4.4 mmol/L (3.5-5.1)
--- NOTE | 2024-09-15 17:06 | Hospitalist Progress Note ---
Date of Service September 15, 2024 Assessment & Plan (1) Atrial fibrillation with rapid ventricular response: Plan: -Heart rate is still borderline Plan: -appreciate cardiology recommendations -plan for cardioversion tomorrow, NPO after midnight -continue metoprolol and eliquis (2) Volume overload: Plan: -appears to have improved Plan: -switch to torsemide at discharge (3) Anxiety state, unspecified: Plan: -patient is quite anxious Plan: -start lexapro 10 mg (discussed risks and benefits with patient, who is in agreement) -continue buspar -prn ativan on as needed basis (4) Hypertension, essential: Plan: -Blood pressure is stable, monitor while on Toprol-XL. (5) Chronic venous stasis dermatitis: Plan: -Continue topical care, keep legs elevated to decrease the tissue pressure. -continue levaquin Plan Feeding/fluids: regular (NPO after midnight) Analgesia: tylenol Sedation: none Thromboprophylaxis: eliquis Head up position: na Ulcer prophylaxis: na Glycemic control: na Spontaneous breathing trial: na Bowel care: start miralax prn Indwelling catheter removal: na Deescalation of antibiotics: levaquin oral I spent a total of 45 minutes coordinating, documenting, and providing care for this patient excluding time spent in the performance of separately billed services. Admission and Anticipated Discharge Date Admission Date: September 11, 2024 Subjective patient seen and examined at bedside. Patient is doing better today. She states that she feels close to being able to go home. She is concerned about her anxiety. She states is uncontrolled. BuSpar only helps a little bit. Review of Systems Review of Systems: CONSTITUTIONAL: Patient denies fevers, chills, sweats and weight changes. EYES: Patient denies any visual symptoms. EARS, NOSE, AND THROAT: No difficulties with hearing. No symptoms of rhinitis or sore throat. CARDIOVASCULAR: palpitations RESPIRATORY: No dyspnea on exertion, no wheezing or cough. GI: No nausea, vomiting, diarrhea, constipation, abdominal pain, hematochezia or melena. : No urinary hesitancy or dribbling. No nocturia or urinary frequency. No abnormal urethral discharge. MUSCULOSKELETAL: No myalgias or arthralgias. NEUROLOGIC: No chronic headaches, no seizures. Patient denies numbness, tingling or weakness. PSYCHIATRIC: anxiety ENDOCRINE: No excessive urination or excessive thirst. DERMATOLOGIC: Patient denies any rashes or skin changes. Physical Exam Physical Exam: Gen: A&O 3 NAD HEENT: NCAT, EOMI, not icteric. External ears normal. No rhinorrhea. Moist mucous membranes. Neck: Supple, full range of motion, no observable masses, No meningeal sign. Lungs: No Respiratory distress. CV: tachycardic, irregular rate Abdomen: Soft, nondistended, No rebound tenderness. MSK: No joint swelling, no redness. Skin: No rashes, petechiae, lesions. Normal color per patient. Neuro: Normal Gait, Grossly intact. Psych: Appropriate for situation. Anxious Results & Data Results & Data Vital Signs (Past 12 Hours) Vital Signs Temp Pulse Resp BP Pulse Ox O2 Del Method 09/15/24 16:39 36.6 C 90 18 124/91 97 Room Air 09/15/24 12:31 36.7 C 125 H 20 117/81 97 Room Air 09/15/24 08:13 36.8 C 92 H 18 122/74 91 Room Air 09/15/24 08:00 Room Air Laboratory Results Laboratory Results WBC 6.83 K/ul (4.8-10.8) 09/12/24 05:47 RBC 3.65 M/uL (4.20-5.40) L 09/12/24 05:47 Hgb 11.7 g/dl (12.0-16.0) L 09/12/24 05:47 Hct 35.0 % (37.0-47.0) L 09/12/24 05:47 MCV 95.9 fL (80.0-100.0) 09/12/24 05:47 MCH 32.1 pg (25.0-34.0) 09/12/24 05:47 MCHC 33.4 g/dL (32.0-36.0) 09/12/24 05:47 RDW Std Deviation 49.3 fL (36.4-46.3) H 09/12/24 05:47 RDW Coeff of Ander 13.9 % (11.5-14.5) 09/12/24 05:47 Plt Count 173 K/uL (130-400) 09/12/24 05:47 MPV 9.8 fL (9.4-12.4) 09/12/24 05:47 Immature Gran % (Auto) 0.1 % 09/12/24 05:47 Neut % (Auto) 70.1 % 09/12/24 05:47 Lymph % (Auto) 16.3 % 09/12/24 05:47 [place] % (Auto) 10.8 % 09/12/24 05:47 Eos % (Auto) 2.0 % 09/12/24 05:47 Baso % (Auto) 0.7 % 09/12/24 05:47 Neut # (Auto) 4.78 K/uL (1.40-6.50) 09/12/24 05:47 Lymph # (Auto) 1.11 K/uL (1.20-3.40) L 09/12/24 05:47 [place] # (Auto) 0.74 K/uL (0.11-0.59) H 09/12/24 05:47 Eos # (Auto) 0.14 K/uL (0.00-0.50) 09/12/24 05:47 Baso # (Auto) 0.05 K/uL (0.00-0.20) 09/12/24 05:47 Immature Gran # (Auto) 0.01 K/uL (0.01-0.20) 09/12/24 05:47 PT 12.4 Seconds (9.0-12.0) H 09/11/24 09:07 INR 1.2 (0.9-1.1) H 09/11/24 09:07 APTT 29 Seconds (21-31) 09/11/24 09:07 PTT Ratio 1.1 09/11/24 09:07 Sodium 135 mmol/L (136-145) L 09/15/24 14:43 Potassium 4.4 mmol/L (3.5-5.1) D 09/15/24 14:43 Chloride 99 mmol/L (98-107) 09/15/24 14:43 Carbon Dioxide 31 mmol/L (21-32) 09/15/24 14:43 Anion Gap 5 (3-11) 09/15/24 14:43 BUN 16 mg/dl (6-23) 09/15/24 14:43 Creatinine 0.79 mg/dl (0.6-1.2) 09/15/24 14:43 Est Cr Clr Drug Dosing 53.9 ml/min 09/15/24 14:43 eGFR 74.64 09/15/24 14:43 BUN/Creatinine Ratio 20.3 (10-20) H 09/15/24 14:43 Glucose 117 mg/dl (70-99(Fasting)) H 09/15/24 14:43 Calcium 8.8 mg/dl (8.6-10.3) 09/15/24 14:43 Magnesium 2.0 mg/dl (1.7-2.4) 09/15/24 14:43 Total Bilirubin 1.0 mg/dl (0.2-1.0) 09/11/24 09:07 AST 18 U/L (13-39) 09/11/24 09:07 ALT 19 U/L (7-52) 09/11/24 09:07 Alkaline Phosphatase 75 U/L (34-104) 09/11/24 09:07 Troponin I High Sens 8.9 pg/ml (0-14) 09/11/24 09:07 B-Natriuretic Peptide 611 pg/ml (0-100) H 09/11/24 09:07 Total Protein 6.4 gm/dl (6.0-8.3) 09/11/24 09:07 Albumin 4.1 gm/dl (3.4-5.0) 09/11/24 09:07 Globulin 2.3 gm/dl (2.5-4.0) L 09/11/24 09:07 Albumin/Globulin Ratio 1.8 (0.9-2) 09/11/24 09:07 TSH 2.408 uIu/ml (0.300-4.500) 09/11/24 09:07 Adenovirus (PCR) Not Detected (NotDetected) 09/11/24 14:25 B. pertussis DNA (PCR) Not Detected (NotDetected) 09/11/24 14:25 B.parapertussis DNA PCR Not Detected (NotDetected) 09/11/24: C. pneumoniae DNA (PCR) Not Detected (NotDetected) 09/11/24 14:25 Coronavirus OC43 (PCR) Not Detected (NotDetected) 09/11/24 14:25 Coronavirus HKU1 (PCR) Not Detected (NotDetected) 09/11/24 14:25 Coronavirus 229E (PCR) Not Detected (NotDetected) 09/11/24 14:25 SARS-CoV-2 (PCR) Not Detected (NotDetected) 09/11/24 14:25 Coronavirus NL63 (PCR) Not Detected (NotDetected) 09/11/24 14:25 Human Metapneumovir PCR Not Detected (NotDetected) 09/11/24 14:25 Influenza Type A (PCR) Not Detected (NotDetected) 09/11/24 14:25 Influenza Type B (PCR) Not Detected (NotDetected) 09/11/24 14:25 M. pneumoniae (PCR) Not Detected (NotDetected) 09/11/24 14:25 Parainfluenza 1 (PCR) Not Detected (NotDetected) 09/11/24 14:25 Parainfluenza 2 (PCR) Not Detected (NotDetected) 09/11/24 14:25 Parainfluenza 3 (PCR) Not Detected (NotDetected) 09/11/24 14:25 Parainfluenza 4 (PCR) Not Detected (NotDetected) 09/11/24 14:25 RSV (PCR) Not Detected (NotDetected) 09/11/24 14:25 Entero/Rhino (PCR) Not Detected (NotDetected) 09/11/24 14:25 Impressions Chest X-Ray 09/13/24 07:06 EXAM: XR chest 1V portable CLINICAL HISTORY: PULMONARY EDEMA TECHNIQUE: An X-ray image of the chest is obtained in AP projection. COMPARISON: No prior studies are available for comparison. FINDINGS: Patient rotation seen. Pulmonary Parenchyma: Slight to minimally prominent bronchovascular markings of both lung tiwari, could be nonspecific however early insignificant congestive changes may need exclusion. Opacification of the right lung lower zone with silhouetting of the right hemidiaphragm and costophrenic angle suggest mild to moderate right-sided pleural effusion. Loss of the normal sharpness of the left costophrenic angle also seen suggests mild to minimal pleural effusion. Heart and Mediastinum: Cardiomegaly. No mediastinal widening or masses. No hilar or mediastinal lymphadenopathy. Bony Thorax: Bony thorax appears intact without fractures or deformities. Degenerative changes seen in left glenohumeral joint. Soft Tissues: Soft tissues overlying the chest wall are unremarkable. IMPRESSION: 1. Mild to moderate right-sided pleural effusion seen with possible underlying consolidation/collapse of right lung lower zone. 2. Minimal left-sided pleural effusion. 3. Cardiomegaly. 4. Degenerative changes of left glenohumeral joint. Electronically signed by Nirav Bird 09-13-2024 08:05 AM Medications Administered Apixaban (Apixaban 5 Mg Tablet) 5 mg PO BID AIDE Stop: 10/11/24 20:59 Last Admin: 09/15/24 08:37 Dose: 5 mg Documented By: Admin: 09/14/24 19:55 Dose: 5 mg Documented By: Admin: 09/14/24 07:57 Dose: 5 mg Documented By: Admin: 09/13/24 20:02 Dose: 5 mg Documented By: Admin: 09/13/24 08:01 Dose: 5 mg Documented By: Admin: 09/12/24 19:55 Dose: 5 mg Documented By: Admin: 09/12/24 09:19 Dose: 5 mg Documented By: Admin: 09/11/24 19:59 Dose: 5 mg Documented By: AKP Atorvastatin Calcium (Atorvastatin 40 Mg Tab) 40 mg PO HS AIDE Stop: 10/12/24 20:59 Last Admin: 09/14/24 19:55 Dose: 40 mg Documented By: Admin: 09/13/24 20:02 Dose: 40 mg Documented By: Admin: 09/12/24 19:54 Dose: Not Given Documented By: AKP Buspirone HCl (Buspirone 5 Mg Tab) 10 mg PO BID AIDE Stop: 10/12/24 08:59 Last Admin: 09/15/24 08:37 Dose: 10 mg Documented By: Admin: 09/14/24 19:55 Dose: 10 mg Documented By: Admin: 09/14/24 07:56 Dose: 10 mg Documented By: Admin: 09/13/24 20:02 Dose: 10 mg Documented By: Admin: 09/13/24 08:01 Dose: 10 mg Documented By: Admin: 09/12/24 19:55 Dose: 10 mg Documented By: Admin: 09/12/24 09:19 Dose: 10 mg Documented By: GPF Cetirizine HCl (Cetirizine Hcl 10 Mg Tablet) 5 mg PO [facility] Stop: 10/12/24 08:59 Last Admin: 09/15/24 08:38 Dose: 5 mg Documented By: Admin: 09/14/24 07:57 Dose: 5 mg Documented By: Admin: 09/13/24 08:01 Dose: 5 mg Documented By: Admin: 09/12/24 09:20 Dose: 5 mg Documented By: GPF Lactobacillus Acidophilus (Advanced Probiotic 625 Mg Capsule) 1,250 mg PO DAILY [facility] Stop: 10/11/24 13:22 Last Admin: 09/15/24 08:38 Dose: 1,250 mg Documented By: Admin: 09/14/24 08:10 Dose: 1,250 mg Documented By: Admin: 09/13/24 08:01 Dose: 1,250 mg Documented By: Admin: 09/12/24 09:22 Dose: 1,250 mg Documented By: Admin: 09/11/24 14:10 Dose: 1,250 mg Documented By: IRINAF Levofloxacin (Levofloxacin 500 Mg Tab) 500 mg PO DAILY@1100 AIDE; Protocol Stop: 09/21/24 10:59 Last Admin: 09/15/24 11:02 Dose: 500 mg Documented By: Admin: 09/14/24 11:12 Dose: 500 mg Documented By: DENISSE Losartan Potassium (Losartan Potassium 50 Mg Tab) 50 mg PO [facility] Stop: 10/13/24 08:59 Last Admin: 09/15/24 08:39 Dose: 50 mg Documented By: Admin: 09/14/24 07:58 Dose: 50 mg Documented By: Admin: 09/13/24 08:02 Dose: 50 mg Documented By: ROLDAN Metoprolol Succinate (Metoprolol Succ 50mg Ext Rel Tab) 150 mg PO [facility] Stop: 10/15/24 08:59 Last Admin: 09/15/24 08:39 Dose: 150 mg Documented By: RAMYA Metoprolol Succinate (Metoprolol Succ 50mg Ext Rel Tab) 100 mg PO QPM [facility] Stop: 10/14/24 20:59 Last Admin: 09/14/24 19:54 Dose: 100 mg Documented By: TIEN Multivitamins (Multivitamin Tab) 1 tab PO [facility] Stop: 10/12/24 08:59 Last Admin: 09/15/24 08:44 Dose: Not Given Documented By: Admin: 09/14/24 07:57 Dose: 1 tab Documented By: Admin: 09/13/24 08:02 Dose: 1 tab Documented By: Admin: 09/12/24 09:20 Dose: 1 tab Documented By: GPF (2) Volume overload Hypervolemia type: other Qualified Code(s): E87.79 - Other fluid overload
[2024-09-15] MEDS ORDERED: POLYETHYLENE (MIRALAX) 17 GM PACK PO PRN (17:11)
[2024-09-16 06:47] LABS: Creatinine Clr Calc Pharmacy 54.9 ml/min; Magnesium 1.9 mg/dl (1.7-2.4); Potassium 4.3 mmol/L (3.5-5.1)
--- NOTE | 2024-09-16 07:36 | History & Physical Bridge Note ---
Date of Service September 16, 2024 History & Physical Bridge Note I have examined the patient, reviewed the History & Physical and in the interval since the performance of the History & Physical I have noted the following changes of clinical significance: no changes noted. Ongoing AF RVR this am. Informed consent for DCCV obtained. Patient elects to proceed. Most recent dose of Eliquis was last night at 20:32 . No missed doses.
--- NOTE | 2024-09-16 07:38 | Anesthesiology Consultation ---
Date of Service September 16, 2024 Assessment & Plan Chart Review Chart Review: Acceptable Risk for Surgery and Patient NOT seen in Pre Admission Testing Consults Requested none ASA ASA4 Proposed Anesthesia Anesthesia Type: MAC Risk / Benefits Reviewed With: PT / POA / Parent / Guardian, Accepts Plan and Informed Consent Obtained History Surgery Operation Date: 09/16/24 07:45 Proposed Procedures p Cardioversion w/Anesthesia Sedation - Gee Kendall, Height/Weight Height: 5 ft 3 in Weight: 77.655 kg Allergies Allergy/AdvReac Type Severity Reaction Status Date / Time clams Allergy Intermediate SWOLLEN Verified 09/11/24 11:35 EYES/ITCHING SKIN Penicillins Allergy Intermediate RED, Verified 09/11/24 11:35 SWOLLEN, CRUSTY EYES soy Allergy Intermediate RED, Verified 09/11/24 11:35 SWOLLEN, CRUSTY EYES Medications Home Medications Medication Instructions Recorded Confirmed Last Taken atorvastatin 40 mg tablet 40 mg PO HS 03/30/19 09/11/24 06/17/22 furosemide 20 mg tablet (Lasix) 20 mg PO QAM 03/30/19 09/11/24 06/18/22 losartan 100 mg tablet 100 mg PO QAM 03/30/19 09/11/24 06/18/22 multivitamin 1 tab PO DAILY 06/18/22 09/11/24 06/18/22 apixaban 5 mg tablet (Eliquis) 5 mg PO BID #60 tabs 06/19/22 09/11/24 Unknown buspirone 10 mg tablet 10 mg PO BID 09/11/24 09/11/24 Unknown cetirizine 5 mg tablet 5 mg PO QAM 09/11/24 09/11/24 Unknown hydralazine 10 mg tablet 0 mg PO UD 09/11/24 09/11/24 Unknown metoprolol succinate 100 mg 100 mg PO QAM 09/11/24 09/11/24 Unknown tablet,extended release 24 hr metoprolol succinate 50 mg 50 mg PO QAM 09/11/24 09/11/24 Unknown tablet,extended release 24 hr escitalopram oxalate 10 mg tablet 10 mg PO QAM #30 tabs 09/15/24 Unknown levofloxacin 500 mg tablet 500 mg PO DAILY@1100 5 days #5 tabs 09/15/24 Unknown metoprolol succinate 50 mg 100 mg (2 x 50 mg) PO QPM #60 tabs 09/15/24 Unknown tablet,extended release 24 hr metoprolol succinate 50 mg 150 mg (3 x 50 mg) PO QAM #90 tabs 09/15/24 Unknown tablet,extended release 24 hr torsemide 10 mg tablet 10 mg PO DAILY #30 tabs 09/15/24 Unknown Active Medications Generic Name Dose Route Start Last Admin Trade Name Carlosq PRN Reason Stop Dose Admin Apixaban 5 mg 09/11/24 21:00 09/15/24 20:32 Apixaban 5 Mg Tablet PO 10/11/24 20:59 5 mg BID AIDE Administration Atorvastatin Calcium 40 mg 09/12/24 21:00 09/15/24 20:33 Atorvastatin 40 Mg Tab PO 10/12/24 20:59 40 mg HS AIDE Administration Buspirone HCl 10 mg 09/12/24 09:00 09/15/24 20:32 Buspirone 5 Mg Tab PO 10/12/24 08:59 10 mg BID AIDE Administration Cetirizine HCl 5 mg 09/12/24 09:00 09/15/24 08:38 Cetirizine Hcl 10 Mg Tablet PO 10/12/24 08:59 5 mg QAM AIDE Administration Lactobacillus Acidophilus 1,250 mg 09/11/24 13:23 09/15/24 08:38 Advanced Probiotic 625 Mg Capsule PO 10/11/24 13:22 1,250 mg DAILY AIDE Administration Levofloxacin 500 mg 09/14/24 11:00 09/15/24 11:02 Levofloxacin 500 Mg Tab PO 09/21/24 10:59 500 mg DAILY@1100 AIDE Administration Protocol Losartan Potassium 50 mg 09/13/24 09:00 09/15/24 08:39 Losartan Potassium 50 Mg Tab PO 10/13/24 08:59 50 mg QAM AIDE Administration Metoprolol Succinate 150 mg 09/15/24 09:00 09/15/24 08:39 Metoprolol Succ 50mg Ext Rel Tab PO 10/15/24 08:59 150 mg QAM AIDE Administration Metoprolol Succinate 100 mg 09/14/24 21:00 09/15/24 20:32 Metoprolol Succ 50mg Ext Rel Tab PO 10/14/24 20:59 100 mg QPM AIDE Administration Multivitamins 1 tab 09/12/24 09:00 09/15/24 08:44 Multivitamin Tab PO 10/12/24 08:59 Not Given QAM [facility] Past Medical History Medical History Elevated troponin Elevated troponin I level Atrial fibrillation with rapid ventricular response Arthritis History of skin cancer Anxiety History of irregular heartbeat History of COVID-19 04/29/21 (SYMPTOMS>NASAL CONGESTION/HEADACHE/CHILLS) ALL SYMPTOMS RESOLVED Environmental allergies Hypertension Exercise / Class Metabolic Activity II 4-5 Yardwork/Stairs/Walk up hill Past Family History Family History Other No family history of adverse response to anesthesia Past Surgical History Surgical History History of right cataract surgery H/O shoulder surgery LEFT History of colonoscopy History of appendectomy History of tooth extraction H/O sinus surgery X 3 Past Anesthesia History No Hx of Anesthesia Complications and No Family Hx of Anesthesia Complications History of PONV No Hx of PONV and No Hx of Motion Sickness Social History Smoking Status: Never smoker Do You Dip or Chew Tobacco: No Hx Alcohol Use: No Alcohol type: wine alcohol intake frequency: 0-2 drinks per day Hx Substance Use: No substance use type: does not use Physical Exam Vital Signs Last Vital Signs Temp 36.8 C 09/16/24 07:24 Pulse 127 H 09/16/24 07:24 Resp 14 09/16/24 07:24 BP 150/102 H 09/16/24 07:24 Pulse Ox 96 09/16/24 07:24 O2 Del Method Room Air 09/16/24 07:24 ENMT Mouth: no dentition abnormality Thyromental Distance: > or= 3.5 Finger Breadths Mallampati Class: II Neck normal visual inspection Respiratory normal respiratory effort Auscultation: lungs clear to auscultation bilaterally Cardiovascular Rate/Rhythm: regular rhythm (afib on monitor) and + tachycardic Extremities: + edema Psychiatric Orientation: alert Testing Laboratory Results 09/12/24 05:47 09/16/24 05:53 PT 12.4 Seconds (9.0-12.0) H 09/11/24 09:07 INR 1.2 (0.9-1.1) H 09/11/24 09:07 APTT 29 Seconds (21-31) 09/11/24 09:07 09/11/24 15:02 Aerobic Blood Culture - Preliminary Blood No growth in Aerobic bottle after 48 hours. Anaerobic Blood Culture - Preliminary No growth in Anaerobic bottle after 48 hours. 09/11/24 15:10 Aerobic Blood Culture - Preliminary Blood No growth in Aerobic bottle after 48 hours. Anaerobic Blood Culture - Final 09/11/24 13:58 Gram Stain - Final Leg,Left Wound Culture - Final Pseudomonas aeruginosa Pseudomonas aeruginosa#2
--- NOTE | 2024-09-16 07:50 | Cardioversion ---
Date of Service September 16, 2024 Electrical Cardioversion Rpt Electrical Cardioversion Report Procedure Preprocedure diagnosis: Atrial fibrillation with rapid ventricular response, acute decompensation diastolic heart failure Post procedure diagnosis: Successful conversion to sinus rhythm. Direct-current cardioversion procedure: The patient's vital signs were monitored via the standard fashion. After informed consent was obtained and timeout was performed the patient underwent direct-current cardioversion receiving 150 J of synchronized biphasic energy. Sedation was provided by the anesthesia service receiving 40 mg of IV lidocaine and 30 mg of IV propofol. Sinus rhythm was noted on telemetry post procedure. Shuttle Repairer Gee Kendall DO [employer] Ladle Tender None Estimated Blood Loss 0 Findings Consistent with Post-Op Diagnosis Anesthesia Type MAC Complications none No complications were immediately apparent Plan: Obtain EKG Continue metoprolol, Eliquis. Proceed with IV furosemide 60 mg IV x 1 this morning, 20 mill equivalents of oral potassium. Anticipate possible discharge later today.
--- NOTE | 2024-09-16 08:01 | Cardiology Progress Note ---
Date of Service September 16, 2024 Assessment & Plan (1) Atrial fibrillation with rapid ventricular response: (2) Bilateral lower leg cellulitis: (3) Acute heart failure with preserved ejection fraction: Plan 83-year-old female admitted with anxiety, acute on chronic dyspnea and lower extremity peripheral edema and erythema, left lower extremity cellulitis, atrial fibrillation with a rapid ventricular response * Continue Eliquis 5 mg twice daily * Prior to hospital outpatient dose of metoprolol succinate have been 150 mg 1 time per day * Metoprolol succinate dose has been titrated to 150 mg every morning and 100 mg every afternoon. This may need to be adjusted now that she is in sinus rhythm. * Post cardioversion EKG ordered and is pending will be reviewed. * Patient on oral Levaquin for cellulitis * Escitalopram initiated for treatment of anxiety * Continue outpatient losartan 100 mg daily * Change [employer]IST furosemide 20 mg daily to torsemide 20 mg daily along with 2.5 mg of spironolactone * Repeat basic metabolic panel in 1 week postdischarge Will reassess later this am with regards to determination of discharge later today. Admission and Anticipated Discharge Date Admission Date: September 11, 2024 Subjective Patient seen in cardiology follow-up prior to, during, post direct-current cardioversion. No acute events overnight. Had remained in atrial fibrillation with mildly elevated ventricular response and therefore underwent direct-current cardioversion this morning. Physical Exam Physical Exam: Temp Pulse Resp BP Pulse Ox O2 Del Method 36.8 C 127 H 14 150/102 H 96 Room Air 09/16/24 07:24 09/16/24 07:24 09/16/24 07:24 09/16/24 07:24 09/16/24 07:24 09/16/24 07:24 Constitutional: WD/WN, vitals as above Neck: trachea midline, no thyromegaly Respiratory: normal respiratory effort, lungs clear to auscultation Cardiovascular: Rate/Rhythm: + tachycardic and + irregularly irregular Extremities: + edema (1+ with open ulceration left lower extremity ) Gastrointestinal (Abdomen): normal bowel sounds, soft, nontender, no hepatosplenomegaly Results & Data Vital Signs (Past 12 Hours) Vital Signs Temp Pulse Resp BP Pulse Ox O2 Del Method 09/16/24 07:24 36.8 C 127 H 14 150/102 H 96 Room Air 09/16/24 03:10 36.5 C 111 H 18 133/86 95 Room Air 09/15/24 23:21 36.5 C 105 H 17 128/84 95 Room Air Laboratory Results Comprehensive Metabolic Panel 09/15/24 09/16/24 Range/Units 14:43 05:53 Sodium 135 L 134 L (136-145) mmol/L Potassium 4.4 D 4.3 (3.5-5.1) mmol/L Chloride 99 98 (98-107) mmol/L Carbon Dioxide 31 30 (21-32) mmol/L BUN 16 12 (6-23) mg/dl Creatinine 0.79 0.78 (0.6-1.2) mg/dl Glucose 117 H (70-99(Fasting)) mg/dl Calcium 8.8 9.0 (8.6-10.3) mg/dl Intake and Output 09/15/24 09/16/24 09/16/24 22:59 06:59 14:59 Intake Total 690 / 690 Balance 690 / 689 Intake: Oral 690 / 690 Other: Other Intake Source NPO # Unmeasured Voids 1 2 Weight 77.655 kg 77.655 kg Weight Measurement Method Standing Scale Patient Weight 09/17/24 06:59 Weight 77.655 kg
--- NOTE | 2024-09-16 08:30 | Anesthesiology Progress Note ---
Date of Service September 16, 2024 Anesthesia Post Procedure Vital Signs Vital Signs: Temp Pulse Resp BP BP Pulse Ox O2 Del Method 09/16/24 08:15 36.6 C 82 14 127/83 99 Room Air 09/16/24 07:53 36.6 C 80 14 131/88 99 Room Air 09/16/24 07:24 36.8 C 127 H 14 150/102 H 96 Room Air 09/16/24 03:10 36.5 C 111 H 18 133/86 95 Room Air 09/15/24 23:21 36.5 C 105 H 17 128/84 95 Room Air 09/15/24 19:20 36.3 C L 108 H 18 131/90 96 Room Air 09/15/24 16:39 36.6 C 90 18 124/91 97 Room Air 09/15/24 12:31 36.7 C 125 H 20 117/81 97 Room Air Transfer of Care Handoff Completed per policy Notes Mental Status: alert / awake / arousable Patient Amnestic to Procedure: Yes Nausea / Vomiting: adequately controlled Pain: adequately controlled Airway Patency, RR, SpO2: stable & adequate BP & HR: stable & adequate Hydration State: stable & adequate Anesthetic Complications: no major complications apparent
[2024-09-16] MEDS: FUROSEMIDE 40 MG/4 ML VIAL IV ONE (09:03)
[2024-09-16] MEDS: ESCITALOPRAM OXALATE 10 MG TAB PO SCH (09:04)
[2024-09-16] MEDS: POTASSIUM CHLORIDE CRTAB 20 MEQ TABCR PO STA (09:04)
[2024-09-16 11:38] VITALS: PULSE 93; RESP 17; TEMP 97.3; O2SAT 96
--- NOTE | 2024-09-16 14:11 | Discharge Summary ---
Discharge Summary Date of Service September 16, 2024 Principal Dx & Hospital Course #1 = Principal Diagnosis (1) Atrial fibrillation with rapid ventricular response: -Heart rate is still borderline -s/p cardioversion -continue eliquis, metoprolol 100 mg and 150 mg (2) Volume overload: -appears to have improved Plan: -switch to torsemide at discharge (3) Anxiety state, unspecified: -patient is quite anxious Plan: -continue lexapro 10 mg -continue buspar (4) Hypertension, essential: -Blood pressure is stable, monitor while on Toprol-XL. (5) Chronic venous stasis dermatitis: -Continue topical care, keep legs elevated to decrease the tissue pressure. -continue levaquin Notes For Next Care Provider 83-year-old female with past medical history of paroxysmal atrial fibrillation who presents with anxiety and hypertension. In the ED noted to have heart rates of 130 and above admitted to medicine for further workup. Cardiology was consulted recommended rate control strategy, and cardioversion was performed. Medications were optimized. In addition medications were started for anxiety including Lexapro, as discussed with patient. Patient is medically stable for discharge and has been discussed with cardiology. Would uptitrate Lexapro in the outpatient setting to affect. Medication Changes From Visit -increaesd metoprolol to 150 mg in morning, 100 in evening. Admission HPI Per Admitting Provider Patient is an 83-year-old female with proximal atrial fibrillation on metoprolol XL and Eliquis, hypertension, anxiety, presenting with feelings of anxiety times few days. As per patient, she has been having episodes of feeling anxious and shortness of breath with exertion for the past few weeks. Of note, after Thanksgiving, patient started to have intermittent bilateral feet and leg swelling and redness. She recently sought care at the urgent care, and was prescribed with doxycycline with not much improvement of bilateral leg swelling. Today, patient experienced increased anxiety prompting consult to the ER. At the ER, patient was received with heart rate of 130s, blood pressure 146/114, EKG showing atrial fibrillation with RVR. Patient also with bilateral leg swelling, BNP 600s. She was given 3 doses of metoprolol IV 5 mg and Lasix 20 mg IV, ceftriaxone IV. On exam, patient's heart rate was in the 115, 120s,. She states she feels somewhat better since admission. Denies active shortness of breath, palpitations, dizziness, leg pain, fevers or chills. Discharge Exam Gen: A&O 3 NAD HEENT: NCAT, EOMI, not icteric. External ears normal. No rhinorrhea. Moist mucous membranes. Neck: Supple, full range of motion, no observable masses, No meningeal sign. Lungs: No Respiratory distress. CV: regular rate and rhythm Abdomen: Soft, nondistended, No rebound tenderness. MSK: No joint swelling, no redness. Skin: No rashes, petechiae, lesions. Normal color per patient. Neuro: Normal Gait, Grossly intact. Psych: Appropriate for situation. Anxious Updated Medication List Medication Instructions Recorded Confirmed Type atorvastatin 40 mg tablet 40 mg PO HS 03/30/19 09/11/24 History furosemide 20 mg tablet (Lasix) 20 mg PO QAM 03/30/19 09/11/24 History losartan 100 mg tablet 100 mg PO QAM 03/30/19 09/11/24 History multivitamin 1 tab PO DAILY 06/18/22 09/11/24 History apixaban 5 mg tablet (Eliquis) 5 mg PO BID #60 tabs 06/19/22 09/11/24 Rx buspirone 10 mg tablet 10 mg PO BID 09/11/24 09/11/24 History cetirizine 5 mg tablet 5 mg PO QAM 09/11/24 09/11/24 History hydralazine 10 mg tablet 0 mg PO UD 09/11/24 09/11/24 History metoprolol succinate 100 mg 100 mg PO QAM 09/11/24 09/11/24 History tablet,extended release 24 hr metoprolol succinate 50 mg 50 mg PO QAM 09/11/24 09/11/24 History tablet,extended release 24 hr escitalopram oxalate 10 mg tablet 10 mg PO QAM #30 tabs 09/15/24 Rx metoprolol succinate 50 mg 100 mg (2 x 50 mg) PO QPM #60 tabs 09/15/24 Rx tablet,extended release 24 hr metoprolol succinate 50 mg 150 mg (3 x 50 mg) PO QAM #90 tabs 09/15/24 Rx tablet,extended release 24 hr spironolactone 25 mg tablet 25 mg PO DAILY #30 tabs 09/16/24 Rx (Aldactone) torsemide 20 mg tablet 20 mg PO DAILY #30 tabs 09/16/24 Rx Hospital Stay Data Consultations 09/11/24 11:03 ED Decision to Admit Stat 09/11/24 13:23 Consult Cardiology Routine 09/15/24 14:10 Consult Anesthesiology Routine Procedures Performed Operation Date: 09/16/24 07:45 Actual Procedures p Cardioversion - Gee Kendall DO Pending Results Patient Have Any Pending Studies at Discharge: No Discharge Instructions Given to Patient (Per Discharging Provider) 1. Please start taking esciltalopram daily for anxiety. Continue buspar. Takes 4-6 weeks to feel full effects on anxiety. Total Time Total Time Spent Total Time Spent (In Minutes): I spent a total of 35 minutes coordinating, documenting, and providing care for this patient excluding time spent in the performance of separately billed services.
[2024-09-16 14:47] VITALS: BP 127/83
--- NOTE | 2024-09-17 22:27 | Electrocardiogram Report ---
Test Reason : Blood Pressure : */* mmHG Vent. Rate : 82 BPM Atrial Rate : 82 BPM P-R Int : 200 ms QRS Dur : 70 ms QT Int : 396 ms P-R-T Axes : 70 54 -17 degrees QTcB Int : 462 ms Sinus rhythm with Premature atrial complexes Nonspecific T wave abnormality Abnormal ECG When compared with ECG of 12-Sep-2024 11:49, Sinus rhythm has replaced Atrial fibrillation T wave inversion less evident in Anterior leads Confirmed by Rony Carrion ([id number]) on 09/17/2024 10:26:37 PM Referred By: REFERRED SELF Confirmed By: Rony Carrion
== END 2024-09-16 15:39 | disposition home or self-care (01) | DRG 308 ==
LOC: ED 08:50 → 4W 11:29 → SUATTDRO 11:29 → 4W 12:59
DX: Z88.0 Allergy status to penicillin; E78.5 Hyperlipidemia, unspecified; F41.9 Anxiety disorder, unspecified; I48.0 Paroxysmal atrial fibrillation; J91.8 Pleural effusion in other conditions classified elsewhere; I11.0 Hypertensive heart disease with heart failure; I48.20 Chronic atrial fibrillation, unspecified; J32.1 Chronic frontal sinusitis; J01.10 Acute frontal sinusitis, unspecified; I87.2 Venous insufficiency (chronic) (peripheral); L03.115 Cellulitis of right lower limb; L03.116 Cellulitis of left lower limb; I50.33 Acute on chronic diastolic (congestive) heart failure; E87.1 Hypo-osmolality and hyponatremia